=== PATIENT | female | born 1950 | race Caucasian/White ===

== ENCOUNTER 2023-11-30 08:00 | Inpatient (IN) | payer OTHER ==
[2023-11-30 08:31] LABS: Protime INR 1.72
[2023-11-30 08:35] LABS: Absolute Basophils 0.1 K/uL (0-0.5); Absolute Eosinophils 0.3 K/uL (0-0.5); Absolute Monocytes 0.4 K/uL (0.1-1.3); Absolute Neutrophil 4.8 K/uL (1.8-8.0); Basophils % 0.8 % (0-1.3); Eosinophils % 4.2 % (0-4.4); Hematocrit 16.5 % (36.0-45.0); Lymphocytes % 15.7 % (15.3-44.8); MCH 21.6 pg (27.0-35.0); MCHC 30.9 g/dL (32.0-36.0); Monocytes % 6.2 % (3.3-12.3); Neutrophils % 73.1 % (41.7-73.7); Nucleated Red Blood Cells % 0.1 % (0-0); Platelets 298 thou/uL (152-406); RBC Red Blood Cell Count 2.36 M/uL (3.86-4.86); Red Cell Distribution Width 15.9 % (12.1-15.2)
[2023-11-30 08:38] LABS: Hemoglobin 5.1 g/dL (12.0-15.0)
[2023-11-30 08:52] LABS: ALT/SGPT < 14 U/L (13-56); AST/SGOT < 10 U/L (15-37); Albumin 3.3 g/dL (3.4-5.0); Albumin/Globulin Ratio 0.9 (1.1-1.8); Alkaline Phosphatase 91 U/L (45-117); Anion Gap 10.4 mEq/L (5.0-15.0); BUN Blood Urea Nitrogen 27 mg/dL (7-18); Bicarbonate 24 mEq/L (21-32); Bilirubin Direct < 0.2 mg/dL (0-0.2); Bilirubin Indirect, Calculated 0.2 mg/dL (0.2-0.8); Bilirubin Total 0.4 mg/dL (0.2-1.0); Globulin 3.7 g/dL (2.3-3.5); Glomerular Filtration Rate 31 ml/min (=/>90); Glucose Level 143 mg/dL (74-106); Magnesium 1.6 mg/dL (1.6-2.4); NT PRO-BNP 2903 pg/mL (<125); Potassium 3.4 mEq/L (3.5-5.1); Sodium Level 138 mEq/L (136-145); Troponin High Sensitivity 5.2 pg/mL (<58.9)
[2023-11-30] MEDS ORDERED: PANTOPRAZOLE 40 MG INJ ONE (08:57)
--- NOTE | 2023-11-30 08:57 | RAD REPORT ---
EXAMINATION: ONE VIEW CHEST XR CLINICAL INDICATION: Female, 73 years old[address] [facility] MAIN SOB Bed Name: 4 TECHNIQUE: Frontal chest projection is submitted. Examination is limited by patient positioning and t echnique. COMPARISON: No prior exam. FINDINGS: The lungs are well inflated and clear. Superimposition of soft tissues somewhat limits evaluation. No pneumothorax or sizable effusion. The heart is normal in size. IMPRESSION: No acute intrathoracic abnormalities.
--- NOTE | 2023-11-30 08:58 | ER ---
Nurse's Notes [facility] Name: Michelle Pillai Age: 73 yrs Sex: Female : 1950 Arrival Date: 11/30/2023 Time: 07:27 Bed 4 Private MD: Diagnosis: GI Bleed/ Gastrointestinal hemorrhage, unspecified;Anemia, unspecified;Unspecified atrial fibrillation Presentation: 11/29 08:41 Chief complaint: Patient states: A fib with dyspnea worse than usual for 1 week. ll1 Coronavirus screen: Client denies travel out of the [place] in the last 14 days. At this time, the client does not indicate any symptoms associated with coronavirus-19. Ebola Screen: Patient denies travel to an Ebola-affected area in the 21 days before illness onset. Initial Sepsis Screen: Does the patient meet any 2 criteria? No. Patient's initial sepsis screen is negative. Does the patient have a suspected source of infection? No. Patient's initial sepsis screen is negative. Risk Assessment: Do you want to hurt yourself or someone else? Patient reports no desire to harm self or others. Onset of symptoms was November 23, 2023. 08:41 Method Of Arrival: Ambulatory ll1 08:41 Acuity: HIRO 3 ll1 Triage Assessment: 08:41 General: Appears in no apparent distress. Behavior is calm, cooperative, appropriate ll1 for age. General: Reports fatigue for. Pain: Denies pain. Neuro: Reports weakness. Cardiovascular: Reports fatigue, palpitations. Respiratory: Reports shortness of breath Onset: The symptoms/episode began/occurred 1 week, the patient has mild shortness of breath. Historical: - Allergies: 08:39 Benadryl; ll1 08:39 PENICILLINS; ll1 - PMHx: 08:39 Hypertensive disorder; Atrial fibrillation; ll1 - Immunization history:: Adult Immunizations up to date. - Infectious Disease History:: Denies. - Social history:: Smoking status: Patient denies any tobacco usage or history of. Screenin:45 [facility] ED Fall Risk Assessment (Adult) History of falling in the last 3 months, ll1 including since admission No falls in past 3 months (0 pts) Confusion or Disorientation No (0 pts) Intoxicated or Sedated No (0 pts) Impaired Gait No (0 pts) Mobility Assist Device Used No (0 pt) Altered Elimination No (0 pt) Score/Fall Risk Level 0 - 2 = Low Risk Maintained a safe environment, Hourly rounding (assess needs \\T\\ fall precautionary measures) done. Abuse screen: Denies threats or abuse. Nutritional screening: No deficits noted. Tuberculosis screening: No symptoms or risk factors identified. Assessment: 08:45 Cardiovascular: Rhythm is atrial fibrillation. Respiratory: Airway is patent ll1 Respiratory effort is even, unlabored, Breath sounds are clear bilaterally. 08:53 Reassessment: No changes from previously documented assessment. Patient and/or family ll1 updated on plan of care and expected duration. Pain level reassessed. Patient is alert, oriented x 3, equal unlabored respirations, skin warm/dry/pink. 09:10 Reassessment: No changes from previously documented assessment. Patient and/or family ll1 updated on plan of care and expected duration. Pain level reassessed. Patient is alert, oriented x 3, equal unlabored respirations, skin warm/dry/pink. 09:40 Reassessment: No changes from previously documented assessment. Patient and/or family ll1 updated on plan of care and expected duration. Pain level reassessed. Patient is alert, oriented x 3, equal unlabored respirations, skin warm/dry/pink. 10:40 Reassessment: No changes from previously documented assessment. Patient and/or family ll1 updated on plan of care and expected duration. Pain level reassessed. Patient is alert, oriented x 3, equal unlabored respirations, skin warm/dry/pink. 11:40 Reassessment: No changes from previously documented assessment. Patient and/or family ll1 updated on plan of care and expected duration. Pain level reassessed. Patient is alert, oriented x 3, equal unlabored respirations, skin warm/dry/pink. 12:25 Reassessment: No changes from previously documented assessment. Patient and/or family ll1 updated on plan of care and expected duration. Pain level reassessed. Patient is alert, oriented x 3, equal unlabored respirations, skin warm/dry/pink. 14:10 Reassessment: No changes from previously documented assessment. Patient and/or family ll1 updated on plan of care and expected duration. Pain level reassessed. Patient is alert, oriented x 3, equal unlabored respirations, skin warm/dry/pink. Vital Signs: 08:41 BP 103 / 55; Pulse 88; Resp 17; Pulse Ox 100% on R/A; Pain 0/10; ll1 08:53 Temp 97.3(TE); ll1 08:55 Weight 102.06 kg; Height 5 ft. 9 in. ; aa5 09:16 Pulse 89; Resp 17; Pulse Ox 100% on R/A; ll1 10:40 BP 103 / 55; Pulse 101; Resp 18; Temp 97; Pulse Ox 99% on R/A; ll1 11:40 BP 106 / 69; Pulse 106; Resp 17; Temp 97.2; Pulse Ox 99% on R/A; ll1 12:38 BP 92 / 77; Pulse 96; Resp 17; Pulse Ox 98% on R/A; ll1 14:10 BP 110 / 48; Pulse 100; Resp 17; Pulse Ox 100% on R/A; Pain 0/10; ll1 08:55 Body Mass Index 33.23 (102.06 kg, 175.26 cm) aa5 08:41 Pain Scale: Adult ll1 14:10 Pain Scale: Adult ll1 09:16 A fib on monitor ll1 ED Course: 07:59 Patient arrived in ED. ra3 08:01 Norma Hager PA-C is PHCP. sb4 08:01 Brayan Ryan MD is Attending Physician. sb4 08:14 Arm band placed on Patient placed in an exam room, on a stretcher. ll1 08:20 Inserted saline lock: 22 gauge in left antecubital area, using aseptic technique. Blood ll1 collected. Flushed with 10 mL NS. 08:20 Initial lab(s) drawn, by me, sent to lab. ll1 08:32 EKG done. ll1 08:36 XRAY Chest (1 view) In Process Unspecified. EDMS 08:43 Triage completed. ll1 08:46 Patient has correct armband on for positive identification. Provided Education on: ER ll1 procedures and process. Client placed on continuous cardiac and pulse oximetry monitoring. NIBP monitoring applied. library monitor on. 09:07 initiated transfer to [facility]. bd 09:08 Type And Screen Sent. aa5 09:08 Bb Add On Sent. aa5 10:20 Missed attempt(s): 22 gauge in right antecubital area. Bleeding controlled, band aid ll1 applied, catheter tip intact. 10:27 Inserted saline lock: 20 gauge in left wrist, using aseptic technique. Flushed with 10 bp mL NS. 10:47 spoke with Robina at [facility], no icu beds available at [facility], pt can go to a tele bed after she gets 2 units of blood. 12:06 Placido Bran is Hospitalizing Provider. sb4 12:25 1225 CM met with and her daughter Luisa at the bedside in the Ed exam ane room. Patient identified by name and . Demographic sheet confirmed. Patient states she lives with her daughter in a 2 story home, however reports she lives exclusively on the ground floor. She states that prior to admission, she performs ADLs independently and without physical limitation. Patient states she has an MPOA in place and does not have DME, HH, home oxygen or other medical services at this time. Luisa states " We did all this with my Dad, so we are familiar". states she prefers to return home upon discharge and Luisa states she will transport her home when she is discharged. CM team will continue to follow and coordinate care. 12:45 pt denied at [facility] by the GI transfer cancelled by provider. bd 14:18 No provider procedures requiring assistance completed. Patient admitted, IV remains in ll1 place. Administered Medications: 09:05 Drug: Pantoprazole IVP 80 mg IVP once Route: IVP; Site: left antecubital; aa5 10:28 Follow up: Response: No adverse reaction ll1 09:36 Drug: Pantoprazole IV 8 mg/hr IV at 25 ml/hr continuous; (Standard dilution is 80 mg in bp 250 mL NS) Route: IV; Rate: 25 ml/hr; Site: left antecubital; 14:19 Follow up: Response: No adverse reaction; IV Status: Infusion continued upon admission; ll1 IV Intake: 50ml Medication: 08:46 VIS not applicable for this client. ll1 Intake: 14:19 IV: 50ml; Total: 50ml. ll1 Outcome: 08:57 ER care complete, transfer ordered by . sb4 12:06 Decision to Hospitalize by Provider. sb4 14:15 Instructed on the need for admit, ll1 14:18 Admitted to Med/surg accompanied by tech, via stretcher, room 409, with chart, Report ll1 called to faxed to 06 20:18 Condition: stable 14:19 Patient left the ED. ll1 Signatures: Dispatcher [employer] EDMS Monica Mclean Audri, RN RN aa5 Michael Greer RN RN Dc Murillo RN RN ll1 Norma Hager, PAIsraelC PA-Kailyn [email or web address] Cori Goodman ra3 Julita Biswas RN RN ane Corrections: (The following items were deleted from the chart) 14: 08:35 Mary Shin, RN is Primary Nurse. aa5 [email or web address]
--- NOTE | 2023-11-30 08:58 | EDPHYS ---
Physician Documentation [facility] Name: Michelle Pillai Age: 73 yrs Sex: Female : 1950 Arrival Date: 11/30/2023 Time: 07:27 Bed 4 Private MD: ED Physician Brayan Ryan HPI: 11/29 08:13 This 73 yrs old Female presents to ER via Unassigned with complaints of Shortness Of sb4 Breath. 08:13 Patient with past medical history of hypertension and atrial fibrillation on metoprolol sb4 and Eliquis presents to the emergency department with complaints of shortness of breath. States that she has been in A-fib for the past couple of years but it has gotten worse over the past few weeks, making her short of breath on exertion. She saw cardiology 5 days ago who recommended her to go to the emergency department for admission and initiation of sotalol and GENNA conversion. She denies any current chest pain and is in no acute distress. Historical: - Allergies: 08:39 Benadryl; ll1 08:39 PENICILLINS; ll1 - PMHx: 08:39 Hypertensive disorder; Atrial fibrillation; ll1 - Immunization history:: Adult Immunizations up to date. - Infectious Disease History:: Denies. - Social history:: Smoking status: Patient denies any tobacco usage or history of. ROS: 08:13 Constitutional: Negative for fever, chills, and weight loss, sb4 08:13 Respiratory: Positive for dyspnea on exertion, shortness of breath, on exertion. 08:13 All other systems are negative, Exam: 08:13 Constitutional: This is a well developed, well nourished patient who is awake, alert, sb4 and in no acute distress. Head/Face: Normocephalic, atraumatic. Eyes: Extra-ocular motions intact. Periorbital areas with no swelling, redness, or edema. ENT: Mucous membranes moist. Respiratory: Lungs have equal breath sounds bilaterally, clear to auscultation and percussion. No rales, rhonchi or wheezes noted. No increased work of breathing, no retractions or nasal flaring. Abdomen/GI: Soft, non-tender, no distension. Skin: Warm, dry with normal turgor. Normal color with no rashes, no lesions, and no evidence of cellulitis. 08:13 Cardiovascular: Rate: tachycardic, Rhythm: irregularly irregular, Vital Signs: 08:41 BP 103 / 55; Pulse 88; Resp 17; Pulse Ox 100% on R/A; Pain 0/10; ll1 08:53 Temp 97.3(TE); ll1 08:55 Weight 102.06 kg; Height 5 ft. 9 in. ; aa5 09:16 Pulse 89; Resp 17; Pulse Ox 100% on R/A; ll1 10:40 BP 103 / 55; Pulse 101; Resp 18; Temp 97; Pulse Ox 99% on R/A; ll1 11:40 BP 106 / 69; Pulse 106; Resp 17; Temp 97.2; Pulse Ox 99% on R/A; ll1 12:38 BP 92 / 77; Pulse 96; Resp 17; Pulse Ox 98% on R/A; ll1 14:10 BP 110 / 48; Pulse 100; Resp 17; Pulse Ox 100% on R/A; Pain 0/10; ll1 08:55 Body Mass Index 33.23 (102.06 kg, 175.26 cm) aa5 08:41 Pain Scale: Adult ll1 14:10 Pain Scale: Adult ll1 09:16 A fib on monitor ll1 MDM: 08:01 Patient medically screened. sb4 08:51 ED course: Patient's hemoglobin came back low at 5.1. She denies any history of anemia sb4 but does report intermittent melanotic diarrhea for the past month. Denies any hematemesis. She is on Eliquis, did not take it this morning. We do not have GI on-call at this time, I will transfer her for GI services. 08:54 Differential diagnosis: Anemia asthma, CHF exacerbation, pneumonia, Unstable Angina. sb4 Data reviewed: vital signs, nurses notes, lab test result(s), EKG, radiologic studies, I have discussed the patient's presentation/case with the attending Emergency Department Physician;. Historians other than the Patient: Daughter/Son: daughter. Care significantly affected by the following chronic conditions: Hypertension. Counseling: I had a detailed discussion with the patient and/or guardian regarding the historical points, exam findings, and any diagnostic results supporting the discharge/admit diagnosis, lab results, radiology results, the need to transfer to another facility, [facility] does not immediately have the required specialist. 10:37 ED course: [facility] will take patient to the telemetry floor once her sb4 blood is finished transfusing. They do not have any ICU beds available at this time and will not take her on the floor with blood infusing. [facility] beds available. 12:25 ED course: Dr. Goodman () is supervisor dehydrogenation, will keep patient here. sb4 11/29 08:07 Order name: Basic Metabolic Panel; Complete Time: 08:53 sb4 11/29 08:07 Order name: CBC with Diff; Complete Time: 09:39 sb4 11/29 08:07 Order name: LFT's; Complete Time: 08:54 sb4 11/29 08:07 Order name: Magnesium; Complete Time: 08:54 sb4 11/29 08:07 Order name: NT PRO-BNP; Complete Time: 08:54 sb4 11/29 08:07 Order name: PT-INR; Complete Time: 08:32 sb4 11/29 08:07 Order name: Troponin HS; Complete Time: 08:54 sb4 11/29 08:45 Order name: Type And Screen sb4 11/29 08:50 Order name: Bb Add On bd 11/29 09:00 Order name: Packed RBC Leukored EDMS 11/29 09:39 Order name: CBC Smear Scan; Complete Time: 09:39 EDMS 11/29 09:46 Order name: ABO/RH no charge; Complete Time: 09:49 EDMS 11/29 13:12 Order name: T4 Free EDMS 11/29 13:12 Order name: Thyroid Stimulating Hormone EDMS 11/29 13:12 Order name: Urinalysis w/ reflexes EDMS 11/29 13:12 Order name: Basic Metabolic Panel EDMS 11/29 13:12 Order name: Basic Metabolic Panel EDMS 11/29 13:12 Order name: CBC with Automated Diff EDMS 11/29 13:12 Order name: CBC with Automated Diff EDMS 11/29 13:12 Order name: Lipid Profile EDMS 11/29 13:12 Order name: Lipid Profile EDMS 11/29 13:12 Order name: Magnesium EDMS 11/29 13:12 Order name: Magnesium EDMS 11/29 13:12 Order name: Phosphorus EDMS 11/29 13:12 Order name: Phosphorus EDMS 11/29 13:12 Order name: Troponin High Sensitivity EDMS 11/29 13:12 Order name: Troponin High Sensitivity EDMS 11/29 13:12 Order name: Troponin High Sensitivity EDMS 11/29 08:07 Order name: XRAY Chest (1 view); Complete Time: 08:57 sb4 11/29 12:50 Order name: CT Abd/Pelvis - Without Contrast sb4 11/29 14:04 Order name: CT; Complete Time: 14:04 EDMS 11/29 08:07 Order name: EKG; Complete Time: 08:07 sb4 11/29 13:12 Order name: CONS Physician Consult EDAZ 11/29 13:12 Order name: Physical Therapy Consult EDAZ 11/29 08:07 Order name: Cardiac monitoring; Complete Time: 08:35 sb4 11/29 08:07 Order name: EKG - Nurse/Tech; Complete Time: 08:35 sb4 11/29 08:07 Order name: IV Saline Lock; Complete Time: 08:35 sb4 11/29 08:07 Order name: Labs collected and sent; Complete Time: 08:35 sb4 11/29 08:07 Order name: O2 Per Protocol; Complete Time: 08:11 sb4 11/29 08:07 Order name: O2 Sat Monitoring; Complete Time: 08:11 sb4 EC:49 Rate is 94 beats/min. Rhythm is irregularly irregular, A fib. QRS interval is normal at sb4 80 msec. QT interval is normal at 362 msec. No Q waves. Clinical impression: Atrial Fibrillation. Interpreted by me. Reviewed by me. Administered Medications: 09:05 Drug: Pantoprazole IVP 80 mg IVP once Route: IVP; Site: left antecubital; aa5 10:28 Follow up: Response: No adverse reaction ll1 09:36 Drug: Pantoprazole IV 8 mg/hr IV at 25 ml/hr continuous; (Standard dilution is 80 mg in bp 250 mL NS) Route: IV; Rate: 25 ml/hr; Site: left antecubital; 14:19 Follow up: Response: No adverse reaction; IV Status: Infusion continued upon admission; ll1 IV Intake: 50ml Disposition: 08:54 Critical Care:. sb4 Disposition Summary: 11/30/23 12:06 Hospitalization Ordered Notes: Hospitalization Status: Inpatient Admission sb4 Provider: Placido Bran sbBrianna Location: Telemetry/MedSurg (Inpatient) sb4 Condition: Fair(11/30/23 12:06) sb4 Problem: new(11/30/23 12:06) sb4 Symptoms: are unchanged(11/30/23 12:06) sb4 Bed/Room Type: Standard sb4 Room Assignment: 407(11/30/23 13:31) bd Diagnosis - GI Bleed/ Gastrointestinal hemorrhage, unspecified(11/30/23 12:06) sb4 - Anemia, unspecified(11/30/23 12:06) sb4 - Unspecified atrial fibrillation(11/30/23 12:06) sb4 Forms: - Medication Reconciliation Form sb4 - SBAR form sb4 - Leadership Thank You Letter sb4 Critical care time excluding procedures: 08:54 Critical care time: Bedside Care: 10 minutes, Consultation: 20 minutes, Family sb4 Intervention: 5 minutes. Total time: 35 minutes Addendum: 12/01/2023 17:16 Co-signature as Attending Physician, Brayan Ryan MD I reviewed the patient's care r n provided by the Advanced Practice Provider and agree with the diagnosis and treatment plan. Signatures: Dispatcher [employer] EDMS Monica Mclean Roman, MD MD rn Calderon, Audri, RN RN aa5 Michael Greer RN RN bp Lewis, Lynsay, RN RN ll1 Norma Hager PA-C PAShan sb4 Corrections: (The following items were deleted from the chart) 11/29 08:17 08:13 Patient with past medical history of hypertension atrial fibrillation on sb4 metoprolol and Eliquis presents to the emergency department with complaints of shortness of breath. States that she has been in A-fib for the past couple of years but it has gotten worse over the past few weeks, making her short of breath on exertion. She saw cardiology 5 days ago who recommended her to go to the emergency department for admission and initiation of sotalol and GENNA conversion. She denies any current chest pain and is in no acute distress. sb4 08:52 08:51 ED course: Patient's hemoglobin came back low at 5.1. She denies any history of sb4 anemia but does report intermittent melanotic diarrhea for the past month. Denies any hematemesis. She is on Eliquis, did not take it this morning. sb4 12: 08:57 hospitalist sb4 sb4 12: 08:57 [facility] sb4 sb4 12: 08:57 Higher level of care sb4 sb4 12:06 08:57 Fair sb4 sb4 12: 08:57 new sb4 sb4 12: 08:57 are unchanged sb4 sb4 12: 08:57 GI Bleed/ Gastrointestinal hemorrhage, unspecified sb4 sb4 12: 08:57 Unspecified atrial fibrillation sb4 sb4 12:06 08:57 Anemia, unspecified sb4 sb4 13:31 12:06 sb4 bd
[2023-11-30] MEDS: PANTOPRAZOLE INJ 80 MG in NA CHLORIDE 0.9% 250 ML IV SCH (09:30)
[2023-11-30 09:38] LABS: Anisocytosis 1+; Blood Morphology Comment NOTED (NOT SEEN); Hypochromasia 2+; Microcytosis 1+; Platelet Estimate ADEQ; Platelets, Giant FEW PRESENT; White Blood Cell Scan OK (OK)
[2023-11-30] MEDS ORDERED: NA CHLORIDE 0.9% 500 ML ONE (10:26)
[2023-11-30] MEDS ORDERED: ACETAMINOPHEN 325 MG TABLET PO PRN (13:05)
--- NOTE | 2023-11-30 13:37 | P.HP ---
Certification for Inpatient Patient admitted to: Inpatient With expected LOS: >2 Midnights Patient will require the following post-hospital care: None Practitioner: I am a practitioner with admitting privileges, knowledge of patient current condition, hospital course, and medical plan of care. Services: Services provided to patient in accordance with Admission requirements found in Title 42 Section 412.3 of the Code of Federal Regulations Patient History Date of Service: 11/30/23 Reason for admission: A-fib with RVR, GI bleed History of Present Illness: Michelle Pillai is a 73 year old female with past medical history of hypertension and atrial fibrillation on Eliquis who presents to the ED from cardiology office recommending admission for initiation of sotalol and likely GENNA cardioversion. On presentation her labs revealed H&H 5.1/16.5 and platelets 298. She reports melanotic diarrhea for 1 month that occurs intermittent every three days with the last episode this morning. She has not had a GI bleed previously. On evaluation, she is hypotensive with mild tachyacardia, alert/oriented, tolerating PRBC transfusion. Chest xray negative Laboratory evaluation H&H 5.1/16.5, platelets 298, potassium 3.4, BUN/creatinine 27/1.73, GFR 31, serum iron glucose 143, BNP 2903 Michelle will be admitted to hospitalist service for further treatment of active blood loss anemia secondary to GI bleed and atrial fibrillation with RVR. Allergies diphenhydramine [From Benadryl] Allergy (Unknown, Verified 11/30/23 15:23) Rash Penicillins Allergy (Unknown, Verified 11/30/23 15:23) Itching/Hives/Rash Home Medications: Apixaban [Eliquis] 1 tab PO BID 11/30/23 Metoprolol Tartrate 1 tab PO BID 11/30/23 Olmesartan/Hydrochlorothiazide [Olmesartan-Hctz 20-12.5 mg Tab] 1 each PO DAILY 11/30/23 metroNIDAZOLE [Metronidazole] 1 appl TD DAILY PRN 11/30/23 - Past Medical/Surgical History -: Atrial fibrillation -: Hypertension Past Surgical History: Reviewed- Non-Contributory - Family History Father History Unknown: Yes -: Heart disease, Hypertension, Diabetes Notes: OK Brother History Unknown: Yes -: Cancer Notes: Brain CA, - Social History Smoking Status: Never smoker Alcohol use: No CD- Drugs: No Review of Systems General: Weakness Gastrointestinal: Diarrhea, Melena Physical Examination - Physical Exam General: Alert, In no apparent distress, Oriented x3 HEENT: Atraumatic, Normocephalic, PERRLA Neck: Supple, 2+ carotid pulse no bruit, JVD not distended Respiratory: Clear to auscultation bilaterally, Normal air movement Cardiovascular: Normal pulses, Normal S1 S2, Irregular heart rate/rhythm (afib) Capillary refill: <2 Seconds Gastrointestinal: Normal bowel sounds, Soft and benign Musculoskeletal: No clubbing Integumentary: No rashes Neurological: Normal speech, Normal tone - Studies Laboratory Data (last 24 hrs) 11/30/23 11/30/23 11/30/23 08:20 08:20 08:20 WBC 6.60 Hgb 5.1 L* Hct 16.5 L Plt Count 298 PT 19.0 H INR 1.72 Sodium 138 Potassium 3.4 L BUN 27 H Creatinine 1.73 H Glucose 143 H Magnesium 1.6 Total Bilirubin 0.4 AST < 10 L ALT < 14 Alkaline Phosphatase 91 Assessment and Plan - Plan Assessment and plan Atrial fibrillation with RVR -Consult cardiology, recommendations to initiate sotalol -Serial EKG -Troponin trending -Continuous telemetry -Hold Eliquis d/t GI bleed -TSH/ free T4 2.750/1.18 Blood loss anemia secondary to GI bleed Melanotic diarrhea -H&H 5.1/16.5, redraw status post transfusion -Consult Dr. Goodman -2 units PRBC given in the ED -Protonix gtt -Melanotic diarrhea this morning -hold Eliquis KEYANNA -BUN/creatinine 27/1.73, GFR 31 -IVF Hyperglycemia -Glucose 143 -monitor in AM labs Fluid volume overload -BMP 2930 History of HTN -continue home medications when appropriate DVT PPx SCD Full code LOS 2 to 3 days Discharge Plan: Home Plan to discharge in: 24 Hours - Advance Directives Does patient have a Living Will: No Does patient have a Durable POA for Healthcare: No
--- NOTE | 2023-11-30 14:04 | RAD REPORT ---
EXAMINATION: CT ABDOMEN AND PELVIS WITHOUT CONTRAST CLINICAL INDICATION: Female, 73 years old. [facility]LE[facility] NO CONTRAST Bed Name: 4 TECHNIQUE: CT abdomen and pelvis was performed, without IV contrast, as per department protocol. Axia l, sagittal and coronal reconstructions were obtained. One or more of the following dose reduction techniques were used: Automated exposure control, adjustment of the mA and kV according to the patien t size, and iterative reconstruction. Unless otherwise specified, incidental findings do not require dedicated imaging follow-up. COMPARISON: No prior exam. FINDINGS: The lack of intravenous contrast limits the sensitivity of this exam for evaluation of solid visceral organs, vascular structures, and retroperitoneum. LOWER CHEST: The visualized lung bases are clear. LIVER: Normal in size and contour. No focal lesion. Cholecystectomy clips. SPLEEN: Normal size. No focal lesion. PANCREAS: No mass, ductal dilation, or angelica-pancreatic fluid. ADRENALS: Normal; no mass. KIDNEYS AND URETERS: Normal size and contour. No hydronephrosis. Benign-appearing right renal cyst. URINARY BLADDER: Normal contour. GASTROINTESTINAL TRACT: No evidence of bowel obstruction, significant free fluid, free air or abscess . There is mild diverticulosis coli of the sigmoid colon without diverticulitis. APPENDIX: Normal appendix. LYMPH NODES: No lymphadenopathy. MUSCULOSKELETAL: Mild multilevel spinal degenerative changes. ADDITIONAL FINDINGS: None. IMPRESSION: No acute or concerning abnormalities in the abdomen or pelvis, with evaluation limited by lack of IV contrast.
[2023-11-30] MEDS: NA CHLORIDE 0.9% 1,000 ML IV SCH (15:25)
[2023-11-30] MEDS: SOTALOL HCL 80 MG TAB PO SCH (15:25)
[2023-11-30 17:02] LABS: Thyroid Stimulating Hormone 2.75 uIU/mL (0.358-3.740)
[2023-11-30] MEDS ORDERED: PANTOPRAZOLE INJ 80 MG in NA CHLORIDE 0.9% 250 ML IV SCH (18:00)
[2023-11-30] MEDS: NA CHLORIDE 0.9% 250 ML ONE ×2 (19:57→21:24)
[2023-11-30] MEDS: PANTOPRAZOLE 40 MG INJ ONE (21:23)
[2023-12-01 00:53] LABS: Hematocrit 17.5 % (36.0-45.0)
[2023-12-01 00:55] LABS: Hemoglobin 5.6 g/dL (12.0-15.0)
[2023-12-01] MEDS: SOTALOL HCL 80 MG TAB PO SCH (05:51)
[2023-12-01 06:18] LABS: Absolute Basophils 0.1 K/uL (0-0.5); Absolute Eosinophils 0.3 K/uL (0-0.5); Absolute Lymphocytes (CBC) 1.3 K/uL (0.7-4.9); Absolute Monocytes 0.5 K/uL (0.1-1.3); Absolute Neutrophil 4.6 K/uL (1.8-8.0); Basophils % 1.1 % (0-1.3); Eosinophils % 5.1 % (0-4.4); Hematocrit 19.2 % (36.0-45.0); Hemoglobin 6.2 g/dL (12.0-15.0); Lymphocytes % 18.9 % (15.3-44.8); MCH 23.9 pg (27.0-35.0); MCHC 32.3 g/dL (32.0-36.0); MPV 7.1 fL (7.6-11.3); Monocytes % 7.1 % (3.3-12.3); Neutrophils % 67.8 % (41.7-73.7); Nucleated Red Blood Cells % 0.1 % (0-0); Platelets 244 thou/uL (152-406); Red Cell Distribution Width 19.6 % (12.1-15.2)
[2023-12-01 06:37] LABS: Anion Gap 11.6 mEq/L (5.0-15.0); Magnesium 1.2 mg/dL (1.6-2.4); Phosphorus 3.2 mg/dL (2.5-4.9); Potassium 3.6 mEq/L (3.5-5.1)
--- NOTE | 2023-12-01 09:58 | P.CNS ---
Date of Consult: 12/01/23 Chief Complaint: A-fib with RVR, GI bleed History of Present Illness: Patient with PMH of atrial fibrillation, HTN, presented to clinic earlier for worsening palpitations and MORROW, plan was to admit to hospital for Sotalol load and possible DCCV, blood work sows significant anemia and patient reported melena, found to have Hgb of 5. Allergies diphenhydramine [From Benadryl] Allergy (Unknown, Verified 11/30/23 15:23) Rash Penicillins Allergy (Unknown, Verified 11/30/23 15:23) Itching/Hives/Rash Home medications list reviewed: Yes Home Medications: Apixaban [Eliquis] 1 tab PO BID 11/30/23 Metoprolol Tartrate 1 tab PO BID 11/30/23 Olmesartan/Hydrochlorothiazide [Olmesartan-Hctz 20-12.5 mg Tab] 1 each PO DAILY 11/30/23 metroNIDAZOLE [Metronidazole] 1 appl TD DAILY PRN 11/30/23 - Past Medical/Surgical History Diabetic: No -: Atrial fibrillation -: Hypertension -: -: cholecystectomy - Family History Father History Unknown: Yes Medical History: Heart disease, Hypertension, Diabetes Notes: NM Brother History Unknown: Yes Medical History: Cancer Notes: Brain CA, - Social History Alcohol use: No CD- Drugs: No Caffeine use: Yes Place of Residence: Home Review of Systems 10-point ROS is otherwise unremarkable Physical Examination Temp Pulse Resp BP Pulse Ox 97.0 F 104 H 16 114/56 L 95 12/01/23 04:00 12/01/23 04:00 12/01/23 04:00 12/01/23 04:00 12/01/23 04:00 General: Alert, In no apparent distress HEENT: Atraumatic, PERRLA, Mucous membr. moist/pink, EOMI, Sclerae nonicteric Neck: Supple, 2+ carotid pulse no bruit, No LAD, Without JVD or thyroid abnormality Respiratory: Clear to auscultation bilaterally, Normal air movement Cardiovascular: Irregular heart rate/rhythm Gastrointestinal: Normal bowel sounds, No tenderness Musculoskeletal: No tenderness Integumentary: No rashes Neurological: Normal gait, Normal speech, Normal tone, Normal affect Lymphatics: No axilla or inguinal lymphadenopathy - Problems (1) Atrial fibrillation Current Visit: Yes Status: Acute Plan: Patient was started on Sotalol 80 mg po BID (EKG after 3rd dose). Anticoagulation on hold due to GI bleed, no DCCV can be done unless patient is cleared for anticoagulation. (2) GI bleed Current Visit: Yes Status: Acute Plan: blood transfusion, GI consult. (3) HTN (hypertension) Current Visit: Yes Status: Acute Plan: continue Losartan/hctz
--- NOTE | 2023-12-01 10:29 | EKG ---
Test Date: 2023-11-30 Test Time: 08:31:04 Food Service Worker: MARTIN MEASUREMENT RESULTS: Intervals: Rate: 94 [place]: QRSD: 80 QT: 362 QTc: 452 [place]: P: [place]: QRS: -11 T: -39 INTERPRETIVE STATEMENTS: Atrial fibrillation Cannot rule out Anterior infarct, age undetermined ST & T wave abnormality, consider inferior ischemia Abnormal ECG No previous ECG available for comparison Electronically Signed On 12-01-23 10:26:16 CDT by Salvador Francis
[2023-12-01] MEDS: PANTOPRAZOLE INJ 80 MG in NA CHLORIDE 0.9% 250 ML IV SCH (11:19)
[2023-12-01 12:23] LABS: Hematocrit 23.5 % (36.0-45.0); Hemoglobin 7.6 g/dL (12.0-15.0)
--- NOTE | 2023-12-01 13:01 | P.PN ---
Date of Service: 12/01/23 Subjective: No further episodes of melena thus far Still mildly tachycardic Blood pressure stable S/P 3 unit PRBC ROS: 10 point ROS as noted above, otherwise negative Physical exam GEN: Alert, oriented, NAD HEENT: Normal conjunctiva, sclera anicteric CV: Tachycardic, irregular heart rhythm, no edema Pulm: Nonlabored respirations on room air ABD: Soft, nontender, nondistended MSK: No joint tenderness Integumentary: No rashes Neuro: Normal speech, normal affect Vitals reviewed Problem List Chronic atrial fibrillation with rapid ventricular response-on chronic anticoagulation Melena/upper GI bleed Acute blood loss anemia KEYANNA Plan Chronic atrial fibrillation with rapid ventricular response-on chronic anticoagulation Initial plan was for GENNA cardioversion, sotalol Would not be able to go forward with GENNA cardioversion given we cannot anticoagulate with active GI bleed Continue sotalol for rate/rhythm control May benefit with Watchman procedure outpatient Cardiology following, monitor on telemetry Melena/upper GI bleed Acute blood loss anemia S/P 2 unit PRBC Repeat hemoglobin 7.6 Discussed with GI, plan for EGD today Further discussion regarding Eliquis with GI after EGD Continue Protonix drip KEYANNA Improving with blood, IV fluids Monitor renal function daily VTE: SCD Code: Full Dispo: 48 to 72 hours Time Spent Managing Pts Care (In Minutes): 35
[2023-12-01] MEDS ORDERED: LIDOCAINE 1% MPF 30 ML VIAL ONE (13:25)
[2023-12-01] MEDS ORDERED: propofoL 200 MG/20 ML VIAL IV ONE (13:25)
[2023-12-01] MEDS: NA CHLORIDE 0.9% 500 ML ONE (13:30)
[2023-12-01] MEDS ORDERED: EPINEPHRINE 1 MG/ML VIAL ONE (13:51)
[2023-12-01] MEDS: MAGNESIUM CITRATE 300 ML BOT PO SCH (14:45)
[2023-12-01] MEDS: GOLYTELY 4000 ML PO SCH (15:11)
[2023-12-01] MEDS: BISACODYL E.C. 5 MG TAB PO ONE (15:11)
[2023-12-01] MEDS: METOCLOPRAMIDE 10 MG/2mL INJ IV SCH (15:12)
[2023-12-01 18:43] LABS: Hematocrit 25.1 % (36.0-45.0); Hemoglobin 8.1 g/dL (12.0-15.0)
[2023-12-02 06:23] LABS: Hematocrit 22.8 % (36.0-45.0); Hemoglobin 7.3 g/dL (12.0-15.0); MCH 24.6 pg (27.0-35.0); MCHC 32.1 g/dL (32.0-36.0); MCV 76.7 fL (80-100); MPV 7.1 fL (7.6-11.3); Platelets 240 thou/uL (152-406); RBC Red Blood Cell Count 2.97 M/uL (3.86-4.86)
[2023-12-02] MEDS ORDERED: LIDOCAINE 1% MPF 5 ML VIAL ONE (06:25)
[2023-12-02] MEDS ORDERED: propofoL 200 MG/20 ML VIAL IV ONE (06:26)
[2023-12-02 06:28] LABS: AST/SGOT 15 U/L (15-37); Albumin/Globulin Ratio 0.9 (1.1-1.8); Alkaline Phosphatase 76 U/L (45-117); Anion Gap 10.4 mEq/L (5.0-15.0); BUN Blood Urea Nitrogen 16 mg/dL (7-18); Bicarbonate 22 mEq/L (21-32); Globulin 3.2 g/dL (2.3-3.5); Glomerular Filtration Rate 43 ml/min (=/>90); Glucose Level 93 mg/dL (74-106); Potassium 3.4 mEq/L (3.5-5.1); Protein, Total 6.2 g/dL (6.4-8.2); Sodium Level 141 mEq/L (136-145)
[2023-12-02 06:40] LABS: ALT/SGPT < 14 U/L (13-56)
[2023-12-02] MEDS: EPINEPHRINE 1 MG/ML VIAL ONE (07:04)
[2023-12-02] MEDS: NA CHLORIDE 0.9% 500 ML ONE (07:15)
[2023-12-02] MEDS: POTASSIUM 25 MEQ EFFERV TAB PO SCH (09:20)
[2023-12-02] MEDS ORDERED: PANTOPRAZOLE INJ 80 MG in NA CHLORIDE 0.9% 250 ML IV SCH (11:30)
--- NOTE | 2023-12-02 12:39 | P.PN ---
Subjective Date of Service: 12/02/23 Chief Complaint: A-fib with RVR, GI bleed Subjective: No new changes, No C/O voiced, Tolerating diet, Ambulating, Improving Review of Systems 10-point ROS is otherwise unremarkable Physical Examination - Vital Signs Temperature: 97 F Blood Pressure: 110/67 Pulse: 99 Respirations: 20 Pulse Ox (%): 95 - Physical Exam General: Alert, In no apparent distress HEENT: Atraumatic, PERRLA, EOMI Neck: Supple, JVD not distended Respiratory: Clear to auscultation bilaterally, Normal air movement Cardiovascular: Irregular heart rate/rhythm Gastrointestinal: Normal bowel sounds, No tenderness Musculoskeletal: No tenderness Integumentary: No rashes Neurological: Normal speech, Normal tone, Normal affect Lymphatics: No axilla or inguinal lymphadenopathy - Studies Medications List Reviewed: Yes Assessment And Plan - Current Problems (Diagnosis) (1) Atrial fibrillation Current Visit: Yes Status: Acute Plan: Patient was started on Sotalol 80 mg po BID (EKG after 3rd dose). Anticoagulation on hold due to GI bleed, no DCCV can be done unless patient is cleared for anticoagulation. (2) GI bleed Current Visit: Yes Status: Acute Plan: blood transfusion, GI did endoscopy and colonoscopy that shows constriction with mass, s/p biopsy and surgical consult. (3) HTN (hypertension) Current Visit: Yes Status: Acute Plan: continue Losartan/hctz
[2023-12-02] MEDS ORDERED: NA CHLORIDE 0.9% 250 ML ONE (14:51)
--- NOTE | 2023-12-02 15:39 | CON ---
Date of Consultation: 12/01/2023 Reason For Consultation: GI bleed with melena and anemia. History Of Present Illness: The patient is a 73-year-old white female with history of hypertension, atrial fibrillation, cholecystectomy, , endometriosis. The patient presented to the [facility] with atrial fibrillation with rapid ventricular response and GI bleeding and melena. Hemoglobin in the emergency room was down to 5.1. She has received 3 units of packed RBCs and is up to 7.6. The patient also has coagulopathy with PT of 19.0, INR of 1.72. She denies any prior colonoscopy, EGD. She says that she is also having indigestion, reflux, heartburn and belching over the past 3 weeks wi th fatigue and dizziness, lightheadedness during that same time. She denies any abdominal pain, naus ea, vomiting, fevers, chills, night sweats, NSAID use, or aspirin and no blood thinners. Past Medical History: Significant for hypertension, atrial fibrillation, , left knee, catracho cystectomy, endometriosis, D and C's x2. Home Medications: Include Eliquis, metoprolol, olmesartan, hydrochlorothiazide, Flagyl. Allergies: PENICILLIN AND BENADRYL. Social History: She is a . One daughter. No tobacco, quit in the 1970s. No alcohol. Family History: Father with diabetes, hypertension, stroke, and myocardial infarction, as per lily hernandez. Mother at 102 years of age, appeared from cancer of unknown type. The patient was trey etienne on hospice therapy without final diagnosis of the etiology of the cancer. Review of Systems: The patient has melena, fatigue, dizziness, lightheadedness with indigestion, heartburn, reflux, belc hari for 3 weeks. No prior colonoscopy, EGD. The patient denies abdominal pain, nausea, vomiting, f oneyda, chills, night sweats, NSAID, aspirin use. No muscle aches, joint aches, backaches, depression , anxiety, seizure, syncope. No chest pain, shortness of breath. Physical Examination: Vital Signs: The patient is 5 foot 9, 225 pounds, BMI of 33.2 kg/m2. Temperature 97.7 degrees Fahre nheit, pulse 104-115, respiratory rate of 16, blood pressure 128/79, O2 saturation 95% to 100% on rhoda m air. General: She is a slightly obese white female, lying in bed, in no acute distress. HEENT: Normocephalic, atraumatic. Anicteric. Pupils equal, round, reactive to light. Extraocular movements intact. Oropharynx is clear. Neck: Supple. No masses. Respiratory: Clear to auscultation bilaterally. Cardiac: Regular rate and rhythm. Gastrointestinal: Positive bowel sounds. Soft, nontender, nondistended. No hepatosplenomegaly. Sl ightly obese. No rebound or peritoneal signs. Extremities: No clubbing, cyanosis, or edema. 2+ pulses. Neuro: Alert and oriented x3. Grossly nonfocal. 5/5 motor strength. Sensation intact to light tamar ch. Laboratory Data: The patient has a white count of 6.7, hemoglobin 5.1, up to 7.6 with transfusions, MCV of 74, platelet count of 244, polys of 68%, lymphocytes 19%, monocytes 7%, eosinophils 5%. PT of 19.0, INR of 1.72, elevated. The patient has a sodium 140, potassium 3.6, chloride 112, bicarb 20, BUN of 19, creatinine of 1.4, glucose 113. Calcium 7.3, phosphorus 3.2, magnesium 1.2. Triglyceride s 43, cholesterol 115, LDL 64, HDL 42. Albumin yesterday was 3.3, total protein 7.0. Troponin I's a re 5.2, 5.5, and 6.1 yesterday, normal. B-type natriuretic peptide elevated at 2903. Chest x-ray wa s negative. CT scan of abdomen and pelvis was unremarkable. No acute abnormalities noted except for some mild diverticulosis in the sigmoid colon, otherwise negative. Cholecystectomy clips were noted . No lymphadenopathy noted. There were mild multilevel spinal degenerative changes noted. Impression: 1.GI bleed with melena. No prior colonoscopy, EGD. The patient notes she has had fatigue, lighthea dedness, dizziness for 3 weeks along with indigestion, reflux, heartburn, belching for 3 weeks in add ition to the melena. 2.Anemia. Hemoglobin 5.1 on admission, now up to 7.6 with 3 units of packed RBCs. 3.Coagulopathy with PT of 19.0, INR of 1.72, needs to be corrected. 4.History of hypertension, atrial fibrillation, , cholecystectomy, and endometriosis and D and C's x2. Recommendation: 1.Agree with resuscitation IV fluids and packed RBCs. 2.Serial H and H and transfuse p.r.n. 3.PPI therapy. 4.EGD urgently. 5.Correct coagulopathy. INR . Consider colonoscopy as indicated. KAILEY/PATEL Voice ID: [id number] Report ID: [id number]
--- NOTE | 2023-12-02 16:01 | P.PN ---
Date of Service: 12/02/23 Subjective: Status post colonoscopy today Stricture versus mass found Receiving additional unit of PRBC ROS: 10 point ROS as noted above, otherwise negative Physical exam GEN: Alert, oriented, NAD HEENT: Normal conjunctiva, sclera anicteric CV: Tachycardic, irregular heart rhythm, no edema Pulm: Nonlabored respirations on room air ABD: Soft, nontender, nondistended MSK: No joint tenderness Integumentary: No rashes Neuro: Normal speech, normal affect Vitals reviewed Problem List Chronic atrial fibrillation with rapid ventricular response-on chronic anticoagulation Melena/upper GI bleed Acute blood loss anemia KEYANNA Plan Chronic atrial fibrillation with rapid ventricular response-on chronic anticoagulation Initial plan was for GENNA cardioversion, sotalol Would not be able to go forward with GENNA cardioversion given we cannot anticoagulate with active GI bleed Continue sotalol for rate/rhythm control May benefit with Watchman procedure outpatient Cardiology following, monitor on telemetry Melena/upper GI bleed Acute blood loss anemia S/P 4 unit PRBC Repeat hemoglobin 2 hours after transfusion EGD showed gastric ulcer with no active bleeding/ Switch to twice daily PPI Colonoscopy performed 12/01 shows stricture with possible mass Barium enema ordered, surgical consultation placedDr. Vidales is seen the patient and will be following KEYANNA Improving with blood, IV fluids Monitor renal function daily VTE: SCD Code: Full Dispo: 48 to 72 hours Time Spent Managing Pts Care (In Minutes): 35
[2023-12-02] MEDS: PANTOPRAZOLE 40 MG INJ IVP SCH (20:57)
[2023-12-02 21:43] LABS: Hematocrit 24.8 % (36.0-45.0)
[2023-12-03 05:35] LABS: Hematocrit 27.4 % (36.0-45.0); Hemoglobin 8.7 g/dL (12.0-15.0); MCH 25.1 pg (27.0-35.0); MCHC 31.7 g/dL (32.0-36.0); MCV 79.1 fL (80-100); Platelets 223 thou/uL (152-406); RBC Red Blood Cell Count 3.47 M/uL (3.86-4.86); Red Cell Distribution Width 21.1 % (12.1-15.2)
[2023-12-03 05:55] LABS: AST/SGOT 20 U/L (15-37); Albumin/Globulin Ratio 0.8 (1.1-1.8); Alkaline Phosphatase 77 U/L (45-117); Anion Gap 8.7 mEq/L (5.0-15.0); BUN Blood Urea Nitrogen 10 mg/dL (7-18); Bicarbonate 21 mEq/L (21-32); Globulin 3.6 g/dL (2.3-3.5); Glomerular Filtration Rate 44 ml/min (=/>90); Glucose Level 100 mg/dL (74-106); Potassium 3.7 mEq/L (3.5-5.1); Protein, Total 6.6 g/dL (6.4-8.2); Sodium Level 138 mEq/L (136-145)
[2023-12-03 05:57] LABS: ALT/SGPT < 14 U/L (13-56)
[2023-12-03] MEDS: POTASSIUM CL SA 10 MEQ TAB PO ONE (08:24)
--- NOTE | 2023-12-03 08:49 | RAD REPORT ---
EXAM: Single contrast barium enema INDICATION: Colon mass COMPARISON: CT abdomen January 30, 2024 Technique: Single contrast barium enema performed. Contrast reflux into small bowel. FINDINGS: An apple core 2 cm lesion involves the proximal transverse colon. Diverticula system from the colon without diverticulitis. No obstruction Fluoroscopy time: 1.3 minutes Number of images: 19 fluoroscopic spot images IMPRESSION: Apple core lesion proximal transverse colon likely neoplasm.
[2023-12-03] MEDS: NA CHLORIDE 0.9% 1,000 ML IV SCH (10:16)
--- NOTE | 2023-12-03 12:11 | EKG ---
Test Date: 2023-12-02 Test Time: 13:17:41 Business Department Chair: SHARON MEASUREMENT RESULTS: Intervals: Rate: 93 [place]: QRSD: 78 QT: 390 QTc: 484 [place]: P: [place]: QRS: 23 T: -31 INTERPRETIVE STATEMENTS: Atrial fibrillation Low voltage QRS Cannot rule out Anterior infarct, age undetermined Abnormal ECG Compared to ECG 11/30/2023 08:31:04 Low QRS voltage now present ST (T wave) deviation no longer present Possible ischemia no longer present Myocardial infarct finding still present Electronically Signed On 12-03-23 12:08:12 CDT by Salvador Francis
--- NOTE | 2023-12-03 12:23 | P.PN ---
Date of Service: 12/03/23 Subjective: No acute events overnight No new complaints today ROS: 10 point ROS as noted above, otherwise negative Physical exam GEN: Alert, oriented, NAD HEENT: Normal conjunctiva, sclera anicteric CV: Tachycardic, irregular heart rhythm, no edema Pulm: Nonlabored respirations on room air ABD: Soft, nontender, nondistended MSK: No joint tenderness Integumentary: No rashes Neuro: Normal speech, normal affect Vitals reviewed Problem List Chronic atrial fibrillation with rapid ventricular response-on chronic anticoagulation Melena/upper GI bleed Acute blood loss anemia KEYANNA Plan Chronic atrial fibrillation with rapid ventricular response-on chronic anticoagulation Initial plan was for GENNA cardioversion, sotalol Would not be able to go forward with GENNA cardioversion given we cannot anticoagulate with active GI bleed Continue sotalol for rate/rhythm control May benefit with Watchman procedure outpatient Cardiology following, monitor on telemetry Melena/upper GI bleed Acute blood loss anemia S/P 4 unit PRBC Stable since yesterday, will repeat this evening EGD showed gastric ulcer with no active bleeding/ Switch to twice daily PPI Colonoscopy performed 12/01 shows stricture with possible mass Barium enema performed on 12/01 shows apple core lesion proximal transverse colon likely neoplasm. 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 General surgery consulted and following, plan for possible resection KEYANNA Improving with blood, IV fluids Monitor renal function daily VTE: SCD-to anticoagulate given GI bleeding, mass Code: Full Dispo: 48 to 72 hours Time Spent Managing Pts Care (In Minutes): 35
--- NOTE | 2023-12-03 20:15 | RAD REPORT ---
EXAMINATION: ONE VIEW CHEST XR CLINICAL INDICATION: PICC placement TECHNIQUE: Frontal chest projection is submitted. Examination is limited by patient positioning and t echnique. COMPARISON: No prior exam. FINDINGS: The tip of the right-sided PICC line is in the SVC. The heart is upper limit of normal in size. No di splaced fractures identified. IMPRESSION: Right-sided PICC line has tip in the SVC. There is a left-sided catheter tubing also partially visual ized in the left axillary region.
[2023-12-03] MEDS: Mupirocin NASAL 2 APPL/1 GM TUBE NAS SCH (21:38)
[2023-12-04 05:45] LABS: Hematocrit 26.7 % (36.0-45.0); Hemoglobin 8.4 g/dL (12.0-15.0); MCH 25.1 pg (27.0-35.0); MCHC 31.6 g/dL (32.0-36.0); MCV 79.5 fL (80-100); MPV 7.3 fL (7.6-11.3); Platelets 199 thou/uL (152-406); RBC Red Blood Cell Count 3.36 M/uL (3.86-4.86); Red Cell Distribution Width 21.5 % (12.1-15.2)
[2023-12-04 05:56] LABS: AST/SGOT 20 U/L (15-37); Albumin 2.9 g/dL (3.4-5.0); Albumin/Globulin Ratio 0.8 (1.1-1.8); Alkaline Phosphatase 72 U/L (45-117); Anion Gap 8.8 mEq/L (5.0-15.0); BUN Blood Urea Nitrogen 9 mg/dL (7-18); Bicarbonate 20 mEq/L (21-32); Globulin 3.5 g/dL (2.3-3.5); Glomerular Filtration Rate 50 ml/min (=/>90); Glucose Level 93 mg/dL (74-106); Potassium 3.8 mEq/L (3.5-5.1); Protein, Total 6.4 g/dL (6.4-8.2); Sodium Level 138 mEq/L (136-145)
[2023-12-04 05:57] LABS: ALT/SGPT < 14 U/L (13-56)
[2023-12-04] MEDS: POTASSIUM CL SA 10 MEQ TAB PO ONE (06:17)
[2023-12-04 08:30] LABS: Anisocytosis 1+; Blood Morphology Comment NOT SEEN (NOT SEEN); Hypochromasia 1+; Platelet Estimate ADEQ; Polychromasia 1+; White Blood Cell Scan OK (OK)
[2023-12-04] MEDS ORDERED: POTASSIUM CL SA 10 MEQ TAB PO ONE (09:00)
--- NOTE | 2023-12-04 15:10 | P.PN ---
Date of Service: 12/04/23 Subjective: No acute events overnight No new complaints today Awaiting surgical procedure ROS: 10 point ROS as noted above, otherwise negative Physical exam GEN: Alert, oriented, NAD HEENT: Normal conjunctiva, sclera anicteric CV: Tachycardic, irregular heart rhythm, no edema Pulm: Nonlabored respirations on room air ABD: Soft, nontender, nondistended MSK: No joint tenderness Integumentary: No rashes Neuro: Normal speech, normal affect Vitals reviewed Problem List Chronic atrial fibrillation with rapid ventricular response-on chronic anticoagulation Melena/upper GI bleed Acute blood loss anemia KEYANNA Plan Chronic atrial fibrillation with rapid ventricular response-on chronic anticoagulation Initial plan was for GENNA cardioversion, sotalol Would not be able to go forward with GENNA cardioversion given we cannot anticoagulate with active GI bleed Continue sotalol for rate/rhythm control May benefit with Watchman procedure outpatient Cardiology following, monitor on telemetry Melena/upper GI bleed Acute blood loss anemia PICC placed 12/02 S/P 4 unit PRBC H/H stabilized but still at risk for bleeding with colonic mass and gastric ulcer EGD showed gastric ulcer with no active bleeding/ Switch to twice daily PPI Colonoscopy performed 12/01 shows stricture with possible mass Barium enema performed on 12/01 shows apple core lesion proximal transverse colon likely neoplasm. 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 General surgery consulted and following, plan for possible resection on 12/07 KEYANNA Improved, stable Monitor renal function daily VTE: SCD-to anticoagulate given GI bleeding, mass Code: Full Dispo: >3 days Time Spent Managing Pts Care (In Minutes): 35
--- NOTE | 2023-12-04 16:02 | P.PN ---
Subjective Date of Service: 12/04/23 Chief Complaint: A-fib with RVR, GI bleed Subjective: No new changes, No C/O voiced, Tolerating diet, Ambulating, Improving Review of Systems 10-point ROS is otherwise unremarkable Physical Examination - Vital Signs Temperature: 97.9 F Blood Pressure: 122/75 Pulse: 97 Respirations: 16 Pulse Ox (%): 96 - Physical Exam General: Alert, In no apparent distress HEENT: Atraumatic, PERRLA, EOMI Neck: Supple, JVD not distended Respiratory: Clear to auscultation bilaterally, Normal air movement Cardiovascular: Irregular heart rate/rhythm Gastrointestinal: Normal bowel sounds, No tenderness Musculoskeletal: No tenderness Integumentary: No rashes Neurological: Normal speech, Normal tone, Normal affect Lymphatics: No axilla or inguinal lymphadenopathy - Studies Medications List Reviewed: Yes Assessment And Plan - Current Problems (Diagnosis) (1) Atrial fibrillation Current Visit: Yes Status: Acute Plan: Patient was started on Sotalol 80 mg po BID (EKG after 3rd dose). Add Lopressor 25 mg po BID Anticoagulation on hold due to GI bleed, no DCCV can be done unless patient is cleared for anticoagulation. (2) GI bleed Current Visit: Yes Status: Acute Plan: blood transfusion, GI did endoscopy and colonoscopy that shows constriction with mass, s/p biopsy and surgical consult. (3) HTN (hypertension) Current Visit: Yes Status: Acute Plan: BP is soft, will add Lopressor for better rate control.
[2023-12-04] MEDS: METOPROLOL TAR 25 MG TAB PO SCH (17:08)
[2023-12-04] MEDS: ENSURE ENLIVE 237 ML CAN PO SCH (19:48)
[2023-12-05 06:24] LABS: Hematocrit 23.5 % (36.0-45.0); Hemoglobin 7.6 g/dL (12.0-15.0); MCH 25.4 pg (27.0-35.0); MCHC 32.4 g/dL (32.0-36.0); MCV 78.6 fL (80-100); MPV 7.1 fL (7.6-11.3); Platelets 186 thou/uL (152-406); RBC Red Blood Cell Count 2.99 M/uL (3.86-4.86); Red Cell Distribution Width 21.8 % (12.1-15.2)
[2023-12-05 06:46] LABS: Anion Gap 10.5 mEq/L (5.0-15.0); Magnesium 1.3 mg/dL (1.6-2.4); Phosphorus 3.2 mg/dL (2.5-4.9); Potassium 3.5 mEq/L (3.5-5.1); Prealbumin 9.9 mg/dL (20-40)
[2023-12-05] MEDS ORDERED: NA CHLORIDE 0.9% 250 ML IV SCH (10:00)
[2023-12-05] MEDS: NA CHLORIDE 0.9% 250 ML IV SCH (13:50)
--- NOTE | 2023-12-05 15:51 | P.PN ---
Date of Service: 12/05/23 Subjective: No acute events overnight No new complaints today Awaiting surgical procedure 12/07 ROS: 10 point ROS as noted above, otherwise negative Physical exam GEN: Alert, oriented, NAD HEENT: Normal conjunctiva, sclera anicteric CV: Tachycardic, irregular heart rhythm, no edema Pulm: Nonlabored respirations on room air ABD: Soft, nontender, nondistended MSK: No joint tenderness Integumentary: No rashes Neuro: Normal speech, normal affect Vitals reviewed Problem List Chronic atrial fibrillation with rapid ventricular response-on chronic anticoagulation Melena/upper GI bleed Acute blood loss anemia KEYANNA Plan Chronic atrial fibrillation with rapid ventricular response-on chronic anticoagulation Initial plan was for GENNA cardioversion, sotalol Would not be able to go forward with GENNA cardioversion given we cannot anticoagulate with active GI bleed Continue sotalol for rate/rhythm control May benefit with Watchman procedure outpatient Cardiology following, monitor on telemetry Melena/upper GI bleed Acute blood loss anemia PICC placed 12/02 S/P 5 unit PRBC H/H stabilized but still at risk for bleeding with colonic mass and gastric ulcer EGD showed gastric ulcer with no active bleeding Hemoglobin 7.6 this AM, will give one unit now Switch to twice daily PPI Colonoscopy performed 12/01 shows stricture with possible mass Barium enema performed on 12/01 shows apple core lesion proximal transverse colon likely neoplasm. 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 General surgery consulted and following, plan for possible resection on 12/07 KEYANNA Improved, stable Monitor renal function daily VTE: SCD-cannot anticoagulate given GI bleeding, mass Code: Full Dispo: >3 days Time Spent Managing Pts Care (In Minutes): 35
[2023-12-05 18:32] LABS: Hematocrit 28.4 % (36.0-45.0); Hemoglobin 9.2 g/dL (12.0-15.0)
[2023-12-06 04:56] LABS: Hematocrit 25.2 % (36.0-45.0); Hemoglobin 8.2 g/dL (12.0-15.0); MCH 25.5 pg (27.0-35.0); MCHC 32.7 g/dL (32.0-36.0); Platelets 178 thou/uL (152-406); RBC Red Blood Cell Count 3.23 M/uL (3.86-4.86); Red Cell Distribution Width 22.5 % (12.1-15.2)
[2023-12-06 05:35] LABS: Anion Gap 9.2 mEq/L (5.0-15.0); Magnesium 1.3 mg/dL (1.6-2.4); Potassium 3.2 mEq/L (3.5-5.1)
[2023-12-06] MEDS: Magnesium Sulfate 2gm IVPB 2 G/50 ML BAG IV ONE (07:41)
[2023-12-06] MEDS: KCL 20 MEQ/100 mL IVPB 20 MEQ/100 ML BAG IV SCH (07:41)
[2023-12-06] MEDS ORDERED: POTASSIUM 25 MEQ EFFERV TAB PO ONE (08:00)
--- NOTE | 2023-12-06 10:01 | P.PN ---
Date of Service: 12/06/23 Subjective: No acute events overnight No new complaints today Awaiting surgical procedure 12/07 ROS: 10 point ROS as noted above, otherwise negative Physical exam GEN: Alert, oriented, NAD HEENT: Normal conjunctiva, sclera anicteric CV: Tachycardic, irregular heart rhythm, no edema Pulm: Nonlabored respirations on room air ABD: Soft, nontender, nondistended MSK: No joint tenderness Integumentary: No rashes Neuro: Normal speech, normal affect Vitals reviewed Problem List Chronic atrial fibrillation with rapid ventricular response-on chronic anticoagulation Melena/upper GI bleed Acute blood loss anemia KEYANNA Plan Chronic atrial fibrillation with rapid ventricular response-on chronic anticoagulation Initial plan was for GENNA cardioversion, sotalol Would not be able to go forward with GENNA cardioversion given we cannot anticoagulate with active GI bleed Continue sotalol for rate/rhythm control May benefit with Watchman procedure outpatient Cardiology following, monitor on telemetry Melena/upper GI bleed Acute blood loss anemia PICC placed 12/02 S/P 5 unit PRBC H/H stabilized but still at risk for bleeding with colonic mass and gastric ulcer EGD showed gastric ulcer with no active bleeding Hemoglobin 8.2 this AM monitior H/H daily, may require additional transfusions Switch to twice daily PPI Colonoscopy performed 12/01 shows stricture with possible mass Barium enema performed on 12/01 shows apple core lesion proximal transverse colon likely neoplasm. 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 General surgery consulted and following, plan for possible resection on 12/07 KEYANNA Improved, stable Monitor renal function daily VTE: SCD-cannot anticoagulate given GI bleeding, mass Code: Full Dispo: >3 days Time Spent Managing Pts Care (In Minutes): 35
--- NOTE | 2023-12-06 13:28 | P.PN ---
Subjective Date of Service: 12/06/23 Chief Complaint: A-fib with RVR, GI bleed, apple core transverse colon cancer Subjective: No new changes (Feels good today. No blood seen by RNs. Hgb continues to drift down after blood transfusions, last yesterday 7.6 to 9.2 after 1 unit PRBCs to 8.2 this morning.), Other (Tolerating clear liquid diet well. Advanced to [place] diet. Barium enema -> apple core lesion in the proximal transverse colon and diverticulosis. 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.) Review of Systems Unremarkable Physical Examination - Vital Signs Temperature: 98.5 F Blood Pressure: 128/67 Pulse: 87 Respirations: 16 Pulse Ox (%): 91 - Physical Exam General: Alert, In no apparent distress, Oriented x3, Cooperative HEENT: Atraumatic, Normocephalic, PERRLA, EOMI Neck: Supple Respiratory: Normal air movement Cardiovascular: Normal pulses Gastrointestinal: Soft and benign, No tenderness, No rebound, No guarding Neurological: Normal speech, Normal strength at 5/5 x4 extr - Studies Medications List Reviewed: Yes Assessment And Plan - Current Problems (Diagnosis) (1) Melena Current Visit: Yes Status: Acute (2) Ulcer, gastric, acute Current Visit: Yes Status: Acute (3) Adenocarcinoma of transverse colon Current Visit: Yes Status: Acute Comment: Apple core lesion in proximal transverse colon on barium enema. + pathology (4) GI bleed Current Visit: Yes Status: Acute - Plan REC: 1) serial H&Hs and transfuse prn 2) colon resection scheduled for this Thursday 3) diet as per surgery
[2023-12-06 16:29] LABS: Magnesium 1.7 mg/dL (1.6-2.4); Potassium 3.8 mEq/L (3.5-5.1)
[2023-12-06] MEDS: POTASSIUM CL SA 10 MEQ TAB PO ONE (17:47)
[2023-12-06] MEDS: MAGNESIUM SULFATE 1 gm IVPB 1 GM/100 ML BAG IV ONE (17:47)
[2023-12-07 06:17] LABS: Hematocrit 25.6 % (36.0-45.0); Hemoglobin 8.4 g/dL (12.0-15.0); MCH 25.5 pg (27.0-35.0); MCHC 32.7 g/dL (32.0-36.0); MCV 77.9 fL (80-100); MPV 7.2 fL (7.6-11.3); Platelets 176 thou/uL (152-406); RBC Red Blood Cell Count 3.28 M/uL (3.86-4.86); Red Cell Distribution Width 23.1 % (12.1-15.2)
[2023-12-07 06:20] LABS: Anion Gap 6.9 mEq/L (5.0-15.0); Magnesium 1.8 mg/dL (1.6-2.4); Phosphorus 3.2 mg/dL (2.5-4.9); Potassium 3.9 mEq/L (3.5-5.1)
[2023-12-07] MEDS: MAGNESIUM SULFATE 1 gm IVPB 1 GM/100 ML BAG IV ONE (09:24)
[2023-12-07] MEDS: POTASSIUM CL SA 10 MEQ TAB PO ONE (09:24)
--- NOTE | 2023-12-07 14:22 | P.PN ---
Date of Service: 12/07/23 Subjective: No acute events overnight No new complaints today Awaiting surgical procedure 12/07 ROS: 10 point ROS as noted above, otherwise negative Physical exam GEN: Alert, oriented, NAD HEENT: Normal conjunctiva, sclera anicteric CV: Tachycardic, irregular heart rhythm, no edema Pulm: Nonlabored respirations on room air ABD: Soft, nontender, nondistended MSK: No joint tenderness Integumentary: No rashes Neuro: Normal speech, normal affect Vitals reviewed Problem List Chronic atrial fibrillation with rapid ventricular response-on chronic anticoagulation Melena/upper GI bleed Acute blood loss anemia KEYANNA Plan Chronic atrial fibrillation with rapid ventricular response-on chronic anticoagulation Initial plan was for GENNA cardioversion, sotalol Would not be able to go forward with GENNA cardioversion given we cannot anticoagulate with active GI bleed Continue sotalol for rate/rhythm control Cardiology added metoprolol tartrate 25mg bid 12/03 May benefit with Watchman procedure outpatient Cardiology following, monitor on telemetry Melena/upper GI bleed Acute blood loss anemia PICC placed 12/02 S/P 5 unit PRBC H/H stabilized but still at risk for bleeding with colonic mass and gastric ulcer EGD showed gastric ulcer with no active bleeding Hemoglobin 8.4 this AM monitior H/H daily, may require additional transfusions Switch to twice daily PPI Colonoscopy performed 12/01 shows stricture with possible mass Barium enema performed on 12/01 shows apple core lesion proximal transverse colon likely neoplasm. 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 General surgery consulted and following, plan for possible resection on 12/07 KEYANNA Improved, stable Monitor renal function daily VTE: SCD-cannot anticoagulate given GI bleeding, mass Code: Full Dispo: >3 days Time Spent Managing Pts Care (In Minutes): 35
[2023-12-07] MEDS: SODIUM CHLORIDE 0.9% 10ML INJ IV PRN (20:45)
[2023-12-08 06:19] LABS: Hematocrit 29.4 % (36.0-45.0); Hemoglobin 9.2 g/dL (12.0-15.0); MCH 24.9 pg (27.0-35.0); MCHC 31.3 g/dL (32.0-36.0); MCV 79.5 fL (80-100); MPV 7.7 fL (7.6-11.3); Platelets 187 thou/uL (152-406); RBC Red Blood Cell Count 3.69 M/uL (3.86-4.86); Red Cell Distribution Width 23.6 % (12.1-15.2)
[2023-12-08 06:35] LABS: Magnesium 1.7 mg/dL (1.6-2.4); Phosphorus 3.6 mg/dL (2.5-4.9)
[2023-12-08] MEDS: MAGNESIUM SULFATE 1 gm IVPB 1 GM/100 ML BAG IV ONE ×2 (08:03→10:15)
[2023-12-08 08:25] LABS: Anisocytosis 1+; Blood Morphology Comment NOTED (NOT SEEN); Platelet Estimate ADEQ; White Blood Cell Scan OK (OK)
[2023-12-08 08:26] LABS: Hypochromasia 1+
[2023-12-08 08:58] LABS: Protime INR 1.26
[2023-12-08] MEDS ORDERED: propofoL 200 MG/20 ML VIAL IV ONE (09:30)
[2023-12-08] MEDS ORDERED: LIDOCAINE 2% MPF 5 ML VIAL ONE ×2 (09:30→11:56)
[2023-12-08] MEDS ORDERED: ONDANSETRON 4 MG/2 ML VIAL ONE (09:30)
[2023-12-08] MEDS ORDERED: ROCURONIUM 50 MG/5 ML VIAL IV ONE ×2 (09:31→11:59)
[2023-12-08] MEDS ORDERED: MIDAZOLAM HCL 2 MG/2 ML INJ ONE (09:31)
[2023-12-08] MEDS ORDERED: FENTANYL CITR 100 MCG/2 ML ONE ×2 (09:31→11:39)
[2023-12-08] MEDS: DEXMEDETOMIDINE HCL 200 MCG/2 ML VIAL ONE (10:15)
[2023-12-08] MEDS: SUGAMMADEX SODIUM 200 MG/2 ML VIAL IV ONE (10:15)
[2023-12-08] MEDS: FAMOTIDINE 20 MG/2 ML VIAL IV ONE (10:16)
[2023-12-08] MEDS: SUCCINYLCHOLINE 20 MG/ML (10 ML) IV ONE (10:16)
[2023-12-08] MEDS: NA CHLORIDE 0.9% 1,000 ML ONE ×2 (10:18→15:21)
[2023-12-08] MEDS: HYDROMORPHONE HCL 1 MG/ML INJ ONE (10:18)
[2023-12-08] MEDS: ALBUMIN HUMAN 25% 100 ML IV ONE (10:21)
[2023-12-08] MEDS ORDERED: KETAMINE HCL IN 0.9 % NACL 50 MG/5 ML SYRINGE IV ONE (10:27)
[2023-12-08] MEDS: NA CHLORIDE 0.9% 0 ML ONE (10:31)
[2023-12-08] MEDS: Ringers Lactate 1,000 ML IV ONE ×2 (10:35→15:21)
[2023-12-08] MEDS: LIDOCAINE HCL/EPINEPHRINE 20 ML MDV ONE (10:37)
[2023-12-08] MEDS: PROMETHAZINE INJ 25 MG/ML AMP ONE (10:57)
[2023-12-08] MEDS: CEFAZOLIN SODIUM 2 GM/VIAL ONE (10:57)
--- NOTE | 2023-12-08 14:44 | P.OP ---
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
--- NOTE | 2023-12-08 17:25 | RAD REPORT ---
EXAM: Abdomen 1 View (KUB) HISTORY: [facility] MAIN Placement of NGT/OGT. Post Insertion. Pls call Floor to confirm if patient is ready. COMPARISON: 11/30/2023 CT abdomen and pelvis FINDINGS: Single view of the abdomen shows a nonspecific, nonobstructive bowel gas pattern. Enteric t ube tip terminates in the region of the stomach body. Right upper quadrant surgical clips suggesting prior. Midline laparotomy skin celia. No suspicious calcifications are seen. The bones are unremarkable. IMPRESSION: Satisfactory positioning of the enteric tube is above.
[2023-12-08] MEDS ORDERED: AMIODARONE HCL 450 MG in D5W 241 ML IV SCH (18:00)
--- NOTE | 2023-12-08 18:18 | P.PN ---
Date of Service: 12/08/23 Subjective: Surgery this morning Transfer to ICU postop, S/P extended right hemicolectomy Continue to monitor H&H through the evening ROS: 10 point ROS as noted above, otherwise negative Physical exam GEN: Alert and oriented x3, NAD HEENT: Normal conjunctiva, sclera anicteric CV: Afib, irregular heart rhythm, no edema Pulm: Nonlabored respirations, Clear BBS on room air ABD: Soft on palpation, nontender/nondistended MSK: No joint tenderness Integumentary: No rashes Neuro: Normal speech, normal affect Vitals reviewed Problem List Chronic atrial fibrillation with rapid ventricular response-on chronic anticoagulation Melena/upper GI bleed Acute blood loss anemia KEYANNA S/P/exploratory laparoscopy converted to exploratory laparotomy, extended right hemicolectomy, lysis of adhesions Plan Chronic atrial fibrillation with rapid ventricular response-on chronic anticoagu lation Initial plan was for GENNA cardioversion, sotalol Would not be able to go forward with GENNA cardioversion given we cannot anticoagulate with active GI bleed Continue sotalol for rate/rhythm control Cardiology added metoprolol tartrate 25mg bid 12/03 May benefit with Watchman procedure outpatient Cardiology following, monitor on telemetry Melena/upper GI bleed Acute blood loss anemia S/P/exploratory laparoscopy converted to exploratory laparotomy, extended right hemicolectomy, lysis of adhesions PICC placed 12/02 S/P 5 unit PRBC H/H stabilized but still at risk for bleeding with colonic mass and gastric ulcer EGD showed gastric ulcer with no active bleeding Hemoglobin 9.2/9.1 this AM monitior H/H daily, may require additional transfusions Switch to twice daily PPI Colonoscopy performed 12/01 shows stricture with possible mass Barium enema performed on 12/01 shows apple core lesion proximal transverse colon likely neoplasm. 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 General surgery consulted and following, plan for possible resection on 12/07 KEYANNA Improved, stable Monitor renal function daily VTE: SCD-cannot anticoagulate given GI bleeding, mass, will evaluate 12/08 Code: Full Dispo: >3 days
[2023-12-08] MEDS: AMIODARONE HCL 900 MG in Dextrose 5%-Water 482 ML IV SCH (18:29)
[2023-12-08] MEDS: HYDROMORPHONE HCL 1 MG/ML INJ IV PRN (18:29)
--- NOTE | 2023-12-09 01:24 | OP ---
Date of Procedure: 12/08/2023 Surgeon: Patrick Vidales MD, Brief History Of Present Illness: The patient is a 73-year-old woman who presented to the hospital w ith gastrointestinal bleeding, ultimately had a workup by Dr. Goodman including a colonoscopy, which f ound a mass of the proximal transverse colon near the hepatic flexure. Ultimately, a biopsy was perf ormed, which showed adenocarcinoma and there was an apple-core lesion confirmed on barium enema in th e preoperative period. As such, she received transfusions and medical management. Imaging was perfo rmed. Multiple labs were sent as a staging workup was completed. She was ultimately started on our enhanced recovery after surgery program and we will plan for surgery on today's date. The patient di d have a history of abdominal surgeries before with a Fanny type incision in the right upper quadran t and lower pelvic incisions as well. Procedure In Detail: After informed consent was obtained by patient and I discussed the risks, benef its, and alternatives of the procedures, which were including, but not limited to bleeding, infection , damage to surrounding tissues, internal bleeding, injury to the ureters, nerves, stomach, duodenum, pancreas, heart attacks, blood clots, strokes, intestinal leakage requiring multiple surgery, sepsis , shock, , other unforeseen complication of the perioperative period and postoperative complicat ions including, but not limited to, fistulas, hernias, infections, need for other further procedures. The patient displayed understanding and as such, we proceeded. The patient was brought to the oper ating room, prepped and draped in the usual sterile fashion. After adequate anesthesia was achieved, I initially placed a supraumbilical 5 mm 0-degree optical trocar in the abdomen without incident or complication. Insufflation was obtained to 15 mmHg at this time. There was no injury to vital struc tures upon entry in the abdomen. At this point, significant adhesions were appreciated throughout th e right upper quadrant including adhesions to the right colon with a somewhat decreased ability to in sufflate at this area. As such, I opted to abandon the laparoscopic portion and proceeded with an op en laparotomy incision at this point. I therefore left insufflation in place at this point and used a 10 blade to make a midline lower laparotomy incision initially and extended it up superiorly as the majority of the scar tissue was in the superior right upper quadrant and epigastric regions. The om ental attachments were taken down as we proceeded to open the abdomen, performing meticulous dissecti on and an extensive adhesiolysis from significant scar tissue in the right upper quadrant. After the se adhesions were taken down and the falciform ligament was taken down using the LigaSure device, I t ook the white line of Toldt down on the right colic gutter following the white line from the cecum to up around the hepatic flexure. As I dissected this direction, I continued up towards the area of co ncern. The dissection was initiated in the lateral to medial approach. I came around the base of th e cecum at this point, I grasped the appendix and used as a pedicle for traction-countertraction. Th e tissue plane remained avascular on the lateral aspect for the most part ultimately mobilizing the c olon at this point and bring it medially. At this point, I came around the base of the cecum, which there was scar tissue between the fallopian tube and fimbriae and the feeding blood vessel, which was in close apposition to the cecum right near the appendiceal base. I performed dissection in this ar ea, ultimately placed the LigaSure on a bleeding vessel adjacent to the fallopian tube. At this poin t, after it was mobilized off the cecum at this point, this appeared to be venous structure. At this point, I was able to come around to the ileocecal vascular pedicle. At this point, the colon was te nted up. I demarcated the area at the ileocecal vascular pedicle approximately 1 cm from the takeoff of the SMA. Ultimately, this was opened through the peritoneal lining and dissection continued down to mobilize this part of the blood supply to ensure an adequate amount of lymph nodes to be obtained . After this was identified, I used the LigaSure [place] to ligate the structure without incident or c omplication. No bleeding was appreciated from the vascular pedicle at this point after individually sealed with the LigaSure device. At this point, I divided the small bowel using a ALLI 80 stapler se veral centimeters from the ileocecal valve on a good portion of small bowel after making a mesenteric window. At this point, I continued the dissection up and ligated the mesenteric supply toward the m iddle colic artery. At this point, I dissected out the area of the middle colic artery by scoring th e peritoneum at this area tenting the transverse colon up in this area as the mass was palpable in th e right upper quadrant. There were significant adhesions and desmoplastic reaction appeared to be in the vicinity where the duodenal C-loop and head of pancreas were to the wall of the colon. I do not believe there was direct involvement of cancer through this area, but there was some foreshortening of the mesentery slightly in this region. In addition, the gastric wall was in close apposition to a portion of the transverse colon also near the pylorus. I continued to mobilize the structures off u sing a predominantly blunt dissection through the avascular plane, sparing all of the vascular struct ures including the duodenal C-loop and the vessels of the pancreaticoduodenal pedicle. At this point , the middle colic artery was noted to be branching with a right branch to the colic artery at this p oint, I proceeded to take the right branch of the middle colic artery at this area after using the Li gaSure device and scoring the peritoneum. I created a mesenteric window on a good portion of the col on at this point and transected it using the same ALLI 80 blue load. At this point, I continued to di ssect the colon off the right branch of middle colic by following the mesenteric plane after it was p rescored around the right colon and transverse colon planes as described. The LigaSure device was us ed to take this down in its entirety. I kept the Gerota fascia fashion in place and the fascia overl taryn the ureter and as such, they were not directly identified at this point as the planes were left intact. The colon was transected at this point, sent off for pathologic specimen examination on the back table. At this point, I irrigated the area with sterile water, suctioned it out. Minimal hemos tatic measures required with simple fulguration of some omental bleeding after the omentum was transe cted to allow for transection at this point using the LigaSure device. At this point, I placed the s mall bowel ileum and the transverse colon near 2/3 jessica in a [id number] fashion. I then placed sin gle interrupted silk sutures to align the bowel in a [id number] fashion with 3-0 silk sutures in th e proximal and distal aspect. At this point, a sterile field was created and I made enterotomies in along the tenia on the antimesenteric border as well as the antimesenteric border of the small bowel. I then fired the ALLI 80 stapler with a blue load across the common channel with no bleeding in the lumen. At this point, I then closed the common defect using a 3-0 PDS suture in a canal type running suture and placed a second layer of Lembert of 3-0 silk. At this point, I then proceeded to irrigat e the area once again. I palpated the common channel, it was found to be widely patent for enteric c ontents removed through. At this point, I attempted to close the common defect, however. There was some bleeding on attempts to close the mesenteric leaflet from the small bowel side and as such, this portion was abandoned as it appeared that the blood vessel ran close apposition to the peritoneal ed ge on this side. Therefore, precluding a closure of this area. Therefore, I closed the mesenteric d efect on the more proximal side near the base of vascular pedicle without issue. At this point, the area was irrigated once again. I wrapped the area in the omentum with good vascularized omentum. Pr ior to doing this, I inspected the bowel, was found to be quite pink and viable without evidence of i schemic changes. I then irrigated the abdomen copiously with several liters of warm saline and sucti oned out until completely dry. Hemostatic measures required at this point. I then reinspected the a nastomosis, which was found to be intact with good well vascularized bowel at the anastomosis. I the n proceeded to wrap it again in the omentum and placed the abdominal Fish in place. I closed the fas cial defect using a #1 looped PDS suture in a running fashion with good approximation of the tissues. I then irrigated the subcutaneous tissues until completely clean and closed with interrupted staple s at this point. The patient tolerated the procedure without incident or complication and transferre d to the ICU in good condition. All counts were correct at the end of the case. CELIA/PATEL Voice ID: [id number] Report ID: [id number]
[2023-12-09 06:41] LABS: Hematocrit 27.9 % (36.0-45.0); Hemoglobin 8.8 g/dL (12.0-15.0); MCHC 31.4 g/dL (32.0-36.0); MCV 79.7 fL (80-100); MPV 7.6 fL (7.6-11.3); Platelets 176 thou/uL (152-406); Red Cell Distribution Width 22.8 % (12.1-15.2)
[2023-12-09 06:53] LABS: Anion Gap 9.5 mEq/L (5.0-15.0); Magnesium 1.5 mg/dL (1.6-2.4); Phosphorus 4.5 mg/dL (2.5-4.9); Potassium 4.5 mEq/L (3.5-5.1)
--- NOTE | 2023-12-09 12:06 | P.PN ---
Subjective Date of Service: 12/09/23 Chief Complaint: A-fib with RVR, GI bleed, apple core transverse colon cancer Subjective: New changes (Patient is s/p abdominal surgery) Review of Systems 10-point ROS is otherwise unremarkable Physical Examination - Vital Signs Temperature: 98.8 F Blood Pressure: 104/57 Pulse: 115 Respirations: 12 Pulse Ox (%): 95 - Physical Exam General: Alert, In no apparent distress HEENT: Atraumatic, PERRLA, EOMI Neck: Supple, JVD not distended Respiratory: Clear to auscultation bilaterally, Normal air movement Cardiovascular: Regular rate/rhythm, Normal S1 S2 Gastrointestinal: Normal bowel sounds, No tenderness Musculoskeletal: No tenderness Integumentary: No rashes Neurological: Normal speech, Normal tone, Normal affect Lymphatics: No axilla or inguinal lymphadenopathy - Studies Medications List Reviewed: Yes Assessment And Plan - Current Problems (Diagnosis) (1) Atrial fibrillation Current Visit: Yes Status: Acute Plan: Patient is NPO so Sotalol and Lopressor are on hold now on amiodarone 0.5 mg drip, continue until tomorrow then might consider D/C Anticoagulation on hold due to GI bleed and recent surgery. (2) GI bleed Current Visit: Yes Status: Acute Plan: blood transfusion, GI did endoscopy and colonoscopy that shows constriction with mass, s/p surgery. (3) HTN (hypertension) Current Visit: Yes Status: Acute Plan: BP is soft, Patient is NPO, will continue to monitor
--- NOTE | 2023-12-09 17:50 | P.PN ---
Subjective Date of Service: 12/09/23 Chief Complaint: A-fib with RVR, GI bleed, apple core transverse colon cancer Status post bowel resection for colon mass yesterday. Patient states her pain is well-controlled. No reported fever. Physical Examination - Vital Signs Temperature: 98.8 F Blood Pressure: 117/80 Pulse: 102 Respirations: 12 Pulse Ox (%): 97 - Studies Medications List Reviewed: Yes Assessment And Plan - Plan Physical examination GEN: Alert and oriented x3, NAD HEENT: Normal conjunctiva, sclera anicteric, NG tube in place. CV: irregular heart rhythm, no edema Pulm: Nonlabored respirations, Clear to auscultation bilaterally ABD: Abdominal binder in place, not distended, no bowel sounds. MSK: No joint tenderness Integumentary: No rashes Neuro: Normal speech, normal affect, no focal motor deficit. Vitals reviewed Problem List Chronic atrial fibrillation with rapid ventricular response-on chronic anticoagulation Melena/upper GI bleed Acute blood loss anemia KEYANNA Colonic mass S/P/exploratory laparoscopy converted to exploratory laparotomy, extended right hemicolectomy, lysis of adhesions Plan Melena/upper GI bleed Acute blood loss anemia S/P/exploratory laparoscopy converted to exploratory laparotomy, extended right hemicolectomy, lysis of adhesions PICC placed 12/02 S/P 5 unit PRBC Hemoglobin stable between 8 and 9. EGD showed gastric ulcer with no active bleeding Continue Protonix. Colonoscopy performed 12/01 showed stricture with possible mass Barium enema performed on 12/01 shows apple core lesion proximal transverse colon likely neoplasm. 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 Status post hemicolectomy by Dr. Vidales (12/07) Chronic atrial fibrillation with rapid ventricular response-on chronic anticoagulation Initial plan was for GENNA cardioversion, sotalol but given patient's severe anemia secondary to GI bleed plan for GENNA cardioversion was aborted because patient cannot be anticoagulated due to high risk for life-threatening bleed. Patient initiated on sotalol for rate and rhythm control but now strictly n.p.o. She is on amiodarone drip. Metoprolol is on hold due to n.p.o. status. Cardiology is following Patient may benefit with Watchman procedure outpatient KEYANNA Resolved. Monitor renal function daily VTE: SCD-cannot anticoagulate given GI bleeding. Code: Full
[2023-12-10 04:54] LABS: Hematocrit 27.7 % (36.0-45.0); Hemoglobin 8.6 g/dL (12.0-15.0); MCH 25.2 pg (27.0-35.0); MCV 81.2 fL (80-100); MPV 7.7 fL (7.6-11.3); Platelets 164 thou/uL (152-406); RBC Red Blood Cell Count 3.41 M/uL (3.86-4.86); Red Cell Distribution Width 23.1 % (12.1-15.2)
[2023-12-10 05:07] LABS: Anion Gap 6.3 mEq/L (5.0-15.0); Magnesium 1.8 mg/dL (1.6-2.4); Phosphorus 3.1 mg/dL (2.5-4.9); Potassium 4.3 mEq/L (3.5-5.1)
[2023-12-10] MEDS: MAGNESIUM SULFATE 1 gm IVPB 1 GM/100 ML BAG IV ONE (07:35)
[2023-12-10] MEDS ORDERED: CIPROFLOXACIN 400mg IV 400 MG/200 ML BAG IV SCH (09:00)
[2023-12-10] MEDS: METRONIDAZOLE 500mg IVPB 500 MG/100 ML BAG IV SCH (09:06)
[2023-12-10] MEDS: CEFTRIAXONE 1,000 MG in NA CHLORIDE 0.9% 50 ML IVPB SCH (09:08)
[2023-12-10] MEDS: HYDROCODONE/APAP 5/325 MG TAB PO PRN (10:51)
--- NOTE | 2023-12-10 11:33 | P.CNS ---
Date of Consult: 12/10/23 Reason for Consult: KEYANNA Requesting Physician: arcelia dey Chief Complaint: A-fib with RVR, GI bleed, apple core transverse colon cancer History of Present Illness: Michelle Pillai is a 73 year old female with past medical history of hypertension and atrial fibrillation on Eliquis who presents to the ED from cardiology office recommending admission for initiation of sotalol and likely GENNA cardioversion. On presentation her labs revealed H&H 5.1/16.5 and platelets 298. She reports melanotic diarrhea for 1 month that occurs intermittent every three days with the last episode this morning. She has not had a GI bleed previously. On evaluation, she is hypotensive with mild tachyacardia, alert/oriented, tolerating PRBC transfusion. [id number] 08:13 This 73 yrs old Female presents to ER via Unassigned with complaints of Shortness Of sb4 Breath. 08:13 Patient with past medical history of hypertension and atrial fibrillation on metoprolol sb4 and Eliquis presents to the emergency department with complaints of shortness of breath. States that she has been in A-fib for the past couple of years but it has gotten worse over the past few weeks, making her short of breath on exertion. She saw cardiology 5 days ago who recommended her to go to the emergency department for admission and initiation of sotalol and GENNA conversion. She denies any current chest pain and is in no acute distress. Allergies diphenhydramine [From Benadryl] Allergy (Unknown, Verified 11/30/23 15:23) Rash Penicillins Allergy (Unknown, Verified 11/30/23 15:23) Itching/Hives/Rash Home medications list reviewed: Yes Home Medications: Apixaban [Eliquis] 1 tab PO BID 11/30/23 Metoprolol Tartrate 1 tab PO BID 11/30/23 Olmesartan/Hydrochlorothiazide [Olmesartan-Hctz 20-12.5 mg Tab] 1 each PO DAILY 11/30/23 metroNIDAZOLE [Metronidazole] 1 appl TD DAILY PRN 11/30/23 - Past Medical/Surgical History Diabetic: No -: Atrial fibrillation -: Hypertension -: Colon Cancer sp Resection -: -: cholecystectomy -: Extended Right Hemicolectomy 12-08-23 - Family History Father History Unknown: Yes Medical History: Heart disease, Hypertension, Diabetes Notes: MT Brother History Unknown: Yes Medical History: Cancer Notes: Brain CA, - Social History Alcohol use: No CD- Drugs: No Caffeine use: Yes Place of Residence: Home Review of Systems 10-point ROS is otherwise unremarkable General: Weakness, Malaise Cardiovascular: Edema Musculoskeletal: Leg Pain Neurological: Confusion (Poor memory) Physical Examination Temp Pulse Resp BP Pulse Ox 98.1 F 135 H 20 120/57 L 91 12/10/23 08:00 12/10/23 08:00 12/10/23 10:51 12/10/23 08:00 12/10/23 10:51 General: In no apparent distress, Cooperative HEENT: Atraumatic Neck: Supple Respiratory: Clear to auscultation bilaterally Cardiovascular: Edema, Irregular heart rate/rhythm Gastrointestinal: No guarding, Tenderness Musculoskeletal: No clubbing, No contractures Integumentary: No rashes, No cyanosis Neurological: Normal speech Blood work reviewed in the chart. Imagings Data: [id number] EXAM: Abdomen 1 View (KUB) HISTORY: [facility] MAIN Placement of NGT/OGT. Post Insertion. Pls call Floor to confirm if patient is ready. COMPARISON: 11/30/2023 CT abdomen and pelvis FINDINGS: Single view of the abdomen shows a nonspecific, nonobstructive bowel gas pattern. Enteric tube tip terminates in the region of the stomach body. Right upper quadrant surgical clips suggesting prior. Midline laparotomy skin celia. No suspicious calcifications are seen. The bones are unremarkable. IMPRESSION: Satisfactory positioning of the enteric tube is above. [id number] EXAMINATION: ONE VIEW CHEST XR CLINICAL INDICATION: PICC placement TECHNIQUE: Frontal chest projection is submitted. Examination is limited by patient positioning and technique. COMPARISON: No prior exam. FINDINGS: The tip of the right-sided PICC line is in the SVC. The heart is upper limit of normal in size. No displaced fractures identified. IMPRESSION: Right-sided PICC line has tip in the SVC. There is a left-sided catheter tubing also partially visualized in the left axillary region. [id number] EXAM: Single contrast barium enema INDICATION: Colon mass COMPARISON: CT abdomen January 30, 2024 Technique: Single contrast barium enema performed. Contrast reflux into small bowel. FINDINGS: An apple core 2 cm lesion involves the proximal transverse colon. Diverticula system from the colon without diverticulitis. No obstruction Fluoroscopy time: 1.3 minutes Number of images: 19 fluoroscopic spot images IMPRESSION: Apple core lesion proximal transverse colon likely neoplasm. [id number] EXAMINATION: CT ABDOMEN AND PELVIS WITHOUT CONTRAST CLINICAL INDICATION: Female, 73 years old. GI BLEED [facility] MAIN GI BLEED NO CONTRAST Bed Name: 4 TECHNIQUE: CT abdomen and pelvis was performed, without IV contrast, as per department protocol. Axial, sagittal and coronal reconstructions were obtained. One or more of the following dose reduction techniques were used: Automated exposure control, adjustment of the mA and kV according to the patient size, and iterative reconstruction. Unless otherwise specified, incidental findings do not require dedicated imaging follow-up. COMPARISON: No prior exam. FINDINGS: The lack of intravenous contrast limits the sensitivity of this exam for evaluation of solid visceral organs, vascular structures, and retroperitoneum. LOWER CHEST: The visualized lung bases are clear. LIVER: Normal in size and contour. No focal lesion. Cholecystectomy clips. SPLEEN: Normal size. No focal lesion. PANCREAS: No mass, ductal dilation, or angelica-pancreatic fluid. ADRENALS: Normal; no mass. KIDNEYS AND URETERS: Normal size and contour. No hydronephrosis. Benign- appearing right renal cyst. URINARY BLADDER: Normal contour. GASTROINTESTINAL TRACT: No evidence of bowel obstruction, significant free fluid, free air or abscess. There is mild diverticulosis coli of the sigmoid colon without diverticulitis. APPENDIX: Normal appendix. LYMPH NODES: No lymphadenopathy. MUSCULOSKELETAL: Mild multilevel spinal degenerative changes. ADDITIONAL FINDINGS: None. IMPRESSION: No acute or concerning abnormalities in the abdomen or pelvis, with evaluation limited by lack of IV contrast. Conclusions/Impression: Stage I KEYANNA may be due to hypovolemia CKD II -No NSAIDs -Continue IVF with NS Hypomagnesemia -Replete as ordered -Start MagOx qhs HTN with CKD -Hold antihypertensives at this time Hyperglycemia -Check A1C Hypoalbuminemia -Continue Ensure Anemia in chronic illness/ blood loss Microcytosis -Check iron status -Monitor H&H Colon Cancer sp Resection 12-08-23 Invasive moderately differentiated adenocarcinoma -Continue Abx -Follow up with surgery -Wound care as ordered Case reviewed with Dr. Dey Thank you kindly for the consultation
[2023-12-10] MEDS: NA CHLORIDE 0.9% 1,000 ML IV SCH (11:57)
--- NOTE | 2023-12-10 12:25 | P.PN ---
Subjective Date of Service: 12/10/23 Chief Complaint: A-fib with RVR, GI bleed, apple core transverse colon cancer Subjective: No new changes, No C/O voiced, Tolerating diet, Ambulating, Improving Review of Systems 10-point ROS is otherwise unremarkable Physical Examination - Vital Signs Temperature: 98.1 F Blood Pressure: 120/57 Pulse: 135 Respirations: 20 Pulse Ox (%): 91 - Physical Exam General: Alert, In no apparent distress HEENT: Atraumatic, PERRLA, EOMI Neck: Supple, JVD not distended Respiratory: Clear to auscultation bilaterally, Normal air movement Cardiovascular: Irregular heart rate/rhythm Gastrointestinal: Normal bowel sounds, No tenderness Musculoskeletal: No tenderness Integumentary: No rashes Neurological: Normal speech, Normal tone, Normal affect Lymphatics: No axilla or inguinal lymphadenopathy - Studies Medications List Reviewed: Yes Assessment And Plan - Current Problems (Diagnosis) (1) Atrial fibrillation Current Visit: Yes Status: Acute Plan: Patient is back on Sotalol and Lopressor, monitor tele overnight Anticoagulation on hold due to GI bleed and recent surgery. discussed with surgical team and possibly start anticoagulation Thursday if Hgb is stable. (2) GI bleed Current Visit: Yes Status: Acute Plan: blood transfusion, GI did endoscopy and colonoscopy that shows constriction with mass, s/p surgery. (3) HTN (hypertension) Current Visit: Yes Status: Acute Plan: BP is soft, will continue to monitor
--- NOTE | 2023-12-10 13:03 | P.PN ---
Subjective Date of Service: 12/10/23 Chief Complaint: A-fib with RVR, GI bleed, apple core transverse colon cancer Status post bowel resection for colon mass 12/07. No issues overnight. Patient reports she she has been belching but no flatus. NG tube is out, patient is currently on clear liquid diet. No reported fever. Serum creatinine trended up and patient has leukocytosis. Physical Examination - Vital Signs Temperature: 98.1 F Blood Pressure: 120/57 Pulse: 135 Respirations: 20 Pulse Ox (%): 91 - Studies Medications List Reviewed: Yes Assessment And Plan - Plan Physical examination GEN: Alert and oriented x3, NAD HEENT: Normal conjunctiva, sclera anicteric, NG tube in place. Pulm: Nonlabored respirations, Clear to auscultation bilaterally ABD: Abdominal binder in place, not distended, hypoactive bowel sounds. MSK: No joint tenderness Integumentary: No rashes Neuro: Normal speech, normal affect, no focal motor deficit. Vitals reviewed Problem List Chronic atrial fibrillation with rapid ventricular response-on chronic anticoagulation Melena/upper GI bleed Acute blood loss anemia KEYANNA Colonic mass S/P/exploratory laparoscopy converted to exploratory laparotomy, extended right hemicolectomy, lysis of adhesions Plan Melena/upper GI bleed Acute blood loss anemia S/P/exploratory laparoscopy converted to exploratory laparotomy, extended right hemicolectomy, lysis of adhesions PICC placed 12/02 S/P 5 unit PRBC Hemoglobin stable between 8 and 9. EGD showed gastric ulcer with no active bleeding Continue Protonix. Colonoscopy performed 12/01 showed stricture with possible mass Barium enema performed on 12/01 shows apple core lesion proximal transverse colon likely neoplasm. 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 Status post hemicolectomy by Dr. Vidales (12/07). Patient started on clear liquid diet. Empiric IV ciprofloxacin and Flagyl given leukocytosis. Monitor CBC. Chronic atrial fibrillation with rapid ventricular response-on chronic anticoagulation Initial plan was for GENNA cardioversion, sotalol but given patient's severe anemia secondary to GI bleed plan for GENNA cardioversion was aborted because patient cannot be anticoagulated due to high risk for life-threatening bleed. Patient initiated on sotalol for rate and rhythm control, then placed on amiodarone drip because of n.p.o. status for surgery. Patient started on clear liquid diet. Amiodarone drip replaced with oral sotalol. Resume metoprolol as her blood pressure will tolerate. Cardiology is following. May need to restart anticoagulation if okay by surgery and GI. Patient may benefit with Watchman procedure outpatient KEYANNA Renal function trended up from yesterday. Patient placed on IV fluid. Nephrology consulted. Monitor renal function daily VTE: SCD-cannot anticoagulate given GI bleeding. Code: Full
[2023-12-11 05:15] LABS: Absolute Lymphocytes (CBC) 0.5 K/uL (0.7-4.9); Absolute Monocytes 0.7 K/uL (0.1-1.3); Absolute Neutrophil 8.2 K/uL (1.8-8.0); Basophils % 0.3 % (0-1.3); Hematocrit 26.8 % (36.0-45.0); Hemoglobin 8.7 g/dL (12.0-15.0); Lymphocytes % 4.8 % (15.3-44.8); MCH 25.5 pg (27.0-35.0); MCHC 32.3 g/dL (32.0-36.0); MCV 78.9 fL (80-100); MPV 8.1 fL (7.6-11.3); Monocytes % 7.7 % (3.3-12.3); Neutrophils % 87.2 % (41.7-73.7); Platelets 139 thou/uL (152-406); Red Cell Distribution Width 23.1 % (12.1-15.2)
[2023-12-11 05:34] LABS: Anion Gap 7.1 mEq/L (5.0-15.0); BUN Blood Urea Nitrogen 27 mg/dL (7-18); Bicarbonate 27 mEq/L (21-32); Glomerular Filtration Rate 44 ml/min (=/>90); Glucose Level 162 mg/dL (74-106); Magnesium 1.7 mg/dL (1.6-2.4); Phosphorus 2.2 mg/dL (2.5-4.9); Potassium 4.1 mEq/L (3.5-5.1); Sodium Level 135 mEq/L (136-145); Transferrin 147 mg/dL (200-360); Uric Acid 6.1 mg/dL (2.6-6.0)
[2023-12-11 05:35] LABS: Iron < 10.0 ug/dL (50-170)
[2023-12-11] MEDS: MAGNESIUM SULFATE 1 gm IVPB 1 GM/100 ML BAG IV ONE ×2 (06:08→10:39)
[2023-12-11 06:21] LABS: Anisocytosis 2+; Band Neutrophils 20 % (0-1); Blood Morphology Comment NOTED (NOT SEEN); Differential Total Cells Count 100; Dohle Bodies PRESENT; Hypochromasia 1+; Lymphocytes 5 % (15-42); Monocytes 9 % (0-10); Platelet Estimate DECR; Polychromasia SLIGHT; Segmented Neutrophils 66 % (40-80); Smudge Cells PRESENT
[2023-12-11 06:22] LABS: Teardrop Cell FEW
[2023-12-11] MEDS: POTASS/SODIUM PHOSPHATE 1 PKT POWD.PACK PO SCH (09:14)
--- NOTE | 2023-12-11 12:07 | P.PN ---
(S) Pt has reportedly had some spells of confusion per family, O2 requirements increased, urine in espino darker, remains in Afib with RVR (O) vitals reviewed in the EMR General: In no apparent distress, HEENT: Atraumatic, sclera anicteric, LFNC Neck: Supple Respiratory: b/l air entry, reduced at bases Cardiovascular: Edema noted in the LE/dependent, tachy Irregular heart rate/rhythm Gastrointestinal: Abd binder, distention, espino present Musculoskeletal: compression socks Integumentary: No rashes noted Neurological: Normal speech, awake, conversive Blood work reviewed in the chart. Imagings Data: [id number] EXAMINATION: CT ABDOMEN AND PELVIS WITHOUT CONTRAST CLINICAL INDICATION: Female, 73 years old. GI BLEED [facility] MA[facility] GI BLEED NO CONTRAST Bed Name: 4 TECHNIQUE: CT abdomen and pelvis was performed, without IV contrast, as per department protocol. Axial, sagittal and coronal reconstructions were obtained. One or more of the following dose reduction techniques were used: Automated exposure control, adjustment of the mA and kV according to the patient size, and iterative reconstruction. Unless otherwise specified, incidental findings do not require dedicated imaging follow-up. COMPARISON: No prior exam. FINDINGS: The lack of intravenous contrast limits the sensitivity of this exam for evaluation of solid visceral organs, vascular structures, and retroperitoneum. LOWER CHEST: The visualized lung bases are clear. LIVER: Normal in size and contour. No focal lesion. Cholecystectomy clips. SPLEEN: Normal size. No focal lesion. PANCREAS: No mass, ductal dilation, or angelica-pancreatic fluid. ADRENALS: Normal; no mass. KIDNEYS AND URETERS: Normal size and contour. No hydronephrosis. Benign- appearing right renal cyst. URINARY BLADDER: Normal contour. GASTROINTESTINAL TRACT: No evidence of bowel obstruction, significant free fluid, free air or abscess. There is mild diverticulosis coli of the sigmoid colon without diverticulitis. APPENDIX: Normal appendix. LYMPH NODES: No lymphadenopathy. MUSCULOSKELETAL: Mild multilevel spinal degenerative changes. ADDITIONAL FINDINGS: None. IMPRESSION: No acute or concerning abnormalities in the abdomen or pelvis, with evaluation limited by lack of IV contrast. Conclusions/Impression: Stage I KEYANNA recurrent, POA and again in past days although Cr level marginally lower today -In the setting of hemodynamic factors with Afib with RVR, soft BP, anemia, other -Cont to monitor fluid status and UOP closely, will send off UA Afib unspecified -Management per cardiology, will target K > 4 and Mg > 2 -Rate controlling measures per them although lower BP may limit -Unclear if she has any diastolic CHF or other. BNP > 1000 on admission Dyspnea unspecified -Check CXR, d/c IVF, assess for lasix push Peripheral edema -3rd spacing, low albumin, stop saline fluids, will give albumin, cont compression socks, etc
[2023-12-11] MEDS: ALBUMIN HUMAN 25% 100 ML IV ONE (12:47)
--- NOTE | 2023-12-11 13:41 | RAD REPORT ---
EXAMINATION: ONE VIEW CHEST XR CLINICAL INDICATION: Dyspnea TECHNIQUE: Frontal chest projection is submitted. Examination is limited by patient positioning and t echnique. COMPARISON: 12/03/2023 FINDINGS: Moderate bibasilar lung opacities are present, greater on the right which may represent atelectasis o r infiltrate/pneumonia. Mild pulmonary edema likely present. The heart is upper limit of normal in size. No displaced fractures identified. Right-sided PICC line has tip in the SVC/right atrium ju nction. Catheter tubing is also present in the left upper arm medially. IMPRESSION: Significant bibasilar lung opacities are present, greater on the right, likely representing atelectas is or pneumonia.
[2023-12-11 14:50] LABS: Specific Gravity 1.024 (1.005-1.030); Sqamous Epithelial <5 /HPF (None Seen); Urine Bacteria None Seen /HPF (<20); Urine Bilirubin NEGATIVE (Negative); Urine Blood Negative (Negative); Urine Clarity Turbid (Clear); Urine Color Yellow (Yellow); Urine Crystals Unidentified Few /HPF (None Seen); Urine Culture Reflex Order NOT NEEDED; Urine Glucose NEGATIVE (Negative); Urine Ketones TRACE (Negative); Urine Micro Reflex YN NO BILL MICROSCOPIC; Urine Nitrite NEGATIVE (Negative); Urine Protein 1+ (Negative); Urine RBC <5 /HPF (None Seen); Urine Urobilinogen 2+ (Normal); Urine WBC <5 /HPF (<5); Urine Yeast (Budding) Trace /HPF (None Seen); Urine pH 5.5 (5.0-7.0)
--- NOTE | 2023-12-11 14:58 | P.PN ---
Subjective Date of Service: 12/11/23 Chief Complaint: A-fib with RVR, GI bleed, apple core transverse colon cancer Status post bowel resection for colon mass 12/07. Patient reports she is having flatus. No BM yet. Daughter reports patient gets intermittently confused since last night Patient is tolerating clear liquid diet No reported fever. Serum creatinine is trending down. Physical Examination - Vital Signs Temperature: 97.6 F Blood Pressure: 113/54 Pulse: 127 Respirations: 18 Pulse Ox (%): 92 - Studies Medications List Reviewed: Yes Assessment And Plan - Plan Physical examination GEN: Alert and oriented x3, NAD. HEENT: Normal conjunctiva, sclera anicteric. Pulm: Nonlabored respirations, Clear to auscultation bilaterally ABD: Abdominal binder in place, sutured surgical wound looks clean, abdomen not distended, normal bowel sounds. MSK: No joint tenderness Integumentary: No rashes Neuro: Normal speech, normal affect, no focal motor deficit. Vitals reviewed Problem List Chronic atrial fibrillation with rapid ventricular response-on chronic anticoagulation Melena/upper GI bleed Acute blood loss anemia KEYANNA Colonic mass S/P/exploratory laparoscopy converted to exploratory laparotomy, extended right hemicolectomy, lysis of adhesions Plan Melena/upper GI bleed Acute blood loss anemia S/P/exploratory laparoscopy converted to exploratory laparotomy, extended right hemicolectomy, lysis of adhesions PICC placed 12/02 S/P 5 unit PRBC Hemoglobin stable between 8 and 9. EGD showed gastric ulcer with no active bleeding Continue Protonix. Colonoscopy performed 12/01 showed stricture with possible mass Barium enema performed on 12/01 shows apple core lesion proximal transverse colon likely neoplasm. 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 Status post hemicolectomy by Dr. Vidales (12/07). Clear liquid diet per Dr. Vidaels. Diet advancement per surgery. Leukocytosis resolved Continue IV ciprofloxacin and Flagyl given leukocytosis. Monitor CBC. Chronic atrial fibrillation with rapid ventricular response-on chronic anticoagulation Initial plan was for GENNA cardioversion, sotalol but given patient's severe anemia secondary to GI bleed plan for GENNA cardioversion was aborted because patient cannot be anticoagulated due to high risk for life-threatening bleed. Patient initiated on sotalol for rate and rhythm control, then placed on amiodarone drip because of n.p.o. status for surgery. Status post amiodarone drip Continue amiodarone and metoprolol Cardiology is following. May need to restart anticoagulation if okay by surgery and GI. Patient may benefit with Watchman procedure outpatient. Leukocytosis Likely reactive to stress No recorded fever Leukocytosis resolved Check UA and chest x-ray. IV Cipro and Flagyl Continue to monitor CBC. Acute Metabolic encephalopathy Likely drug-induced secondary to opioids. Scale down opioid, discontinue IV hydromorphone Pain management with oral [place] KEYANNA Renal function is improving, creatinine trended down. Patient evaluated by nephrology. Continue IV fluid. IV albumin infusion per nephrology Monitor renal function daily VTE: SCD-cannot anticoagulate given GI bleeding. Code: Full
[2023-12-11] MEDS: FUROSEMIDE 20 MG/ 2ML VIAL IV ONE (17:22)
[2023-12-11] MEDS: MAGNESIUM OXIDE 400 MG TAB PO SCH (20:05)
[2023-12-11] MEDS ORDERED: Ciprofloxacin 200mg IV 400 MG/200 ML IV.SOLN. IV SCH (21:00)
[2023-12-12] MEDS: METOPROLOL TARTRATE 5 MG/5 ML INJ IV PRN (00:10)
[2023-12-12 06:37] LABS: Absolute Basophils 0.1 K/uL (0-0.5); Absolute Eosinophils 0.1 K/uL (0-0.5); Absolute Lymphocytes (CBC) 0.5 K/uL (0.7-4.9); Absolute Monocytes 0.8 K/uL (0.1-1.3); Absolute Neutrophil 10.6 K/uL (1.8-8.0); Basophils % 0.6 % (0-1.3); Eosinophils % 0.5 % (0-4.4); Hematocrit 25.5 % (36.0-45.0); Hemoglobin 8.3 g/dL (12.0-15.0); Lymphocytes % 4.4 % (15.3-44.8); MCH 25.5 pg (27.0-35.0); MCHC 32.5 g/dL (32.0-36.0); MCV 78.4 fL (80-100); MPV 7.9 fL (7.6-11.3); Monocytes % 6.8 % (3.3-12.3); Neutrophils % 87.7 % (41.7-73.7); Platelets 229 thou/uL (152-406); RBC Red Blood Cell Count 3.25 M/uL (3.86-4.86); Red Cell Distribution Width 23.7 % (12.1-15.2)
[2023-12-12 06:53] LABS: Albumin 2.3 g/dL (3.4-5.0); Albumin/Globulin Ratio 0.7 (1.1-1.8); Alkaline Phosphatase 66 U/L (45-117); Anion Gap 9.9 mEq/L (5.0-15.0); BUN Blood Urea Nitrogen 36 mg/dL (7-18); Bicarbonate 26 mEq/L (21-32); Bilirubin Total 0.9 mg/dL (0.2-1.0); Globulin 3.3 g/dL (2.3-3.5); Glomerular Filtration Rate 39 ml/min (=/>90); Glucose Level 145 mg/dL (74-106); Magnesium 2.1 mg/dL (1.6-2.4); NT PRO-BNP 2448 pg/mL (<125); Potassium 3.9 mEq/L (3.5-5.1); Protein, Total 5.6 g/dL (6.4-8.2); Sodium Level 135 mEq/L (136-145)
[2023-12-12 06:57] LABS: ALT/SGPT < 14 U/L (13-56); AST/SGOT < 10 U/L (15-37)
[2023-12-12 07:03] LABS: Phosphorus 1.2 mg/dL (2.5-4.9)
[2023-12-12] MEDS: CEFTRIAXONE 1,000 MG in NA CHLORIDE 0.9% 50 ML IVPB SCH (08:20)
[2023-12-12] MEDS: POTASS/SODIUM PHOSPHATE 1 PKT POWD.PACK PO SCH (08:20)
--- NOTE | 2023-12-12 11:52 | P.PN ---
Subjective Date of Service: 12/12/23 Chief Complaint: A-fib with RVR, GI bleed, apple core transverse colon cancer Status post bowel resection for colon mass 12/07. No BM yet but passing flatus. She is tolerating liquid diet Patient appears alert and oriented. No reported fever. She is requiring about 4 L of oxygen by nasal cannula. Physical Examination - Vital Signs Temperature: 98.9 F Blood Pressure: 105/63 Pulse: 120 Respirations: 22 Pulse Ox (%): 93 - Studies Medications List Reviewed: Yes Assessment And Plan - Plan Physical examination GEN: Alert and oriented x3, NAD. HEENT: Normal conjunctiva, sclera anicteric. Pulm: Nonlabored respirations, Clear to auscultation bilaterally ABD: Abdominal binder in place, sutured surgical wound looks clean, abdomen not distended, normal bowel sounds. MSK: No joint tenderness Integumentary: No rashes Neuro: Normal speech, normal affect, no focal motor deficit. Vitals reviewed Problem List Chronic atrial fibrillation with rapid ventricular response-on chronic antico agulation Melena/upper GI bleed Acute blood loss anemia KEYANNA Colonic mass S/P/exploratory laparoscopy converted to exploratory laparotomy, extended right hemicolectomy, lysis of adhesions Plan Melena/upper GI bleed Acute blood loss anemia S/P/exploratory laparoscopy converted to exploratory laparotomy, extended right hemicolectomy, lysis of adhesions PICC placed 12/02 S/P 5 unit PRBC Hemoglobin is dropping slowly. 1 more unit PRBC transfusion as recommended by Dr. Vidales EGD showed gastric ulcer with no active bleeding Continue Protonix. Colonoscopy performed 12/01 showed stricture with possible mass Barium enema performed on 12/01 shows apple core lesion proximal transverse colon likely neoplasm. 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 Status post hemicolectomy by Dr. Vidales (12/07). Clear liquid diet per Dr. Vidales. Diet advancement per surgery. Empiric IV Rocephin and Flagyl. Monitor CBC. Chronic atrial fibrillation with rapid ventricular response-on chronic anticoagulation Initial plan was for GENNA cardioversion, sotalol but given patient's severe anemia secondary to GI bleed plan for GENNA cardioversion was aborted because patient cannot be anticoagulated due to high risk for life-threatening bleed. Patient initiated on sotalol for rate and rhythm control, then placed on amiodarone drip because of n.p.o. status for surgery. Status post amiodarone drip Continue amiodarone and metoprolol Cardiology is following. May need to restart anticoagulation if okay by surgery and GI. Patient may benefit with Watchman procedure outpatient. Sepsis Pneumonia Pulmonary atelectasis No recorded fever UA shows no significant evidence of sepsis. Chest x-ray shows significant bibasilar lung opacities, greater on the right, likely representing atelectasis or pneumonia. IV Rocephin and Flagyl Continue to monitor CBC. Acute Metabolic encephalopathy Likely drug-induced secondary to opioids. IV hydromorphone discontinued. Pain management with oral [place] KEYANNA Patient evaluated by nephrology. Continue IV fluid. IV albumin infusion per nephrology Lasix per nephrology Monitor renal function daily. Critical illness myopathy Continue PT Patient should benefit from acute rehab. Social service consulted to assist with arrangement for acute rehab. VTE: SCD-cannot anticoagulate given GI bleeding. Code: Full
[2023-12-12] MEDS ORDERED: NA CHLORIDE 0.9% 250 ML IV SCH (12:00)
[2023-12-12] MEDS: POTASSIUM PHOS IN 0.9 % NACL 15 MMOL/250 ML BAG IV SCH (15:01)
[2023-12-12] MEDS: FUROSEMIDE 20 MG/ 2ML VIAL IV ONE (17:08)
[2023-12-12 18:31] LABS: Hematocrit 29.8 % (36.0-45.0); Hemoglobin 9.6 g/dL (12.0-15.0)
[2023-12-13 05:56] LABS: Absolute Eosinophils 0.1 K/uL (0-0.5); Absolute Lymphocytes (CBC) 0.8 K/uL (0.7-4.9); Absolute Monocytes 1.1 K/uL (0.1-1.3); Absolute Neutrophil 13.5 K/uL (1.8-8.0); Basophils % 0.3 % (0-1.3); Eosinophils % 0.6 % (0-4.4); Hematocrit 29.9 % (36.0-45.0); Hemoglobin 9.6 g/dL (12.0-15.0); Lymphocytes % 5.2 % (15.3-44.8); MCH 25.4 pg (27.0-35.0); MCHC 32.1 g/dL (32.0-36.0); MCV 78.9 fL (80-100); MPV 7.6 fL (7.6-11.3); Monocytes % 7.1 % (3.3-12.3); Neutrophils % 86.8 % (41.7-73.7); Platelets 229 thou/uL (152-406); RBC Red Blood Cell Count 3.79 M/uL (3.86-4.86); Red Cell Distribution Width 22.6 % (12.1-15.2)
[2023-12-13 06:19] LABS: Anion Gap 9.6 mEq/L (5.0-15.0); Magnesium 1.8 mg/dL (1.6-2.4); Phosphorus 2.5 mg/dL (2.5-4.9); Potassium 3.6 mEq/L (3.5-5.1)
[2023-12-13 06:24] LABS: Anisocytosis 2+; Blood Morphology Comment NOTED (NOT SEEN); Platelet Estimate ADEQ; White Blood Cell Scan OK (OK)
[2023-12-13] MEDS: MAGNESIUM SULFATE 1 gm IVPB 1 GM/100 ML BAG IV ONE (06:42)
[2023-12-13] MEDS: POTASSIUM PHOS IN 0.9 % NACL 15 MMOL/250 ML BAG IV ONE (09:10)
[2023-12-13 11:28] LABS: Specific Gravity 1.028 (1.005-1.030); Sqamous Epithelial <5 /HPF (None Seen); Urine Bacteria None Seen /HPF (<20); Urine Bilirubin NEGATIVE (Negative); Urine Blood Trace (Negative); Urine Clarity Clear (Clear); Urine Color Yellow (Yellow); Urine Culture Reflex Order NOT NEEDED; Urine Glucose NEGATIVE (Negative); Urine Ketones TRACE (Negative); Urine Microscopic Reflex YN ORDER UMIC; Urine Mucus Slight /HPF (None Seen); Urine Nitrite NEGATIVE (Negative); Urine Protein 1+ (Negative); Urine Urobilinogen 1+ (Normal); Urine WBC <5 /HPF (<5); Urine pH 5.5 (5.0-7.0)
--- NOTE | 2023-12-13 13:34 | P.PN ---
Subjective Date of Service: 12/13/23 Chief Complaint: A-fib with RVR, GI bleed, apple core transverse colon cancer Patient endorses passing gas. No BM yet. Patient is on 4 L oxygen by nasal cannula No recorded fever. Status post blood transfusion yesterday Patient appears alert and oriented. Daughter feels patient only complaining of pain when she is moved around. She is tolerating liquid diet. No coughing. Physical Examination - Vital Signs Temperature: 97.8 F Blood Pressure: 108/66 Pulse: 111 Respirations: 18 Pulse Ox (%): 94 - Studies Medications List Reviewed: Yes Assessment And Plan - Plan Physical examination GEN: Alert and oriented x3, NAD. HEENT: Normal conjunctiva, sclera anicteric. Pulm: Nonlabored respirations, Clear to auscultation bilaterally ABD: sutured surgical wound looks clean and dry, abdomen not distended, normal b owel sounds, mild tenderness right lower abdomen. MSK: No joint tenderness Integumentary: No rashes Neuro: Normal speech, normal affect, no focal motor deficit. Genitourinary: Payton catheter in place. Vitals reviewed Problem List Chronic atrial fibrillation with rapid ventricular response-on chronic anticoagulation Melena/upper GI bleed Acute blood loss anemia KEYANNA Colonic mass S/P/exploratory laparoscopy converted to exploratory laparotomy, extended right hemicolectomy, lysis of adhesions Plan Melena/upper GI bleed Acute blood loss anemia S/P/exploratory laparoscopy converted to exploratory laparotomy, extended right hemicolectomy, lysis of adhesions PICC placed 12/02 S/P a total of 6 unit PRBC EGD showed gastric ulcer with no active bleeding Continue Protonix. Colonoscopy performed 12/01 showed stricture with possible mass Barium enema performed on 12/01 shows apple core lesion proximal transverse colon likely neoplasm. 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 Status post hemicolectomy by Dr. Vidales (12/07). Continue clear liquid diet per Dr. Vidales. Diet advancement per surgery. Fluctuating leukocytosis. IV antibiotics changed to IV meropenem. Incentive spirometry encouraged Monitor CBC. Chronic atrial fibrillation with rapid ventricular response-on chronic anticoagulation Initial plan was for GENNA cardioversion, sotalol but given patient's severe anemia secondary to GI bleed plan for GENNA cardioversion was aborted because patient cannot be anticoagulated due to high risk for life-threatening bleed. Patient initiated on sotalol for rate and rhythm control, then placed on amiodarone drip because of n.p.o. status for surgery. Status post amiodarone drip Continue amiodarone and metoprolol Cardiology is following. May need to restart anticoagulation if okay by surgery and GI and hemoglobin becomes stable. Cardiology is looking forward to start anticoagulation by tomorrow. Patient may benefit with Watchman procedure outpatient. Sepsis Pneumonia Pulmonary atelectasis Acute respiratory failure with hypoxia Acute diastolic heart failure No recorded fever UA shows no significant evidence of sepsis. Chest x-ray shows significant bibasilar lung opacities, greater on the right, likely representing atelectasis or pneumonia. Interstitial edema also possible. IV meropenem IV Lasix. Incentive spirometry Continue to monitor CBC. Will remove Payton catheter, replaced with purewick. Repeat UA not showing significant evidence of UTI. Acute Metabolic encephalopathy Improved Likely drug-induced secondary to opioids. IV hydromorphone discontinued. Pain management with oral [place]. KEYANNA Patient evaluated by nephrology. Continue IV fluid. IV albumin infusion per nephrology Status post PRBC transfusion 12/11. Lasix per nephrology Monitor renal function daily. Critical illness myopathy Continue PT Patient should benefit from acute rehab. Social service consulted to assist with arrangement for acute rehab. VTE: SCD-cannot anticoagulate given GI bleeding. Code: Full
[2023-12-13] MEDS: Meropenem 1,000 MG in NA CHLORIDE 0.9% 100 ML IV SCH (14:32)
[2023-12-13] MEDS: FUROSEMIDE 20 MG/ 2ML VIAL IV ONE (14:33)
[2023-12-14 05:51] LABS: Absolute Basophils 0.1 K/uL (0-0.5); Absolute Eosinophils 0.1 K/uL (0-0.5); Absolute Lymphocytes (CBC) 1.1 K/uL (0.7-4.9); Absolute Monocytes 1.5 K/uL (0.1-1.3); Absolute Neutrophil 13.3 K/uL (1.8-8.0); Basophils % 0.4 % (0-1.3); Eosinophils % 0.6 % (0-4.4); Hematocrit 29.2 % (36.0-45.0); Hemoglobin 9.5 g/dL (12.0-15.0); Lymphocytes % 6.9 % (15.3-44.8); MCH 25.5 pg (27.0-35.0); MCHC 32.4 g/dL (32.0-36.0); MCV 78.8 fL (80-100); MPV 7.5 fL (7.6-11.3); Monocytes % 9.5 % (3.3-12.3); Neutrophils % 82.6 % (41.7-73.7); Platelets 255 thou/uL (152-406); RBC Red Blood Cell Count 3.71 M/uL (3.86-4.86); Red Cell Distribution Width 23.6 % (12.1-15.2)
[2023-12-14 06:06] LABS: Anion Gap 9.6 mEq/L (5.0-15.0); Magnesium 1.8 mg/dL (1.6-2.4); Phosphorus 2.8 mg/dL (2.5-4.9); Potassium 3.6 mEq/L (3.5-5.1)
[2023-12-14] MEDS: POTASSIUM CL SA 10 MEQ TAB PO ONE (10:12)
--- NOTE | 2023-12-14 11:09 | RAD REPORT ---
EXAMINATION: ONE VIEW CHEST XR CLINICAL INDICATION: Female, 73 years old.repeat CXR TECHNIQUE: 1 View, AP supine, X-ray of the chest was performed. [id number]. COMPARISON: 12/11/2023 FINDINGS: Lungs and pleura: Diffuse prominence of the pulmonary interstitium. Likely atelectasis as a result of the pleural fluid. Bilateral pleural effusions. Heart and mediastinum: Cardiomegaly. Unremarkable mediastinal contours. Osseous structures: No acute abnormality. Tubes/lines: Right subclavian approach PICC with tip overlying the distal SVC. Other: None. IMPRESSION: Pulmonary edema with bilateral pleural effusions. Superimposed basilar pneumonia/pneumonitis difficul t to exclude radiographically.
--- NOTE | 2023-12-14 11:11 | RAD REPORT ---
EXAM: 2 views of the abdomen HISTORY: Abdominal pain COMPARISON: 12/08/2023 FINDINGS: 2 views of the abdomen shows a nonspecific, nonobstructive bowel gas pattern. No free air o r air-fluid levels are seen on upright examination. Some residual contrast is present within the colon. Surgical clips are present in the right upper quadrant. Approximately celia.. The bones are unremarkable. IMPRESSION: No evidence of bowel obstruction. Paucity of small bowel gas.
--- NOTE | 2023-12-14 11:23 | P.PN ---
Subjective Date of Service: 12/14/23 Chief Complaint: A-fib with RVR, GI bleed, apple core transverse colon cancer Subjective: No new changes, No C/O voiced, Tolerating diet, Ambulating, Improving Review of Systems 10-point ROS is otherwise unremarkable Physical Examination - Vital Signs Temperature: 98.4 F Blood Pressure: 106/61 Pulse: 131 Respirations: 20 Pulse Ox (%): 93 - Physical Exam General: Alert, In no apparent distress HEENT: Atraumatic, PERRLA, EOMI Neck: Supple, JVD not distended Respiratory: Diminished Cardiovascular: Irregular heart rate/rhythm Gastrointestinal: Normal bowel sounds, No tenderness Musculoskeletal: No tenderness Integumentary: No rashes Neurological: Normal speech, Normal tone, Normal affect Lymphatics: No axilla or inguinal lymphadenopathy - Studies Medications List Reviewed: Yes Assessment And Plan - Current Problems (Diagnosis) (1) Atrial fibrillation Current Visit: Yes Status: Acute Plan: Patient is on Sotalol and Lopressor, Tele overnight shows RVR Anticoagulation on hold due to GI bleed and recent surgery. patient required 1 unit of PRBCs overnight. will defer to surgical team on timing to re start anticoagulation. patient might have PNA and is having leukocytosis, BP is soft, so RVR is more likely secondary to that, will monitor but if needed then will give amidoarone bolus and start drip (2) GI bleed Current Visit: Yes Status: Acute Plan: blood transfusion, GI did endoscopy and colonoscopy that shows constriction with mass, s/p surgery. (3) HTN (hypertension) Current Visit: Yes Status: Acute Plan: BP is soft, will continue to monitor
--- NOTE | 2023-12-14 11:29 | P.PN ---
Date of Service: 12/14/23 Vital Signs Temp Pulse Resp BP Pulse Ox 98.4 F 131 H 20 106/61 93 12/14/23 08:00 12/14/23 08:00 12/14/23 10:11 12/14/23 08:00 12/14/23 10:11 Medications Acetaminophen (Acetaminophen 325 Mg Tablet) 650 mg PO Q4HP PRN PRN Reason: Pain scale 2-4 (Mild)orT>100.1 Hydrocodone Bitart/Acetaminophen (Hydrocodone/Apap 5/325 Mg Tab) 1 tab PO Q6H PRN PRN Reason: Pain scale 5-7 (Moderate) Last Admin: 12/14/23 10:11 Dose: 1 tab Sodium Chloride (Sodium Chloride) 250 mls @ 0 mls/hr IV .Q0M RONI Sodium Chloride (Sodium Chloride) 250 mls @ 0 mls/hr IV .Q0M RONI Meropenem 1,000 mg/ Sodium (Chloride) 100 mls @ 200 mls/hr IV Q8H [facility] Last Admin: 12/14/23 05:30 Dose: 100 mls Magnesium Oxide (Magnesium Oxide 400 Mg Tab) 400 mg PO BEDTIME [facility] Last Admin: 12/13/23 20:44 Dose: 400 mg Metoprolol Tartrate (Metoprolol Tar 25 Mg Tab) 25 mg PO BID 6AM 6PM [facility] Last Admin: 12/14/23 06:00 Dose: Not Given Metoprolol Tartrate (Metoprolol Tartrate 5 Mg/5 Ml Inj) 2.5 mg IV Q6H PRN PRN Reason: HR >120 Last Admin: 12/13/23 12:47 Dose: 2.5 mg Nutritional Formula (Ensure Enlive 237 Ml Can) 237 ml PO BID [facility] Last Admin: 12/14/23 10:13 Dose: 237 ml Pantoprazole Sodium (Pantoprazole 40 Mg Inj) 40 mg IVP Q12HR [facility]; Protocol Last Admin: 12/14/23 10:14 Dose: 40 mg Sodium Chloride (Sodium Chloride 0.9% 10ml Inj) 10 ml IV UD PRN PRN Reason: Diluant Last Admin: 12/12/23 19:57 Dose: 10 ml Sotalol HCl (Sotalol Hcl 80 Mg Tab) 80 mg PO BID 6AM 6PM [facility] Last Admin: 12/14/23 05:47 Dose: 80 mg Assessment/ Plan: Nephrology Progress Note No Dyspnea No Chest Pain +oral intake No Acute Events Overnight Vital Signs, Medications, Blood Work, and Imaging reviewed in the chart General: In no apparent distress, Cooperative HEENT: Atraumatic Neck: Supple Respiratory: Clear to auscultation bilaterally Cardiovascular: Edema, Irregular heart rate/rhythm Gastrointestinal: No guarding, Tenderness Musculoskeletal: No clubbing, No contractures Integumentary: No rashes, No cyanosis Neurological: Normal speech Blood work reviewed in the chart. Imagings Data: [id number] EXAM: Abdomen 1 View (KUB) HISTORY: [facility] Placement of NGT/OGT. Post Insertion. Pls call Floor to confirm if patient is ready. COMPARISON: 11/30/2023 CT abdomen and pelvis FINDINGS: Single view of the abdomen shows a nonspecific, nonobstructive bowel gas pattern. Enteric tube tip terminates in the region of the stomach body. Right upper quadrant surgical clips suggesting prior. Midline laparotomy skin celia. No suspicious calcifications are seen. The bones are unremarkable. IMPRESSION: Satisfactory positioning of the enteric tube is above. [id number] EXAMINATION: ONE VIEW CHEST XR CLINICAL INDICATION: PICC placement TECHNIQUE: Frontal chest projection is submitted. Examination is limited by patient positioning and technique. COMPARISON: No prior exam. FINDINGS: The tip of the right-sided PICC line is in the SVC. The heart is upper limit of normal in size. No displaced fractures identified. IMPRESSION: Right-sided PICC line has tip in the SVC. There is a left-sided catheter tubing also partially visualized in the left axillary region. [id number] EXAM: Single contrast barium enema INDICATION: Colon mass COMPARISON: CT abdomen January 30, 2024 Technique: Single contrast barium enema performed. Contrast reflux into small bowel. FINDINGS: An apple core 2 cm lesion involves the proximal transverse colon. Diverticula system from the colon without diverticulitis. No obstruction Fluoroscopy time: 1.3 minutes Number of images: 19 fluoroscopic spot images IMPRESSION: Apple core lesion proximal transverse colon likely neoplasm. [id number] EXAMINATION: CT ABDOMEN AND PELVIS WITHOUT CONTRAST CLINICAL INDICATION: Female, 73 years old. GI BLEED [facility] GI BLEED NO CONTRAST Bed Name: 4 TECHNIQUE: CT abdomen and pelvis was performed, without IV contrast, as per department protocol. Axial, sagittal and coronal reconstructions were obtained. One or more of the following dose reduction techniques were used: Automated exposure control, adjustment of the mA and kV according to the patient size, and iterative reconstruction. Unless otherwise specified, incidental findings do not require dedicated imaging follow-up. COMPARISON: No prior exam. FINDINGS: The lack of intravenous contrast limits the sensitivity of this exam for evaluation of solid visceral organs, vascular structures, and retroperitoneum. LOWER CHEST: The visualized lung bases are clear. LIVER: Normal in size and contour. No focal lesion. Cholecystectomy clips. SPLEEN: Normal size. No focal lesion. PANCREAS: No mass, ductal dilation, or angelica-pancreatic fluid. ADRENALS: Normal; no mass. KIDNEYS AND URETERS: Normal size and contour. No hydronephrosis. Benign- appearing right renal cyst. URINARY BLADDER: Normal contour. GASTROINTESTINAL TRACT: No evidence of bowel obstruction, significant free fluid, free air or abscess. There is mild diverticulosis coli of the sigmoid colon without diverticulitis. APPENDIX: Normal appendix. LYMPH NODES: No lymphadenopathy. MUSCULOSKELETAL: Mild multilevel spinal degenerative changes. ADDITIONAL FINDINGS: None. IMPRESSION: No acute or concerning abnormalities in the abdomen or pelvis, with evaluation limited by lack of IV contrast. Conclusions/Impression: Stage I KEYANNA may be due to hypovolemia, resolved CKD II with Proteinuria -No NSAIDs Hypokalemia -Replete as ordered Hypomagnesemia -Continue MagOx qhs HTN with CKD -Hold antihypertensives at this time Hypervolemia with Pulmonary Edema and Pleural Effusions Periperhal Edema -Metolazone X1 Hyperglycemia -RISS prn Hypoalbuminemia -Continue Ensure Anemia in chronic illness/ blood loss Iron Deficiency 4.9% -Monitor H&H -Consider IV iron Colon Cancer sp Resection 12-08-23 Invasive moderately differentiated adenocarcinoma -Continue Abx -Follow up with surgery -Wound care as ordered
[2023-12-14] MEDS: METOLAZONE 5 MG TABLET PO ONE (12:20)
--- NOTE | 2023-12-14 12:46 | P.PN ---
Subjective Date of Service: 12/14/23 Chief Complaint: A-fib with RVR, GI bleed, apple core transverse colon cancer Patient still requiring 4 L of oxygen by nasal cannula. Daughter reports patient had a small bowel movement. No recorded fever. Status post blood transfusion 12/12. Patient was up in a wheelchair with physical therapy during my examination Patient appears alert and oriented. Daughter reports patient oral intake has been poor. Physical Examination - Vital Signs Temperature: 97.8 F Blood Pressure: 117/61 Pulse: 117 Respirations: 18 Pulse Ox (%): 94 - Studies Medications List Reviewed: Yes Assessment And Plan - Plan Physical examination GEN: Alert and oriented x3, NAD. HEENT: Normal conjunctiva, sclera anicteric. Pulm: Nonlabored respirations, Clear to auscultation bilaterally ABD: sutured surgical wound looks clean and dry, abdomen not distended, normal bowel sounds, mild tenderness right lower abdomen. MSK: No joint tenderness Integumentary: No rashes Neuro: Normal speech, normal affect, no focal motor deficit. Genitourinary: Payton catheter in place. Vitals reviewed Problem List Chronic atrial fibrillation with rapid ventricular response-on chronic anticoagulation Melena/upper GI bleed Acute blood loss anemia KEYANNA Colonic mass S/P/exploratory laparoscopy converted to exploratory laparotomy, extended right hemicolectomy, lysis of adhesions Plan Melena/upper GI bleed Acute blood loss anemia S/P/exploratory laparoscopy converted to exploratory laparotomy, extended right hemicolectomy, lysis of adhesions PICC placed 12/02 S/P a total of 6 unit PRBC EGD showed gastric ulcer with no active bleeding Continue Protonix. Colonoscopy performed 12/01 showed stricture with possible mass Barium enema performed on 12/01 shows apple core lesion proximal transverse colon likely neoplasm. 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 Status post hemicolectomy by Dr. Vidales (12/07). KUB 12/13 shows no evidence of ileus or bowel obstruction. Patient is on clear liquid diet per Dr. Vidales. Diet advancement per surgery. Fluctuating leukocytosis. IV antibiotics changed to IV meropenem. Continue IV meropenem. Incentive spirometry encouraged Monitor CBC. Chronic atrial fibrillation with rapid ventricular response-on chronic anticoagulation Initial plan was for GENNA cardioversion, sotalol but given patient's severe anemia secondary to GI bleed plan for GENNA cardioversion was aborted because patient cannot be anticoagulated due to high risk for life-threatening bleed. Patient initiated on sotalol for rate and rhythm control, then placed on amiodarone drip because of n.p.o. status for surgery. Status post amiodarone drip Continue amiodarone and metoprolol. Titrate metoprolol for rate control as patient's BP will tolerate. Cardiology is following. May need to restart anticoagulation if okay by surgery and GI and hemoglobin becomes stable. Patient may benefit with Watchman procedure outpatient. Sepsis Pneumonia Pulmonary atelectasis Acute respiratory failure with hypoxia Acute diastolic heart failure No recorded fever UA shows no significant evidence of UTI Chest x-ray shows significant bibasilar lung opacities, greater on the right, likely representing atelectasis or pneumonia. Pulmonary edema also present. Continue IV meropenem Intermittent IV Lasix. Nephrology also started patient on metolazone. Incentive spirometry Continue to monitor CBC. Repeat UA not showing significant evidence of UTI. Payton catheter discontinued. Surgery Dr. Vidales to follow. Acute Metabolic encephalopathy Improved Likely drug-induced secondary to opioids. IV hydromorphone discontinued. Pain management with oral [place]. KEYANNA Patient evaluated by nephrology. KEYANNA resolved. IV fluids per nephrology. IV albumin infusion per nephrology Status post PRBC transfusion 12/11. Lasix per nephrology Monitor renal function daily. Critical illness myopathy Continue PT Patient should benefit from acute rehab. Social service consulted to assist with arrangement for acute rehab. VTE: SCD-cannot anticoagulate given GI bleeding. Code: Full
--- NOTE | 2023-12-14 14:39 | RAD REPORT ---
EXAM: CT CHEST, ABDOMEN AND PELVIS WITHOUT CONTRAST CLINICAL INDICATION: Female, 73 years [facility] post op colon surgery TECHNIQUE: CT chest, abdomen and pelvis was performed, with IV contrast, as per department protocol. Axial, sagittal and coronal reconstructions were obtained. One or more of the following dose reduction techniques were used: Automated exposure control, adjustment of the mA and/or kV according to the patient size, and/or iterative reconstruction. Unless otherwise specified, incidental findings do not require dedicated imaging follow-up. [id number]. COMPARISON: CT 11/30/2023 FINDINGS: Chest: LOWER NECK/CHEST WALL: Visualized thyroid gland and soft tissues are normal. Right subclavian approac h PICC. LUNGS AND AIRWAYS: Atelectasis as a result of the pleural fluid. Peripheral nodular opacities are pre sent. PLEURA: Moderate right and small left pleural effusion. MEDIASTINUM AND LYMPH NODES: No mediastinal mass or fluid collection. Normal size mediastinal, hilar, and axillary lymph nodes. THORACIC AORTA: Normal caliber and configuration. PULMONARY ARTERIES: Normal caliber. HEART: Mild cardiomegaly. Abdomen/Pelvis LIVER: Nodular liver contour. No focal mass. GALLBLADDER/BILE DUCTS: Cholecystectomy. PANCREAS: No mass, ductal dilation, or angelica-pancreatic fluid. SPLEEN: Normal size. No focal lesion. ADRENALS: Normal; no mass. KIDNEYS AND URETERS: Bilateral renal lesions which are either benign in appearance or too small to ac curately characterize but statistically benign. GASTROINTESTINAL TRACT: Right hemicolectomy. Multiple fluid collections and pockets of air present wi thin the anterior abdomen in the region of the omentum and near the anastomosis. There is likely some extra luminal contrast present which is suspicious for a leak. Moderate rectal stool. PERITONEUM: Free fluid is present around the liver and in the pelvis. LYMPH NODES: No lymphadenopathy. ABDOMINAL AORTA AND OTHER VESSELS: Normal caliber aorta and IVC. URINARY BLADDER: Normal contour. REPRODUCTIVE ORGANS: No pathologic process. MUSCULOSKELETAL: No acute or suspicious osseous abnormality. ADDITIONAL FINDINGS: None IMPRESSION: 1. Multiple fluid collections and pockets of air in the region of the transverse colon anastomosis th at is concerning for leak. Discussed with Dr. Vidales by Dr. Garcia at 1430 on 12/14/23 2. Moderate right and small left pleural effusion and likely underlying atelectasis. There are some p eripheral groundglass opacities bilaterally that could reflect early pneumonia or pneumonitis as well. 2.
[2023-12-14] MEDS ORDERED: NEOSTIGMINE 1 MG/ML -10 ML VIAL ONE ×2 (15:06→17:08)
[2023-12-14] MEDS ORDERED: ROCURONIUM 50 MG/5 ML VIAL IV ONE (15:06)
[2023-12-14] MEDS ORDERED: FENTANYL CITR 100 MCG/2 ML ONE (15:06)
[2023-12-14] MEDS ORDERED: propofoL 200 MG/20 ML VIAL IV ONE (15:06)
[2023-12-14] MEDS ORDERED: ONDANSETRON 4 MG/2 ML VIAL ONE (15:06)
[2023-12-14] MEDS ORDERED: GLYCOPYRROLATE 0.2 MG/ML SYR ONE ×4 (15:06→17:09)
[2023-12-14] MEDS ORDERED: LIDOCAINE 2% MPF 5 ML VIAL ONE (15:06)
[2023-12-14] MEDS ORDERED: MIDAZOLAM HCL 2 MG/2 ML INJ ONE (15:07)
[2023-12-14] MEDS: LIDOCAINE HCL/EPINEPHRINE 20 ML MDV ONE (15:07)
[2023-12-14] MEDS: SUCCINYLCHOLINE 20 MG/ML (10 ML) IV ONE (15:15)
[2023-12-14] MEDS: Ringers Lactate 1,000 ML IV ONE (15:20)
[2023-12-14] MEDS: dilTIAZem HCL 25 MG/5 ML VIAL IV ONE ×2 (16:00→17:47)
[2023-12-14] MEDS ORDERED: dexAMETHasone 4 MG/ML VIAL ONE (17:09)
[2023-12-14] MEDS ORDERED: Mastisol Adhesive Liq ONE (17:22)
--- NOTE | 2023-12-14 17:38 | P.OP ---
Preoperative diagnosis: Intestinal leak Postoperative diagnosis: Intestinal leak Primary procedure: Exploratory Laparotomy, repair of perforation Secondary procedure: Creation of Loop Ileostomy Other procedure(s): Negative pressure wound therapy Anesthesia: GETA Estimated blood loss: <50cc Specimen: Necrotic Tissue Findings: Barium in abdomen, small punctate hole @ anastamosis, no ischemia Complications: None Drain(s): Wound drain (WVAC), MAGDALENA drain (10mm Flat) Transferred to: ICU Condition: Serious
--- NOTE | 2023-12-14 18:32 | RAD REPORT ---
EXAM: AP view(s) of the abdomen Abdomen 1 View (KUB) HISTORY: Placement of NGT/OGT. Post Insertion. COMPARISON: None FINDINGS: NG tube tip overlies the lower stomach in satisfactory position. Surgical drain overlies th e abdomen. Nonobstructive bowel gas pattern. IMPRESSION: NG tube tip overlies lower stomach in satisfactory position.
[2023-12-14] MEDS ORDERED: GLUCAGON 1 MG/VIAL IM PRN (19:05)
[2023-12-14] MEDS ORDERED: D10W 125 ML IV PRN (19:05)
[2023-12-14] MEDS: MORPHINE 2 MG/ML SYR IV PRN (19:08)
[2023-12-14] MEDS: D5.45NS W/KCL 20MEQ 20 MEQ/1,000 ML BAG IV SCH (19:17)
[2023-12-14] MEDS: AMIODARONE HCL 900 MG in Dextrose 5%-Water 482 ML IV SCH (19:21)
[2023-12-14] MEDS: HYDROMORPHONE HCL 1 MG/ML INJ IV PRN (20:17)
[2023-12-14] MEDS: INSULIN REGULAR (HUMAN) 100 UNIT/ML SQ SCH (23:38)
--- NOTE | 2023-12-15 04:08 | OP ---
Date of Procedure: 12/14/2023 Surgeon: Patirck Vidales MD, Preoperative Diagnosis: Intestinal leak. Postoperative Diagnosis: Intestinal leak. Procedures Performed: 1.Exploratory laparotomy. 2.Repair of anastomotic intestinal perforation. 3.Creation of loop ileostomy. 4.Negative pressure wound therapy applied. Anesthesia: General endotracheal. Estimated Blood Loss: 50 cc. Specimens: Necrotic omental tissue. Findings: Barium was present in the abdomen and a small punctate hole was appreciated at the anastom osis. However, there were no ischemic changes to the anastomosis. There appeared to be breakdown at the staple line. Complications: None. Drains: A wound VAC in the midline over the closed abdomen and a 10 mm flat MAGDALENA drain from the left u pper abdomen wrapping around the anastomosis. Disposition: The patient was transferred to ICU in serious condition. Brief History Of Present Illness: The patient is a 73-year-old woman, known to me, who was recently admitted to the hospital with gastrointestinal bleeding, had a colonoscopy with judy Pritchard finding an apple-core lesion, which was biopsied and confirmed to be adenocarcinoma; however, the s tricture/apple-core lesion could not be traversed with the scope. As such, she had a barium enema. The patient ultimately was optimized for surgical intervention. ERAS program was ordered. However, the patient did not receive bowel prep, which was not conveyed to me preoperatively. The patient was taken to the operating room for an exploratory laparoscopy converted to open laparotomy, where she h ad an extended right hemicolectomy with an ileotransverse colic anastomosis and a primary abdominal c losure at that time. The patient did well initially after surgery and had normalization of her white blood cell count. However, over the course of several days, she developed worsening tachycardia and an elevation of her white blood cell count. Given those 2 concerning findings, a KUB was ordered, w hich in my opinion showed abnormalities not officially noted on the physical exam. As such, I ordere d a CT scan with IV contrast, which showed what appeared to be an anastomotic leak with significant b arium present in the rectum with dilation of the rectum. The anastomosis appeared to be patent and f unctional at that time. The patient did have several large bowel movements after surgery in the last 2 days, which had some barium to them. However, the CT scan still shows a significant barium burden in this portion of the colon. As such, given the intestinal leak, I opted to take the patient to e operating room for exploratory laparotomy and planned diversion of the intestinal tract. I spoke t o the patient and the patient's daughter and explained that the patient will be taken for re-explorat ory laparotomy, possible bowel resection, ileostomy creation, repair of anastomosis, and indicated pr ocedures. I explained that the risks included bleeding, infection, damage to internal organs, cardia c arrhythmias, heart attacks, blood clots, strokes, sepsis, infection, fistulas, ureteral injury, inj ury to any internal organs including pancreas, liver, spleen, bleeding was a significant concern give n her medical history and cardiovascular issues in addition to pulmonary embolism and other unforesee n complications in the perioperative period related to anesthesia in the perioperative period and rec overy. They displayed understanding of the above-stated plan and agreed to proceed as indicated. In addition, I explained that the patient may require multiple surgeries going forward should this requ irement be necessary. They once again agreed to the above-stated plan. Procedure In Detail: The patient was brought to the operating room in the supine position, prepped a nd draped in usual sterile fashion. After adequate anesthesia was achieved, midline celia were rem [place]. I then dissected down to the previous suture which was grasped, elevated, and opened after cut ting the suture. The #1 looped PDS was opened in its entirety. The abdomen was immediately opened a nd I encountered the omentum which appeared to be clean at this time. However, dissection continued down to the previous anastomosis where a collection of feculent material was suctioned out and found this area was fairly well contained at this site and as such, the feculent material was removed as I wrapped the omentum around the anastomosis on the previous and therefore contained this significantly . However, there did appear to be inflammatory fluid around the liver and spleen. Therefore, I irri gated the abdomen copiously and suctioned out all material including completely around the hepatic sp vianey as well as the perisplenic space in all 4 quadrants of the abdomen. The central portions of the abdomen were cleaned as well. There was some necrotic omentum which was ligated using the electrocau justo and sent off to the back table. No pathologic specimen was necessary. After the irrigation was complete, no additional hemostatic measures required. I then found the anastomosis and found it to be pink, viable, and without evidence of ischemic changes. However, there was a small hole at the st aple line and as such, this was approximately 1 to 2 mm in size, very small, but had a leak when sque ezed and as such, I chose to close this using a 3-0 silk suture using several interrupted silk suture s. I then tested the area and there was no leakage at this point. I then rewrapped the area with om entum and brought in a 10 mm flat MAGDALENA drain to the left upper quadrant separate stab incision and plac ed it around the anastomosis at this point under the omentum and then placed the omentum over once ag ain to wrap the area. At this point, the abdomen appeared to be clean and dry without any significan t bleeding. There was some minor oozing from all cut surfaces, but no significant source of obvious bleeding at this point was appreciated. I therefore opted to make an ileostomy in the right upper qu adrant. I found a loop of bowel which was nice and without tension in this area which was proximal f rom the anastomosis obviously. I then made an incision in the skin using a Fanny clamp and appropri ately dissected down removing all adipose tissue down to the anterior rectus sheath. I opened this c ruciate type incision and the muscular fibers down to the peritoneum and opened this also w ith a cruciate type incision. I digitized the area to allow for proper passage of the bowel. I pass ed a Astrid clamp down and pulled the ileum for a loop ileostomy formation. I then brought the loop of ileum up to the skin surface and placed a bridge after placing a small mesenteric window. A plas tic bridge was secured underneath this to help secure the loop ileostomy in place at this point. I t hen placed a single interrupted 3-0 Vicryl suture on both the proximal and distal intraperitoneal asp ect as the bowel passed through the abdominal wall. At this point, I then closed the abdomen after i rrigating it using the abdominal FISH to protect with a #1 looped PDS in a running fashion. I then i rrigated the skin at this point and placed an abdominal wound VAC in place and protected the ileostom y at this point. The wound VAC was applied and had good suction at this point. The MAGDALENA drain bulb wa s also secured with a drain stitch at this point, which was a 3-0 nylon suture and a bulb attached. At this point, I matured the ileostomy by using electrocautery to open the common channel leaving the back wall intact. I then placed a Melissa type puckering of the proximal and distal limbs with inter rupted 3-0 silk sutures in an interrupted fashion followed by 3-0 interrupted Vicryl sutures in a Bro abdelrahman type orientation around. I then digitized both the proximal and distal limbs and found it to be patent with passage of material coming through this minimally when digitized. At this point, it was felt to be adequate to allow for passage of material. At this point, I then cleansed the area and th e skin around and an ostomy appliance was applied. The patient tolerated the procedure well without incident or complication and transferred to ICU in serious condition. All counts were correct at the end of the case. CELIA/PATEL Voice ID: [id number] Report ID: [id number]
[2023-12-15 05:27] LABS: Absolute Lymphocytes (CBC) 0.8 K/uL (0.7-4.9); Basophils % 0.1 % (0-1.3); Hematocrit 30.1 % (36.0-45.0); Hemoglobin 9.4 g/dL (12.0-15.0); Lymphocytes % 4.9 % (15.3-44.8); MCH 25.1 pg (27.0-35.0); MCHC 31.2 g/dL (32.0-36.0); MCV 80.3 fL (80-100); MPV 7.7 fL (7.6-11.3); Monocytes % 5.9 % (3.3-12.3); Platelets 272 thou/uL (152-406); RBC Red Blood Cell Count 3.75 M/uL (3.86-4.86); Red Cell Distribution Width 22.8 % (12.1-15.2)
[2023-12-15 05:34] LABS: Neutrophils % 89.1 % (41.7-73.7)
[2023-12-15 06:05] LABS: AST/SGOT 11 U/L (15-37); Albumin 1.7 g/dL (3.4-5.0); Albumin/Globulin Ratio 0.5 (1.1-1.8); Alkaline Phosphatase 131 U/L (45-117); Anion Gap 7.1 mEq/L (5.0-15.0); BUN Blood Urea Nitrogen 27 mg/dL (7-18); Bicarbonate 30 mEq/L (21-32); Bilirubin Total 0.6 mg/dL (0.2-1.0); Globulin 3.3 g/dL (2.3-3.5); Glomerular Filtration Rate 69 ml/min (=/>90); Glucose Level 228 mg/dL (74-106); Magnesium 1.8 mg/dL (1.6-2.4); Phosphorus 2.3 mg/dL (2.5-4.9); Potassium 4.1 mEq/L (3.5-5.1); Sodium Level 139 mEq/L (136-145)
[2023-12-15 06:15] LABS: ALT/SGPT < 14 U/L (13-56)
[2023-12-15] MEDS: POTASSIUM PHOS IN 0.9 % NACL 15 MMOL/250 ML BAG IV ONE (06:19)
[2023-12-15] MEDS: MAGNESIUM SULFATE 1 gm IVPB 1 GM/100 ML BAG IV ONE ×2 (06:32→08:48)
--- NOTE | 2023-12-15 07:03 | P.PN ---
Date of Service: 12/15/23 Subjective: no acute events overnight, s/p ex-lap / hemicolectomy/ loop ileostomy yesterday sleeping comfortably this morning after receiving pain medication ROS: 10 point ROS as noted above, otherwise negative Physical Exam: GEN: NAD, NGT in place CV: Irregularly Irregular rate and rhythm, HR: 110s Pulm: Nonlabored respirations on 4L NC, diminished at bases b/l ABD: soft, nontender, nondistended Integumentary: Post-op site with dressing in place. Wound vac in place. LUQ MAGDALENA drain in place Espino reinserted 12/13 for surgery Problem List: Acute blood loss anemia Melena/upper GI bleed Colon cancer s/p right hemicolectomy, lysis of adhesions (12/07) 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 (12/13) Chronic atrial fibrillation with RVR-on chronic anticoagulation Sepsis secondary to Pneumonia Acute diastolic heart failure Acute respiratory failure with hypoxia secondary to above Acute Metabolic encephalopathy, improved KEYANNA, resolved Critical illness myopathy Acute blood loss anemia Melena/upper GI bleed Colon cancer s/p right hemicolectomy, lysis of adhesions (12/07) 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 (12/13) EGD (11/30): gastric ulcer with no active bleeding Colonoscopy (12/01): stricture with possible mass Barium enema (12/01) apple core lesion proximal transverse colon likely neoplasm. Transverse colon biopsy path: invasive moderately differentiated adenocarcinoma. s/p ex lap with hemicolectomy and lysis of adhesion by Dr. Vidales (12/07). CT abdomen (12/13): multiple fluid collections and pockets of air in region of transverse colon anastomosis concerning for leak. KUB (12/13) no evidence of ileus or bowel obstruction. (12/13) s/p ex lap, repair of perforation/intestinal leak with creation of loop ileostomy found small punctate hole at anastomosis site without evidence of ischemia. MAGDALENA drain, wound vac in place S/P a total of 6 unit PRBC. (last transfusion 12/11) Diet per surgery. NPO for now. Continue Protonix. Dr. Vidales, general surgeon is following Fluctuating leukocytosis. rocephin/flagyl (12/09-12/12) changed to IV meropenem (12/12-). Continue IV meropenem. Incentive spirometry encouraged PICC placed 12/02 start TPN/PPN Chronic atrial fibrillation with RVR-on chronic anticoagulation Initial plan was for GENNA cardioversion, sotalol but given patient's severe anemia secondary to GI bleed plan for GENNA cardioversion was aborted because patient cannot be anticoagulated due to high risk for life-threatening bleed. Initially on Sotalol for rate and rhythm control; switched to amiodarone drip 12/13 amio drip restarted 12/13 Continue amiodarone and metoprolol. sotalol dc'd 12/13 Cardiology is following May need to restart anticoagulation if okay by surgery and GI and hemoglobin becomes stable. Patient may benefit with Watchman procedure outpatient. Sepsis secondary to Pneumonia Acute diastolic heart failure Acute respiratory failure with hypoxia secondary to above Chest x-ray shows significant bibasilar lung opacities, greater on the right, likely representing atelectasis or pneumonia. Pulmonary edema also present. CT abdomen (12/13): Bilateral peripheral groundglass opacities could reflect pneumonia/pneumonitis. +bilateral pleural effusions with underlying atelectasis. Continue IV meropenem (12/12-). s/p IV lasix encourage Incentive spirometry Continue to monitor CBC. espino placed 12/[address] Vidales to follow. Acute Metabolic encephalopathy, improved Improved Likely drug-induced secondary to opioids. IV hydromorphone discontinued. Pain management with oral [place]. KEYANNA, resolved Nephrology consulted KEYANNA resolved. Lasix per nephrology continue to monitor renal function Critical illness myopathy Continue PT Social service consulted to assist with arrangement for acute rehab. VTE: SCD for now Code: Full Dispo: rehab, pending stability/improvement, possible LTAC Time Spent Managing Pts Care (In Minutes): 41
[2023-12-15] MEDS: SODIUM PHOSPHATE 15 MM in NA CHLORIDE 0.9% 250 ML IV ONE (08:01)
--- NOTE | 2023-12-15 11:21 | P.PN ---
Subjective Date of Service: 12/15/23 Chief Complaint: A-fib with RVR, GI bleed, apple core transverse colon cancer Subjective: New changes (patient went another lapratomy yesterday) Review of Systems 10-point ROS is otherwise unremarkable Physical Examination - Vital Signs Temperature: 97.3 F Blood Pressure: 150/73 Pulse: 107 Respirations: 14 Pulse Ox (%): 95 - Physical Exam General: Alert, In no apparent distress HEENT: Atraumatic, PERRLA, EOMI Neck: Supple, JVD not distended Respiratory: Clear to auscultation bilaterally, Normal air movement Cardiovascular: Irregular heart rate/rhythm Gastrointestinal: Normal bowel sounds, No tenderness Musculoskeletal: No tenderness Integumentary: No rashes Neurological: Normal speech, Normal tone, Normal affect Lymphatics: No axilla or inguinal lymphadenopathy - Studies Medications List Reviewed: Yes Assessment And Plan - Current Problems (Diagnosis) (1) Atrial fibrillation Current Visit: Yes Status: Acute Plan: Patient was on Sotalol and Lopressor, Tele overnight shows RVR Anticoagulation on hold due to GI bleed and recent surgery. patient required 1 unit of PRBCs overnight. Patient is NPO so she is on Amiodarone drip at 0.5 now will defer to surgical team on timing to re start anticoagulation. (2) GI bleed Current Visit: Yes Status: Acute Plan: blood transfusion, GI did endoscopy and colonoscopy that shows constriction with mass, s/p surgery. (3) HTN (hypertension) Current Visit: Yes Status: Acute Plan: BP is soft, will continue to monitor
[2023-12-15] MEDS: Mastisol Adhesive Liq TOP SCH (13:06)
[2023-12-15] MEDS: AMINO ACIDS 5 %/DEXTROSE 20 % 2,000 ML, Lipids 20% 250 ML with MULTIVITAMINS INJ 10 ML IV SCH (16:34)
--- NOTE | 2023-12-15 20:55 | P.PN ---
Date of Service: 12/15/23 Vital Signs Temp Pulse Resp BP Pulse Ox 97.2 F 109 H 14 137/81 97 12/15/23 20:00 12/15/23 20:00 12/15/23 20:00 12/15/23 20:00 12/15/23 20:00 Medications Acetaminophen (Acetaminophen 325 Mg Tablet) 650 mg PO Q4HP PRN PRN Reason: Pain scale 2-4 (Mild)orT>100.1 Enoxaparin Sodium (Enoxaparin 40 Mg/0.4 Ml) 40 mg SQ DAILY [facility] Glucagon (Glucagon 1 Mg/Vial) 1 mg IM UD PRN PRN Reason: HYPOGLYCEMIA Hydromorphone HCl (Hydromorphone Hcl 1 Mg/Ml Inj) 1 mg IV Q2H PRN PRN Reason: Breakthrough pain Last Admin: 12/15/23 15:06 Dose: 1 mg Sodium Chloride (Sodium Chloride) 250 mls @ 0 mls/hr IV .Q0M RONI Sodium Chloride (Sodium Chloride) 250 mls @ 0 mls/hr IV .Q0M RONI Meropenem 1,000 mg/ Sodium (Chloride) 100 mls @ 200 mls/hr IV Q8H [facility] Last Admin: 12/15/23 13:06 Dose: 100 mls Amiodarone HCl 900 mg/ (Dextrose) 500 mls @ 16.667 mls/hr IV Q24H [facility]; Protocol Last Admin: 12/15/23 16:34 Dose: 500 mls Potassium Chloride/Dextrose/Sod Cl (D5.45 Ns With Kcl 20meq/Liter) 20 meq in 1,000 mls @ 100 mls/hr IV .Q10H [facility] Last Admin: 12/15/23 16:34 Dose: 1,000 mls Dextrose (Dextrose 10% Water Iv Soln.) 125 mls @ 0 mls/hr IV PRN PRN; Protocol PRN Reason: HYPOGLYCEMIA Multivitamins 10 ml/ AMINO ACIDS 5 %/DEXTROSE 20 %/ Fat Emulsion Intravenous 2,260 mls @ 50 mls/hr IV [id number] [facility] Last Admin: 12/15/23 16:34 Dose: 2,260 mls AMINO ACIDS 5 %/DEXTROSE 20 % (Clinimix 5%-20% Solution) 2,000 mls @ 50 mls/hr IV [id number] [facility] Insulin Human Regular (Insulin Regular (Human) 100 Unit/Ml) 0 unit SQ Q6HR [facility]; Protocol Last Admin: 12/15/23 16:34 Dose: Not Given Metoprolol Tartrate (Metoprolol Tartrate 5 Mg/5 Ml Inj) 2.5 mg IV Q6H PRN PRN Reason: HR >120 Last Admin: 12/13/23 12:47 Dose: 2.5 mg Morphine Sulfate (Morphine 2 Mg/Ml Syr) 2 mg IV Q4H PRN PRN Reason: Pain scale 8-10 (Severe) Last Admin: 12/14/23 19:08 Dose: 2 mg Sodium Chloride (Sodium Chloride 0.9% 10ml Inj) 10 ml IV UD PRN PRN Reason: Diluant Last Admin: 12/12/23 19:57 Dose: 10 ml Assessment/ Plan: Nephrology Progress Note No Dyspnea No Chest Pain No Acute Events Overnight Surgery yesterday for an anastomosis leak Vital Signs, Medications, Blood Work, and Imaging reviewed in the chart General: In no apparent distress, Cooperative HEENT: Atraumatic Neck: Supple Respiratory: Clear to auscultation bilaterally Cardiovascular: Edema, Irregular heart rate/rhythm Gastrointestinal: No guarding, Tenderness Musculoskeletal: No clubbing, No contractures Integumentary: No rashes, No cyanosis Neurological: Normal speech Blood work reviewed in the chart. Imagings Data: EXAM: Abdomen 1 View (KUB) HISTORY: [facility] MAIN Placement of NGT/OGT. Post Insertion. Pls call Floor to confirm if patient is ready. COMPARISON: 11/30/2023 CT abdomen and pelvis FINDINGS: Single view of the abdomen shows a nonspecific, nonobstructive bowel gas pattern. Enteric tube tip terminates in the region of the stomach body. Right upper quadrant surgical clips suggesting prior. Midline laparotomy skin celia. No suspicious calcifications are seen. The bones are unremarkable. IMPRESSION: Satisfactory positioning of the enteric tube is above. EXAMINATION: ONE VIEW CHEST XR CLINICAL INDICATION: PICC placement TECHNIQUE: Frontal chest projection is submitted. Examination is limited by patient positioning and technique. COMPARISON: No prior exam. FINDINGS: The tip of the right-sided PICC line is in the SVC. The heart is upper limit of normal in size. No displaced fractures identified. IMPRESSION: Right-sided PICC line has tip in the SVC. There is a left-sided catheter tubing also partially visualized in the left axillary region. EXAM: Single contrast barium enema INDICATION: Colon mass COMPARISON: CT abdomen January 30, 2024 Technique: Single contrast barium enema performed. Contrast reflux into small bowel. FINDINGS: An apple core 2 cm lesion involves the proximal transverse colon. Diverticula system from the colon without diverticulitis. No obstruction Fluoroscopy time: 1.3 minutes Number of images: 19 fluoroscopic spot images IMPRESSION: Apple core lesion proximal transverse colon likely neoplasm. EXAMINATION: CT ABDOMEN AND PELVIS WITHOUT CONTRAST CLINICAL INDICATION: Female, 73 years old. GI BLEED [facility] MAIN GI BLEED NO CONTRAST Bed Name: 4 TECHNIQUE: CT abdomen and pelvis was performed, without IV contrast, as per department protocol. Axial, sagittal and coronal reconstructions were obtained. One or more of the following dose reduction techniques were used: Automated exposure control, adjustment of the mA and kV according to the patient size, and iterative reconstruction. Unless otherwise specified, incidental findings do not require dedicated imaging follow-up. COMPARISON: No prior exam. FINDINGS: The lack of intravenous contrast limits the sensitivity of this exam for evaluation of solid visceral organs, vascular structures, and retroperitoneum. LOWER CHEST: The visualized lung bases are clear. LIVER: Normal in size and contour. No focal lesion. Cholecystectomy clips. SPLEEN: Normal size. No focal lesion. PANCREAS: No mass, ductal dilation, or angelica-pancreatic fluid. ADRENALS: Normal; no mass. KIDNEYS AND URETERS: Normal size and contour. No hydronephrosis. Benign-ap pearing right renal cyst. URINARY BLADDER: Normal contour. GASTROINTESTINAL TRACT: No evidence of bowel obstruction, significant free fluid, free air or abscess. There is mild diverticulosis coli of the sigmoid colon without diverticulitis. APPENDIX: Normal appendix. LYMPH NODES: No lymphadenopathy. MUSCULOSKELETAL: Mild multilevel spinal degenerative changes. ADDITIONAL FINDINGS: None. IMPRESSION: No acute or concerning abnormalities in the abdomen or pelvis, with evaluation limited by lack of IV contrast. Conclusions/Impression: Stage I KEYANNA may be due to hypovolemia, resolved CKD II with Proteinuria -No NSAIDs Hypokalemia -Replete prn Hypomagnesemia -Continue MagOx qhs Hypophosphatemia -Replete as ordered HTN with CKD -Hold antihypertensives at this time Hypervolemia with Pulmonary Edema and Pleural Effusions Periperhal Edema Hyperglycemia -RISS prn Hypoalbuminemia -Continue Ensure Anemia in chronic illness/ blood loss Iron Deficiency 4.9% -Monitor H&H -Consider IV iron Colon Cancer sp Resection 12-08-23 Invasive moderately differentiated adenocarcinoma -Continue Abx -Follow up with surgery -Wound care as ordered
[2023-12-15] MEDS: ENOXAPARIN 40 MG/0.4 ML SQ SCH (21:08)
[2023-12-16 05:57] LABS: Absolute Lymphocytes (CBC) 1.4 K/uL (0.7-4.9); Absolute Monocytes 1.9 K/uL (0.1-1.3); Absolute Neutrophil 16.6 K/uL (1.8-8.0); Basophils % 0.1 % (0-1.3); Eosinophils % 0.2 % (0-4.4); Hematocrit 28.2 % (36.0-45.0); Hemoglobin 9.2 g/dL (12.0-15.0); Lymphocytes % 7.2 % (15.3-44.8); MCH 25.9 pg (27.0-35.0); MCHC 32.7 g/dL (32.0-36.0); MCV 79.2 fL (80-100); MPV 7.6 fL (7.6-11.3); Monocytes % 9.6 % (3.3-12.3); Neutrophils % 82.9 % (41.7-73.7); Nucleated Red Blood Cells % 0.1 % (0-0); Platelets 378 thou/uL (152-406); RBC Red Blood Cell Count 3.56 M/uL (3.86-4.86); Red Cell Distribution Width 23.1 % (12.1-15.2)
[2023-12-16 06:14] LABS: AST/SGOT 12 U/L (15-37); Albumin 1.7 g/dL (3.4-5.0); Albumin/Globulin Ratio 0.5 (1.1-1.8); Alkaline Phosphatase 119 U/L (45-117); Anion Gap 9.6 mEq/L (5.0-15.0); BUN Blood Urea Nitrogen 23 mg/dL (7-18); Bicarbonate 27 mEq/L (21-32); Bilirubin Total 0.5 mg/dL (0.2-1.0); Globulin 3.7 g/dL (2.3-3.5); Glomerular Filtration Rate 81 ml/min (=/>90); Glucose Level 269 mg/dL (74-106); Magnesium 1.9 mg/dL (1.6-2.4); Phosphorus 1.6 mg/dL (2.5-4.9); Potassium 3.6 mEq/L (3.5-5.1); Protein, Total 5.4 g/dL (6.4-8.2); Sodium Level 135 mEq/L (136-145)
[2023-12-16 06:15] LABS: ALT/SGPT < 14 U/L (13-56)
[2023-12-16] MEDS ORDERED: POTASSIUM PHOS IN 0.9 % NACL 15 MMOL/250 ML BAG IV ONE (07:00)
--- NOTE | 2023-12-16 07:43 | RAD REPORT ---
EXAMINATION: ONE VIEW CHEST XR CLINICAL INDICATION: f/u effusions TECHNIQUE: Frontal chest projection is submitted. Examination is limited by patient positioning and t echnique. COMPARISON: 12/14/2023 FINDINGS: [id number] right pleural effusion. Trace left pleural effusion noted. Right-sided PICC line ti p in SVC. Enteric tube descends into the stomach. The heart is upper limit of normal in size. No displaced fractures identified. Catheter tubing is seen in the left axillary region. IMPRESSION: [id number] right pleural effusion. This appears similar to comparative study.
--- NOTE | 2023-12-16 08:13 | P.PN ---
Date of Service: 12/16/23 Subjective: denies any worsening pain or discomfort slightly more tachypneic, tachycardic minimal output from ostomy afebrile ROS: 10 point ROS as noted above, otherwise negative Physical Exam: GEN: NAD, NGT in place CV: Irregularly Irregular rate and rhythm, HR: 120s Pulm: Nonlabored respirations on 4L NC, diminished at bases b/l ABD: soft, nontender, nondistended Integumentary: Post-op site with dressing in place. Wound vac in place. LUQ MAGDALENA drain in place Espino reinserted 12/13 for surgery Problem List: Acute blood loss anemia Melena/upper GI bleed Colon cancer s/p right hemicolectomy, lysis of adhesions (12/07) 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 (12/13) Sepsis secondary to Pneumonia Acute diastolic congestive heart failure Acute respiratory failure with hypoxia secondary to above Chronic atrial fibrillation with RVR-on chronic anticoagulation Acute Metabolic encephalopathy, improved KEYANNA, resolved Critical illness myopathy Acute blood loss anemia Melena/upper GI bleed Colon cancer s/p right hemicolectomy, lysis of adhesions (12/07) 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 (12/13) EGD (11/30): gastric ulcer with no active bleeding Colonoscopy (12/01): stricture with possible mass Barium enema (12/01) apple core lesion proximal transverse colon likely neoplasm. Transverse colon biopsy path: invasive moderately differentiated adenocarcinoma. s/p ex lap with hemicolectomy and lysis of adhesion by Dr. Vidales (12/07). CT abdomen (12/13): multiple fluid collections and pockets of air in region of transverse colon anastomosis concerning for leak. KUB (12/13) no evidence of ileus or bowel obstruction. (12/13) s/p ex lap, repair of perforation/intestinal leak with creation of loop ileostomy found small punctate hole at anastomosis site without evidence of ischemia. MAGDALENA drain, wound vac in place S/P a total of 6 unit PRBC. (last transfusion 12/11) Diet per surgery. NPO for now. NGT in place Continue Protonix. Dr. Vidales, general surgeon is following Incentive spirometry encouraged continue TPN/PPN via PICC; started 10/8 Sepsis secondary to Pneumonia Acute diastolic heart failure Acute respiratory failure with hypoxia secondary to above Chest x-ray shows significant bibasilar lung opacities, greater on the right, likely representing atelectasis or pneumonia. Pulmonary edema also present. CT abdomen (12/13): Bilateral peripheral groundglass opacities could reflect pneumonia/pneumonitis. +bilateral pleural effusions with underlying atelectasis. CXR (12/15): Small-mod right pleural effusion. Trace left pleural effusion. encourage Incentive Spirometry espino placed 12/13 s/p IV lasix rocephin/flagyl (12/09-12/12) changed to IV meropenem Continue IV meropenem (12/12-) afebrile, +leukocytosis 16.8 -> 20 (12/15) Chronic atrial fibrillation with RVR-on chronic anticoagulation Initial plan was for GENNA cardioversion, sotalol but given patient's severe anemia secondary to GI bleed plan for GENNA cardioversion was aborted because patient cannot be anticoagulated due to high risk for life-threatening bleed. Initially on Sotalol for rate and rhythm control; switched to amiodarone drip 12/13 due to RVR post-op Continue amiodarone and metoprolol. Cardiology is following Lovenox started 12/14 per surgery Patient may benefit with Watchman procedure outpatient. Acute Metabolic encephalopathy, improved Improved Likely drug-induced secondary to opioids. pain control KEYANNA, resolved Nephrology consulted KEYANNA resolved. Lasix per nephrology continue to monitor renal function Critical illness myopathy Continue PT Social service consulted to assist with arrangement for acute rehab. VTE: lovenox - DVT prophylaxis Code: Full Dispo: rehab, pending stability/improvement, possible LTAC Time Spent Managing Pts Care (In Minutes): 51
[2023-12-16 08:56] LABS: Blood Morphology Comment NOTED (NOT SEEN); Differential Total Cells Count 100; Lymphocytes 3 % (15-42); Metamyelocytes 1 % (0-0); Monocytes 9 % (0-10); Platelet Estimate ADEQ; Segmented Neutrophils 87 % (40-80); Toxic Granulation NOTED
[2023-12-16 08:57] LABS: Anisocytosis 1+; Microcytosis 1+; Ovalocytes 1+
[2023-12-16] MEDS: POTASSIUM PHOS 30 MM in NA CHLORIDE 0.9% 500 ML IV SCH (09:05)
--- NOTE | 2023-12-16 12:57 | P.PN ---
Subjective Date of Service: 12/16/23 Chief Complaint: A-fib with RVR, GI bleed, apple core transverse colon cancer Subjective: No new changes, No C/O voiced, Tolerating diet, Ambulating, Improving Review of Systems 10-point ROS is otherwise unremarkable Physical Examination - Vital Signs Temperature: 97.6 F Blood Pressure: 141/90 Pulse: 124 Respirations: 22 Pulse Ox (%): 94 - Physical Exam General: Alert, In no apparent distress HEENT: Atraumatic, PERRLA, EOMI Neck: Supple, JVD not distended Respiratory: Normal air movement, Dull Cardiovascular: Irregular heart rate/rhythm Gastrointestinal: Normal bowel sounds, No tenderness Musculoskeletal: No tenderness Integumentary: No rashes Neurological: Normal speech, Normal tone, Normal affect Lymphatics: No axilla or inguinal lymphadenopathy - Studies Medications List Reviewed: Yes Assessment And Plan - Current Problems (Diagnosis) (1) Atrial fibrillation Current Visit: Yes Status: Acute Plan: Patient was on Sotalol and Lopressor, Tele overnight shows RVR Anticoagulation on hold due to GI bleed and recent surgery. monitor Hgb Patient is NPO so she is on Amiodarone drip at 0.5 now will defer to surgical team on timing to re start anticoagulation. (2) GI bleed Current Visit: Yes Status: Acute Plan: blood transfusion, GI did endoscopy and colonoscopy that shows constriction with mass, s/p surgery. (3) HTN (hypertension) Current Visit: Yes Status: Acute Plan: BP is soft, will continue to monitor
[2023-12-16] MEDS: AMIODARONE HCL 900 MG in Dextrose 5%-Water 482 ML IV SCH (16:31)
[2023-12-16] MEDS: METOPROLOL TARTRATE 5 MG/5 ML INJ IV STA (16:32)
--- NOTE | 2023-12-16 18:25 | P.PN ---
Subjective Date of Service: 12/15/23 Chief Complaint: A-fib with RVR, GI bleed, apple core transverse colon cancer Patient feels generally well but remains low-grade confused at times. She has no complaints of pain currently. Physical Examination - Vital Signs Temperature: 98.9 F Blood Pressure: 145/93 Pulse: 107 Respirations: 24 Pulse Ox (%): 98 - Physical Exam General: Alert, In no apparent distress, Confused Neck: Supple Respiratory: Diminished Cardiovascular: Other (Irregular) Gastrointestinal: Other (Soft, mild appropriate tenderness to palpation, ileostomy in right side of abdomen is pink and viable minimal serous fluid, MAGDALENA drain is serosanguineous, midline wound is clean with celia in place.) Integumentary: No rashes, No breakdown Neurological: Normal speech - Studies Medications List Reviewed: Yes Assessment And Plan - Current Problems (Diagnosis) (1) Adenocarcinoma of transverse colon Current Visit: Yes Status: Acute Plan: Patient is a 73 year old woman who is s/p Extended Right hemicolectomy and 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 She ultimately required return to OR on 12-14-2023 for exploatory laparotomy with loop ileostomy creation for anastamotic leak. Patient had barium concretion in rectum and did not get bowel prep requested. - Gen/ Neuro: Continue IV pain medication with dilaudid PRN - CVS: A-Fib, improving rate, amiodarone IV, no HD instability, good BP - Pulm: diminished but improved - GI : Ostomy is pink and viable, continue ostomy management, celia and incision remain clean, continue dressing changes daily, MAGDALENA output appears ser osanguineous, continue MAGDALENA drain care, await bowel function ileostomy bag. After patient has function will recommend enemas to remove barium concretion. continue WVAC to midline wound - FEN: Continue IV supplementation total IV fluids at 100 currently, electrolyte replacement protocol, currently getting TPN - ID: Continue meropenem, leukocytosis continues to increase. Will continue to monitor, likely SIRS from recent surgery. - Endo: Continue insulin sliding scale and Accu-Cheks - Prophylaxis: Start Lovenox soon, SCDs - Heme: Continue serial hemoglobin checks transfuse PRBCs if needed. Discharge Plan: LTAC
--- NOTE | 2023-12-16 20:47 | P.PN ---
Date of Service: 12/16/23 Vital Signs Temp Pulse Resp BP Pulse Ox 97.2 F 109 H 14 131/75 96 12/16/23 19:00 12/16/23 20:00 12/16/23 20:00 12/16/23 20:00 12/16/23 20:00 Medications Acetaminophen (Acetaminophen 325 Mg Tablet) 650 mg PO Q4HP PRN PRN Reason: Pain scale 2-4 (Mild)orT>100.1 Enoxaparin Sodium (Enoxaparin 40 Mg/0.4 Ml) 40 mg SQ DAILY [facility] Last Admin: 12/16/23 09:05 Dose: 40 mg Glucagon (Glucagon 1 Mg/Vial) 1 mg IM UD PRN PRN Reason: HYPOGLYCEMIA Hydromorphone HCl (Hydromorphone Hcl 1 Mg/Ml Inj) 1 mg IV Q2H PRN PRN Reason: Breakthrough pain Last Admin: 12/16/23 19:11 Dose: 1 mg Sodium Chloride (Sodium Chloride) 250 mls @ 0 mls/hr IV .Q0M RONI Sodium Chloride (Sodium Chloride) 250 mls @ 0 mls/hr IV .Q0M RONI Meropenem 1,000 mg/ Sodium (Chloride) 100 mls @ 200 mls/hr IV Q8H [facility] Last Admin: 12/16/23 14:32 Dose: 100 mls Potassium Chloride/Dextrose/Sod Cl (D5.45 Ns With Kcl 20meq/Liter) 20 meq in 1,000 mls @ 100 mls/hr IV .Q10H [facility] Last Admin: 12/16/23 19:16 Dose: Not Given Dextrose (Dextrose 10% Water Iv Soln.) 125 mls @ 0 mls/hr IV PRN PRN; Protocol PRN Reason: HYPOGLYCEMIA Multivitamins 10 ml/ AMINO ACIDS 5 %/DEXTROSE 20 %/ Fat Emulsion Intravenous 2,260 mls @ 50 mls/hr IV [id number] [facility] Last Admin: 12/16/23 16:31 Dose: 2,260 mls AMINO ACIDS 5 %/DEXTROSE 20 % (Clinimix 5%-20% Solution) 2,000 mls @ 50 mls/hr IV [id number] RONI Amiodarone HCl 900 mg/ (Dextrose) 500 mls @ 16.667 mls/hr IV Q24H RONI; Protocol Last Admin: 12/16/23 16:31 Dose: 500 mls Insulin Human Regular (Insulin Regular (Human) 100 Unit/Ml) 0 unit SQ Q6HR [facility]; Protocol Last Admin: 12/16/23 16:32 Dose: 2 unit Metoprolol Tartrate (Metoprolol Tartrate 5 Mg/5 Ml Inj) 2.5 mg IV Q6H PRN PRN Reason: HR >120 Last Admin: 12/13/23 12:47 Dose: 2.5 mg Morphine Sulfate (Morphine 2 Mg/Ml Syr) 2 mg IV Q4H PRN PRN Reason: Pain scale 8-10 (Severe) Last Admin: 12/14/23 19:08 Dose: 2 mg Sodium Chloride (Sodium Chloride 0.9% 10ml Inj) 10 ml IV UD PRN PRN Reason: Diluant Last Admin: 12/12/23 19:57 Dose: 10 ml Assessment/ Plan: Nephrology Progress Note No Dyspnea No Chest Pain No Acute Events Overnight Surgery yesterday for an anastomosis leak Vital Signs, Medications, Blood Work, and Imaging reviewed in the chart General: In no apparent distress, Cooperative HEENT: Atraumatic Neck: Supple Respiratory: Clear to auscultation bilaterally Cardiovascular: Edema, Irregular heart rate/rhythm Gastrointestinal: No guarding, Tenderness Musculoskeletal: No clubbing, No contractures Integumentary: No rashes, No cyanosis Neurological: Normal speech Blood work reviewed in the chart. Imagings Data: EXAM: Abdomen 1 View (KUB) HISTORY: [facility] MAIN Placement of NGT/OGT. Post Insertion. [facility] call Floor to confirm if patient is ready. COMPARISON: 11/30/2023 CT abdomen and pelvis FINDINGS: Single view of the abdomen shows a nonspecific, nonobstructive bowel gas pattern. Enteric tube tip terminates in the region of the stomach body. Right upper quadrant surgical clips suggesting prior. Midline laparotomy skin celia. No suspicious calcifications are seen. The bones are unremarkable. IMPRESSION: Satisfactory positioning of the enteric tube is above. EXAMINATION: ONE VIEW CHEST XR CLINICAL INDICATION: PICC placement TECHNIQUE: Frontal chest projection is submitted. Examination is limited by patient positioning and technique. COMPARISON: No prior exam. FINDINGS: The tip of the right-sided PICC line is in the SVC. The heart is upper limit of normal in size. No displaced fractures identified. IMPRESSION: Right-sided PICC line has tip in the SVC. There is a left-sided catheter tubing also partially visualized in the left axillary region. EXAM: Single contrast barium enema INDICATION: Colon mass COMPARISON: CT abdomen January 30, 2024 Technique: Single contrast barium enema performed. Contrast reflux into small bowel. FINDINGS: An apple core 2 cm lesion involves the proximal transverse colon. Diverticula system from the colon without diverticulitis. No obstruction Fluoroscopy time: 1.3 minutes Number of images: 19 fluoroscopic spot images IMPRESSION: Apple core lesion proximal transverse colon likely neoplasm. EXAMINATION: CT ABDOMEN AND PELVIS WITHOUT CONTRAST CLINICAL INDICATION: Female, 73 years old. GI BLEED [facility] MAIN GI BLEED NO CONTRAST Bed Name: 4 TECHNIQUE: CT abdomen and pelvis was performed, without IV contrast, as per department protocol. Axial, sagittal and coronal reconstructions were obtained. One or more of the following dose reduction techniques were used: Automated exposure control, adjustment of the mA and kV according to the patient size, and iterative reconstruction. Unless otherwise specified, incidental findings do not require dedicated imaging follow-up. COMPARISON: No prior exam. FINDINGS: The lack of intravenous contrast limits the sensitivity of this exam for evaluation of solid visceral organs, vascular structures, and retroperitoneum. LOWER CHEST: The visualized lung bases are clear. LIVER: Normal in size and contour. No focal lesion. Cholecystectomy clips. SPLEEN: Normal size. No focal lesion. PANCREAS: No mass, ductal dilation, or angelica-pancreatic fluid. ADRENALS: Normal; no mass. KIDNEYS AND URETERS: Normal size and contour. No hydronephrosis. Benign- appearing right renal cyst. URINARY BLADDER: Normal contour. GASTROINTESTINAL TRACT: No evidence of bowel obstruction, significant free fluid, free air or abscess. There is mild diverticulosis coli of the sigmoid colon without diverticulitis. APPENDIX: Normal appendix. LYMPH NODES: No lymphadenopathy. MUSCULOSKELETAL: Mild multilevel spinal degenerative changes. ADDITIONAL FINDINGS: None. IMPRESSION: No acute or concerning abnormalities in the abdomen or pelvis, with evaluation limited by lack of IV contrast. Conclusions/Impression: Stage I KEYANNA may be due to hypovolemia, resolved CKD II with Proteinuria -No NSAIDs Hypokalemia -Replete prn Hypomagnesemia -Continue MagOx qhs Hypophosphatemia -Replete as ordered HTN with CKD -Hold antihypertensives at this time Hypervolemia with Pulmonary Edema and Pleural Effusions Periperhal Edema -Lasix prn Hyperglycemia -RISS prn Hypoalbuminemia -Continue Ensure Anemia in chronic illness/ blood loss Iron Deficiency 4.9% -Monitor H&H -Consider IV iron Colon Cancer sp Resection 12-08-23 Invasive moderately differentiated adenocarcinoma -Continue Abx -Follow up with surgery -Wound care as ordered
[2023-12-17 05:05] LABS: Absolute Basophils 0.1 K/uL (0-0.5); Absolute Eosinophils 0.3 K/uL (0-0.5); Absolute Lymphocytes (CBC) 1.6 K/uL (0.7-4.9); Absolute Monocytes 1.9 K/uL (0.1-1.3); Absolute Neutrophil 15.9 K/uL (1.8-8.0); Basophils % 0.5 % (0-1.3); Eosinophils % 1.5 % (0-4.4); Hematocrit 27.7 % (36.0-45.0); Hemoglobin 8.7 g/dL (12.0-15.0); MCH 25.2 pg (27.0-35.0); MCHC 31.5 g/dL (32.0-36.0); MCV 79.9 fL (80-100); MPV 7.7 fL (7.6-11.3); Monocytes % 9.8 % (3.3-12.3); Platelets 333 thou/uL (152-406); RBC Red Blood Cell Count 3.46 M/uL (3.86-4.86); Red Cell Distribution Width 23.1 % (12.1-15.2)
[2023-12-17 05:06] LABS: Neutrophils % 80.2 % (41.7-73.7)
[2023-12-17 05:26] LABS: ALT/SGPT < 14 U/L (13-56); AST/SGOT 12 U/L (15-37); Albumin 1.6 g/dL (3.4-5.0); Albumin/Globulin Ratio 0.5 (1.1-1.8); Alkaline Phosphatase 114 U/L (45-117); Anion Gap 7.6 mEq/L (5.0-15.0); BUN Blood Urea Nitrogen 19 mg/dL (7-18); Bicarbonate 28 mEq/L (21-32); Bilirubin Total 0.5 mg/dL (0.2-1.0); Globulin 3.5 g/dL (2.3-3.5); Glomerular Filtration Rate 95 ml/min (=/>90); Glucose Level 213 mg/dL (74-106); Magnesium 1.5 mg/dL (1.6-2.4); Phosphorus 2.1 mg/dL (2.5-4.9); Potassium 3.6 mEq/L (3.5-5.1); Protein, Total 5.1 g/dL (6.4-8.2); Sodium Level 133 mEq/L (136-145)
[2023-12-17] MEDS: POTASSIUM PHOS IN 0.9 % NACL 15 MMOL/250 ML BAG IV ONE (06:00)
[2023-12-17] MEDS: Magnesium Sulfate 2gm IVPB 2 G/50 ML BAG IV ONE (06:00)
--- NOTE | 2023-12-17 07:43 | P.PN ---
Date of Service: 12/17/23 Subjective: less confused. More awake/alert Breathing feels slightly easier today. Weaning oxygen, down to 2L Heart rate remains ~110-120s with some intermittent bouts of HR in 130s ostomy with some small amount liquid output MAGDALENA drain with ~100ml serosanguineous output afebrile ROS: 10 point ROS as noted above, otherwise negative Physical Exam: GEN: NAD, NGT in place, AOx3 CV: Irregularly Irregular rate and rhythm, HR: 110-120s Pulm: Nonlabored respirations on 2L NC, diminished at bases b/l ABD: soft, mild tenderness throughout abdomen, nondistended Integumentary: Post-op site with dressing in place. Wound vac in place. LUQ MAGDALENA drain in place Espino reinserted 12/13 for surgery Problem List: Acute blood loss anemia Melena/upper GI bleed Colon cancer s/p right hemicolectomy, lysis of adhesions (12/07) 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 (12/13) Sepsis secondary to Pneumonia Acute diastolic congestive heart failure Acute respiratory failure with hypoxia secondary to above Chronic atrial fibrillation with RVR-on chronic anticoagulation Acute Metabolic encephalopathy, improved KEYANNA, resolved Critical illness myopathy Acute blood loss anemia Melena/upper GI bleed Colon cancer s/p right hemicolectomy, lysis of adhesions (12/07) 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 (12/13) EGD (11/30): gastric ulcer with no active bleeding Colonoscopy (12/01): stricture with possible mass s/p ex lap with hemicolectomy and lysis of adhesion by Dr. Vidales (12/07). Transverse colon biopsy path: invasive moderately differentiated adenocarcinoma. CT abdomen (12/13): multiple fluid collections and pockets of air in region of transverse colon anastomosis concerning for leak. (12/13) s/p ex lap, repair of perforation/intestinal leak with creation of loop ileostomy found small punctate hole at anastomosis site without evidence of ischemia. MAGDALENA drain, wound vac in place S/P a total of 6 unit PRBC. (last transfusion 12/11) Diet per surgery. NPO for now. NGT in place Continue Protonix. Incentive spirometry encouraged PICC placed 12/02 continue TPN/PPN via PICC; started 12/14 Sepsis secondary to Pneumonia Acute diastolic heart failure Acute respiratory failure with hypoxia secondary to above Chest x-ray shows significant bibasilar lung opacities, greater on the right, likely representing atelectasis or pneumonia. Pulmonary edema also present. CT abdomen (12/13): Bilateral peripheral groundglass opacities could reflect pneumonia/pneumonitis. +bilateral pleural effusions with underlying atelectasis. CXR (12/15): Small-mod right pleural effusion. Trace left pleural effusion. encourage Incentive Spirometry espino placed 12/13 s/p IV lasix rocephin/flagyl (12/09-12/12) changed to IV meropenem Continue IV meropenem (12/12-) afebrile, +leukocytosis 20 -> 19.8 (12/16) Suspect leukocytosis is secondary to surgery, however given her risk/length of stay/surgery we will discuss expanding antibiotics with Dr. Vidales Chronic atrial fibrillation with RVR-on chronic anticoagulation Initial plan was for GENNA cardioversion, sotalol but given patient's severe anemia secondary to GI bleed plan for GENNA cardioversion was aborted because patient cannot be anticoagulated due to high risk for life-threatening bleed. Initially on Sotalol for rate and rhythm control; switched to amiodarone drip 12/13 due to RVR post-op / NPO Continue amiodarone drip and IV metoprolol 2mg PRN q6h Cardiology is following Lovenox prophylaxis dose started 12/14 per surgery; will discuss full anticoagulation Patient may benefit with Watchman procedure outpatient. Acute Metabolic encephalopathy, improved Improved Likely drug-induced secondary to opioids. pain control KEYANNA, resolved Nephrology consulted KEYANNA resolved. Lasix per nephrology continue to monitor renal function Critical illness myopathy Continue PT Social service consulted to assist with arrangement for acute rehab. VTE: lovenox - DVT prophylaxis Code: Full Dispo: rehab, pending stability/improvement, possible LTAC Time Spent Managing Pts Care (In Minutes): 51
--- NOTE | 2023-12-17 12:34 | P.PN ---
Subjective Date of Service: 12/17/23 Chief Complaint: A-fib with RVR, GI bleed, apple core transverse colon cancer Subjective: No new changes, No C/O voiced, Tolerating diet, Ambulating, Improving Review of Systems 10-point ROS is otherwise unremarkable Physical Examination - Vital Signs Temperature: 97.6 F Blood Pressure: 117/85 Pulse: 116 Respirations: 20 Pulse Ox (%): 98 - Physical Exam General: Alert, In no apparent distress HEENT: Atraumatic, PERRLA, EOMI Neck: Supple, JVD not distended Respiratory: Clear to auscultation bilaterally, Normal air movement Cardiovascular: Irregular heart rate/rhythm Gastrointestinal: Normal bowel sounds, No tenderness Musculoskeletal: No tenderness Integumentary: No rashes Neurological: Normal speech, Normal tone, Normal affect Lymphatics: No axilla or inguinal lymphadenopathy - Studies Medications List Reviewed: Yes Assessment And Plan - Current Problems (Diagnosis) (1) Atrial fibrillation Current Visit: Yes Status: Acute Plan: Patient was on Sotalol and Lopressor, Tele overnight shows RVR Anticoagulation on hold due to GI bleed and recent surgery. monitor Hgb Patient is NPO so she is on Amiodarone drip at 0.5 now continue metoprolol 2.5 mg IV q 6 hours PRN for HR>120 bpm. will defer to surgical team on timing to re start anticoagulation. (2) GI bleed Current Visit: Yes Status: Acute Plan: blood transfusion, GI did endoscopy and colonoscopy that shows constriction with mass, s/p surgery. (3) HTN (hypertension) Current Visit: Yes Status: Acute Plan: BP is soft, will continue to monitor
[2023-12-17] MEDS: METRONIDAZOLE 500mg IVPB 500 MG/100 ML BAG IV SCH (16:19)
[2023-12-17] MEDS: AZTREONAM 2 GM in NA CHLORIDE 0.9% 100 ML IV SCH (17:18)
[2023-12-17] MEDS: AMINO ACIDS 5 %/DEXTROSE 20 % 2,000 ML IV SCH (17:18)
[2023-12-17] MEDS: VANCOMYCIN 2 GM in NA CHLORIDE 0.9% 500 ML IVPB SCH (17:18)
--- NOTE | 2023-12-17 20:29 | P.PN ---
Date of Service: 12/17/23 Vital Signs Temp Pulse Resp BP Pulse Ox 97.6 F 117 H 14 112/68 98 12/17/23 16:00 12/17/23 18:00 12/17/23 18:16 12/17/23 18:00 12/17/23 18:16 Medications Acetaminophen (Acetaminophen 325 Mg Tablet) 650 mg PO Q4HP PRN PRN Reason: Pain scale 2-4 (Mild)orT>100.1 Enoxaparin Sodium (Enoxaparin 120 Mg/0.8 Ml Syr) 110 mg SQ DAILY [facility] Glucagon (Glucagon 1 Mg/Vial) 1 mg IM UD PRN PRN Reason: HYPOGLYCEMIA Hydromorphone HCl (Hydromorphone Hcl 1 Mg/Ml Inj) 1 mg IV Q2H PRN PRN Reason: Breakthrough pain Last Admin: 12/17/23 20:16 Dose: 1 mg Sodium Chloride (Sodium Chloride) 250 mls @ 0 mls/hr IV .Q0M RONI Sodium Chloride (Sodium Chloride) 250 mls @ 0 mls/hr IV .Q0M RONI Potassium Chloride/Dextrose/Sod Cl (D5.45 Ns With Kcl 20meq/Liter) 20 meq in 1,000 mls @ 100 mls/hr IV .Q10H [facility] Last Admin: 12/17/23 08:17 Dose: 1,000 mls Dextrose (Dextrose 10% Water Iv Soln.) 125 mls @ 0 mls/hr IV PRN PRN; Protocol PRN Reason: HYPOGLYCEMIA Multivitamins 10 ml/ AMINO ACIDS 5 %/DEXTROSE 20 %/ Fat Emulsion Intravenous 2,260 mls @ 50 mls/hr IV [id number] [facility] Last Admin: 12/16/23 16:31 Dose: 2,260 mls AMINO ACIDS 5 %/DEXTROSE 20 % (Clinimix 5%-20% Solution) 2,000 mls @ 50 mls/hr IV [id number] [facility] Last Admin: 12/17/23 17:18 Dose: 2,000 mls Amiodarone HCl 900 mg/ (Dextrose) 500 mls @ 16.667 mls/hr IV Q24H [facility]; Protocol Last Admin: 12/17/23 16:20 Dose: 500 mls Aztreonam 2 gm/ Sodium (Chloride) 100 mls @ 100 mls/hr IV Q8HR [facility] Last Admin: 12/17/23 17:18 Dose: 100 mls Metronidazole/Sodium Chloride (Flagyl 500mg/100 Ml Iv Premix) 500 mg in 100 mls @ 100 mls/hr IV Q8HR RONI Last Admin: 12/17/23 16:19 Dose: 100 mls Vancomycin HCl 2 gm/ Sodium (Chloride) 500 mls @ 250 mls/hr IVPB Q12H [facility] Last Admin: 12/17/23 17:18 Dose: 500 mls Insulin Human Regular (Insulin Regular (Human) 100 Unit/Ml) 0 unit SQ Q6HR [facility]; Protocol Last Admin: 12/17/23 16:19 Dose: 2 unit Metoprolol Tartrate (Metoprolol Tartrate 5 Mg/5 Ml Inj) 2.5 mg IV Q6H PRN PRN Reason: HR >120 Last Admin: 12/17/23 16:20 Dose: 2.5 mg Morphine Sulfate (Morphine 2 Mg/Ml Syr) 2 mg IV Q4H PRN PRN Reason: Pain scale 8-10 (Severe) Last Admin: 12/17/23 17:46 Dose: 2 mg Sodium Chloride (Sodium Chloride 0.9% 10ml Inj) 10 ml IV UD PRN PRN Reason: Diluant Last Admin: 12/12/23 19:57 Dose: 10 ml Assessment/ Plan: Nephrology Progress Note No Dyspnea No Chest Pain No Acute Events Overnight Surgery yesterday for an anastomosis leak Vital Signs, Medications, Blood Work, and Imaging reviewed in the chart General: In no apparent distress, Cooperative HEENT: Atraumatic Neck: Supple Respiratory: Clear to auscultation bilaterally Cardiovascular: Edema, Irregular heart rate/rhythm Gastrointestinal: No guarding, Tenderness Musculoskeletal: No clubbing, No contractures Integumentary: No rashes, No cyanosis Neurological: Normal speech Blood work reviewed in the chart. Imagings Data: EXAM: Abdomen 1 View (KUB) HISTORY: [facility] MAIN Placement of NGT/OGT. Post Insertion. Pls call Floor to confirm if patient is ready. COMPARISON: 11/30/2023 CT abdomen and pelvis FINDINGS: Single view of the abdomen shows a nonspecific, nonobstructive bowel gas pattern. Enteric tube tip terminates in the region of the stomach body. Right upper quadrant surgical clips suggesting prior. Midline laparotomy skin celia. No suspicious calcifications are seen. The bones are unremarkable. IMPRESSION: Satisfactory positioning of the enteric tube is above. EXAMINATION: ONE VIEW CHEST XR CLINICAL INDICATION: PICC placement TECHNIQUE: Frontal chest projection is submitted. Examination is limited by patient positioning and technique. COMPARISON: No prior exam. FINDINGS: The tip of the right-sided PICC line is in the SVC. The heart is upper limit of normal in size. No displaced fractures identified. IMPRESSION: Right-sided PICC line has tip in the SVC. There is a left-sided catheter tubing also partially visualized in the left axillary region. EXAM: Single contrast barium enema INDICATION: Colon mass COMPARISON: CT abdomen January 30, 2024 Technique: Single contrast barium enema performed. Contrast reflux into small bowel. FINDINGS: An apple core 2 cm lesion involves the proximal transverse colon. Diverticula system from the colon without diverticulitis. No obstruction Fluoroscopy time: 1.3 minutes Number of images: 19 fluoroscopic spot images IMPRESSION: Apple core lesion proximal transverse colon likely neoplasm. EXAMINATION: CT ABDOMEN AND PELVIS WITHOUT CONTRAST CLINICAL INDICATION: Female, 73 years old. GI BLEED [facility] MAIN GI BLEED NO CONTRAST Bed Name: 4 TECHNIQUE: CT abdomen and pelvis was performed, without IV contrast, as per department protocol. Axial, sagittal and coronal reconstructions were obtained. One or more of the following dose reduction techniques were used: Automated exposure control, adjustment of the mA and kV according to the patient size, and iterative reconstruction. Unless otherwise specified, incidental findings do not require dedicated imaging follow-up. COMPARISON: No prior exam. FINDINGS: The lack of intravenous contrast limits the sensitivity of this exam for evaluation of solid visceral organs, vascular structures, and retroperitoneum. LOWER CHEST: The visualized lung bases are clear. LIVER: Normal in size and contour. No focal lesion. Cholecystectomy clips. SPLEEN: Normal size. No focal lesion. PANCREAS: No mass, ductal dilation, or angelica-pancreatic fluid. ADRENALS: Normal; no mass. KIDNEYS AND URETERS: Normal size and contour. No hydronephrosis. Benign- appearing right renal cyst. URINARY BLADDER: Normal contour. GASTROINTESTINAL TRACT: No evidence of bowel obstruction, significant free fluid, free air or abscess. There is mild diverticulosis coli of the sigmoid colon without diverticulitis. APPENDIX: Normal appendix. LYMPH NODES: No lymphadenopathy. MUSCULOSKELETAL: Mild multilevel spinal degenerative changes. ADDITIONAL FINDINGS: None. IMPRESSION: No acute or concerning abnormalities in the abdomen or pelvis, with evaluation limited by lack of IV contrast. Conclusions/Impression: Stage I KEYANNA may be due to hypovolemia, resolved CKD II with Proteinuria -No NSAIDs Hyponatremia -Continue TPN Hypokalemia -Replete as ordered Hypomagnesemia -Replete as ordered Hypophosphatemia -Replete as ordered HTN with CKD -Hold antihypertensives at this time Hypervolemia with Pulmonary Edema and Pleural Effusions Periperhal Edema -Lasix prn Hyperglycemia -RISS prn Hypoalbuminemia -Continue TPN Anemia in chronic illness/ blood loss Iron Deficiency 4.9% -Monitor H&H -Consider IV iron Colon Cancer sp Resection 12-08-23 Invasive moderately differentiated adenocarcinoma -Continue Abx -Follow up with surgery -Wound care as ordered Case reviewed with Dr. Ryan
[2023-12-18 06:01] LABS: Hematocrit 25.7 % (36.0-45.0); Hemoglobin 8.4 g/dL (12.0-15.0); MCH 25.9 pg (27.0-35.0); MCHC 32.7 g/dL (32.0-36.0); MCV 79.2 fL (80-100); MPV 7.5 fL (7.6-11.3); Platelets 288 thou/uL (152-406); RBC Red Blood Cell Count 3.25 M/uL (3.86-4.86); Red Cell Distribution Width 22.9 % (12.1-15.2)
[2023-12-18 06:19] LABS: Albumin 1.4 g/dL (3.4-5.0); Albumin/Globulin Ratio 0.4 (1.1-1.8); Alkaline Phosphatase 107 U/L (45-117); Anion Gap 9.6 mEq/L (5.0-15.0); BUN Blood Urea Nitrogen 19 mg/dL (7-18); Bicarbonate 27 mEq/L (21-32); Bilirubin Total 0.7 mg/dL (0.2-1.0); Globulin 3.3 g/dL (2.3-3.5); Glomerular Filtration Rate 95 ml/min (=/>90); Glucose Level 240 mg/dL (74-106); Magnesium 1.5 mg/dL (1.6-2.4); Phosphorus 1.8 mg/dL (2.5-4.9); Potassium 3.6 mEq/L (3.5-5.1); Protein, Total 4.7 g/dL (6.4-8.2); Sodium Level 136 mEq/L (136-145)
[2023-12-18 06:33] LABS: ALT/SGPT < 14 U/L (13-56); AST/SGOT < 10 U/L (15-37)
--- NOTE | 2023-12-18 08:44 | P.PN ---
Date of Service: 12/18/23 Subjective: doing okay, feels some slight improvement overall denies any new / worsening problems NGT removed yesterday afebrile worsening leukocytosis afib 110-130s ROS: 10 point ROS as noted above, otherwise negative Physical Exam: GEN: NAD, AOx3 CV: Irregularly Irregular rate and rhythm, HR: 110-130s Pulm: Nonlabored respirations on 2L NC, diminished at bases b/l, R>L ABD: soft, mild tenderness throughout abdomen, nondistended, ileostomy with minimal output Integumentary: Wound vac in place MAGDALENA drain in place Problem List: Acute blood loss anemia Melena/upper GI bleed Colon cancer s/p right hemicolectomy, lysis of adhesions (12/07) 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 (12/13) Sepsis secondary to Pneumonia Acute diastolic congestive heart failure moderate right pleural effusion Acute respiratory failure with hypoxia secondary to above Chronic atrial fibrillation with RVR-on chronic anticoagulation Acute Metabolic encephalopathy, improved KEYANNA, resolved Critical illness myopathy Acute blood loss anemia, resolved Melena/upper GI bleed secondary to colonic mass/cancer, resolved Colon cancer s/p right hemicolectomy, lysis of adhesions (12/07) 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 (last transfusion 12/11) hgb slowly downtrending - nutrition, frequent blood draws, IV fluids MAGDALENA drain, wound vac in place NGT removed yesterday, diet advancing per general surgery Continue Protonix. Incentive spirometry PICC placed 12/02 continue TPN ; started 12/14 Sepsis secondary to Pneumonia Acute diastolic congestive heart failure moderate right pleural effusion Acute respiratory failure with hypoxia secondary to above Chest x-ray shows significant bibasilar lung opacities, greater on the right, likely representing atelectasis or pneumonia. Pulmonary edema also present. CT abdomen (12/13): Bilateral peripheral groundglass opacities could reflect pneumonia/pneumonitis. +bilateral pleural effusions with underlying atelectasis. CXR (12/15): Small-mod right pleural effusion. Trace left pleural effusion. Echo ordered to eval EF / stenosis rocephin/flagyl (12/09-12/12) changed to IV meropenem (12/12) IV meropenem (12/12-12/16) switched to vanc / flagyl / Aztreonam (12/16) given worsening leukocytosis Continue IV vanc / flagyl / Aztreonam (12/16-) afebrile, +leukocytosis 19.8 -> 21.3 (12/17) Possibly secondary to surgery vs infectious; Antibiotics switched yesterday per surgery CT abdomen/pelvis (12/17): official report pending but prelim noted moderate right pleural effusion -as has been seen on cxr Dr. Vidales ordered thoracentesis patient with peripheral edema, pleural effusions, low albumin state, NPO / IVF and TPN for several days all leading to third-spacing albumin ordered, and would benefit from some diuresis / avoiding IVF, unfortunately has needed to be NPO? low suspicion for infection involving effusion Chronic atrial fibrillation with RVR-on chronic anticoagulation Initial plan was for GENNA cardioversion, sotalol but given patient's severe anemia secondary to GI bleed plan for GENNA cardioversion was aborted because patient cannot be anticoagulated due to high risk for life-threatening bleed. Initially on Sotalol and metoprolol for rate and rhythm control; switched to amiodarone drip 12/13 due to RVR post-op / NPO now that able to take PO, will switch back to sotalol/metoprolol Cardiology is following Patient may benefit with Watchman procedure outpatient. Acute Metabolic encephalopathy, improved Improved Likely drug-induced secondary to opioids. pain control KEYANNA, resolved Nephrology consulted KEYANNA resolved. Lasix per nephrology continue to monitor renal function Critical illness myopathy Continue PT Social service consulted to assist with arrangement for acute rehab. VTE: hold lovenox for thoracentesis Code: Full Dispo: rehab, pending stability/improvement, possible LTAC Time Spent Managing Pts Care (In Minutes): 51
[2023-12-18] MEDS: POTASSIUM PHOS IN 0.9 % NACL 15 MMOL/250 ML BAG IV ONE (08:57)
[2023-12-18] MEDS: ALBUMIN HUMAN 25% 50 ML IV SCH (08:58)
[2023-12-18] MEDS: Enoxaparin 120 MG/0.8 ML SYR SQ SCH ×2 (09:00→22:38)
--- NOTE | 2023-12-18 09:03 | RAD REPORT ---
EXAMINATION: CT ABDOMEN AND PELVIS WITH CONTRAST CLINICAL INDICATION: decreased hgb, incresed WBC TECHNIQUE: CT abdomen and pelvis was performed, after the administration of IV contrast, as per [facility] protocol. Axial, sagittal and coronal reconstructions were obtained. One or more of the following dose reduction techniques were used: Automated exposure control, adjustment of the mA and k V according to patient size, and iterative reconstruction. Unless otherwise specified, incidental findings do not require dedicated imaging follow-up. COMPARISON: 12/14/2023 FINDINGS: LOWER CHEST: Moderate right pleural effusion with atelectasis the right lung base. Trace left pleural fluid. LIVER: Normal in size and contour. No focal lesion. Cholecystectomy clips. SPLEEN: Normal size. No focal lesion. PANCREAS: No mass, ductal dilation, or angelica-pancreatic fluid. ADRENALS: Normal; no mass. KIDNEYS: Normal size and contour. No hydronephrosis. Benign bilateral renal cysts noted. GASTROINTESTINAL TRACT: Right lower quadrant ostomy is present. Surgical drain is in place entering t he left lower abdomen extending along the midline superiorly. No fluid is seen in the region of the drain. Small volume of right paracolic gutter and posterior cul-de-sac fluid is seen. Sigmoid diverti culosis coli without diverticulitis. APPENDIX: Absent LYMPH NODES: No lymphadenopathy. MUSCULOSKELETAL: Mild lower lumbar degenerative changes. ADDITIONAL FINDINGS: Payton catheter is present in the urinary bladder. A small amount of air is also present in the urinary bladder. IMPRESSION: Moderate right pleural effusion with atelectasis in the right lung base. Small volumes of loculated fluid are present in the right paracolic gutter and the pelvis as detailed . Sterility of these collections is indeterminate. Diverticulosis coli of the sigmoid colon. Moderate fecal retention in the rectum.
[2023-12-18] MEDS: Magnesium Sulfate 2gm IVPB 2 G/50 ML BAG IV SCH (10:45)
--- NOTE | 2023-12-18 10:54 | RAD REPORT ---
PROCEDURE: ULTRASOUND GUIDED THORACENTESIS CLINICAL INDICATION: [facility] MAIN R thoracentesis for R pleural effusion. PROCEDURE DETAILS: Consent: Informed consent for the procedure including risks, benefits and alternatives was obtained a nd time-out was performed prior to the procedure. Preparation: The site was prepared and draped using maximal sterile barrier technique including cutan eous antisepsis. Procedure: Initial limited thoracic ultrasound was performed and a moderate pleural effusion was seen . A safe window for thoracentesis was identified with ultrasound to jessica a suitable access site. Local anesthesia was administered. The pleural cavity was accessed, and fluid return confirmed positi on. A 8F [id number] catheter was placed and fluid was drained. The catheter was removed, and a sterile bandage was applied. . Estimated blood loss: Less than 10 mL. IMPRESSION: RIGHT-SIDED ultrasound guided thoracentesis, yielding 800 mL of clear fluid. Additional procedure(s): Limited thoracic ultrasound. PLAN: Aspirated fluid was sent for analysis.
[2023-12-18] MEDS: Magnesium Sulfate 2gm IVPB 2 G/50 ML BAG IV ONE (12:13)
[2023-12-18] MEDS: Mastisol Adhesive Liq TOP SCH (13:00)
[2023-12-18] MEDS: SOTALOL HCL 80 MG TAB PO SCH (13:30)
--- NOTE | 2023-12-18 13:51 | P.PN ---
Subjective Date of Service: 12/18/23 Chief Complaint: A-fib with RVR, GI bleed, apple core transverse colon cancer Subjective: No new changes, No C/O voiced, Tolerating diet, Ambulating, Improving Review of Systems 10-point ROS is otherwise unremarkable Physical Examination - Vital Signs Temperature: 98.5 F Blood Pressure: 137/78 Pulse: 115 Respirations: 26 Pulse Ox (%): 100 - Physical Exam General: Alert, In no apparent distress HEENT: Atraumatic, PERRLA, EOMI Neck: Supple, JVD not distended Respiratory: Clear to auscultation bilaterally, Normal air movement Cardiovascular: Irregular heart rate/rhythm Gastrointestinal: Normal bowel sounds, No tenderness Musculoskeletal: No tenderness Integumentary: No rashes Neurological: Normal speech, Normal tone, Normal affect Lymphatics: No axilla or inguinal lymphadenopathy - Studies Medications List Reviewed: Yes Assessment And Plan - Current Problems (Diagnosis) (1) Atrial fibrillation Current Visit: Yes Status: Acute Plan: Patient to resume Sotalol and Lopressor, will defer to surgical team on timing to re start anticoagulation. (2) GI bleed Current Visit: Yes Status: Acute Plan: blood transfusion, GI did endoscopy and colonoscopy that shows constriction with mass, s/p surgery. (3) HTN (hypertension) Current Visit: Yes Status: Acute Plan: BP is soft, will continue to monitor
[2023-12-18] MEDS: VANCOMYCIN 1.5 GM in NA CHLORIDE 0.9% 500 ML IVPB SCH (16:48)
[2023-12-18] MEDS: METOPROLOL TAR 25 MG TAB PO SCH (17:09)
--- NOTE | 2023-12-18 17:38 | P.PN ---
(S) Delayed entry note, pt seen this AM in the ICU post thoracentesis, remains on TPN, Amio, getting lyte replacement. No acute complaints when seen (O) vitals reviewed in the EMR General: In no apparent distress, HEENT: Atraumatic, sclera anicteric, LFNC Neck: Supple Respiratory: b/l air entry, reduced at bases Cardiovascular: Edema noted in the LE/dependent areas but impoved from prev, tachy Irregular heart rate/rhythm Gastrointestinal: Soft, obese, mild distention, ostomy, drain, espino present Musculoskeletal: compression socks Integumentary: No rashes noted Neurological: Normal speech, awake, conversive Blood work reviewed in the chart. Imagings Data: [id number] EXAMINATION: CT ABDOMEN AND PELVIS WITHOUT CONTRAST CLINICAL INDICATION: Female, 73 years old. GI BLEED [facility] MAIN GI BLEED NO CONTRAST Bed Name: 4 TECHNIQUE: CT abdomen and pelvis was performed, without IV contrast, as per department protocol. Axial, sagittal and coronal reconstructions were obtained. One or more of the following dose reduction techniques were used: Automated exposure control, adjustment of the mA and kV according to the patient size, and iterative reconstruction. Unless otherwise specified, incidental findings do not require dedicated imaging follow-up. COMPARISON: No prior exam. FINDINGS: The lack of intravenous contrast limits the sensitivity of this exam for evaluation of solid visceral organs, vascular structures, and retroperitoneum. LOWER CHEST: The visualized lung bases are clear. LIVER: Normal in size and contour. No focal lesion. Cholecystectomy clips. SPLEEN: Normal size. No focal lesion. PANCREAS: No mass, ductal dilation, or angelica-pancreatic fluid. ADRENALS: Normal; no mass. KIDNEYS AND URETERS: Normal size and contour. No hydronephrosis. Benign- appearing right renal cyst. URINARY BLADDER: Normal contour. GASTROINTESTINAL TRACT: No evidence of bowel obstruction, significant free fluid, free air or abscess. There is mild diverticulosis coli of the sigmoid colon without diverticulitis. APPENDIX: Normal appendix. LYMPH NODES: No lymphadenopathy. MUSCULOSKELETAL: Mild multilevel spinal degenerative changes. ADDITIONAL FINDINGS: None. IMPRESSION: No acute or concerning abnormalities in the abdomen or pelvis, with evaluation limited by lack of IV contrast. Conclusions/Impression: Stage I KEYANNA recurrent, POA and during admission but since resolved -In the setting of hemodynamic factors with Afib with RVR, soft BP, anemia, other -Cont to monitor fluid status and I/O closely, d/c any maintenance IVF running other than TPN Afib unspecified -Management per cardiology, will target K > 4 and Mg > 2 -Rate controlling measures per them although lower BP may limit -Unclear if she has any diastolic CHF or other. BNP > 1000 on admission, will recheck Dyspnea unspecified, pleural effusion NOS -s/p Rt sided thoracentesis, assess for PRN lasix Peripheral edema -3rd spacing, low albumin state, fluids/other, monitor closely
[2023-12-18] MEDS: KCL 20 MEQ/100 mL IVPB 20 MEQ/100 ML BAG IV SCH (18:35)
[2023-12-19 05:59] LABS: Absolute Basophils 0.1 K/uL (0-0.5); Absolute Eosinophils 0.4 K/uL (0-0.5); Absolute Lymphocytes (CBC) 1.7 K/uL (0.7-4.9); Absolute Monocytes 1.5 K/uL (0.1-1.3); Absolute Neutrophil 17.1 K/uL (1.8-8.0); Basophils % 0.4 % (0-1.3); Eosinophils % 1.8 % (0-4.4); Hematocrit 25.1 % (36.0-45.0); MCH 25.5 pg (27.0-35.0); MCHC 31.8 g/dL (32.0-36.0); MCV 80.1 fL (80-100); MPV 7.8 fL (7.6-11.3); Monocytes % 7.3 % (3.3-12.3); Neutrophils % 82.5 % (41.7-73.7); Platelets 341 thou/uL (152-406); RBC Red Blood Cell Count 3.13 M/uL (3.86-4.86); Red Cell Distribution Width 23.5 % (12.1-15.2)
[2023-12-19 06:22] LABS: AST/SGOT 12 U/L (15-37); Albumin 1.7 g/dL (3.4-5.0); Albumin/Globulin Ratio 0.5 (1.1-1.8); Alkaline Phosphatase 119 U/L (45-117); Anion Gap 6.7 mEq/L (5.0-15.0); BUN Blood Urea Nitrogen 19 mg/dL (7-18); Bicarbonate 28 mEq/L (21-32); Bilirubin Total 0.6 mg/dL (0.2-1.0); Globulin 3.2 g/dL (2.3-3.5); Glomerular Filtration Rate 98 ml/min (=/>90); Glucose Level 211 mg/dL (74-106); Magnesium 1.9 mg/dL (1.6-2.4); NT PRO-BNP 1214 pg/mL (<125); Phosphorus 1.7 mg/dL (2.5-4.9); Potassium 3.7 mEq/L (3.5-5.1); Protein, Total 4.9 g/dL (6.4-8.2); Sodium Level 136 mEq/L (136-145)
[2023-12-19 06:23] LABS: ALT/SGPT < 14 U/L (13-56)
--- NOTE | 2023-12-19 07:33 | P.PN ---
Date of Service: 12/19/23 Subjective: Breathing improving, easier to take deep breath no issues overnight HR slightly improved; more in 100-110s afebrile ROS: 10 point ROS as noted above, otherwise negative Physical Exam: GEN: NAD, AOx3 CV: Irregularly Irregular rate and rhythm, HR: 80-110s Pulm: Nonlabored respirations on 2L NC, diminished at bases b/l ABD: soft, mild tenderness throughout abdomen, nondistended, ileostomy with slight output Integumentary: Wound vac in place, MAGDALENA drain in place Payton in place Problem List: Acute blood loss anemia, resolved GI bleed secondary to Colon cancer s/p right hemicolectomy, lysis of adhesions (12/07) 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 (last transfusion 12/11) hgb slowly downtrending - nutrition, frequent blood draws, IV fluids Anticoagulation restarted 12/17, repeat hemoglobin later today and reassess MAGDALENA drain, wound vac in place Continue Protonix. Incentive spirometry PICC placed 12/02 continue TPN; started 12/14 plan to wean as diet is advanced Acute diastolic congestive heart failure moderate right pleural effusion s/p thoracentesis (12/17) Acute respiratory failure with hypoxia secondary to above Throughout her hospitalization course, secondary to low nutrition, anemia, blood transfusions, n.p.o./IV fluids patient has been having third spacing Which led to accumulation of pleural effusions CT abdomen/pelvis (12/17): Moderate right pleural effusion, trace left pleural effusion - as has been seen on prior CXR s/p thoracentesis 12/17; 800 ml clear fluid drained IV fluids discontinued 12/17, as diet is slowly being advanced low suspicion for infection involving effusion repeat CXR (12/18): to re-eval effusion / edema rocephin/flagyl (12/09-12/12) changed to IV meropenem (12/12) IV meropenem (12/12-12/16) switched to vanc / flagyl / Aztreonam (12/16) given worsening leukocytosis Although throughout this duration patient has had continued clinical improvement, and has remained afebrile Suspect inflammatory spots from surgery, possibly a small component from effusion, possibly from barium concretion Echo done 12/17; pending official report Chronic atrial fibrillation with RVR-on chronic anticoagulation Initial plan was for GENNA cardioversion, sotalol but given patient's severe anemia secondary to GI bleed plan for GENNA Cardioversion was aborted because patient cannot be anticoagulated due to high risk for life-threatening bleed. Initially on Sotalol and metoprolol for rate and rhythm control; switched to amiodarone drip 12/13 due to RVR post-op / NPO Rhythm was difficult to control on IV amiodarone, and have had improvement since switching back to sotalol and metoprolol when she was tolerating p.o. (12/17) Cardiology is following Patient may benefit with Watchman procedure outpatient. Acute Metabolic encephalopathy, resolved Improved Likely drug-induced secondary to opioids /stress /possibly component of ICU delirium pain control KEYANNA, resolved Nephrology consulted KEYANNA resolved. Lasix per nephrology continue to monitor renal function Critical illness myopathy Continue PT Social service consulted to assist with arrangement for LTAC VTE: Lovenox resumed 12/17 pm Code: Full Dispo: anticipate LTAC, pending stability/improvement Anticipated downgrade from ICU in the next 24 hours Time Spent Managing Pts Care (In Minutes): 53
--- NOTE | 2023-12-19 08:18 | RAD REPORT ---
EXAMINATION: ONE VIEW CHEST XR CLINICAL INDICATION: s/p thoracentesis; f/u effusion/opacities TECHNIQUE: Frontal chest projection is submitted. Examination is limited by patient positioning and t echnique. COMPARISON: 12/16/2023 FINDINGS: Right-sided pleural effusion has decreased in size. No pneumothorax is seen. Mild bilateral pulmonary opacities with small pleural effusions is present. The heart is mildly prominent in size right-sided PICC line has tip in SVC. IMPRESSION: Interval decrease in size of right pleural effusion without visible pneumothorax.
[2023-12-19 08:55] LABS: Anisocytosis 2+; Blood Morphology Comment NOTED (NOT SEEN); Microcytosis 1+; Ovalocytes 1+; Platelet Estimate ADEQ; White Blood Cell Scan OK (OK)
--- NOTE | 2023-12-19 10:01 | P.PN ---
Subjective Date of Service: 12/18/23 Chief Complaint: A-fib with RVR, GI bleed, apple core transverse colon cancer Patient feels generally well confusion has resolved, She has no complaints of pain currently. Stool in ostomy bag Physical Examination - Vital Signs Temperature: 98.5 F Blood Pressure: 120/58 Pulse: 103 Respirations: 20 Pulse Ox (%): 95 - Physical Exam General: Alert, In no apparent distress, Cooperative HEENT: PERRLA Respiratory: Diminished Cardiovascular: Other Gastrointestinal: Other (Soft, mild appropriate tenderness to palpation, ileostomy appears pink and viable with stool in bag, MAGDALENA drain is serous, wound VAC has been scant output which is serous, no other acute findings.) Musculoskeletal: No contractures Integumentary: No rashes, No breakdown, No significant lesion, No tenderness/swelling Neurological: Normal speech - Studies Medications List Reviewed: Yes Assessment And Plan - Current Problems (Diagnosis) (1) Adenocarcinoma of transverse colon Current Visit: Yes Status: Acute Plan: Patient is a 73 year old woman who is s/p Extended Right hemicolectomy and 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 She ultimately required return to OR on 12-14-2023 for exploatory laparotomy with loop ileostomy creation for anastamotic leak. Patient had barium concretion in rectum and did not get bowel prep requested. - Gen/ Neuro: Continue IV pain medication with dilaudid PRN - CVS: A-Fib, improving rate, amiodarone IV, no HD instability, good BP - Pulm: diminished but improved, CT scan of abdomen and pelvis for continued leukocytosis showed a significant right pleural effusion, recommended thoracentesis per radiologist, will be performed today - GI : Ostomy is pink and viable, continue ostomy management, celia and incision remain clean, continue dressing changes daily, MAGDALENA output appears serosanguineous, continue MAGDALENA drain care, await bowel function ileostomy bag. After patient has function will recommend enemas to remove barium concretion. continue WVAC to midline wound. CT scan showed no significant intra-abdominal pathology, there are some fluid collections of indeterminate sterility not obvious abscesses or leaks at this time. However patient continues to have significant amount of barium and retention in her rectum which is consistent with a barium concretion. This will need to be lavaged at some point in the future. - FEN: Continue IV supplementation total IV fluids at 100 currently, electrolyte replacement protocol, currently getting TPN - ID: Will change antibiotic to vancomycin aztreonam Ramirez have discussed with pharmacist to ensure no QT prolongation with these medications and they are not in her spectrum of possible allergies., leukocytosis continues to increase. Will continue to monitor, - Endo: Continue insulin sliding scale and Accu-Cheks - Prophylaxis: Start Lovenox soon, SCDs - Heme: Continue serial hemoglobin checks transfuse PRBCs if needed.
--- NOTE | 2023-12-19 10:05 | P.PN ---
Subjective Date of Service: 12/19/23 Chief Complaint: A-fib with RVR, GI bleed, apple core transverse colon cancer Patient feels generally well confusion has resolved, She has no complaints of pain currently. Stool in ostomy bag, patient had thoracentesis yesterday with 800 cc of fluid removed. Physical Examination - Vital Signs Temperature: 98.5 F Blood Pressure: 120/58 Pulse: 103 Respirations: 20 Pulse Ox (%): 95 - Physical Exam General: Alert, In no apparent distress, Cooperative Neck: Supple Respiratory: Diminished (But improved from prior) Cardiovascular: Other (Atrial fibrillation continues however with p.o. beta- johnna her rate control has been improved) Gastrointestinal: Other (Soft mild appropriate tenderness to palpation, loop ileostomy continues to be pink viable and stool continues to increase in bag MAGDALENA drain remains serous midline wound VAC in place without any significant output only scant amounts of clear fluid no other acute findings) Integumentary: No rashes, No breakdown Neurological: Normal speech - Studies Medications List Reviewed: Yes Assessment And Plan - Current Problems (Diagnosis) (1) Adenocarcinoma of transverse colon Current Visit: Yes Status: Acute Plan: Patient is a 73 year old woman who is s/p Extended Right hemicolectomy and 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 She ultimately required return to OR on 12-14-2023 for exploatory laparotomy with loop ileostomy creation for anastamotic leak. Patient had barium concretion in rectum and did not get bowel prep requested. - Gen/ Neuro: Continue IV pain medication with dilaudid PRN, transition to p.o. pain medication with [place] attempt to wean off IV pain medication - CVS: A-Fib, improving rate, amiodarone IV, no HD instability, good BP - Pulm: diminished but improved, CT scan of abdomen and pelvis for continued leukocytosis showed a significant right pleural effusion,thoracentesis per radiologist, has been performed, cultures pending - GI : Ostomy is pink and viable, continue ostomy management, celia and incision remain clean, continue dressing changes daily, MAGDALENA output appears serosanguineous, continue MAGDALENA drain care, await bowel function ileostomy bag. After patient has function will recommend enemas to remove barium concretion. continue WVAC to midline wound. CT scan showed no significant intra-abdominal pathology, there are some fluid collections of indeterminate sterility not obvious abscesses or leaks at this time. However patient continues to have significant amount of barium and retention in her rectum which is consistent with a barium concretion. This will need to be lavaged at some point in the future. - FEN: DC supplementary IV fluids, electrolyte replacement protocol, currently getting TPN, as patient is increasing her p.o. intake will half rate on TPN and DC after this bag - ID: Will continue antibiotic to vancomycin aztreonam yl have discussed with pharmacist to ensure no QT prolongation with these medications and they are not in her spectrum of possible allergies., leukocytosis stabilizing. Will continue to monitor, - Endo: Continue insulin sliding scale and Accu-Cheks - Prophylaxis: Lovenox, SCDs - Heme: Continue serial hemoglobin checks transfuse PRBCs if needed. Hemoglobin dropped to 8 today however anticoagulation was started yesterday we will recheck hemoglobin later today if significant drop is noted we will transfuse and consider DC of anticoagulation. -Patient has not gotten out of bed, have encouraged patient to ambulate with assist and work with physical therapy. -LTAC evaluation currently pending
[2023-12-19] MEDS: VANCOMYCIN 1.5 GM in NA CHLORIDE 0.9% 500 ML IVPB SCH (10:11)
--- NOTE | 2023-12-19 15:56 | P.PN ---
(S) Pt seen resting comfortably, remains on TPN, denies acute dyspnea or abd pain, HR remains tachy but was under 120 (O) vitals reviewed in the EMR General: In no apparent distress, HEENT: Atraumatic, sclera anicteric, LFNC Neck: Supple Respiratory: b/l air entry, reduced at bases Cardiovascular: Edema noted in the LE/dependent areas but impoved from prev, tachy Irregular heart rate/rhythm Gastrointestinal: Soft, obese, mild distention, ostomy, drain, espino present Musculoskeletal: compression socks Integumentary: No rashes noted Neurological: Normal speech, awake, conversive Blood work reviewed in the chart. Imagings Data: [id number] EXAMINATION: CT ABDOMEN AND PELVIS WITHOUT CONTRAST CLINICAL INDICATION: Female, 73 years old. GI BLEED [facility] MAIN GI BLEED NO CONTRAST Bed Name: 4 TECHNIQUE: CT abdomen and pelvis was performed, without IV contrast, as per department protocol. Axial, sagittal and coronal reconstructions were obtained. One or more of the following dose reduction techniques were used: Automated exposure control, adjustment of the mA and kV according to the patient size, and iterative reconstruction. Unless otherwise specified, incidental findings do not require dedicated imaging follow-up. COMPARISON: No prior exam. FINDINGS: The lack of intravenous contrast limits the sensitivity of this exam for evaluation of solid visceral organs, vascular structures, and retroperitoneum. LOWER CHEST: The visualized lung bases are clear. LIVER: Normal in size and contour. No focal lesion. Cholecystectomy clips. SPLEEN: Normal size. No focal lesion. PANCREAS: No mass, ductal dilation, or angelica-pancreatic fluid. ADRENALS: Normal; no mass. KIDNEYS AND URETERS: Normal size and contour. No hydronephrosis. Benign- appearing right renal cyst. URINARY BLADDER: Normal contour. GASTROINTESTINAL TRACT: No evidence of bowel obstruction, significant free flui d, free air or abscess. There is mild diverticulosis coli of the sigmoid colon without diverticulitis. APPENDIX: Normal appendix. LYMPH NODES: No lymphadenopathy. MUSCULOSKELETAL: Mild multilevel spinal degenerative changes. ADDITIONAL FINDINGS: None. IMPRESSION: No acute or concerning abnormalities in the abdomen or pelvis, with evaluation limited by lack of IV contrast. Conclusions/Impression: Stage I KEYANNA recurrent, POA and during admission but since resolved -In the setting of hemodynamic factors with Afib with RVR, soft BP, anemia, other -Cont to monitor fluid status and I/O closely, d/c'ed any maintenance IVF running other than TPN Hypomagnesemia, hypophosphatemia, hypomagnesemia -lytes are not being added to the TPN so will need to cont to monitor and replete individually Afib unspecified. -Management per cardiology, will target K > 4 and Mg > 2 -Rate controlling measures per them although lower BP may limit -Unclear if she has any diastolic CHF or other. BNP > 1000 on admission, recheck lower but will use PRN Lasix Dyspnea unspecified, pleural effusion NOS -s/p Rt sided thoracentesis, monitor closely Peripheral edema -3rd spacing, low albumin state, fluids/other, monitor
[2023-12-19] MEDS: POTASSIUM PHOS IN 0.9 % NACL 15 MMOL/250 ML BAG IV ONE (16:06)
[2023-12-19] MEDS: HYDROCODONE/APAP 5/325 MG TAB PO PRN (16:06)
[2023-12-19] MEDS: MAGNESIUM SULFATE 1 gm IVPB 1 GM/100 ML BAG IV ONE (16:07)
[2023-12-19 16:29] LABS: Hematocrit 25.1 % (36.0-45.0)
[2023-12-20 05:13] LABS: Absolute Basophils 0.1 K/uL (0-0.5); Absolute Eosinophils 0.2 K/uL (0-0.5); Absolute Lymphocytes (CBC) 1.7 K/uL (0.7-4.9); Absolute Monocytes 1.7 K/uL (0.1-1.3); Absolute Neutrophil 14.5 K/uL (1.8-8.0); Basophils % 0.4 % (0-1.3); Eosinophils % 1.1 % (0-4.4); Hematocrit 25.8 % (36.0-45.0); Hemoglobin 8.4 g/dL (12.0-15.0); Lymphocytes % 9.3 % (15.3-44.8); MCH 25.8 pg (27.0-35.0); MCHC 32.4 g/dL (32.0-36.0); MCV 79.6 fL (80-100); MPV 7.4 fL (7.6-11.3); Monocytes % 9.1 % (3.3-12.3); Neutrophils % 80.1 % (41.7-73.7); Nucleated Red Blood Cells % 0.1 % (0-0); Platelets 410 thou/uL (152-406); RBC Red Blood Cell Count 3.25 M/uL (3.86-4.86); Red Cell Distribution Width 23.3 % (12.1-15.2)
[2023-12-20 05:34] LABS: Albumin 1.6 g/dL (3.4-5.0); Anion Gap 9.2 mEq/L (5.0-15.0); Magnesium 1.9 mg/dL (1.6-2.4); Phosphorus 2.8 mg/dL (2.5-4.9); Potassium 4.2 mEq/L (3.5-5.1)
--- NOTE | 2023-12-20 07:54 | P.PN ---
Date of Service: 12/20/23 Subjective: feeling some improvement each day Denies any new / worsening problems breathing okay on room air HR 110-120s overnight ROS: 10 point ROS as noted above, otherwise negative Physical Exam: GEN: NAD, AOx3 CV: Irregularly Irregular rate and rhythm, HR: 100-120s Pulm: Nonlabored respirations on RA, diminished at bases b/l ABD: soft, mild tenderness throughout abdomen, nondistended, ileostomy with slight output Integumentary: Wound vac in place, MAGDALENA drain in place Payton in place Problem List: Acute blood loss anemia, resolved GI bleed secondary to Colon cancer s/p right hemicolectomy, lysis of adhesions (12/07) 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 (last transfusion 12/11) Anticoagulation restarted 12/17 hgb stable last 24-48 hours. Suspect drop secondary to nutrition, frequent blood draws, IV fluids MAGDALENA drain, wound vac in place Continue Protonix. Incentive spirometry PICC placed 12/02 s/p TPN (12/14-12/18) appetite improving; tolerating soft diet Acute diastolic congestive heart failure moderate right pleural effusion s/p thoracentesis (12/17) Acute respiratory failure with hypoxia secondary to above Throughout her hospitalization course, secondary to low nutrition, anemia, blood transfusions, n.p.o./IV fluids patient has been having third spacing Which led to accumulation of pleural effusions CT abdomen/pelvis (12/17): Moderate right pleural effusion, trace left pleural effusion - as has been seen on prior CXR s/p thoracentesis 12/17; 800 ml clear fluid drained IV fluids dc'd 12/17, as diet is slowly being advanced low suspicion for infection involving effusion repeat CXR (12/18): interval decrease in size of right pleural effusion without pneumothorax rocephin/flagyl (12/09-12/12) changed to IV meropenem (12/12) IV meropenem (12/12-12/16) switched to vanc / flagyl / Aztreonam (12/16) given worsening leukocytosis Although throughout this duration patient has had continued clinical improvement, and has remained afebrile Suspect inflammation from surgery / wound, possibly from barium concretion Discussed with surgery, dulcolax [place] x1, Mineral oil enema x1 ordered for today given presumed barium concretion Echo done 12/17; pending official report Chronic atrial fibrillation with RVR-on chronic anticoagulation Initial plan was for GENNA cardioversion, sotalol but given patient's severe anemia secondary to GI bleed plan for GENNA Cardioversion was aborted because patient cannot be anticoagulated due to high risk for life-threatening bleed. Initially on Sotalol and metoprolol for rate and rhythm control; switched to amiodarone drip 12/13 due to RVR post-op / NPO Rhythm was difficult to control on IV amiodarone, and have had improvement since switching back to sotalol and metoprolol when she was tolerating p.o. (12/17) continue sotalol and metoprolol Cardiology is following Patient may benefit with Watchman procedure outpatient. Acute Metabolic encephalopathy, resolved Improved/resolved Likely drug-induced secondary to opioids / stress / component of ICU delirium pain control KEYANNA, resolved Nephrology consulted KEYANNA resolved. continue to monitor renal function Critical illness myopathy Continue PT Social service consulted to assist with arrangement for LTAC VTE: Lovenox Code: Full Dispo: anticipate LTAC vs rehab, pending stability/improvement /physical therapy eval Possible downgrade from ICU later today Time Spent Managing Pts Care (In Minutes): 53
[2023-12-20] MEDS: BISACODYL 10 MG RECTAL SUPP PR ONE (11:43)
[2023-12-20] MEDS: MINERAL OIL ENEMA 135 ML BTL PR SCH (11:44)
[2023-12-21 05:09] LABS: Absolute Basophils 0.1 K/uL (0-0.5); Absolute Eosinophils 0.2 K/uL (0-0.5); Absolute Lymphocytes (CBC) 1.5 K/uL (0.7-4.9); Absolute Monocytes 1.5 K/uL (0.1-1.3); Basophils % 0.7 % (0-1.3); Eosinophils % 1.4 % (0-4.4); Hematocrit 24.5 % (36.0-45.0); Hemoglobin 7.9 g/dL (12.0-15.0); Lymphocytes % 10.8 % (15.3-44.8); MCH 25.8 pg (27.0-35.0); MCHC 32.3 g/dL (32.0-36.0); MCV 79.9 fL (80-100); MPV 7.2 fL (7.6-11.3); Monocytes % 10.3 % (3.3-12.3); Neutrophils % 76.8 % (41.7-73.7); Nucleated Red Blood Cells % 0.1 % (0-0); Platelets 410 thou/uL (152-406); RBC Red Blood Cell Count 3.07 M/uL (3.86-4.86)
[2023-12-21 05:15] LABS: Red Cell Distribution Width 23.6 % (12.1-15.2)
[2023-12-21 05:26] LABS: Albumin 1.6 g/dL (3.4-5.0); Anion Gap 7.8 mEq/L (5.0-15.0); Magnesium 1.8 mg/dL (1.6-2.4); Phosphorus 3.1 mg/dL (2.5-4.9); Potassium 3.8 mEq/L (3.5-5.1)
--- NOTE | 2023-12-21 06:53 | ECHO ---
HEIGHT: 5 ft 9 in WEIGHT: 238 lb 0 oz DATE OF STUDY: 12/18/[address]: Tavo Ryan MD 2-DIMENSIONAL: YES M.MODE: YES DOPPLER: YES COLOR FLOW: YES TDS: PORTABLE: DEFINITY: BUBBLE STUDY: DIAGNOSIS: EVALUATE FUNCTION, ATRIAL FIBRILLATION, CONGESTIVE HEART FAILURE CARDIAC HISTORY: CATHERIZATION: SURGERY: PROSTHETIC VALVE: PACEMAKER: MEASUREMENTS (cm) DIASTOLIC (NORMALS) SYSTOLIC (NORMALS) IVSd 1.0 (0.6-1.2) LA Diam 3.7 (1.9-4.0) LVEF 60-65% LVIDd 4.1 (3.5-5.7) LVIDs 2.2 (2.0-3.5) %FS 45% LVPWd 0.9 (0.6-1.2) Ao Diam 3.1 (2.0-3.7) 2 DIMENSIONAL ASSESSMENT: RIGHT ATRIUM: NORMAL LEFT ATRIUM: MODERATE DILATED RIGHT VENTRICLE: NORMAL LEFT VENTRICLE: NORMAL TRICUSPID VALVE: MILD TRICUSPID REGURGITATION MITRAL VALVE: MILD MITRAL REGURGITATION PULMONIC VALVE: NORMAL AORTIC VALVE: NORMAL PERICARDIAL EFFUSION: NONE AORTIC ROOT: NORMAL LEFT VENTRICULAR WALL MOTION: NORMAL DOPPLER/COLOR FLOW: NORMAL COMMENTS: 1. NORMAL LEFT VENTRICULAR SYSTOLIC FUNCTION, EJECTION FRACTION 60-65%, NORMAL WALL MOTION 2. NORMAL DIASTOLIC FUNCTION 3. MODERATE DILATED LEFT ATRIUM TECHNOLOGIST: TASIA ROGERS
--- NOTE | 2023-12-21 07:22 | P.PN ---
Date of Service: 12/21/23 Subjective: Doing okay. Denies any worsening problems nursing staff reports 1 small stool smear after dulcolax/enema wound care done yesterday afebrile feels she is improving each day, still hasn't gotten out of bed yet ROS: 10 point ROS as noted above, otherwise negative Physical Exam: GEN: NAD, AOx3 CV: Irregularly Irregular rate and rhythm, HR: 100s; trace-1+ lower extremity edema Pulm: Nonlabored respirations on RA, diminished at bases b/l ABD: soft, mild tenderness throughout abdomen, nondistended, ileostomy with slight output Integumentary: Wound vac in place, MAGDALENA drain in place Payton in place; placed 12/16 Problem List: Acute blood loss anemia, resolved GI bleed secondary to Colon cancer s/p right hemicolectomy, lysis of adhesions (12/07) 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 (last transfusion 12/11) Anticoagulation restarted 12/17 slight drop in hgb 8.4 -> 7.9. Suspect drop secondary to nutrition, frequent blood draws, IV fluids continue to monitor MAGDALENA drain, wound vac in place Continue Protonix. Incentive spirometry PICC placed 12/02 s/p TPN (12/14-12/18) appetite improving; tolerating soft diet; ostom y output increasing Acute diastolic congestive heart failure moderate right pleural effusion s/p thoracentesis (12/17) Acute respiratory failure with hypoxia secondary to above Throughout her hospitalization course, secondary to low nutrition, anemia, blood transfusions, n.p.o./IV fluids patient has been having third spacing Which led to accumulation of pleural effusions Echo (12/17): 60-65% EF, normal diastolic function. Moderate dilated left atrium. mild TR/MR CT abdomen/pelvis (12/17): Moderate right pleural effusion, trace left pleural effusion - as has been seen on prior CXR s/p thoracentesis 12/17; 800 ml clear fluid drained low suspicion for infection involving effusion Thoracentesis cx (12/17): no growth. Previously on rocephin/flagyl (12/09-12/12) and meropenem (12/12-12/16) Merrem switched to vanc / flagyl / Aztreonam (12/16) given worsening leukocytosis ID consulted 12/20 Suspect worsening leukocytosis secondary to barium concretion vs inflammation from surgery s/p dulcolax [place] x1, Mineral oil enema x1 (12/19) given presumed barium concretion mineral oil enema x1 ordered for today nursing staff reports 1 large BM overnight Leukocytosis improving 18.1 -> 14.3, No reported fevers throughout hospitalization Chronic atrial fibrillation with RVR-on chronic anticoagulation Initial plan was for GENNA cardioversion, sotalol but given patient's severe anem ia secondary to GI bleed plan for GENNA Cardioversion was aborted because patient cannot be anticoagulated due to high risk for life-threatening bleed. Initially on Sotalol and metoprolol for rate and rhythm control; switched to amiodarone drip 12/13 due to RVR post-op / NPO Rhythm was difficult to control on IV amiodarone, and have had improvement since switching back to sotalol and metoprolol when she was tolerating p.o. (12/17) continue sotalol and metoprolol Cardiology is following, no plans for cardioversion at this time, possibly outpatient / down the line. to avoid requirement of definite anticoagultion after cardioversion Patient may benefit with Watchman procedure outpatient. Acute Metabolic encephalopathy, resolved Improved/resolved Likely drug-induced secondary to opioids / stress / component of ICU delirium pain control KEYANNA, resolved Nephrology consulted KEYANNA resolved. continue to monitor renal function Critical illness myopathy Continue PT Social service consulted to assist with arrangement for LTAC VTE: Lovenox Code: Full Dispo: likely SNF, ~3-4 days Possible downgrade from ICU later today Time Spent Managing Pts Care (In Minutes): 53
[2023-12-21] MEDS: MINERAL OIL ENEMA 135 ML BTL PR SCH (11:35)
[2023-12-21] MEDS: VANCOMYCIN 1.5 GM in NA CHLORIDE 0.9% 500 ML IVPB SCH (16:00)
--- NOTE | 2023-12-21 20:58 | P.PN ---
Date of Service: 12/21/23 Vital Signs Temp Pulse Resp BP Pulse Ox 99.0 F 114 H 20 119/73 96 12/21/23 16:00 12/21/23 18:25 12/21/23 18:00 12/21/23 18:25 12/21/23 18:00 Medications Acetaminophen (Acetaminophen 325 Mg Tablet) 650 mg PO Q4HP PRN PRN Reason: Pain scale 2-4 (Mild)orT>100.1 Hydrocodone Bitart/Acetaminophen (Hydrocodone/Apap 5/325 Mg Tab) 1 tab PO Q6H PRN PRN Reason: Pain scale 5-7 (Moderate) Last Admin: 12/21/23 12:04 Dose: 1 tab Enoxaparin Sodium (Enoxaparin 120 Mg/0.8 Ml Syr) 110 mg SQ BEDTIME [facility] Last Admin: 12/20/23 20:56 Dose: 110 mg Glucagon (Glucagon 1 Mg/Vial) 1 mg IM UD PRN PRN Reason: HYPOGLYCEMIA Sodium Chloride (Sodium Chloride) 250 mls @ 0 mls/hr IV .Q0M RONI Sodium Chloride (Sodium Chloride) 250 mls @ 0 mls/hr IV .Q0M RONI Dextrose (Dextrose 10% Water Iv Soln.) 125 mls @ 0 mls/hr IV PRN PRN; Protocol PRN Reason: HYPOGLYCEMIA Aztreonam 2 gm/ Sodium (Chloride) 100 mls @ 100 mls/hr IV Q8HR [facility] Last Admin: 12/21/23 18:20 Dose: 100 mls Metronidazole/Sodium Chloride (Flagyl 500mg/100 Ml Iv Premix) 500 mg in 100 mls @ 100 mls/hr IV Q8HR [facility] Last Admin: 12/21/23 18:21 Dose: 100 mls Vancomycin HCl 1.5 gm/ Sodium (Chloride) 500 mls @ 250 mls/hr IVPB Q24H [facility] Last Admin: 12/21/23 16:00 Dose: Not Given Metoprolol Tartrate (Metoprolol Tartrate 5 Mg/5 Ml Inj) 2.5 mg IV Q6H PRN PRN Reason: HR >120 Last Admin: 12/18/23 08:58 Dose: 2.5 mg Metoprolol Tartrate (Metoprolol Tar 25 Mg Tab) 25 mg PO BID 6AM 6PM [facility] Last Admin: 12/21/23 18:25 Dose: 25 mg Morphine Sulfate (Morphine 2 Mg/Ml Syr) 2 mg IV Q4H PRN PRN Reason: Pain scale 8-10 (Severe) Last Admin: 12/21/23 16:08 Dose: 2 mg Sodium Chloride (Sodium Chloride 0.9% 10ml Inj) 10 ml IV UD PRN PRN Reason: Diluant Last Admin: 12/12/23 19:57 Dose: 10 ml Sotalol HCl (Sotalol Hcl 80 Mg Tab) 80 mg PO BID 6AM 6PM RONI Last Admin: 12/21/23 18:25 Dose: 80 mg Assessment/ Plan: Nephrology Progress Note No Dyspnea No Chest Pain Feeling better No Acute Events Overnight Vital Signs, Medications, Blood Work, and Imaging reviewed in the chart General: In no apparent distress, Cooperative HEENT: Atraumatic Neck: Supple Respiratory: Clear to auscultation bilaterally Cardiovascular: Edema, Irregular heart rate/rhythm Gastrointestinal: No guarding, Tenderness Musculoskeletal: No clubbing, No contractures Integumentary: No rashes, No cyanosis Neurological: Normal speech Blood work reviewed in the chart. Imagings Data: EXAM: Abdomen 1 View (KUB) HISTORY: [facility] [place] [facility] Placement of NGT/OGT. Post Insertion. Pls call Floor to confirm if patient is ready. COMPARISON: 11/30/2023 CT abdomen and pelvis FINDINGS: Single view of the abdomen shows a nonspecific, nonobstructive bowel gas pattern. Enteric tube tip terminates in the region of the stomach body. Right upper quadrant surgical clips suggesting prior. Midline laparotomy skin celia. No suspicious calcifications are seen. The bones are unremarkable. IMPRESSION: Satisfactory positioning of the enteric tube is above. EXAMINATION: ONE VIEW CHEST XR CLINICAL INDICATION: PICC placement TECHNIQUE: Frontal chest projection is submitted. Examination is limited by patient positioning and technique. COMPARISON: No prior exam. FINDINGS: The tip of the right-sided PICC line is in the SVC. The heart is upper limit of normal in size. No displaced fractures identified. IMPRESSION: Right-sided PICC line has tip in the SVC. There is a left-sided catheter tubing also partially visualized in the left axillary region. EXAM: Single contrast barium enema INDICATION: Colon mass COMPARISON: CT abdomen January 30, 2024 Technique: Single contrast barium enema performed. Contrast reflux into small bowel. FINDINGS: An apple core 2 cm lesion involves the proximal transverse colon. Diverticula system from the colon without diverticulitis. No obstruction Fluoroscopy time: 1.3 minutes Number of images: 19 fluoroscopic spot images IMPRESSION: Apple core lesion proximal transverse colon likely neoplasm. EXAMINATION: CT ABDOMEN AND PELVIS WITHOUT CONTRAST CLINICAL INDICATION: Female, 73 years old. GI BLEED [facility] [place] [facility] GI BLEED NO CONTRAST Bed Name: 4 TECHNIQUE: CT abdomen and pelvis was performed, without IV contrast, as per department protocol. Axial, sagittal and coronal reconstructions were obtained. One or more of the following dose reduction techniques were used: Automated exposure control, adjustment of the mA and kV according to the patient size, and iterative reconstruction. Unless otherwise specified, incidental findings do not require dedicated imaging follow-up. COMPARISON: No prior exam. FINDINGS: The lack of intravenous contrast limits the sensitivity of this exam for evaluation of solid visceral organs, vascular structures, and retroperitoneum. LOWER CHEST: The visualized lung bases are clear. LIVER: Normal in size and contour. No focal lesion. Cholecystectomy clips. SPLEEN: Normal size. No focal lesion. PANCREAS: No mass, ductal dilation, or angelica-pancreatic fluid. ADRENALS: Normal; no mass. KIDNEYS AND URETERS: Normal size and contour. No hydronephrosis. Benign- appearing right renal cyst. URINARY BLADDER: Normal contour. GASTROINTESTINAL TRACT: No evidence of bowel obstruction, significant free fluid, free air or abscess. There is mild diverticulosis coli of the sigmoid colon without diverticulitis. APPENDIX: Normal appendix. LYMPH NODES: No lymphadenopathy. MUSCULOSKELETAL: Mild multilevel spinal degenerative changes. ADDITIONAL FINDINGS: None. IMPRESSION: No acute or concerning abnormalities in the abdomen or pelvis, with evaluation limited by lack of IV contrast. Conclusions/Impression: Stage I KEYANNA may be due to hypovolemia, resolved CKD II with Proteinuria -No NSAIDs Hyponatremia -Maintain nutrition Hypokalemia -Replete prn Hypomagnesemia -Replete prn Hypophosphatemia -Replete prn HTN with CKD -Hold antihypertensives at this time Hypervolemia with Pulmonary Edema and Pleural Effusions Periperhal Edema -Lasix prn Hyperglycemia -RISS prn Hypoalbuminemia -Advance diet as tolerated Anemia in chronic illness/ blood loss Iron Deficiency 4.9% -Monitor H&H -Consider IV iron Colon Cancer sp Resection 12-08-23 Invasive moderately differentiated adenocarcinoma -Continue Abx -Follow up with surgery -Wound care as ordered Hospitalist note reviewed
[2023-12-22 05:29] LABS: Absolute Basophils 0.1 K/uL (0-0.5); Absolute Eosinophils 0.2 K/uL (0-0.5); Absolute Lymphocytes (CBC) 1.7 K/uL (0.7-4.9); Absolute Monocytes 1.3 K/uL (0.1-1.3); Absolute Neutrophil 9.6 K/uL (1.8-8.0); Basophils % 0.8 % (0-1.3); Eosinophils % 1.7 % (0-4.4); Hematocrit 22.6 % (36.0-45.0); Hemoglobin 7.4 g/dL (12.0-15.0); Lymphocytes % 12.9 % (15.3-44.8); MCH 26.5 pg (27.0-35.0); MCHC 32.9 g/dL (32.0-36.0); MCV 80.6 fL (80-100); MPV 7.3 fL (7.6-11.3); Monocytes % 10.4 % (3.3-12.3); Neutrophils % 74.2 % (41.7-73.7); Nucleated Red Blood Cells % 0.1 % (0-0); Platelets 412 thou/uL (152-406); RBC Red Blood Cell Count 2.81 M/uL (3.86-4.86); Red Cell Distribution Width 24.4 % (12.1-15.2)
[2023-12-22 06:31] LABS: AST/SGOT 18 U/L (15-37); Albumin 1.4 g/dL (3.4-5.0); Albumin/Globulin Ratio 0.4 (1.1-1.8); Alkaline Phosphatase 221 U/L (45-117); Anion Gap 8.8 mEq/L (5.0-15.0); BUN Blood Urea Nitrogen 21 mg/dL (7-18); Bicarbonate 24 mEq/L (21-32); Bilirubin Total 0.5 mg/dL (0.2-1.0); Globulin 3.5 g/dL (2.3-3.5); Glomerular Filtration Rate 92 ml/min (=/>90); Glucose Level 117 mg/dL (74-106); Magnesium 1.7 mg/dL (1.6-2.4); Potassium 3.8 mEq/L (3.5-5.1); Protein, Total 4.9 g/dL (6.4-8.2); Sodium Level 137 mEq/L (136-145)
[2023-12-22 06:33] LABS: ALT/SGPT < 14 U/L (13-56)
[2023-12-22] MEDS: MAGNESIUM SULFATE 1 gm IVPB 1 GM/100 ML BAG IV ONE (08:19)
[2023-12-22] MEDS: KCL 20 MEQ/100 mL IVPB 20 MEQ/100 ML BAG IV SCH (08:19)
--- NOTE | 2023-12-22 11:17 | P.PN ---
Subjective Date of Service: 12/22/23 Chief Complaint: A-fib with RVR, GI bleed, apple core transverse colon cancer Subjective: No new changes, No C/O voiced, Tolerating diet, Ambulating, Improving Review of Systems 10-point ROS is otherwise unremarkable Physical Examination - Vital Signs Temperature: 98.5 F Blood Pressure: 97/80 Pulse: 125 Respirations: 21 Pulse Ox (%): 95 - Physical Exam General: Alert, In no apparent distress HEENT: Atraumatic, PERRLA, EOMI Neck: Supple, JVD not distended Respiratory: Clear to auscultation bilaterally, Normal air movement Cardiovascular: Irregular heart rate/rhythm Gastrointestinal: Normal bowel sounds, No tenderness Musculoskeletal: No tenderness Integumentary: No rashes Neurological: Normal speech, Normal tone, Normal affect Lymphatics: No axilla or inguinal lymphadenopathy - Studies Medications List Reviewed: Yes Assessment And Plan - Current Problems (Diagnosis) (1) Atrial fibrillation Current Visit: Yes Status: Acute Plan: Continue Sotalol and Lopressor Patient was started on lovenox therapeutic dose, Hgb slowly dropping, continue to monitor before starting Eliquis again. (2) GI bleed Current Visit: Yes Status: Acute Plan: blood transfusion, GI did endoscopy and colonoscopy that shows constriction with mass, s/p surgery. (3) HTN (hypertension) Current Visit: Yes Status: Acute Plan: BP is soft, will continue to monitor
--- NOTE | 2023-12-22 13:23 | CON ---
History Of Present Illness: This is a 73-year-old female, I was consulted for antibiotic recommendat ion. The patient was recently diagnosed with colon cancer and acute blood loss anemia after she came to the hospital for atrial fibrillation and rapid ventricular rate. The patient went through right hemicolectomy and lysis of adhesions. Denies any headache, nausea, vomiting, chest pain, back pain. Has a colostomy done. Patient also has anastomotic intestinal perforation, status post repair of pe rforation, and creation of loop ileostomy. She was also diagnosed with sepsis secondary to pneumonia and acute kidney injury, which has improved. Past Medical History: As per HPI. Social History: Nonsmoker. Nondrinker. Family History: Noncontributory. Medications: Patient currently on aztreonam and Flagyl and vancomycin. See MARs for other medicatio ns. Allergies: DIPHENHYDRAMINE AND PENICILLIN CAUSES HIVES. Review of Systems: A 10-point review was performed. Physical Examination: General: This is a 73-year-old female, lying in bed, not in any acute cardiopulmonary distress. Vital Signs: Temperature 98, pulse 125, respirations 21, blood pressure 97/80. HEENT: Unremarkable. Neck: Supple. Lungs: Basal crackles. Heart: S1, S2. Irregularly irregular with the rapid ventricular heart rate. Abdomen: Soft. Bowel sounds sluggish. Ileostomy bag in place. Wound VAC in place. Laboratory Data: Shows WBC 12.9, down from 20,000, hemoglobin 7.4, platelets are 412. Chemistry wil ws BUN of 21, creatinine 0.7. Micro data shows no growth. Patient with right-sided pleural effusion on chest x-ray. Abdominal CT done on 12/17 shows moderate right pleural effusion. Small volumes of loculated fluids are present in the right paracolic gutter and pelvis as detailed in the report. Di verticulosis coli of the sigmoid colon. Moderate fecal retention in the rectum. Assessment And Plan: 1.73-year-old female with recent diagnosis of colon cancer, status post right hemicolectomy, lysis o f adhesion on 12/07, anastomotic intestinal perforation, status post repair of perforation and creati on of loop ileostomy on December 13. 2.Congestive heart failure. 3.Right pleural effusion, status post thoracentesis. 4.Respiratory failure with hypoxia secondary to congestive heart failure. Patient currently on empiric antibiotics with vancomycin, Flagyl, and aztreonam. As patient has aftab rgies to penicillin causing hives, we will recommend to continue current treatment. Consider Cipro, Flagyl, and vancomycin empirically for [address] abdomen and pelvis to rule out any abscess formation. Monitor QT interval. We will follow the patient as needed. Monitor signs of infection with WBC and fever trends. No other recommendation, at this time. NF/MODL Voice ID: [id number] Report ID: [id number]
--- NOTE | 2023-12-22 14:01 | P.PN ---
Subjective Date of Service: 12/22/23 Chief Complaint: A-fib with RVR, GI bleed, apple core transverse colon cancer Patient feels generally well confusion has resolved, She has no complaints of pain currently. Stool in ostomy bag, patient had several BMs Physical Examination - Vital Signs Temperature: 98.5 F Blood Pressure: 105/72 Pulse: 121 Respirations: 21 Pulse Ox (%): 95 - Physical Exam General: Alert, In no apparent distress, Cooperative Respiratory: Clear to auscultation bilaterally, Normal air movement Cardiovascular: Other (irregular rate, rhythm) Gastrointestinal: Other (Soft, mild appropriate tenderness to palpation, wound VAC in place without evidence of significant drainage only scant clear drainage, ileostomy functional with significant stool volume in bag, MAGDALENA drain removed at bedside today with only serous fluid. No other acute findings.) Musculoskeletal: No clubbing, No swelling, No contractures Integumentary: No rashes, No breakdown, No significant lesion Neurological: Normal speech - Studies Medications List Reviewed: Yes Assessment And Plan - Current Problems (Diagnosis) (1) Adenocarcinoma of transverse colon Current Visit: Yes Status: Acute Plan: Patient is a 73 year old woman who is s/p Extended Right hemicolectomy and 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 She ultimately required return to OR on 12-14-2023 for exploatory laparotomy with loop ileostomy creation for anastamotic leak. Patient had barium concretion in rectum and did not get bowel prep requested. - Gen/ Neuro: Continue IV pain medication with dilaudid PRN, transition to p.o. pain medication with [place] attempt to wean off IV pain medication - CVS: A-Fib, improving rate, amiodarone IV, no HD instability, good BP - Pulm: improved, - GI : Ostomy is pink and viable, continue ostomy management, celia and incision remain clean, continue dressing changes daily, MAGDALENA removed@ bedside 12-22-2023, continue , good bowel function ileostomy bag. recommend enemas to remove barium concretion. continue WVAC to midline wound. CT scan showed no significant intra-abdominal pathology, there are some fluid collections of indeterminate sterility not obvious abscesses or leaks at this time. However patient continues to have significant amount of barium and retention in her rectum which is consistent with a barium concretion. - FEN: DC supplementary IV fluids, electrolyte replacement protocol, currently getting PO diet well without issues - ID: Will continue antibiotic to vancomycin aztreonam Ramirez have discussed with pharmacist to ensure no QT prolongation with these medications and they are not in her spectrum of possible allergies., leukocytosis stabilizing. Will continue to monitor, - Endo: no need for coverage - Prophylaxis: Lovenox, SCDs - Heme: Continue serial hemoglobin checks transfuse PRBCs if needed. Hemoglobin dropped to 8 today however anticoagulation was started, continue william recheck hemoglobin , if significant drop is noted we will transfuse and consider DC of anticoagulation. -Patient has not gotten out of bed, have encouraged patient to ambulate with assist and work with physical therapy. -LTAC evaluation currently pending
--- NOTE | 2023-12-22 14:37 | P.PN ---
Subjective Date of Service: 12/22/23 Chief Complaint: A-fib with RVR, GI bleed, apple core transverse colon cancer Patient denies any pain. She has been afebrile. Nursing staff report patient had small BM with enemas. Patient denies any new complaint. She is tolerating oral intake. Ileostomy is watery output. Physical Examination - Vital Signs Temperature: 98.5 F Blood Pressure: 105/72 Pulse: 121 Respirations: 21 Pulse Ox (%): 95 - Studies Medications List Reviewed: Yes Assessment And Plan - Plan Physical examination GEN: Alert and oriented x3, NAD. HEENT: Normal conjunctiva, sclera anicteric. Pulm: Nonlabored respirations, Clear to auscultation bilaterally ABD: Midline surgical wound with wound VAC applied. looks clean and dry, abdomen not distended, normal bowel sounds, right-sided ileostomy. MSK: No joint tenderness Integumentary: No rashes Neuro: Normal speech, normal affect, no focal motor deficit. Genitourinary: Payton catheter in place. Vitals reviewed Diagnosis Acute blood loss anemia, resolved. 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 Acute blood loss anemia, resolved GI bleed secondary to Colon cancer s/p right hemicolectomy, lysis of adhesions (12/07) 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 (last transfusion 12/11). slight drop in hgb likely secondary to decreased nutrition. Transfuse 1 more unit of PRBC given hemoglobin less than 8 postsurgery. Anticoagulation restarted 12/17 continue to monitor MAGDALENA drain removed by Dr. Vidales today, wound vac in place Continue Protonix. Incentive spirometry PICC placed 12/02 s/p TPN (12/14-12/18) appetite improving; patient oral intake is improving, good ileostomy output. Acute diastolic congestive heart failure moderate right pleural effusion s/p thoracentesis (12/17) Acute respiratory failure with hypoxia secondary to above Throughout her hospitalization course, secondary to third spacing from low nutrition, blood transfusions, and IV fluids patient has been having third spacing Echo (12/17): 60-65% EF, normal diastolic function. Moderate dilated left atrium. mild TR/MR CT abdomen/pelvis (12/17): Moderate right pleural effusion, trace left pleural effusion - as has been seen on prior CXR s/p thoracentesis 12/17; 800 ml clear fluid drained low suspicion for infection involving effusion Pleural fluid cx (12/17): no growth. Previously on rocephin/flagyl (12/09-12/12) and meropenem (12/12-12/16) Merrem switched to vanc / flagyl / Aztreonam (12/16) given worsening leukocytosis ID consulted 12/20 and following. Leukocytosis is trending down. Clinically improved. Rectal fecal retention with barium contrast s/p dulcolax RI x1, Mineral oil enema x1 (12/19) given presumed barium concretion Surgery Dr. Vidales have recommend soapsuds enema daily Chronic atrial fibrillation with RVR-on chronic anticoagulation Initial plan was for GENNA cardioversion, sotalol but given patient's severe anemia secondary to GI bleed plan for GENNA Cardioversion was aborted because patient cannot be anticoagulated due to high risk for life-threatening bleed. Initially on Sotalol and metoprolol for rate and rhythm control; switched to amiodarone drip 12/13 due to RVR post-op / NPO Rhythm was difficult to control on IV amiodarone, and have had improvement since switching amiodarone back to sotalol and metoprolol continue sotalol and metoprolol Cardiology is following, no plans for cardioversion at this time, possibly outpatient / down the line. to avoid requirement of definite anticoagultion after cardioversion Patient may benefit from Watchman procedure outpatient. Acute Metabolic encephalopathy, resolved Improved/resolved Likely drug-induced secondary to opioids / stress / component of ICU delirium KEYANNA, resolved Nephrology consulted KEYANNA resolved. continue to monitor renal function Critical illness myopathy Continue PT Social service consulted to assist with arrangement for SNF. VTE: Lovenox Code: Full Dispo: SNF
[2023-12-22 16:05] LABS: Hematocrit 24.7 % (36.0-45.0)
[2023-12-22] MEDS: Mastisol Adhesive Liq TOP ONE (16:12)
[2023-12-23 06:35] LABS: Absolute Basophils 0.1 K/uL (0-0.5); Absolute Eosinophils 0.3 K/uL (0-0.5); Absolute Lymphocytes (CBC) 1.7 K/uL (0.7-4.9); Absolute Monocytes 1.4 K/uL (0.1-1.3); Absolute Neutrophil 10.6 K/uL (1.8-8.0); Basophils % 0.9 % (0-1.3); Hematocrit 22.2 % (36.0-45.0); Hemoglobin 7.2 g/dL (12.0-15.0); Lymphocytes % 12.3 % (15.3-44.8); MCH 26.6 pg (27.0-35.0); MCHC 32.4 g/dL (32.0-36.0); MPV 7.4 fL (7.6-11.3); Monocytes % 9.9 % (3.3-12.3); Neutrophils % 74.9 % (41.7-73.7); Platelets 411 thou/uL (152-406); RBC Red Blood Cell Count 2.71 M/uL (3.86-4.86); Red Cell Distribution Width 23.1 % (12.1-15.2)
[2023-12-23 06:47] LABS: Albumin 1.5 g/dL (3.4-5.0); Albumin/Globulin Ratio 0.5 (1.1-1.8); Anion Gap 8.8 mEq/L (5.0-15.0); Bilirubin Total 0.6 mg/dL (0.2-1.0); Globulin 3.3 g/dL (2.3-3.5); Magnesium 1.7 mg/dL (1.6-2.4); Phosphorus 2.5 mg/dL (2.5-4.9); Potassium 3.8 mEq/L (3.5-5.1); Protein, Total 4.8 g/dL (6.4-8.2)
[2023-12-23] MEDS ORDERED: SODIUM CHLORIDE 0.9% 10ML INJ IV PRN (07:45)
[2023-12-23] MEDS: POTASSIUM 25 MEQ EFFERV TAB PO ONE (08:03)
[2023-12-23] MEDS: MAGNESIUM SULFATE 1 gm IVPB 1 GM/100 ML BAG IV ONE (08:03)
[2023-12-23] MEDS: PANTOPRAZOLE 40 MG INJ IVP SCH (08:04)
[2023-12-23 14:21] LABS: Hematocrit 22.7 % (36.0-45.0); Hemoglobin 7.5 g/dL (12.0-15.0)
--- NOTE | 2023-12-23 14:23 | P.PN ---
Subjective Date of Service: 12/23/23 Chief Complaint: A-fib with RVR, GI bleed, apple core transverse colon cancer Patient denies any pain. She has been afebrile. Nursing staff reports no BM with enema this morning. She is tolerating oral intake. Ileostomy with dark watery output. Physical Examination - Vital Signs Temperature: 97.8 F Blood Pressure: 114/78 Pulse: 113 Respirations: 24 Pulse Ox (%): 96 - Studies Medications List Reviewed: Yes Assessment And Plan - Plan Physical examination GEN: Alert and oriented x3, NAD. HEENT: Normal conjunctiva, sclera anicteric. Pulm: Nonlabored respirations, Clear to auscultation bilaterally ABD: Midline surgical wound with wound VAC applied. looks clean and dry, abdomen not distended, normal bowel sounds, right-sided ileostomy. MSK: No joint tenderness Integumentary: No rashes Neuro: Normal speech, normal affect, no focal motor deficit. Genitourinary: Payton catheter in place. Vitals reviewed Diagnosis Acute blood loss anemia, resolved. 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 Acute blood loss anemia, resolved GI bleed secondary to Colon cancer s/p right hemicolectomy, lysis of adhesions (12/07) 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 (12/13) Gastric ulcer S/P a total of 6 unit PRBC. (last transfusion 12/11). Hemoglobin dropped after blood transfusion given yesterday. Possible GI bleed given with oncology ileostomy Eliquis. IV protonix. Hold anticoagulation. continue to monitor MAGDALENA drain removed by Dr. Vidales 12/21, wound vac in place Incentive spirometry PICC placed 12/02 s/p TPN (12/14-12/18) appetite improving; patient oral intake is improving, good ileostomy output. Acute diastolic congestive heart failure moderate right pleural effusion s/p thoracentesis (12/17) Acute respiratory failure with hypoxia secondary to above Throughout her hospitalization course, secondary to third spacing from low nutrition, blood transfusions, and IV fluids patient has been having third spacing Echo (12/17): 60-65% EF, normal diastolic function. Moderate dilated left atrium. mild TR/MR CT abdomen/pelvis (12/17): Moderate right pleural effusion, trace left pleural effusion - as has been seen on prior CXR s/p thoracentesis 12/17; 800 ml clear fluid drained low suspicion for infection involving effusion Pleural fluid cx (12/17): no growth. Volume status improved, patient appears euvolemic Previously on rocephin/flagyl (12/09-12/12) and meropenem (12/12-12/16) Merrem switched to vanc / flagyl / Aztreonam (12/16) given worsening leukocytosis ID consulted 12/20 and following. Rectal fecal retention with barium contrast s/p dulcolax [place] x1, Mineral oil enema x1 (12/19) given presumed barium concretion Surgery Dr. Vidales has recommended soapsuds enema twice daily. Chronic atrial fibrillation with RVR-on chronic anticoagulation Initial plan was for GENNA cardioversion, sotalol but given patient's severe anemia secondary to GI bleed plan for GENNA Cardioversion was aborted because patient cannot be anticoagulated due to high risk for life-threatening bleed. Initially on Sotalol and metoprolol for rate and rhythm control; switched to amiodarone drip 12/13 due to RVR post-op / NPO Rhythm was difficult to control on IV amiodarone, and have had improvement since switching amiodarone back to sotalol and metoprolol continue sotalol and metoprolol Cardiology is following, no plans for cardioversion at this time. Anticoagulation is on hold due to drop in hemoglobin most likely secondary to GI bleed. Patient may benefit from Watchman procedure outpatient. Acute Metabolic encephalopathy, resolved Improved/resolved Likely drug-induced secondary to opioids / stress / component of ICU delirium KEYANNA, resolved Nephrology consulted KEYANNA resolved. continue to monitor renal function Critical illness myopathy Continue PT Disposition pending response to treatment. VTE: Lovenox Code: Full Dispo: SNF
[2023-12-23] MEDS: NS KCL 20MEQ 20 MEQ/1,000 ML BAG IV SCH (15:00)
[2023-12-23] MEDS: PANTOPRAZOLE INJ 80 MG in NA CHLORIDE 0.9% 250 ML IV SCH (15:24)
[2023-12-23] MEDS: OCTREOTIDE 500 MCG in NA CHLORIDE 0.9% 500 ML IV SCH (15:24)
[2023-12-23] MEDS: NA CHLORIDE 0.9% 1,000 ML IV ONE (16:25)
[2023-12-23] MEDS: HYDROCORTISONE SUC 100 MG INJ IV ONE (16:25)
[2023-12-23 17:18] LABS: PT Prothrombin Time 17.8 SECONDS (9.4-12.5); Protime INR 1.61
[2023-12-23] MEDS ORDERED: NOREPINEPHRINE 4 MG in D5W 250 ML IV SCH (18:00)
[2023-12-23] MEDS: JUVEN PACKET PO SCH (19:03)
[2023-12-23] MEDS: ENSURE MAX PROTEIN 330 ML LIQUID PO SCH (19:03)
[2023-12-23] MEDS: Mupirocin NASAL 2 APPL/1 GM TUBE NAS SCH (20:52)
[2023-12-24 00:32] LABS: Hematocrit 24.4 % (36.0-45.0); Hemoglobin 8.2 g/dL (12.0-15.0)
[2023-12-24 06:26] LABS: Absolute Basophils 0.1 K/uL (0-0.5); Absolute Lymphocytes (CBC) 1.8 K/uL (0.7-4.9); Absolute Monocytes 1.2 K/uL (0.1-1.3); Absolute Neutrophil 13.5 K/uL (1.8-8.0); Basophils % 0.5 % (0-1.3); Hematocrit 22.2 % (36.0-45.0); Hemoglobin 7.4 g/dL (12.0-15.0); MCH 28.9 pg (27.0-35.0); MCHC 33.3 g/dL (32.0-36.0); MCV 86.8 fL (80-100); MPV 7.3 fL (7.6-11.3); Monocytes % 7.3 % (3.3-12.3); Neutrophils % 81.2 % (41.7-73.7); Nucleated Red Blood Cells % 0.1 % (0-0); Platelets 348 thou/uL (152-406); RBC Red Blood Cell Count 2.56 M/uL (3.86-4.86); Red Cell Distribution Width 20.6 % (12.1-15.2)
[2023-12-24 06:40] LABS: PT Prothrombin Time 16.9 SECONDS (9.4-12.5); PTT, Activated Partial Thromb 26.9 SECONDS (24.3-36.9); Protime INR 1.53
[2023-12-24 06:49] LABS: Anion Gap 9.9 mEq/L (5.0-15.0); Potassium 4.9 mEq/L (3.5-5.1)
[2023-12-24 07:50] LABS: Magnesium 1.7 mg/dL (1.6-2.4)
[2023-12-24 08:40] LABS: Atypical Lymphocytes 6 %; Band Neutrophils 2 % (0-1); Blood Morphology Comment NOTED (NOT SEEN); Differential Total Cells Count 100; Lymphocytes 8 % (15-42); Monocytes 6 % (0-10); Platelet Estimate ADEQ; Segmented Neutrophils 82 % (40-80)
[2023-12-24 08:41] LABS: Anisocytosis 1+; Hypochromasia 1+; Polychromasia 2+
[2023-12-24] MEDS: NA CHLORIDE 0.9% 500 ML IV ONE (08:54)
[2023-12-24] MEDS: ALBUMIN HUM 5% 500 ML IV SCH (08:54)
--- NOTE | 2023-12-24 14:55 | P.PN ---
Subjective Date of Service: 12/24/23 Chief Complaint: A-fib with RVR, GI bleed, apple core transverse colon cancer Patient denies any pain. She was kept n.p.o. last night. Ileostomy output- dark burgundy color since yesterday. Patient denies any abdominal pain or nausea. No reported vomiting. No recorded fever. Physical Examination - Vital Signs Temperature: 97.5 F Blood Pressure: 106/67 Pulse: 93 Respirations: 20 Pulse Ox (%): 94 - Studies Medications List Reviewed: Yes Assessment And Plan - Plan Physical examination GEN: Alert and oriented x3, NAD. HEENT: Normal conjunctiva, sclera anicteric. Pulm: Nonlabored respirations, Clear to auscultation bilaterally ABD: Midline surgical wound with wound VAC applied. looks clean and dry, abdomen not distended, normal bowel sounds, right-sided ileostomy. MSK: No joint tenderness Integumentary: No rashes Neuro: Normal speech, normal affect, no focal motor deficit. Genitourinary: Payton catheter in place. Vitals reviewed Diagnosis Acute blood loss anemia, resolved. 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 Acute blood loss anemia. 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 (last transfusion 12/11). Patient with ongoing GI bleed Eliquis on hold. Patient given multiple transfusions over the last couple of days. Noted elevated INR Patient given FFP. Monitor PT and INR Continue IV protonix drip. GI Dr. Goodman is planning repeat EGD tomorrow. Clear liquid diet. MAGDALENA drain removed by Dr. Vidales 12/21, wound vac in place Incentive spirometry PICC placed 9/26, new midline placed 12/22 s/p TPN (12/14-12/18) Acute diastolic congestive heart failure moderate right pleural effusion s/p thoracentesis (12/17) Acute respiratory failure with hypoxia secondary to above Throughout her hospitalization course, secondary to third spacing from low nutrition, blood transfusions, and IV fluids patient has been having third spacing Echo (12/17): 60-65% EF, normal diastolic function. Moderate dilated left atrium. mild TR/MR CT abdomen/pelvis (12/17): Moderate right pleural effusion, trace left pleural effusion - as has been seen on prior CXR s/p thoracentesis 12/17; 800 ml clear fluid drained low suspicion for infection involving effusion Pleural fluid cx (12/17): no growth. Volume status improved, patient appears euvolemic Previously on rocephin/flagyl (12/09-12/12) and meropenem (12/12-12/16) Merrem switched to vanc / flagyl / Aztreonam (12/16) given worsening leukocytosis ID consulted 12/20 and following. Rectal fecal retention with barium contrast s/p dulcolax [place] x1, Mineral oil enema x1 (12/19) given presumed barium concretion Surgery Dr. Vidales has recommended soapsuds enema twice daily. Chronic atrial fibrillation with RVR-on chronic anticoagulation Initial plan was for GENNA cardioversion, sotalol but given patient's severe a nemia secondary to GI bleed plan for GENNA Cardioversion was aborted because patient cannot be anticoagulated due to high risk for life-threatening bleed. Initially on Sotalol and metoprolol for rate and rhythm control; switched to amiodarone drip 12/13 due to RVR post-op / NPO Rhythm was difficult to control on IV amiodarone, and have had improvement since switching amiodarone back to sotalol and metoprolol continue sotalol and metoprolol Cardiology is following, no plans for cardioversion at this time. Anticoagulation is on hold due to drop in hemoglobin ongoing GI bleeding. Patient may benefit from Watchman procedure outpatient. Dehydration Hypotension I suspect patient has fluid deficit from inadequate oral intake compared to ileostomy output. Repeat UA, check uric acid level. Clear liquid diet. Patient given albumin infusion, 1 PRBC transfusion today. Status post 500 mL normal saline bolus yesterday. Intermittent IV fluid as needed. Acute Metabolic encephalopathy, resolved Improved/resolved Likely drug-induced secondary to opioids / stress / component of ICU delirium KEYANNA, resolved Nephrology consulted KEYANNA resolved. continue to monitor renal function Critical illness myopathy Continue PT Disposition pending response to treatment. VTE: Lovenox Code: Full Dispo: SNF
[2023-12-24 15:36] LABS: Hematocrit 22.1 % (36.0-45.0); Hemoglobin 7.6 g/dL (12.0-15.0)
[2023-12-24 16:14] LABS: Specific Gravity 1.014 (1.005-1.030); Urine Bilirubin NEGATIVE (Negative); Urine Blood Negative (Negative); Urine Clarity Clear (Clear); Urine Color Light-Yellow (Yellow); Urine Glucose NEGATIVE (Negative); Urine Ketones NEGATIVE (Negative); Urine Microscopic Reflex YN NO UMIC; Urine Nitrite NEGATIVE (Negative); Urine Protein NEGATIVE (Negative); Urine Urobilinogen Normal (Normal)
--- NOTE | 2023-12-24 16:44 | PN ---
Date of Progress Note: 12/24/2023 Subjective: Patient lying in bed. Daughter by the bedside. Patient denies any problems at this aidan e. Objective: Vital Signs: Reviewed. Lungs: Basal crackles. Heart: S1, S2. Regular. Abdomen: Soft. Bowel sounds present. Extremities: Trace edema. Laboratory Data: Shows WBC 16,000, hemoglobin 7.4, platelets are 348. Chemistry shows BUN of 36, cr eatinine 0.8. Assessment And Plan: Leukocytosis, most likely secondary to blood loss and inflammatory process. If it continues to worsen, we will recommend to discontinue Azactam and start patient on meropenem for more empiric coverage and repeat blood cultures. History of colon cancer, status post right hemicole ctomy, lysis of adhesions, status post repair of perforation. We will follow the patient as needed. NF/MODL Voice ID: [id number] Report ID: [id number]
--- NOTE | 2023-12-24 17:06 | PN ---
Date of Progress Note: 12/23/2023 Subjective: The patient is lying in bed. Daughter is by the bedside. No new acute event. Surgeon is in the room. The patient denies any problems with antibiotics. No fevers. No nausea, vomiting. Has a colostomy in place. Objective: Vital Signs: Temperature 97, pulse 118, blood pressure 110/80. Lungs: Basal crackles. Heart: S1, S2. Regular. Abdomen: Soft. Bowel sounds present. Colostomy bag in place. Dark liquid noted in the colostomy b ag. Extremities: Trace edema. Laboratory Data: Shows WBC 14.2, hemoglobin 7.2, platelets are 411. Chemistry shows BUN of 30, crea tinine 0.7. No cultures are available. Assessment And Plan: Gastrointestinal bleed secondary to colon cancer, status post right hemicolecto my, lysis of adhesion, acute diastolic congestive heart failure, moderate right pleural effusion, hyp oxemia. Continue current treatment. Colostomy bag in place. Leukocytosis. Anemia secondary to blo od loss. We will follow the patient closely. No other recommendation. Continue current antibiotic including Azactam, Flagyl, and vancomycin. See MARs for other medication. NF/MODL Voice ID: [id number] Report ID: [id number]
[2023-12-24 17:30] LABS: Hematocrit 23.2 % (36.0-45.0); Hemoglobin 7.9 g/dL (12.0-15.0)
--- NOTE | 2023-12-24 18:56 | P.PN ---
Subjective Date of Service: 12/24/23 Chief Complaint: A-fib with RVR, GI bleed, apple core transverse colon cancer Subjective: New changes (Called to see patient s/p colon resection for transverse colon cancer due to red blood per ileostomy. This has been slowing down as per RNs and surgery off anti-coagulation. EGD on this admission has already shown gastritis.) Review of Systems 10-point ROS is otherwise unremarkable Gastrointestinal: Hematochezia (per ileostomy slowing ) Physical Examination - Vital Signs Temperature: 97.2 F Blood Pressure: 102/64 Pulse: 97 Respirations: 17 Pulse Ox (%): 97 - Physical Exam General: Alert, In no apparent distress, Oriented x3, Cooperative HEENT: Atraumatic, Normocephalic, PERRLA, EOMI Neck: Supple Respiratory: Normal air movement Cardiovascular: Normal pulses Gastrointestinal: Guarding (mild post-op ) Neurological: Normal speech, Normal strength at 5/5 x4 extr - Studies Medications List Reviewed: Yes Assessment And Plan - Current Problems (Diagnosis) (1) Melena Current Visit: Yes Status: Acute (2) Ulcer, gastric, acute Current Visit: Yes Status: Acute (3) Adenocarcinoma of transverse colon Current Visit: Yes Status: Acute Comment: Apple core lesion in proximal transverse colon on barium enema. + pathology (4) GI bleed Current Visit: Yes Status: Acute (5) Hematochezia Current Visit: Yes Status: Acute (6) Anemia Current Visit: Yes Status: Acute - Plan REC: 1) serial H&Hs and transfuse prn 2) EGD tomorrow 3) PPI therapy
--- NOTE | 2023-12-24 21:02 | P.PN ---
Date of Service: 12/24/23 Vital Signs Temp Pulse Resp BP Pulse Ox 97.2 F 97 H 17 102/64 97 12/24/23 18:56 12/24/23 18:56 12/24/23 18:56 12/24/23 18:56 12/24/23 18:56 Medications Acetaminophen (Acetaminophen 325 Mg Tablet) 650 mg PO Q4HP PRN PRN Reason: Pain scale 2-4 (Mild)orT>100.1 Hydrocodone Bitart/Acetaminophen (Hydrocodone/Apap 5/325 Mg Tab) 1 tab PO Q6H PRN PRN Reason: Pain scale 5-7 (Moderate) Last Admin: 12/22/23 16:12 Dose: 1 tab Glucagon (Glucagon 1 Mg/Vial) 1 mg IM UD PRN PRN Reason: HYPOGLYCEMIA Sodium Chloride (Sodium Chloride) 250 mls @ 0 mls/hr IV .Q0M RONI Sodium Chloride (Sodium Chloride) 250 mls @ 0 mls/hr IV .Q0M RONI Dextrose (Dextrose 10% Water Iv Soln.) 125 mls @ 0 mls/hr IV PRN PRN; Protocol PRN Reason: HYPOGLYCEMIA Aztreonam 2 gm/ Sodium (Chloride) 100 mls @ 100 mls/hr IV Q8HR [facility] Last Admin: 12/24/23 20:04 Dose: 100 mls Metronidazole/Sodium Chloride (Flagyl 500mg/100 Ml Iv Premix) 500 mg in 100 mls @ 100 mls/hr IV Q8HR [facility] Last Admin: 12/24/23 18:06 Dose: 100 mls Vancomycin HCl 1.5 gm/ Sodium (Chloride) 500 mls @ 250 mls/hr IVPB Q24H [facility] Last Admin: 12/24/23 16:54 Dose: 500 mls Pantoprazole Sodium 80 mg/ (Sodium Chloride) 250 mls @ 25 mls/hr IV Q10H [facility]; Protocol Last Admin: 12/24/23 20:44 Dose: 250 mls Octreotide Acetate 500 mcg/ (Sodium Chloride) 500 mls @ 50 mls/hr IV Q10H [facility] Last Admin: 12/24/23 20:44 Dose: 500 mls Norepinephrine Bitartrate 4 mg (/ Dextrose) 254 mls @ 40.56 mls/hr IV TITR [facility]; Protocol L-Arginine/L-Glutamine/HMB (Delio Packet) 1 pkt PO BID RONI Last Admin: 12/24/23 20:40 Dose: Not Given Metoprolol Tartrate (Metoprolol Tartrate 5 Mg/5 Ml Inj) 2.5 mg IV Q6H PRN PRN Reason: HR >120 Last Admin: 12/22/23 12:17 Dose: 2.5 mg Metoprolol Tartrate (Metoprolol Tar 25 Mg Tab) 25 mg PO BID 6AM 6PM [facility] Last Admin: 12/24/23 18:06 Dose: 25 mg Morphine Sulfate (Morphine 2 Mg/Ml Syr) 2 mg IV Q4H PRN PRN Reason: Pain scale 8-10 (Severe) Last Admin: 12/23/23 12:27 Dose: 2 mg Mupirocin (Mupirocin Nasal 2 Appl/1 Gm Tube) 1 appl KARIN BID [facility] Stop: 12/28/23 09:01 Last Admin: 12/24/23 20:34 Dose: 1 appl Protein (Ensure Max Protein 330 Ml Liquid) 330 ml PO BID [facility] Last Admin: 12/24/23 20:35 Dose: Not Given Sodium Chloride (Sodium Chloride 0.9% 10ml Inj) 10 ml IV UD PRN PRN Reason: Diluant Last Admin: 12/12/23 19:57 Dose: 10 ml Sodium Chloride (Sodium Chloride 0.9% 10ml Inj) 10 ml IV UD PRN PRN Reason: Diluant Sotalol HCl (Sotalol Hcl 80 Mg Tab) 80 mg PO BID 6AM 6PM [facility] Last Admin: 12/24/23 18:07 Dose: 80 mg Assessment/ Plan: Nephrology Progress Note No Dyspnea No Chest Pain Fatigue Melena No Acute Events Overnight Vital Signs, Medications, Blood Work, and Imaging reviewed in the chart General: In no apparent distress, Cooperative HEENT: Atraumatic Neck: Supple Respiratory: Clear to auscultation bilaterally Cardiovascular: Edema, Irregular heart rate/rhythm Gastrointestinal: No guarding, Tenderness Musculoskeletal: No clubbing, No contractures Integumentary: No rashes, No cyanosis Neurological: Normal speech Blood work reviewed in the chart. Imagings Data: EXAM: Abdomen 1 View (KUB) HISTORY: [facility] Placement of NGT/OGT. Post Insertion. Pls call Floor to confirm if patient is ready. COMPARISON: 11/30/2023 CT abdomen and pelvis FINDINGS: Single view of the abdomen shows a nonspecific, nonobstructive bowel gas pattern. Enteric tube tip terminates in the region of the stomach body. Right upper quadrant surgical clips suggesting prior. Midline laparotomy skin celia. No suspicious calcifications are seen. The bones are unremarkable. IMPRESSION: Satisfactory positioning of the enteric tube is above. EXAMINATION: ONE VIEW CHEST XR CLINICAL INDICATION: PICC placement TECHNIQUE: Frontal chest projection is submitted. Examination is limited by patient positioning and technique. COMPARISON: No prior exam. FINDINGS: The tip of the right-sided PICC line is in the SVC. The heart is upper limit of normal in size. No displaced fractures identified. IMPRESSION: Right-sided PICC line has tip in the SVC. There is a left-sided catheter tubing also partially visualized in the left axillary region. EXAM: Single contrast barium enema INDICATION: Colon mass COMPARISON: CT abdomen January 30, 2024 Technique: Single contrast barium enema performed. Contrast reflux into small bowel. FINDINGS: An apple core 2 cm lesion involves the proximal transverse colon. Diverticula system from the colon without diverticulitis. No obstruction Fluoroscopy time: 1.3 minutes Number of images: 19 fluoroscopic spot images IMPRESSION: Apple core lesion proximal transverse colon likely neoplasm. EXAMINATION: CT ABDOMEN AND PELVIS WITHOUT CONTRAST CLINICAL INDICATION: Female, 73 years old. GI BLEED [facility] GI BLEED NO CONTRAST Bed Name: 4 TECHNIQUE: CT abdomen and pelvis was performed, without IV contrast, as per department protocol. Axial, sagittal and coronal reconstructions were obtained. One or more of the following dose reduction techniques were used: Automated exposure control, adjustment of the mA and kV according to the patient size, and iterative reconstruction. Unless otherwise specified, incidental findings do not require dedicated imaging follow-up. COMPARISON: No prior exam. FINDINGS: The lack of intravenous contrast limits the sensitivity of this exam for evaluation of solid visceral organs, vascular structures, and retroperitoneum. LOWER CHEST: The visualized lung bases are clear. LIVER: Normal in size and contour. No focal lesion. Cholecystectomy clips. SPLEEN: Normal size. No focal lesion. PANCREAS: No mass, ductal dilation, or angelica-pancreatic fluid. ADRENALS: Normal; no mass. KIDNEYS AND URETERS: Normal size and contour. No hydronephrosis. Benign- appearing right renal cyst. URINARY BLADDER: Normal contour. GASTROINTESTINAL TRACT: No evidence of bowel obstruction, significant free fluid, free air or abscess. There is mild diverticulosis coli of the sigmoid colon without diverticulitis. APPENDIX: Normal appendix. LYMPH NODES: No lymphadenopathy. MUSCULOSKELETAL: Mild multilevel spinal degenerative changes. ADDITIONAL FINDINGS: None. IMPRESSION: No acute or concerning abnormalities in the abdomen or pelvis, with evaluation limited by lack of IV contrast. 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
[2023-12-25 01:03] LABS: Hematocrit 24.3 % (36.0-45.0)
[2023-12-25 05:58] LABS: PT Prothrombin Time 15.8 SECONDS (9.4-12.5); Protime INR 1.43
[2023-12-25 06:00] LABS: Absolute Basophils 0.1 K/uL (0-0.5); Absolute Eosinophils 0.1 K/uL (0-0.5); Absolute Lymphocytes (CBC) 1.6 K/uL (0.7-4.9); Absolute Monocytes 1.5 K/uL (0.1-1.3); Absolute Neutrophil 10.7 K/uL (1.8-8.0); Basophils % 0.9 % (0-1.3); Hematocrit 24.5 % (36.0-45.0); Hemoglobin 8.2 g/dL (12.0-15.0); Lymphocytes % 11.4 % (15.3-44.8); MCH 29.2 pg (27.0-35.0); MCHC 33.2 g/dL (32.0-36.0); MCV 87.9 fL (80-100); MPV 7.6 fL (7.6-11.3); Monocytes % 10.4 % (3.3-12.3); Neutrophils % 76.3 % (41.7-73.7); Platelets 341 thou/uL (152-406); RBC Red Blood Cell Count 2.79 M/uL (3.86-4.86); Red Cell Distribution Width 18.8 % (12.1-15.2)
[2023-12-25 06:23] LABS: ALT/SGPT < 14 U/L (13-56); AST/SGOT 15 U/L (15-37); Albumin 1.9 g/dL (3.4-5.0); Albumin/Globulin Ratio 0.6 (1.1-1.8); Alkaline Phosphatase 358 U/L (45-117); Anion Gap 7.8 mEq/L (5.0-15.0); BUN Blood Urea Nitrogen 25 mg/dL (7-18); Bicarbonate 22 mEq/L (21-32); Bilirubin Total 0.8 mg/dL (0.2-1.0); Glomerular Filtration Rate 89 ml/min (=/>90); Glucose Level 136 mg/dL (74-106); Magnesium 1.6 mg/dL (1.6-2.4); Phosphorus 2.3 mg/dL (2.5-4.9); Potassium 3.8 mEq/L (3.5-5.1); Protein, Total 4.9 g/dL (6.4-8.2); Sodium Level 140 mEq/L (136-145)
[2023-12-25] MEDS: POTASSIUM PHOS IN 0.9 % NACL 15 MMOL/250 ML BAG IV ONE (06:42)
[2023-12-25] MEDS: MAGNESIUM SULFATE 1 gm IVPB 1 GM/100 ML BAG IV ONE (06:42)
[2023-12-25] MEDS: ALBUMIN HUMAN 25% 200 ML IV SCH (08:42)
--- NOTE | 2023-12-25 12:39 | P.PN ---
Subjective Date of Service: 12/25/23 Chief Complaint: A-fib with RVR, GI bleed, apple core transverse colon cancer No issues overnight, nursing staff report patient had bowel movement with enema yesterday. Ileostomy output- dark, no fresh blood. Blood pressure has improved and stable. Patient denies any abdominal pain or nausea. No reported vomiting. She is tolerating clear liquid diet. No recorded fever. Bilateral legs are more swollen today. Physical Examination - Vital Signs Temperature: 98 F Blood Pressure: 108/78 Pulse: 102 Respirations: 20 Pulse Ox (%): 96 - Studies Medications List Reviewed: Yes Assessment And Plan - Plan Physical examination GEN: Alert and oriented x3, NAD. HEENT: Normal conjunctiva, sclera anicteric. Pulm: Nonlabored respirations, Clear to auscultation bilaterally CVS: Heart sounds 1 and 2 heard, irregular, rapid, 2+ bilateral lower extremity edema. ABD: Midline surgical wound with wound VAC applied. looks clean and dry, abdomen not distended, normal bowel sounds, right-sided ileostomy. MSK: No joint tenderness Integumentary: No rashes Neuro: Normal speech, normal affect, no focal motor deficit. Genitourinary: Payton catheter in place. Vitals reviewed Diagnosis Acute blood loss anemia, resolved. 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 Acute blood loss anemia. 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 (last transfusion 12/23). Patient with ongoing GI bleed Eliquis on hold. Patient given multiple transfusions over the last couple of days. Noted elevated INR Patient given FFP. Monitor PT and INR Continue IV protonix drip and octreotide drip. GI Dr. Goodman is planning repeat EGD today. Clear liquid diet. MAGDALENA drain removed by Dr. Vidales 12/21, wound vac in place Incentive spirometry PICC placed 12/02, new midline placed 12/22 s/p TPN (12/14-12/18) Acute diastolic congestive heart failure moderate right pleural effusion s/p thoracentesis (12/17) Acute respiratory failure with hypoxia secondary to above Throughout her hospitalization course, secondary to third spacing from low nutrition, blood transfusions, and IV fluids patient has been having third spacing Echo (12/17): 60-65% EF, normal diastolic function. Moderate dilated left atrium. mild TR/MR CT abdomen/pelvis (12/17): Moderate right pleural effusion, trace left pleural effusion - as has been seen on prior CXR s/p thoracentesis 12/17; 800 ml clear fluid drained low suspicion for infection involving effusion Pleural fluid cx (12/17): no growth. Patient is more edematous today after receiving IV fluid. Previously on rocephin/flagyl (12/09-12/12) and meropenem (12/12-12/16) Merrem switched to vanc / flagyl / Aztreonam (12/16) given worsening leukocytosis Continue current antibiotics ID is following. Rectal fecal retention with barium contrast s/p dulcolax [place] x1, Mineral oil enema x1 (12/19) given presumed barium concretion Surgery Dr. Vidales has recommended soapsuds enema twice daily. Patient had a bowel movement yesterday. Chronic atrial fibrillation with RVR-on chronic anticoagulation Initial plan was for GENNA cardioversion, sotalol but given patient's severe anemia secondary to GI bleed plan for GENNA Cardioversion was aborted because patient cannot be anticoagulated due to high risk for life-threatening bleed. Initially on Sotalol and metoprolol for rate and rhythm control; switched to amiodarone drip 12/13 due to RVR post-op / NPO Rhythm was difficult to control on IV amiodarone, and have had improvement since switching amiodarone back to sotalol and metoprolol continue sotalol and metoprolol Cardiology is following, no plans for cardioversion at this time. Anticoagulation is on hold due to drop in hemoglobin ongoing GI bleeding. Patient may benefit from Watchman procedure outpatient. Dehydration Hypotension I suspect patient has fluid deficit from inadequate oral intake compared to ileostomy output. Uric acid level checked after multiple blood transfusion and FFP. Uric acid level is normal, UA does not show concentrated urine to suggest dehydration. Blood pressure has stabilized. Clear liquid diet. Patient given albumin infusion, 1 PRBC transfusion today. Second albumin infusion ongoing today per nephrology Status post 500 mL normal saline bolus yesterday. Intermittent IV fluid as needed. Acute Metabolic encephalopathy, resolved Improved/resolved Likely drug-induced secondary to opioids / stress / component of ICU delirium KEYANNA, resolved Nephrology consulted KEYANNA resolved. continue to monitor renal function Critical illness myopathy Continue PT Disposition pending response to treatment. Patient is being evaluated for LTAC placement. VTE: Lovenox Code: Full Dispo: SNF
--- NOTE | 2023-12-25 13:10 | P.PN ---
Subjective Date of Service: 12/25/23 Chief Complaint: A-fib with RVR, GI bleed, apple core transverse colon cancer Patient feels generally well confusion has resolved, She has no complaints of pain currently. Stool in ostomy bag minimal redish hue, less blood appearance , no acute event Physical Examination - Vital Signs Temperature: 98 F Blood Pressure: 108/78 Pulse: 102 Respirations: 20 Pulse Ox (%): 96 - Physical Exam General: Alert, In no apparent distress, Oriented x3, Cooperative Respiratory: Clear to auscultation bilaterally, Normal air movement Cardiovascular: Other (tachycaria, but improved) Gastrointestinal: Other (soft, NT, ND, wound VAC in place, no infection or drainage, loop ileostomy is pink, functional, less blood in bag) - Studies Medications List Reviewed: Yes Assessment And Plan - Current Problems (Diagnosis) (1) Adenocarcinoma of transverse colon Current Visit: Yes Status: Acute Plan: Patient is a 73 year old woman who is s/p Extended Right hemicolectomy and 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 She ultimately required return to OR on 12-14-2023 for exploatory laparotomy with loop ileostomy creation for anastamotic leak. Patient had barium concretion in rectum and did not get bowel prep requested. - Gen/ Neuro: Continue IV pain medication with dilaudid PRN, transition to p.o. pain medication with [place] attempt to wean off IV pain medication - CVS: A-Fib, improving rate, amiodarone IV, no HD instability, good BP - Pulm: improved, - GI : Ostomy is pink and viable, continue ostomy management, celia and incision remain clean, continue dressing changes daily, MAGDALENA removed@ bedside 12-22-2023, continue , good bowel function ileostomy bag. recommend enemas to remove barium concretion. continue WVAC to midline wound. CT scan showed no significant intra-abdominal pathology, there are some fluid collections of indeterminate sterility not obvious abscesses or leaks at this time. However patient continues to have significant amount of barium and retention in her rectum which is consistent with a barium concretion. - FEN: DC supplementary IV fluids, electrolyte replacement protocol, currently getting PO diet well without issues - ID: Will continue antibiotic to vancomycin aztreonam yl have discussed with pharmacist to ensure no QT prolongation with these medications and they are not in her spectrum of possible allergies., leukocytosis stabilizing. Will continue to monitor, - Endo: no need for coverage - Prophylaxis: Lovenox, SCDs - Heme: Continue serial hemoglobin checks transfuse PRBCs if needed. Dr. Post to perform EGD for possible source of UGIB -Patient has not gotten out of bed, have encouraged patient to ambulate with assist and work with physical therapy. -LTAC evaluation currently pending
[2023-12-25] MEDS: EPINEPHRINE 1 MG/ML VIAL ONE (14:31)
[2023-12-25] MEDS: Ringers Lactate 1,000 ML IV ONE (14:31)
[2023-12-25] MEDS ORDERED: LIDOCAINE 1% MPF 5 ML VIAL ONE (14:37)
[2023-12-25] MEDS ORDERED: propofoL 200 MG/20 ML VIAL IV ONE (14:37)
--- NOTE | 2023-12-25 16:36 | RAD REPORT ---
Procedure: Chest Single View HISTORY: Pleural effusion COMPARISON: December 19, 2023 FINDINGS: Right hemithorax is hazy probably representing a combination ofPleural effusion and atelectasis. Left lung appears clear of acute infiltrate. Heart is mildly enlarged. PICC line in place
--- NOTE | 2023-12-25 22:03 | P.PN ---
Date of Service: 12/25/23 Vital Signs Temp Pulse Resp BP Pulse Ox 98.2 F 98 H 26 H 126/86 98 12/25/23 16:00 12/25/23 21:00 12/25/23 21:00 12/25/23 21:00 12/25/23 21:00 Medications Acetaminophen (Acetaminophen 325 Mg Tablet) 650 mg PO Q4HP PRN PRN Reason: Pain scale 2-4 (Mild)orT>100.1 Hydrocodone Bitart/Acetaminophen (Hydrocodone/Apap 5/325 Mg Tab) 1 tab PO Q6H PRN PRN Reason: Pain scale 5-7 (Moderate) Last Admin: 12/22/23 16:12 Dose: 1 tab Glucagon (Glucagon 1 Mg/Vial) 1 mg IM UD PRN PRN Reason: HYPOGLYCEMIA Sodium Chloride (Sodium Chloride) 250 mls @ 0 mls/hr IV .Q0M RONI Sodium Chloride (Sodium Chloride) 250 mls @ 0 mls/hr IV .Q0M RONI Dextrose (Dextrose 10% Water Iv Soln.) 125 mls @ 0 mls/hr IV PRN PRN; Protocol PRN Reason: HYPOGLYCEMIA Aztreonam 2 gm/ Sodium (Chloride) 100 mls @ 100 mls/hr IV Q8HR [facility] Last Admin: 12/25/23 16:18 Dose: 100 mls Metronidazole/Sodium Chloride (Flagyl 500mg/100 Ml Iv Premix) 500 mg in 100 mls @ 100 mls/hr IV Q8HR RONI Last Admin: 12/25/23 16:19 Dose: 100 mls Vancomycin HCl 1.5 gm/ Sodium (Chloride) 500 mls @ 250 mls/hr IVPB Q24H RONI Last Admin: 12/25/23 17:53 Dose: 500 mls Pantoprazole Sodium 80 mg/ (Sodium Chloride) 250 mls @ 25 mls/hr IV Q10H [facility]; Protocol Last Admin: 12/25/23 18:44 Dose: 250 mls Octreotide Acetate 500 mcg/ (Sodium Chloride) 500 mls @ 50 mls/hr IV Q10H RONI Last Admin: 12/25/23 19:46 Dose: 500 mls Norepinephrine Bitartrate 4 mg (/ Dextrose) 254 mls @ 40.56 mls/hr IV TITR RONI; Protocol L-Arginine/L-Glutamine/HMB (Delio Packet) 1 pkt PO BID [facility] Last Admin: 12/25/23 20:14 Dose: Not Given Metoprolol Tartrate (Metoprolol Tartrate 5 Mg/5 Ml Inj) 2.5 mg IV Q6H PRN PRN Reason: HR >120 Last Admin: 12/22/23 12:17 Dose: 2.5 mg Metoprolol Tartrate (Metoprolol Tar 25 Mg Tab) 25 mg PO BID 6AM 6PM [facility] Last Admin: 12/25/23 17:53 Dose: 25 mg Morphine Sulfate (Morphine 2 Mg/Ml Syr) 2 mg IV Q4H PRN PRN Reason: Pain scale 8-10 (Severe) Last Admin: 12/23/23 12:27 Dose: 2 mg Protein (Ensure Max Protein 330 Ml Liquid) 330 ml PO BID [facility] Last Admin: 12/25/23 20:14 Dose: Not Given Sodium Chloride (Sodium Chloride 0.9% 10ml Inj) 10 ml IV UD PRN PRN Reason: Diluant Last Admin: 12/12/23 19:57 Dose: 10 ml Sodium Chloride (Sodium Chloride 0.9% 10ml Inj) 10 ml IV UD PRN PRN Reason: Diluant Sotalol HCl (Sotalol Hcl 80 Mg Tab) 80 mg PO BID 6AM 6PM [facility] Last Admin: 12/25/23 17:54 Dose: 80 mg Assessment/ Plan: Nephrology Progress Note No Dyspnea No Chest Pain Fatigue Melena No Acute Events Overnight Vital Signs, Medications, Blood Work, and Imaging reviewed in the chart General: In no apparent distress, Cooperative HEENT: Atraumatic Neck: Supple Respiratory: Clear to auscultation bilaterally Cardiovascular: Edema, Irregular heart rate/rhythm Gastrointestinal: No guarding, Tenderness Musculoskeletal: No clubbing, No contractures Integumentary: No rashes, No cyanosis Neurological: Normal speech Blood work reviewed in the chart. Imagings Data: EXAM: Abdomen 1 View (KUB) HISTORY: [facility] MAIN Placement of NGT/OGT. Post Insertion. Pls call Floor to confirm if patient is ready. COMPARISON: 11/30/2023 CT abdomen and pelvis FINDINGS: Single view of the abdomen shows a nonspecific, nonobstructive bowel gas pattern. Enteric tube tip terminates in the region of the stomach body. Right upper quadrant surgical clips suggesting prior. Midline laparotomy skin celia. No suspicious calcifications are seen. The bones are unremarkable. IMPRESSION: Satisfactory positioning of the enteric tube is above. EXAMINATION: ONE VIEW CHEST XR CLINICAL INDICATION: PICC placement TECHNIQUE: Frontal chest projection is submitted. Examination is limited by patient positioning and technique. COMPARISON: No prior exam. FINDINGS: The tip of the right-sided PICC line is in the SVC. The heart is upper limit of normal in size. No displaced fractures identified. IMPRESSION: Right-sided PICC line has tip in the SVC. There is a left-sided catheter tubing also partially visualized in the left axillary region. EXAM: Single contrast barium enema INDICATION: Colon mass COMPARISON: CT abdomen January 30, 2024 Technique: Single contrast barium enema performed. Contrast reflux into small bowel. FINDINGS: An apple core 2 cm lesion involves the proximal transverse colon. Diverticula system from the colon without diverticulitis. No obstruction Fluoroscopy time: 1.3 minutes Number of images: 19 fluoroscopic spot images IMPRESSION: Apple core lesion proximal transverse colon likely neoplasm. EXAMINATION: CT ABDOMEN AND PELVIS WITHOUT CONTRAST CLINICAL INDICATION: Female, 73 years old. GI BLEED [facility] MAIN GI BLEED NO CONTRAST Bed Name: 4 TECHNIQUE: CT abdomen and pelvis was performed, without IV contrast, as per department protocol. Axial, sagittal and coronal reconstructions were obtained. One or more of the following dose reduction techniques were used: Automated exposure control, adjustment of the mA and kV according to the patient size, and iterative reconstruction. Unless otherwise specified, incidental findings do not require dedicated imaging follow-up. COMPARISON: No prior exam. FINDINGS: The lack of intravenous contrast limits the sensitivity of this exam for evaluation of solid visceral organs, vascular structures, and retroperitoneum. LOWER CHEST: The visualized lung bases are clear. LIVER: Normal in size and contour. No focal lesion. Cholecystectomy clips. SPLEEN: Normal size. No focal lesion. PANCREAS: No mass, ductal dilation, or angelica-pancreatic fluid. ADRENALS: Normal; no mass. KIDNEYS AND URETERS: Normal size and contour. No hydronephrosis. Benign- appearing right renal cyst. URINARY BLADDER: Normal contour. GASTROINTESTINAL TRACT: No evidence of bowel obstruction, significant free fluid, free air or abscess. There is mild diverticulosis coli of the sigmoid colon without diverticulitis. APPENDIX: Normal appendix. LYMPH NODES: No lymphadenopathy. MUSCULOSKELETAL: Mild multilevel spinal degenerative changes. ADDITIONAL FINDINGS: None. IMPRESSION: No acute or concerning abnormalities in the abdomen or pelvis, with evaluation limited by lack of IV contrast. 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
[2023-12-26 05:55] LABS: Absolute Basophils 0.1 K/uL (0-0.5); Absolute Eosinophils 0.1 K/uL (0-0.5); Absolute Lymphocytes (CBC) 1.5 K/uL (0.7-4.9); Absolute Monocytes 1.4 K/uL (0.1-1.3); Absolute Neutrophil 8.6 K/uL (1.8-8.0); Basophils % 1.1 % (0-1.3); Eosinophils % 1.2 % (0-4.4); Hematocrit 24.1 % (36.0-45.0); Lymphocytes % 12.9 % (15.3-44.8); MCH 29.3 pg (27.0-35.0); MCHC 33.1 g/dL (32.0-36.0); MCV 88.6 fL (80-100); MPV 7.4 fL (7.6-11.3); Monocytes % 11.8 % (3.3-12.3); Nucleated Red Blood Cells % 0.1 % (0-0); Platelets 310 thou/uL (152-406); RBC Red Blood Cell Count 2.72 M/uL (3.86-4.86); Red Cell Distribution Width 19.7 % (12.1-15.2)
[2023-12-26 06:10] LABS: Albumin 2.3 g/dL (3.4-5.0); Anion Gap 8.7 mEq/L (5.0-15.0); Magnesium 1.7 mg/dL (1.6-2.4); Phosphorus 2.4 mg/dL (2.5-4.9); Potassium 3.7 mEq/L (3.5-5.1)
[2023-12-26] MEDS: POTASSIUM PHOS IN 0.9 % NACL 15 MMOL/250 ML BAG IV SCH (09:41)
[2023-12-26] MEDS: MAGNESIUM SULFATE 1 gm IVPB 1 GM/100 ML BAG IV SCH (09:41)
--- NOTE | 2023-12-26 10:58 | RAD REPORT ---
Exam:Abdomen 1 View (KUB) Clinical history: Abdominal pain FINDINGS: Postsurgical changes are present. Air is present within nondilated small bowel in a nonspecific fashion. No bowel obstruction seen. There does not appear to be a large amount stool within the colon.
--- NOTE | 2023-12-26 11:18 | PN ---
I am covering for Dr. Vidales. Subjective: The patient is awake, alert, tolerating liquids, is hungry. The patient had an EGD, which showed multiple erosions and ulcers as the cause of her recent GI bleed. Please note, that I reviewed the entire chart and had a detailed discussion with Dr. Vidales regarding the patient's history and condition. The patient's pain is controlled. Her ostomy is working well. She denies any nausea or vomiting. Objective: Vital Signs: Stable. She is afebrile. Abdomen: Soft, nondistended. Minimal tenderness. No peritonitis. Ostomy is pink and functioning well. Laboratory Data: White count is 11.8, H and H is stable at 8 and 24.1, platelets are 310. Chemistry reviewed. Assessment: Status post loop ileostomy after extended right hemicolectomy, primary ileocolic anastomosis and loop ileostomy was created for anastomotic leak. The patient did have barium concretion in the rectum and she is getting enemas for that at this time. Recommendations: Continue IV antibiotics, advance diet. We will check an x-ray to see if she is still have barium in her rectum. Continue wound VAC, however it can be done Thursday, Thursday, and Thursday instead of every other day. Continue PPIs. Continue antibiotics and discharge planning, hopefully LTAC. ANNA/CARROLL Voice ID: [id number] Report ID: [id number] MTDD
[2023-12-26] MEDS: SUCRALFATE 1GM/10ML UCUP PO SCH (12:07)
[2023-12-26] MEDS: METOLAZONE 5 MG TABLET PO SCH (12:08)
[2023-12-26] MEDS: AMILORIDE HCL 5 MG TABLET PO SCH (12:36)
[2023-12-26] MEDS: POTASSIUM 25 MEQ EFFERV TAB FT SCH (12:37)
--- NOTE | 2023-12-26 13:30 | P.PN ---
Subjective Date of Service: 12/26/23 Chief Complaint: A-fib with RVR, GI bleed, apple core transverse colon cancer Patient states she is feeling better. She denies any pain Ileostomy output-brown watery stool, no bleeding. Blood pressure has improved and stable. Heart rate has improved. No reported vomiting. She is tolerating clear liquid diet. No recorded fever. Physical Examination - Vital Signs Temperature: 97.3 F Blood Pressure: 138/93 Pulse: 108 Respirations: 20 Pulse Ox (%): 92 - Studies Medications List Reviewed: Yes Assessment And Plan - Plan Physical examination GEN: Alert and oriented x3, NAD. HEENT: Normal conjunctiva, sclera anicteric. Pulm: Nonlabored respirations, Clear to auscultation bilaterally CVS: Heart sounds 1 and 2 heard, irregular, rapid, 2+ bilateral lower extremity edema. ABD: Midline surgical wound with wound VAC applied. looks clean and dry, abdomen not distended, normal bowel sounds, right-sided ileostomy. MSK: No joint tenderness Integumentary: No rashes Neuro: Normal speech, normal affect, no focal motor deficit. Genitourinary: Payton catheter in place. Vitals reviewed Diagnosis Acute blood loss anemia. 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 Acute blood loss anemia. 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 (last transfusion 12/23). GI bleeding appeared to have stopped. Eliquis on hold. Noted elevated INR Status FFP. Monitor PT and INR Continue IV protonix drip and octreotide drip. GI Dr. Goodman performed a repeat EGD 12/24 and patient noted to have esophagitis, esophageal ulcer gastric ulcer and duodenal erosions. Advance diet to soft diet as tolerated MAGDALENA drain removed by Dr. Vidales 12/21, wound vac in place Incentive spirometry PICC placed 12/02, new midline placed 12/22 s/p TPN (12/14-12/18) Acute diastolic congestive heart failure moderate right pleural effusion s/p thoracentesis (12/17) Acute respiratory failure with hypoxia secondary to above Throughout her hospitalization course, secondary to third spacing from low nutrition, blood transfusions, and IV fluids patient has been having third spacing Echo (12/17): 60-65% EF, normal diastolic function. Moderate dilated left atrium. mild TR/MR CT abdomen/pelvis (12/17): Moderate right pleural effusion, trace left pleural effusion - as has been seen on prior CXR s/p thoracentesis 12/17; 800 ml clear fluid drained low suspicion for infection involving effusion Pleural fluid cx (12/17): no growth. Patient is more edematous today after receiving IV fluid. Intermittent IV Lasix if possible Previously on rocephin/flagyl (12/09-12/12) and meropenem (12/12-12/16) Merrem switched to vanc / flagyl / Aztreonam (12/16) given worsening leukocytosis Leukocytosis is not improving. Continue current antibiotics ID is following. Rectal fecal retention with barium contrast s/p dulcolax TN x1, Mineral oil enema x1 (12/19) given presumed barium concretion Surgery Dr. Vidales has recommended soapsuds enema twice daily. Patient had a good bowel movement 12/23. Chronic atrial fibrillation with RVR-on chronic anticoagulation Initial plan was for GENNA cardioversion, sotalol but given patient's severe anemia secondary to GI bleed plan for GENNA Cardioversion was aborted because pat ient cannot be anticoagulated due to high risk for life-threatening bleed. Initially on Sotalol and metoprolol for rate and rhythm control; switched to amiodarone drip 12/13 due to RVR post-op / NPO Rhythm was difficult to control on IV amiodarone, and have had improvement since switching amiodarone back to sotalol and metoprolol continue sotalol and metoprolol Cardiology is following, no plans for cardioversion at this time. Anticoagulation is on hold due to drop in hemoglobin ongoing GI bleeding. Patient may benefit from Watchman procedure outpatient. Dehydration Hypotension I suspect patient has fluid deficit from inadequate oral intake compared to ileostomy output. Uric acid level checked after multiple blood transfusion and FFP. Uric acid level is normal, UA does not show concentrated urine to suggest dehydration. Blood pressure has stabilized. Clear liquid diet. Patient given albumin infusion, 1 PRBC transfusion today. Second albumin infusion ongoing today per nephrology Status post 500 mL normal saline bolus 12/23. Acute Metabolic encephalopathy, resolved Improved/resolved Likely drug-induced secondary to opioids / stress / component of ICU delirium KEYANNA, resolved Nephrology consulted KEYANNA resolved. continue to monitor renal function Critical illness myopathy Continue PT Disposition pending response to treatment. Patient is being evaluated for LTAC placement. VTE: Lovenox Code: Full Dispo: SNF
--- NOTE | 2023-12-26 20:24 | PN ---
Date of Progress Note: 12/25/2023 Subjective: The patient continues to be in atrial fibrillation. Heart rate is running fast, but her blood pressure has improved. Review of Systems: No chest pain, shortness of breath, orthopnea, cough. No nausea, vomiting, diarrhea. All other syst ems reviewed are negative. Physical Examination: Vital Signs: Reviewed. Head and Neck: Pupils are equal, reactive to light. Intact eye movements. No JVD, no cervical lymp hadenopathy. Neck is supple. Thyroid is not enlarged. Lungs: Clear to auscultation bilaterally. No rhonchi, wheezing, or crackles. No accessory muscle u se. Heart: Irregularly irregular. No extra sounds. Abdomen: Soft, nontender. Bowel sounds positive. No organomegaly. No masses or hernia. No rigidi ty or rebound. Extremities: No clubbing, cyanosis. Intact pulses. Skin: No rash. Neuro: Alert, awake, oriented x3. No focal deficits appreciated. Investigations: Labs were reviewed. Assessment/recommendations: 1.Atrial fibrillation with rapid ventricular response. Increase metoprolol to 50 mg twice a day. C ontinue sotalol. If heart rate does not get controlled on that, then I will increase the sotalol to 120 mg twice a day and this patient might benefit from transesophageal echocardiography-guided cardio version. Recommend a stroke prevention. However, there is history of gastrointestinal bleed, so thi s patient would benefit from left atrial appendage closure, which can be planned as an outpatient. 2.Gastrointestinal bleed, being monitored closely. Hemoglobin is stable today. 3.Hypotension and dehydration. This has resolved now. Beta-johnna can be adjusted. 4.Anemia due to gastrointestinal blood loss. This patient is not a candidate for anticoagulation fo r stroke prevention. I would definitely recommend appendage closure, which can be arranged for as an outpatient. SR/MODL Voice ID: [id number] Report ID: [id number]
--- NOTE | 2023-12-26 22:02 | P.PN ---
Date of Service: 12/26/23 Vital Signs Temp Pulse Resp BP Pulse Ox 97.8 F 110 H 22 H 141/89 H 92 12/26/23 20:00 12/26/23 20:00 12/26/23 20:00 12/26/23 20:00 12/26/23 20:00 Medications Acetaminophen (Acetaminophen 325 Mg Tablet) 650 mg PO Q4HP PRN PRN Reason: Pain scale 2-4 (Mild)orT>100.1 Hydrocodone Bitart/Acetaminophen (Hydrocodone/Apap 5/325 Mg Tab) 1 tab PO Q6H PRN PRN Reason: Pain scale 5-7 (Moderate) Last Admin: 12/26/23 00:07 Dose: 1 tab Glucagon (Glucagon 1 Mg/Vial) 1 mg IM UD PRN PRN Reason: HYPOGLYCEMIA Sodium Chloride (Sodium Chloride) 250 mls @ 0 mls/hr IV .Q0M RONI Sodium Chloride (Sodium Chloride) 250 mls @ 0 mls/hr IV .Q0M RONI Dextrose (Dextrose 10% Water Iv Soln.) 125 mls @ 0 mls/hr IV PRN PRN; Protocol PRN Reason: HYPOGLYCEMIA Aztreonam 2 gm/ Sodium (Chloride) 100 mls @ 100 mls/hr IV Q8HR RONI Last Admin: 12/26/23 16:15 Dose: 100 mls Metronidazole/Sodium Chloride (Flagyl 500mg/100 Ml Iv Premix) 500 mg in 100 mls @ 100 mls/hr IV Q8HR [facility]ONI Last Admin: 12/26/23 16:14 Dose: 100 mls Vancomycin HCl 1.5 gm/ Sodium (Chloride) 500 mls @ 250 mls/hr IVPB Q24H [facility]ONI Last Admin: 12/26/23 16:14 Dose: 500 mls Pantoprazole Sodium 80 mg/ (Sodium Chloride) 250 mls @ 25 mls/hr IV Q10H [facility]; Protocol Last Admin: 12/26/23 14:10 Dose: 250 mls Octreotide Acetate 500 mcg/ (Sodium Chloride) 500 mls @ 50 mls/hr IV Q10H [facility] Last Admin: 12/26/23 14:10 Dose: 500 mls L-Arginine/L-Glutamine/HMB (Delio Packet) 1 pkt PO BID [facility]ONI Last Admin: 12/26/23 20:46 Dose: 1 pkt Metoprolol Tartrate (Metoprolol Tartrate 5 Mg/5 Ml Inj) 2.5 mg IV Q6H PRN PRN Reason: HR >120 Last Admin: 12/22/23 12:17 Dose: 2.5 mg Metoprolol Tartrate (Metoprolol Tar 25 Mg Tab) 25 mg PO BID 6AM 6PM [facility] Last Admin: 12/26/23 17:46 Dose: 25 mg Morphine Sulfate (Morphine 2 Mg/Ml Syr) 2 mg IV Q4H PRN PRN Reason: Pain scale 8-10 (Severe) Last Admin: 12/23/23 12:27 Dose: 2 mg Protein (Ensure Max Protein 330 Ml Liquid) 330 ml PO BID [facility] Last Admin: 12/26/23 20:47 Dose: 330 ml Sodium Chloride (Sodium Chloride 0.9% 10ml Inj) 10 ml IV UD PRN PRN Reason: Diluant Last Admin: 12/12/23 19:57 Dose: 10 ml Sodium Chloride (Sodium Chloride 0.9% 10ml Inj) 10 ml IV UD PRN PRN Reason: Diluant Sotalol HCl (Sotalol Hcl 80 Mg Tab) 80 mg PO BID 6AM 6PM [facility] Last Admin: 12/26/23 17:47 Dose: 80 mg Sucralfate (Sucralfate 1gm/10ml Ucup) 1 gm PO ACHS [facility] Last Admin: 12/26/23 20:46 Dose: 1 gm Assessment/ Plan: Nephrology Progress Note No Dyspnea No Chest Pain Worsening edema No Acute Events Overnight Vital Signs, Medications, Blood Work, and Imaging reviewed in the chart General: In no apparent distress, Cooperative HEENT: Atraumatic Neck: Supple Respiratory: Clear to auscultation bilaterally Cardiovascular: Edema, Irregular heart rate/rhythm Gastrointestinal: No guarding, Tenderness Musculoskeletal: No clubbing, No contractures Integumentary: No rashes, No cyanosis Neurological: Normal speech Blood work reviewed in the chart. Imagings Data: EXAM: Abdomen 1 View (KUB) HISTORY: [facility] MAIN Placement of NGT/OGT. Post Insertion. Pls call Floor to confirm if patient is ready. COMPARISON: 11/30/2023 CT abdomen and pelvis FINDINGS: Single view of the abdomen shows a nonspecific, nonobstructive bowel gas pattern. Enteric tube tip terminates in the region of the stomach body. Right upper quadrant surgical clips suggesting prior. Midline laparotomy skin celia. No suspicious calcifications are seen. The bones are unremarkable. IMPRESSION: Satisfactory positioning of the enteric tube is above. EXAMINATION: ONE VIEW CHEST XR CLINICAL INDICATION: PICC placement TECHNIQUE: Frontal chest projection is submitted. Examination is limited by patient positioning and technique. COMPARISON: No prior exam. FINDINGS: The tip of the right-sided PICC line is in the SVC. The heart is upper limit of normal in size. No displaced fractures identified. IMPRESSION: Right-sided PICC line has tip in the SVC. There is a left-sided catheter tubing also partially visualized in the left axillary region. EXAM: Single contrast barium enema INDICATION: Colon mass COMPARISON: CT abdomen January 30, 2024 Technique: Single contrast barium enema performed. Contrast reflux into small bowel. FINDINGS: An apple core 2 cm lesion involves the proximal transverse colon. Diverticula system from the colon without diverticulitis. No obstruction Fluoroscopy time: 1.3 minutes Number of images: 19 fluoroscopic spot images IMPRESSION: Apple core lesion proximal transverse colon likely neoplasm. EXAMINATION: CT ABDOMEN AND PELVIS WITHOUT CONTRAST CLINICAL INDICATION: Female, 73 years old. GI BLEED [facility] MAIN GI BLEED NO CONTRAST Bed Name: 4 TECHNIQUE: CT abdomen and pelvis was performed, without IV contrast, as per department protocol. Axial, sagittal and coronal reconstructions were obtained. One or more of the following dose reduction techniques were used: Automated exposure control, adjustment of the mA and kV according to the patient size, and iterative reconstruction. Unless otherwise specified, incidental findings do not require dedicated imaging follow-up. COMPARISON: No prior exam. FINDINGS: The lack of intravenous contrast limits the sensitivity of this exam for evaluation of solid visceral organs, vascular structures, and retroperitoneum. LOWER CHEST: The visualized lung bases are clear. LIVER: Normal in size and contour. No focal lesion. Cholecystectomy clips. SPLEEN: Normal size. No focal lesion. PANCREAS: No mass, ductal dilation, or angelica-pancreatic fluid. ADRENALS: Normal; no mass. KIDNEYS AND URETERS: Normal size and contour. No hydronephrosis. Benign- appearing right renal cyst. URINARY BLADDER: Normal contour. GASTROINTESTINAL TRACT: No evidence of bowel obstruction, significant free fluid, free air or abscess. There is mild diverticulosis coli of the sigmoid colon without diverticulitis. APPENDIX: Normal appendix. LYMPH NODES: No lymphadenopathy. MUSCULOSKELETAL: Mild multilevel spinal degenerative changes. ADDITIONAL FINDINGS: None. IMPRESSION: No acute or concerning abnormalities in the abdomen or pelvis, with evaluation limited by lack of IV contrast. Conclusions/Impression: Stage I KEYANNA may be due to hypovolemia, resolved CKD II with Proteinuria -No NSAIDs Hypokalemia -Replete as ordered Hypomagnesemia -Replete prn Hypophosphatemia -Replete as ordered HTN with CKD -Hold antihypertensives at this time Hypervolemia with Pulmonary Edema and Pleural Effusions Periperhal Edema -Lasix prn -Metolazone and Amiloride today Hypoalbuminemia -Advance diet as tolerated -Albumin IV prn Anemia in chronic illness/ blood loss Iron Deficiency 4.9% -PRBC prn -GI following -Consider IV iron Colon Cancer sp Resection 12-08-23 Invasive moderately differentiated adenocarcinoma -Continue Abx -Follow up with surgery -Wound care as ordered Hospitalist note reviewed 35min patient care
[2023-12-26] MEDS: FUROSEMIDE 20 MG/ 2ML VIAL IV ONE (22:37)
[2023-12-27 05:37] LABS: Absolute Basophils 0.1 K/uL (0-0.5); Absolute Eosinophils 0.1 K/uL (0-0.5); Absolute Lymphocytes (CBC) 1.3 K/uL (0.7-4.9); Absolute Monocytes 0.8 K/uL (0.1-1.3); Absolute Neutrophil 8.7 K/uL (1.8-8.0); Basophils % 1.2 % (0-1.3); Eosinophils % 1.2 % (0-4.4); Hematocrit 27.4 % (36.0-45.0); Lymphocytes % 11.8 % (15.3-44.8); MCH 29.2 pg (27.0-35.0); MCHC 32.9 g/dL (32.0-36.0); MCV 88.9 fL (80-100); MPV 7.2 fL (7.6-11.3); Monocytes % 7.6 % (3.3-12.3); Neutrophils % 78.2 % (41.7-73.7); Nucleated Red Blood Cells % 0.1 % (0-0); Platelets 317 thou/uL (152-406); RBC Red Blood Cell Count 3.08 M/uL (3.86-4.86)
[2023-12-27 05:43] LABS: Anion Gap 8.4 mEq/L (5.0-15.0); Magnesium 1.5 mg/dL (1.6-2.4); Phosphorus 2.4 mg/dL (2.5-4.9); Potassium 4.4 mEq/L (3.5-5.1)
[2023-12-27] MEDS: Magnesium Sulfate 2gm IVPB 2 G/50 ML BAG IV ONE (06:18)
[2023-12-27] MEDS: SODIUM PHOSPHATE 15 MM in NA CHLORIDE 0.9% 250 ML IV ONE (08:14)
[2023-12-27] MEDS: MAGNESIUM CHLORIDE 64 MG TAB PO SCH (08:15)
[2023-12-27] MEDS: AMILORIDE HCL 5 MG TABLET PO SCH (08:16)
[2023-12-27] MEDS: FUROSEMIDE 20 MG/ 2ML VIAL IV SCH (08:17)
--- NOTE | 2023-12-27 09:06 | PN ---
Date of Progress Note: 12/27/2023 Subjective: The patient is awake and alert. She is tolerating some of her regular diet. There is no nausea or vomiting. Diagnostic Data: On abdominal x-ray, she did not have any remaining barium that is visible. Her H and H are 9 and 27.4, and white count is 11.1. Objective: Vital Signs: Stable. She is afebrile. Abdomen: Her ostomy is working well. Abdomen is benign. Assessment: Status post loop ileostomy after extended right hemicolectomy. Recommendations: Continue antibiotics. Encourage physical therapy. Continue wound VAC. Continue PPIs. Discharge planning with hopefully LTAC. /MODL Voice ID: [id number] Report ID: [id number] MTDD
[2023-12-27] MEDS ORDERED: AMILORIDE HCL 5 MG TABLET PO SCH (11:30)
--- NOTE | 2023-12-27 12:20 | P.PN ---
Subjective Date of Service: 12/27/23 Chief Complaint: A-fib with RVR, GI bleed, apple core transverse colon cancer No new complaint She denies any pain Ileostomy output-brown watery stool, no bleeding. Blood pressure has improved and stable. Heart rate has improved. She is tolerating soft diet. Patient had good diuresis with IV Lasix over the past 24 hours. Physical Examination - Vital Signs Temperature: 97.4 F Blood Pressure: 126/75 Pulse: 68 Respirations: 20 Pulse Ox (%): 95 - Studies Medications List Reviewed: Yes Assessment And Plan - Plan Physical examination GEN: Alert and oriented x3, NAD. HEENT: Normal conjunctiva, sclera anicteric. Pulm: Nonlabored respirations, Clear to auscultation bilaterally CVS: Heart sounds 1 and 2 heard, irregular, rapid, 2+ bilateral lower extremity edema. ABD: Midline surgical wound with wound VAC. Wound looks clean and dry, abdomen not distended, normal bowel sounds, right-sided ileostomy. MSK: No joint tenderness Integumentary: No rashes Neuro: Normal speech, normal affect, no focal motor deficit. Genitourinary: Payton catheter in place. Vitals reviewed Diagnosis Acute blood loss anemia. 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 Acute blood loss anemia. 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 (last transfusion 12/23). GI bleeding appeared to have stopped. Eliquis on hold. Noted elevated INR Status post FFP. Monitor PT and INR Continue IV protonix drip. Discontinue octreotide drip. GI Dr. Goodman performed a repeat EGD 12/24 and patient noted to have esophagitis, esophageal ulcer gastric ulcer and duodenal erosions. Soft diet as tolerated. MAGDALENA drain removed by Dr. Vidales 12/21, wound vac in place Incentive spirometry PICC placed 12/02, new midline placed 12/22 s/p TPN (12/14-12/18) Acute diastolic congestive heart failure moderate right pleural effusion s/p thoracentesis (12/17) Acute respiratory failure with hypoxia secondary to above Throughout her hospitalization course, secondary to third spacing from low nutrition, blood transfusions, and IV fluids patient has been having third spacing Echo (12/17): 60-65% EF, normal diastolic function. Moderate dilated left atrium. mild TR/MR CT abdomen/pelvis (12/17): Moderate right pleural effusion, trace left pleural effusion - as has been seen on prior CXR s/p thoracentesis 12/17; 800 ml clear fluid drained low suspicion for infection involving effusion Pleural fluid cx (12/17): no growth. Patient is more edematous. Intermittent IV Lasix if possible Previously on rocephin/flagyl (12/09-12/12) and meropenem (12/12-12/16) Merrem switched to vanc / flagyl / Aztreonam (12/16) given worsening leukocytosis Leukocytosis significantly improved. Continue current antibiotics ID is following. Rectal fecal retention with barium contrast s/p dulcolax VT x1, Mineral oil enema x1 (12/19) given presumed barium concretion Surgery Dr. Vidales has recommended soapsuds enema twice daily. Patient had a good bowel movement 12/23. Chronic atrial fibrillation with RVR-on chronic anticoagulation Initial plan was for GENNA cardioversion, sotalol but given patient's severe anemia secondary to GI bleed plan for GENNA Cardioversion was aborted because patient cannot be anticoagulated due to high risk for life-threatening bleed. Initially on Sotalol and metoprolol for rate and rhythm control; switched to amiodarone drip 12/13 due to RVR post-op / NPO Rhythm was difficult to control on IV amiodarone, and have had improvement since switching amiodarone back to sotalol and metoprolol continue sotalol and metoprolol Cardiology is following, no plans for cardioversion at this time. Anticoagulation is on hold due to drop in hemoglobin ongoing GI bleeding. Patient will benefit from Watchman procedure outpatient. Dehydration Hypotension I suspect patient has fluid deficit from inadequate oral intake compared to ileostomy output. Uric acid level checked after multiple blood transfusion. Uric acid level is normal, UA does not show concentrated urine to suggest dehydration. Blood pressure has stabilized. Hypotension resolved. Diet as tolerated. Patient given albumin infusions Status post 500 mL normal saline bolus 12/23. Acute Metabolic encephalopathy, resolved Resolved Likely drug-induced secondary to opioids / stress / component of ICU delirium KEYANNA, resolved Nephrology consulted KEYANNA resolved. continue to monitor renal function Critical illness myopathy Continue PT Disposition pending response to treatment. Patient is being evaluated for LTAC placement. VTE: Lovenox Code: Full Dispo: SNF
[2023-12-27] MEDS: ENSURE MAX PROTEIN 330 ML LIQUID PO SCH (14:00)
--- NOTE | 2023-12-27 20:33 | P.PN ---
Date of Service: 12/27/23 Vital Signs Temp Pulse Resp BP Pulse Ox 97.9 F 103 H 24 H 125/70 94 12/27/23 16:00 12/27/23 19:00 12/27/23 19:00 12/27/23 19:00 12/27/23 19:00 Medications Acetaminophen (Acetaminophen 325 Mg Tablet) 650 mg PO Q4HP PRN PRN Reason: Pain scale 2-4 (Mild)orT>100.1 Hydrocodone Bitart/Acetaminophen (Hydrocodone/Apap 5/325 Mg Tab) 1 tab PO Q6H PRN PRN Reason: Pain scale 5-7 (Moderate) Last Admin: 12/26/23 00:07 Dose: 1 tab Amiloride HCl (Amiloride Hcl 5 Mg Tablet) 10 mg PO BIDPC [facility] Last Admin: 12/27/23 16:44 Dose: 10 mg Furosemide (Furosemide 20 Mg/ 2ml Vial) 20 mg IV BIDPC [facility] Last Admin: 12/27/23 16:44 Dose: 20 mg Glucagon (Glucagon 1 Mg/Vial) 1 mg IM UD PRN PRN Reason: HYPOGLYCEMIA Sodium Chloride (Sodium Chloride) 250 mls @ 0 mls/hr IV .Q0M RONI Sodium Chloride (Sodium Chloride) 250 mls @ 0 mls/hr IV .Q0M RONI Dextrose (Dextrose 10% Water Iv Soln.) 125 mls @ 0 mls/hr IV PRN PRN; Protocol PRN Reason: HYPOGLYCEMIA Aztreonam 2 gm/ Sodium (Chloride) 100 mls @ 100 mls/hr IV Q8HR [facility] Last Admin: 12/27/23 16:08 Dose: 100 mls Metronidazole/Sodium Chloride (Flagyl 500mg/100 Ml Iv Premix) 500 mg in 100 mls @ 100 mls/hr IV Q8HR [facility] Last Admin: 12/27/23 16:08 Dose: 100 mls Vancomycin HCl 1.5 gm/ Sodium (Chloride) 500 mls @ 250 mls/hr IVPB Q24H [facility] Last Admin: 12/27/23 16:07 Dose: 500 mls Pantoprazole Sodium 80 mg/ (Sodium Chloride) 250 mls @ 25 mls/hr IV Q10H [facility]; Protocol Last Admin: 12/27/23 20:15 Dose: 250 mls L-Arginine/L-Glutamine/HMB (Delio Packet) 1 pkt PO BID [facility] Last Admin: 12/27/23 09:00 Dose: Not Given Magnesium Chloride (Magnesium Chloride 64 Mg Tab) 128 mg PO BID [facility] Last Admin: 12/27/23 08:15 Dose: 128 mg Metoprolol Tartrate (Metoprolol Tartrate 5 Mg/5 Ml Inj) 2.5 mg IV Q6H PRN PRN Reason: HR >120 Last Admin: 12/22/23 12:17 Dose: 2.5 mg Metoprolol Tartrate (Metoprolol Tar 25 Mg Tab) 25 mg PO BID 6AM 6PM [facility] Last Admin: 12/27/23 16:53 Dose: 25 mg Morphine Sulfate (Morphine 2 Mg/Ml Syr) 2 mg IV Q4H PRN PRN Reason: Pain scale 8-10 (Severe) Last Admin: 12/23/23 12:27 Dose: 2 mg Protein (Ensure Max Protein 330 Ml Liquid) 330 ml PO TID [facility] Last Admin: 12/27/23 14:00 Dose: Not Given Sodium Chloride (Sodium Chloride 0.9% 10ml Inj) 10 ml IV UD PRN PRN Reason: Diluant Last Admin: 12/12/23 19:57 Dose: 10 ml Sodium Chloride (Sodium Chloride 0.9% 10ml Inj) 10 ml IV UD PRN PRN Reason: Diluant Sotalol HCl (Sotalol Hcl 80 Mg Tab) 80 mg PO BID 6AM 6PM [facility] Last Admin: 12/27/23 16:53 Dose: 80 mg Sucralfate (Sucralfate 1gm/10ml Ucup) 1 gm PO ACHS [facility] Last Admin: 12/27/23 16:09 Dose: 1 gm Assessment/ Plan: Nephrology Progress Note No Dyspnea No Chest Pain Improving edema No Acute Events Overnight Vital Signs, Medications, Blood Work, and Imaging reviewed in the chart General: In no apparent distress, Cooperative HEENT: Atraumatic Neck: Supple Respiratory: Clear to auscultation bilaterally Cardiovascular: Edema, Irregular heart rate/rhythm Gastrointestinal: No guarding, Tenderness Musculoskeletal: No clubbing, No contractures Integumentary: No rashes, No cyanosis Neurological: Normal speech Blood work reviewed in the chart. Imagings Data: EXAM: Abdomen 1 View (KUB) HISTORY: [facility] MAIN Placement of NGT/OGT. Post Insertion. Pls call Floor to confirm if patient is ready. COMPARISON: 11/30/2023 CT abdomen and pelvis FINDINGS: Single view of the abdomen shows a nonspecific, nonobstructive bowel gas pattern. Enteric tube tip terminates in the region of the stomach body. Right upper quadrant surgical clips suggesting prior. Midline laparotomy skin celia. No suspicious calcifications are seen. The bones are unremarkable. IMPRESSION: Satisfactory positioning of the enteric tube is above. EXAMINATION: ONE VIEW CHEST XR CLINICAL INDICATION: PICC placement TECHNIQUE: Frontal chest projection is submitted. Examination is limited by patient positioning and technique. COMPARISON: No prior exam. FINDINGS: The tip of the right-sided PICC line is in the SVC. The heart is upper limit of normal in size. No displaced fractures identified. IMPRESSION: Right-sided PICC line has tip in the SVC. There is a left-sided catheter tubing also partially visualized in the left axillary region. EXAM: Single contrast barium enema INDICATION: Colon mass COMPARISON: CT abdomen January 30, 2024 Technique: Single contrast barium enema performed. Contrast reflux into small bowel. FINDINGS: An apple core 2 cm lesion involves the proximal transverse colon. Diverticula system from the colon without diverticulitis. No obstruction Fluoroscopy time: 1.3 minutes Number of images: 19 fluoroscopic spot images IMPRESSION: Apple core lesion proximal transverse colon likely neoplasm. EXAMINATION: CT ABDOMEN AND PELVIS WITHOUT CONTRAST CLINICAL INDICATION: Female, 73 years old. GI BLEED [facility] MAIN GI BLEED NO CONTRAST Bed Name: 4 TECHNIQUE: CT abdomen and pelvis was performed, without IV contrast, as per department protocol. Axial, sagittal and coronal reconstructions were obtained. One or more of the following dose reduction techniques were used: Automated exposure control, adjustment of the mA and kV according to the patient size, and iterative reconstruction. Unless otherwise specified, incidental findings do not require dedicated imaging follow-up. COMPARISON: No prior exam. FINDINGS: The lack of intravenous contrast limits the sensitivity of this exam for evaluation of solid visceral organs, vascular structures, and retroperitoneum. LOWER CHEST: The visualized lung bases are clear. LIVER: Normal in size and contour. No focal lesion. Cholecystectomy clips. SPLEEN: Normal size. No focal lesion. PANCREAS: No mass, ductal dilation, or angelica-pancreatic fluid. ADRENALS: Normal; no mass. KIDNEYS AND URETERS: Normal size and contour. No hydronephrosis. Benign- appearing right renal cyst. URINARY BLADDER: Normal contour. GASTROINTESTINAL TRACT: No evidence of bowel obstruction, significant free fluid, free air or abscess. There is mild diverticulosis coli of the sigmoid colon without diverticulitis. APPENDIX: Normal appendix. LYMPH NODES: No lymphadenopathy. MUSCULOSKELETAL: Mild multilevel spinal degenerative changes. ADDITIONAL FINDINGS: None. IMPRESSION: No acute or concerning abnormalities in the abdomen or pelvis, with evaluation limited by lack of IV contrast. Conclusions/Impression: Stage I KEYANNA may be due to hypovolemia, resolved CKD II with Proteinuria -No NSAIDs Hypokalemia -Replete prn Hypomagnesemia -Replete prn Hypophosphatemia -Replete prn HTN with CKD -Hold antihypertensives at this time Hypervolemia with Pulmonary Edema and Pleural Effusions Periperhal Edema -Start Lasix and Amiloride BID Hypoalbuminemia -Advance diet as tolerated -Albumin IV prn Anemia in chronic illness/ blood loss Iron Deficiency 4.9% -PRBC prn -GI following -Consider IV iron Colon Cancer sp Resection 12-08-23 Invasive moderately differentiated adenocarcinoma -Continue Abx -Follow up with surgery -Wound care as ordered Hospitalist note reviewed 35min patient care
[2023-12-28 05:33] LABS: Absolute Basophils 0.1 K/uL (0-0.5); Absolute Eosinophils 0.2 K/uL (0-0.5); Absolute Lymphocytes (CBC) 1.6 K/uL (0.7-4.9); Absolute Monocytes 1.1 K/uL (0.1-1.3); Absolute Neutrophil 7.8 K/uL (1.8-8.0); Basophils % 1.3 % (0-1.3); Eosinophils % 2.1 % (0-4.4); Hematocrit 26.6 % (36.0-45.0); Hemoglobin 8.9 g/dL (12.0-15.0); Lymphocytes % 14.5 % (15.3-44.8); MCH 29.6 pg (27.0-35.0); MCHC 33.4 g/dL (32.0-36.0); MCV 88.6 fL (80-100); MPV 7.1 fL (7.6-11.3); Monocytes % 9.8 % (3.3-12.3); Neutrophils % 72.3 % (41.7-73.7); Nucleated Red Blood Cells % 0.1 % (0-0); Platelets 299 thou/uL (152-406)
[2023-12-28 05:46] LABS: Albumin 2.1 g/dL (3.4-5.0); Anion Gap 9.9 mEq/L (5.0-15.0); Magnesium 1.4 mg/dL (1.6-2.4); Phosphorus 2.5 mg/dL (2.5-4.9); Potassium 3.9 mEq/L (3.5-5.1); Uric Acid 3.7 mg/dL (2.6-6.0)
[2023-12-28] MEDS: Magnesium Sulfate 2gm IVPB 2 G/50 ML BAG IV ONE (06:26)
[2023-12-28] MEDS: POTASSIUM PHOS IN 0.9 % NACL 15 MMOL/250 ML BAG IV ONE (06:27)
[2023-12-28 08:00] LABS: Platelet Estimate ADEQ; White Blood Cell Scan OK (OK)
[2023-12-28 08:01] LABS: Anisocytosis 1+; Blood Morphology Comment NOTED (NOT SEEN); Hypochromasia 1+; Polychromasia SLIGHT
--- NOTE | 2023-12-28 10:08 | P.PN ---
Date of Service: 12/28/23 Vital Signs Temp Pulse Resp BP Pulse Ox 97.8 F 96 H 17 97/72 93 12/28/23 04:00 12/28/23 09:09 12/28/23 06:00 12/28/23 09:09 12/28/23 06:00 Medications Acetaminophen (Acetaminophen 325 Mg Tablet) 650 mg PO Q4HP PRN PRN Reason: Pain scale 2-4 (Mild)orT>100.1 Hydrocodone Bitart/Acetaminophen (Hydrocodone/Apap 5/325 Mg Tab) 1 tab PO Q6H PRN PRN Reason: Pain scale 5-7 (Moderate) Last Admin: 12/26/23 00:07 Dose: 1 tab Amiloride HCl (Amiloride Hcl 5 Mg Tablet) 10 mg PO BIDPC RONI Furosemide (Furosemide 20 Mg/ 2ml Vial) 20 mg IV BIDPC RONI Glucagon (Glucagon 1 Mg/Vial) 1 mg IM UD PRN PRN Reason: HYPOGLYCEMIA Sodium Chloride (Sodium Chloride) 250 mls @ 0 mls/hr IV .Q0M RONI Sodium Chloride (Sodium Chloride) 250 mls @ 0 mls/hr IV .Q0M RONI Dextrose (Dextrose 10% Water Iv Soln.) 125 mls @ 0 mls/hr IV PRN PRN; Protocol PRN Reason: HYPOGLYCEMIA Aztreonam 2 gm/ Sodium (Chloride) 100 mls @ 100 mls/hr IV Q8HR [facility] Last Admin: 12/28/23 09:09 Dose: 100 mls Metronidazole/Sodium Chloride (Flagyl 500mg/100 Ml Iv Premix) 500 mg in 100 mls @ 100 mls/hr IV Q8HR [facility] Last Admin: 12/28/23 09:10 Dose: 100 mls Vancomycin HCl 1.5 gm/ Sodium (Chloride) 500 mls @ 250 mls/hr IVPB Q24H [facility] Last Admin: 12/27/23 16:07 Dose: 500 mls Pantoprazole Sodium 80 mg/ (Sodium Chloride) 250 mls @ 25 mls/hr IV Q10H [facility]; Protocol Last Admin: 12/28/23 06:30 Dose: 250 mls Potassium Phosphate (Potassium Phos 15 Mmol/250 Ml Ns) 15 mmol in 250 mls @ 62.5 mls/hr IV 1X ONE Stop: 12/28/23 10:29 Last Admin: 12/28/23 06:27 Dose: 250 mls Albumin Human (Albumin 25%) 100 mls @ 100 mls/hr IV 1X ONE Stop: 12/28/23 11:03 L-Arginine/L-Glutamine/HMB (Delio Packet) 1 pkt PO BID [facility] Last Admin: 12/28/23 09:00 Dose: Not Given Magnesium Chloride (Magnesium Chloride 64 Mg Tab) 128 mg PO BID [facility] Last Admin: 12/28/23 09:09 Dose: 128 mg Metoprolol Tartrate (Metoprolol Tartrate 5 Mg/5 Ml Inj) 2.5 mg IV Q6H PRN PRN Reason: HR >120 Last Admin: 12/22/23 12:17 Dose: 2.5 mg Metoprolol Tartrate (Metoprolol Tar 25 Mg Tab) 25 mg PO BID 6AM 6PM [facility] Last Admin: 12/28/23 06:27 Dose: 25 mg Morphine Sulfate (Morphine 2 Mg/Ml Syr) 2 mg IV Q4H PRN PRN Reason: Pain scale 8-10 (Severe) Last Admin: 12/23/23 12:27 Dose: 2 mg Protein (Ensure Max Protein 330 Ml Liquid) 330 ml PO TID [facility] Last Admin: 12/28/23 09:00 Dose: 330 ml Sodium Chloride (Sodium Chloride 0.9% 10ml Inj) 10 ml IV UD PRN PRN Reason: Diluant Sotalol HCl (Sotalol Hcl 80 Mg Tab) 80 mg PO BID 6AM 6PM [facility] Last Admin: 12/28/23 06:27 Dose: 80 mg Sucralfate (Sucralfate 1gm/10ml Ucup) 1 gm PO ACHS [facility] Last Admin: 12/28/23 08:24 Dose: 1 gm Assessment/ Plan: Nephrology Progress Note No Dyspnea No Chest Pain Improving edema Diffuse weakness No Acute Events Overnight Vital Signs, Medications, Blood Work, and Imaging reviewed in the chart General: In no apparent distress, Cooperative HEENT: Atraumatic Neck: Supple Respiratory: Clear to auscultation bilaterally Cardiovascular: Edema, Irregular heart rate/rhythm Gastrointestinal: No guarding, Tenderness Musculoskeletal: No clubbing, No contractures Integumentary: No rashes, No cyanosis Neurological: Normal speech Blood work reviewed in the chart. Imagings Data: EXAM: Abdomen 1 View (KUB) HISTORY: [facility] MAIN Placement of NGT/OGT. Post Insertion. Pls call Floor to confirm if patient is ready. COMPARISON: 11/30/2023 CT abdomen and pelvis FINDINGS: Single view of the abdomen shows a nonspecific, nonobstructive bowel gas pattern. Enteric tube tip terminates in the region of the stomach body. Right upper quadrant surgical clips suggesting prior. Midline laparotomy skin celia. No suspicious calcifications are seen. The bones are unremarkable. IMPRESSION: Satisfactory positioning of the enteric tube is above. EXAMINATION: ONE VIEW CHEST XR CLINICAL INDICATION: PICC placement TECHNIQUE: Frontal chest projection is submitted. Examination is limited by patient positioning and technique. COMPARISON: No prior exam. FINDINGS: The tip of the right-sided PICC line is in the SVC. The heart is upper limit of normal in size. No displaced fractures identified. IMPRESSION: Right-sided PICC line has tip in the SVC. There is a left-sided catheter tubing also partially visualized in the left axillary region. EXAM: Single contrast barium enema INDICATION: Colon mass COMPARISON: CT abdomen January 30, 2024 Technique: Single contrast barium enema performed. Contrast reflux into small bowel. FINDINGS: An apple core 2 cm lesion involves the proximal transverse colon. Diverticula system from the colon without diverticulitis. No obstruction Fluoroscopy time: 1.3 minutes Number of images: 19 fluoroscopic spot images IMPRESSION: Apple core lesion proximal transverse colon likely neoplasm. EXAMINATION: CT ABDOMEN AND PELVIS WITHOUT CONTRAST CLINICAL INDICATION: Female, 73 years old. GI BLEED [facility] MAIN GI BLEED NO CONTRAST Bed Name: 4 TECHNIQUE: CT abdomen and pelvis was performed, without IV contrast, as per department protocol. Axial, sagittal and coronal reconstructions were obtained. One or more of the following dose reduction techniques were used: Automated exposure control, adjustment of the mA and kV according to the patient size, and iterative reconstruction. Unless otherwise specified, incidental findings do not require dedicated imaging follow-up. COMPARISON: No prior exam. FINDINGS: The lack of intravenous contrast limits the sensitivity of this exam for evaluation of solid visceral organs, vascular structures, and retroperitoneum. LOWER CHEST: The visualized lung bases are clear. LIVER: Normal in size and contour. No focal lesion. Cholecystectomy clips. SPLEEN: Normal size. No focal lesion. PANCREAS: No mass, ductal dilation, or angelica-pancreatic fluid. ADRENALS: Normal; no mass. KIDNEYS AND URETERS: Normal size and contour. No hydronephrosis. Benign- appearing right renal cyst. URINARY BLADDER: Normal contour. GASTROINTESTINAL TRACT: No evidence of bowel obstruction, significant free fluid, free air or abscess. There is mild diverticulosis coli of the sigmoid colon without diverticulitis. APPENDIX: Normal appendix. LYMPH NODES: No lymphadenopathy. MUSCULOSKELETAL: Mild multilevel spinal degenerative changes. ADDITIONAL FINDINGS: None. IMPRESSION: No acute or concerning abnormalities in the abdomen or pelvis, with evaluation limited by lack of IV contrast. Conclusions/Impression: Stage I KEYANNA may be due to hypovolemia, resolved CKD II with Proteinuria -No NSAIDs Hypokalemia -Replete prn Hypomagnesemia -Replete as ordered -Continue Slo-Mag Hypophosphatemia -Replete prn HTN with CKD -Hold antihypertensives at this time Hypervolemia with Pulmonary Edema and Pleural Effusions Periperhal Edema -Continue Lasix and Amiloride BID; add holding parameters due to hypotension Hypoalbuminemia -Advance diet as tolerated -Albumin IV prn Anemia in chronic illness/ blood loss Iron Deficiency 4.9% -PRBC prn -GI following -Consider IV iron Colon Cancer sp Resection 12-08-23 Invasive moderately differentiated adenocarcinoma -Continue Abx -Follow up with surgery -Wound care as ordered Hospitalist note reviewed
[2023-12-28] MEDS: ALBUMIN HUMAN 25% 100 ML IV ONE (10:41)
--- NOTE | 2023-12-28 13:09 | P.PN ---
Subjective Date of Service: 12/28/23 Chief Complaint: A-fib with RVR, GI bleed, apple core transverse colon cancer Patient denies any new complaint. She denies any pain. Ileostomy output-brown watery stool, no bleeding. Blood pressure has improved. She is tolerating soft diet. Patient had good good urine output. Lower extremity swelling is improving. Physical Examination - Vital Signs Temperature: 98.2 F Blood Pressure: 128/86 Pulse: 108 Respirations: 20 Pulse Ox (%): 96 - Studies Medications List Reviewed: Yes Assessment And Plan - Plan Physical examination GEN: Alert and oriented x3, NAD. HEENT: Normal conjunctiva, sclera anicteric. Pulm: Clear to auscultation bilaterally, no rhonchi or wheezes or crackles. CVS: Heart sounds 1 and 2 heard, irregular, rapid, 2+ bilateral lower extremity edema. ABD: Midline surgical wound with wound VAC. Wound looks clean and dry, abdomen not distended, normal bowel sounds, right-sided ileostomy. MSK: No joint tenderness Integumentary: No rashes Neuro: Normal speech, normal affect, no focal motor deficit. Genitourinary: Payton catheter in place. Vitals reviewed Diagnosis Acute blood loss anemia. 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 Acute blood loss anemia. 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 (last transfusion 12/23). GI bleeding appeared to have stopped. Eliquis on hold. Noted elevated INR Status post FFP. Monitor PT and INR GI Dr. Goodman performed a repeat EGD 12/24 and patient noted to have esophagitis, esophageal ulcer gastric ulcer and duodenal erosions. Continue IV protonix drip for 1 more day and transition to IV Protonix twice daily. Discontinue octreotide drip. Patient is tolerating soft diet. MAGDALENA drain removed by Dr. Vidales 12/21, wound vac in place Incentive spirometry PICC placed 12/02, new midline placed 12/22 s/p TPN (12/14-12/18) Acute diastolic congestive heart failure moderate right pleural effusion s/p thoracentesis (12/17) Acute respiratory failure with hypoxia secondary to above Pleural effusion, anasarca secondary to third spacing from low nutrition, blood transfusions, and IV fluids patient has been having third spacing Echo (12/17): 60-65% EF, normal diastolic function. Moderate dilated left atrium. mild TR/MR CT abdomen/pelvis (12/17): Moderate right pleural effusion, trace left pleural effusion - as has been seen on prior CXR s/p thoracentesis 12/17; 800 ml clear fluid drained low suspicion for infection involving effusion Pleural fluid cx (12/17): no growth. Peripheral edema is improving with Lasix diuresis. Intermittent IV Lasix as possible Previously on rocephin/flagyl (12/09-12/12) and meropenem (12/12-12/16) Merrem switched to vanc / flagyl / Aztreonam (12/16) given worsening leukocytosis Leukocytosis significantly improved. Continue current antibiotics ID is following. Rectal fecal retention with barium contrast s/p dulcolax [place] x1, Mineral oil enema x1 (12/19) given presumed barium concretion Surgery Dr. Vidales has recommended soapsuds enema twice daily. Patient had a good bowel movement 12/23. Chronic atrial fibrillation with RVR-on chronic anticoagulation Initial plan was for GENNA cardioversion, sotalol but given patient's severe anemia secondary to GI bleed plan for GENNA Cardioversion was aborted because patient cannot be anticoagulated due to high risk for life-threatening bleed. Initially on Sotalol and metoprolol for rate and rhythm control; switched to amiodarone drip 12/13 due to RVR post-op / NPO Rhythm was difficult to control on IV amiodarone, and have had improvement since switching amiodarone back to sotalol and metoprolol continue sotalol and metoprolol Cardiology is following, no plans for cardioversion at this time. Anticoagulation is on hold due to drop in hemoglobin and GI bleeding. Patient will benefit from Watchman procedure outpatient. Dehydration Hypotension I suspect patient has fluid deficit from inadequate oral intake compared to ileostomy output. Uric acid level checked after multiple blood transfusion. Uric acid level is normal, UA does not show concentrated urine to suggest dehydration. Blood pressure has stabilized. Hypotension resolved. Diet as tolerated. Patient given albumin infusions Status post 500 mL normal saline bolus on 12/23. Blood pressure seems to be more stable. Acute Metabolic encephalopathy, resolved Resolved Likely drug-induced secondary to opioids / stress / component of ICU delirium KEYANNA, resolved Nephrology consulted KEYANNA resolved. continue to monitor renal function Critical illness myopathy Continue PT Disposition pending response to treatment. Patient is being evaluated for LTAC placement. VTE: Lovenox Code: Full Dispo: SNF
[2023-12-28] MEDS: AMILORIDE HCL 5 MG TABLET PO SCH (17:06)
[2023-12-28] MEDS: FUROSEMIDE 20 MG/ 2ML VIAL IV SCH (17:06)
[2023-12-29 05:50] LABS: Albumin 2.2 g/dL (3.4-5.0); Anion Gap 9.8 mEq/L (5.0-15.0); Potassium 3.8 mEq/L (3.5-5.1)
[2023-12-29 06:17] VITALS: BMI 34.7
--- NOTE | 2023-12-29 06:55 | P.PN ---
Date of Service: 12/29/23 Subjective: stood up yesterday with PT for first time since admission remains in a-fib; HR more controlled in 90s at rest. Up to 120s with activity tolerating diet without issues doesn't feel anything is getting worse afebrile abx dc'd yesterday ROS: 10 point ROS as noted above, otherwise negative Physical Exam: GEN: NAD, AOx3 CV: Irregularly Irregular rate and rhythm, HR: 90s; 1+ lower extremity edema Pulm: Nonlabored respirations on RA, clear bilaterally ABD: Midline surgical wound with wound VAC, nondistended, ileostomy with slight output Integumentary: Wound vac in place espino dc'd 12/27 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) Acute diastolic congestive heart failure moderate right pleural effusion s/p thoracentesis (12/17) Acute respiratory failure with hypoxia secondary to above Rectal fecal retention with barium contrast, resolved Chronic atrial fibrillation with RVR-on chronic anticoagulation Acute Metabolic encephalopathy, resolved KEYANNA, resolved Critical illness myopathy Acute blood loss anemia GI bleed secondary to Colon cancer s/p right hemicolectomy, lysis of adhesions (12/07) 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 (last transfusion 12/23). s/p FFP (12/23) Eliquis dc'd Monitor PT and INR Dr. Goodman, GI is following s/p repeat EGD (12/24): noted esophagitis, esophageal ulcer gastric ulcer and duodenal erosions. continue protonix drip for now (12/22-). plan to transition to IV protonix BID next 24-48 hours. pending stability MAGDALENA drain removed 12/21; wound vac in place PICC placed 12/02, new midline placed 12/22 s/p TPN (12/14-12/18) tolerating soft diet Acute diastolic congestive heart failure moderate right pleural effusion s/p thoracentesis (12/17) Acute respiratory failure with hypoxia secondary to above Throughout her hospitalization course, secondary to low nutrition, anemia, blood transfusions, n.p.o./IV fluids patient has been having third spacing Which led to accumulation of pleural effusions Echo (12/17): 60-65% EF, normal diastolic function. Moderate dilated left atrium. mild TR/MR CT abdomen/pelvis (12/17): Moderate right pleural effusion, trace left pleural effusion - as has been seen on prior CXR repeat CXR (12/28): small right pleural effusion with hazy right mid and lower opacities. Trace left pleural effusion s/p thoracentesis 12/17; 800 ml clear fluid drained low suspicion for infection involving effusion Thoracentesis cx (12/17): no growth. Responding well to lasix continue IV lasix as tolerable Previously on rocephin/flagyl (12/09-12/12) and meropenem (12/12-12/16) s/p vanc / flagyl / Aztreonam (12/16-12/26); antibiotics dc'd 12/27 per surgery ID is following Rectal fecal retention with barium contrast, resolved s/p dulcolax [place] x1, Mineral oil enema x1 (12/19) given presumed barium concretion Surgery Dr. Vidales has recommended soapsuds enema twice daily. Patient had a good bowel movement 12/23. Chronic atrial fibrillation with RVR-on chronic anticoagulation Initial plan was for GENNA cardioversion, sotalol but given patient's severe anemia secondary to GI bleed plan for GENNA Cardioversion was aborted because patient cannot be anticoagulated due to high risk for life-threatening bleed. Initially on Sotalol and metoprolol for rate and rhythm control; switched to amiodarone drip 12/13 due to RVR post-op / NPO Rhythm was difficult to control on IV amiodarone, had improvement since switching amiodarone back to sotalol and metoprolol continue sotalol and metoprolol Cardiology is following, no plans for cardioversion at this time. Patient will benefit from Watchman procedure outpatient. Eliquis on hold due to bleed Dehydration, improved Hypotension, resolved suspect patient had fluid deficit from inadequate oral intake compared to ileostomy output. Uric acid level checked after multiple blood transfusion. Uric acid level is normal, UA does not show concentrated urine to suggest dehydration. Blood pressure has stabilized. Hypotension resolved. Blood pressure seems to be more stable. Acute Metabolic encephalopathy, resolved Improved/resolved Likely drug-induced secondary to opioids / stress / component of ICU delirium pain control KEYANNA, resolved Nephrology consulted KEYANNA resolved. continue to monitor renal function Critical illness myopathy Continue PT Social service consulted to assist with arrangement for SNF Code: Full Dispo: LTAC vs SNF - pending approval likely SNF - if stable off abx Time Spent Managing Pts Care (In Minutes): 53
[2023-12-29 07:40] LABS: Absolute Basophils 0.1 K/uL (0-0.5); Absolute Eosinophils 0.2 K/uL (0-0.5); Absolute Lymphocytes (CBC) 1.5 K/uL (0.7-4.9); Absolute Monocytes 1.2 K/uL (0.1-1.3); Absolute Neutrophil 8.1 K/uL (1.8-8.0); Basophils % 0.8 % (0-1.3); Eosinophils % 1.9 % (0-4.4); Hematocrit 25.7 % (36.0-45.0); Hemoglobin 8.4 g/dL (12.0-15.0); Lymphocytes % 13.4 % (15.3-44.8); MCH 29.1 pg (27.0-35.0); MCHC 32.9 g/dL (32.0-36.0); MCV 88.7 fL (80-100); Monocytes % 10.8 % (3.3-12.3); Neutrophils % 73.1 % (41.7-73.7); Nucleated Red Blood Cells % 0.1 % (0-0); Platelets 290 thou/uL (152-406); RBC Red Blood Cell Count 2.89 M/uL (3.86-4.86); Red Cell Distribution Width 21.2 % (12.1-15.2)
[2023-12-29] MEDS: POTASSIUM CL SA 10 MEQ TAB PO ONE (08:20)
--- NOTE | 2023-12-29 10:40 | RAD REPORT ---
EXAMINATION: ONE VIEW CHEST XR CLINICAL INDICATION: f/u effusion TECHNIQUE: Frontal chest projection is submitted. Examination is limited by patient positioning and t echnique. COMPARISON: 12/25/2023 FINDINGS: Small right pleural effusion is suspected with hazy opacity in the right mid and lower lung. Trace le ft pleural effusion with mild haziness in the left lung base. The heart is prominent in size. No displaced fractures identified. Right-sided PICC line is tip in SVC.
--- NOTE | 2023-12-29 16:07 | PN ---
Subjective: The patient is lying in bed, feels much better today. Denies any problems. She is off antibiotic since yesterday as per surgical team. Objective: Vital Signs: Reviewed. Lungs: Basal crackles. Heart: S1, S2. Regular. Abdomen: Soft. Bowel sounds present. Extremities: Trace edema. Laboratory Data: Shows WBC 11.1, hemoglobin 8.4, platelets are 290. Chemistry shows BUN of 17, crea tinine of 0.67. Chest x-ray done today shows small right pleural effusion with hazy opacity in the r ight mid and lower lung, trace left pleural effusion with mild haziness in the left lung. Assessment And Plan: The patient status post right hemicolectomy for colon cancer; lysis of admissio n; ostomy, and intestinal perforation, status post repair of perforation and creation of loop ileosto my on 12/13. The patient is off antibiotic. We will monitor her WBC and fever trends to see how she tolerates without antibiotic. Anemia secondary to blood loss. Continue current supportive care, re spiratory care. We will follow the patient as needed. NF/MODL Voice ID: [id number] Report ID: [id number]
--- NOTE | 2023-12-29 19:36 | P.PN ---
Date of Service: 12/29/23 Vital Signs Temp Pulse Resp BP Pulse Ox 97.4 F 114 H 16 122/58 L 97 12/29/23 16:00 12/29/23 16:00 12/29/23 16:00 12/29/23 16:00 12/29/23 16:00 Medications Acetaminophen (Acetaminophen 325 Mg Tablet) 650 mg PO Q4HP PRN PRN Reason: Pain scale 2-4 (Mild)orT>100.1 Hydrocodone Bitart/Acetaminophen (Hydrocodone/Apap 5/325 Mg Tab) 1 tab PO Q6H PRN PRN Reason: Pain scale 5-7 (Moderate) Last Admin: 12/26/23 00:07 Dose: 1 tab Amiloride HCl ([facility] Hcl 5 Mg [facility]t) [facility] Last Admin: 12/29/23 17:11 Dose: 10 mg Furosemide (Furosemide 20 Mg/ 2ml Vial) [facility] Last Admin: 12/29/23 17:11 Dose: 20 mg Glucagon (Glucagon 1 Mg/Vial) 1 mg IM UD PRN PRN Reason: HYPOGLYCEMIA Sodium Chloride (Sodium Chloride) 250 mls @ 0 mls/hr IV .Q0M RONI Sodium Chloride (Sodium Chloride) 250 mls @ 0 mls/hr IV .Q0M RONI Dextrose (Dextrose 10% Water Iv Soln.) 125 mls @ 0 mls/hr IV PRN PRN; Protocol PRN Reason: HYPOGLYCEMIA Pantoprazole Sodium 80 mg/ (Sodium Chloride) 250 mls @ 25 mls/hr IV Q10H [facility]; Protocol Last Admin: 12/29/23 12:06 Dose: 250 mls L-Arginine/L-Glutamine/HMB (Delio Packet) 1 pkt PO BID [facility] Last Admin: 12/29/23 08:21 Dose: Not Given Magnesium Chloride (Magnesium Chloride 64 Mg Tab) 128 mg PO BID [facility] Last Admin: 12/29/23 08:20 Dose: 128 mg Metoprolol Tartrate (Metoprolol Tartrate 5 Mg/5 Ml Inj) 2.5 mg IV Q6H PRN PRN Reason: HR >120 Last Admin: 12/22/23 12:17 Dose: 2.5 mg Metoprolol Tartrate (Metoprolol Tar 25 Mg Tab) 25 mg PO BID 6AM 6PM [facility] Last Admin: 12/29/23 17:12 Dose: 25 mg Morphine Sulfate (Morphine 2 Mg/Ml Syr) 2 mg IV Q4H PRN PRN Reason: Pain scale 8-10 (Severe) Last Admin: 12/28/23 13:45 Dose: 2 mg Protein (Ensure Max Protein 330 Ml Liquid) 330 ml PO TID [facility] Last Admin: 12/29/23 14:00 Dose: Not Given Sodium Chloride (Sodium Chloride 0.9% 10ml Inj) 10 ml IV UD PRN PRN Reason: Diluant Sotalol HCl (Sotalol Hcl 80 Mg Tab) 80 mg PO BID 6AM 6PM [facility] Last Admin: 12/29/23 17:12 Dose: 80 mg Sucralfate (Sucralfate 1gm/10ml Ucup) 1 gm PO ACHS [facility] Last Admin: 12/29/23 17:11 Dose: 1 gm Assessment/ Plan: Nephrology Progress Note No Dyspnea No Chest Pain Improving edema Diffuse weakness No Acute Events Overnight Vital Signs, Medications, Blood Work, and Imaging reviewed in the chart General: In no apparent distress, Cooperative HEENT: Atraumatic Neck: Supple Respiratory: Clear to auscultation bilaterally Cardiovascular: Edema, Irregular heart rate/rhythm Gastrointestinal: No guarding, Tenderness Musculoskeletal: No clubbing, No contractures Integumentary: No rashes, No cyanosis Neurological: Normal speech Blood work reviewed in the chart. Imagings Data: EXAM: Abdomen 1 View (KUB) HISTORY: RUST MAIN Placement of NGT/OGT. Post Insertion. Pls call Floor to confirm if patient is ready. COMPARISON: 11/30/2023 CT abdomen and pelvis FINDINGS: Single view of the abdomen shows a nonspecific, nonobstructive bowel gas pattern. Enteric tube tip terminates in the region of the stomach body. Right upper quadrant surgical clips suggesting prior. Midline laparotomy skin celia. No suspicious calcifications are seen. The bones are unremarkable. IMPRESSION: Satisfactory positioning of the enteric tube is above. EXAMINATION: ONE VIEW CHEST XR CLINICAL INDICATION: PICC placement TECHNIQUE: Frontal chest projection is submitted. Examination is limited by patient positioning and technique. COMPARISON: No prior exam. FINDINGS: The tip of the right-sided PICC line is in the SVC. The heart is upper limit of normal in size. No displaced fractures identified. IMPRESSION: Right-sided PICC line has tip in the SVC. There is a left-sided catheter tubing also partially visualized in the left axillary region. EXAM: Single contrast barium enema INDICATION: Colon mass COMPARISON: CT abdomen January 30, 2024 Technique: Single contrast barium enema performed. Contrast reflux into small bowel. FINDINGS: An apple core 2 cm lesion involves the proximal transverse colon. Diverticula system from the colon without diverticulitis. No obstruction Fluoroscopy time: 1.3 minutes Number of images: 19 fluoroscopic spot images IMPRESSION: Apple core lesion proximal transverse colon likely neoplasm. EXAMINATION: CT ABDOMEN AND PELVIS WITHOUT CONTRAST CLINICAL INDICATION: Female, 73 years old. GI BLEED RUST MAIN GI BLEED NO CONTRAST Bed Name: 4 TECHNIQUE: CT abdomen and pelvis was performed, without IV contrast, as per department protocol. Axial, sagittal and coronal reconstructions were obtained. One or more of the following dose reduction techniques were used: Automated exposure control, adjustment of the mA and kV according to the patient size, and iterative reconstruction. Unless otherwise specified, incidental findings do not require dedicated imaging follow-up. COMPARISON: No prior exam. FINDINGS: The lack of intravenous contrast limits the sensitivity of this exam for evaluation of solid visceral organs, vascular structures, and retroperitoneum. LOWER CHEST: The visualized lung bases are clear. LIVER: Normal in size and contour. No focal lesion. Cholecystectomy clips. SPLEEN: Normal size. No focal lesion. PANCREAS: No mass, ductal dilation, or angelica-pancreatic fluid. ADRENALS: Normal; no mass. KIDNEYS AND URETERS: Normal size and contour. No hydronephrosis. Benign- appearing right renal cyst. URINARY BLADDER: Normal contour. GASTROINTESTINAL TRACT: No evidence of bowel obstruction, significant free fluid, free air or abscess. There is mild diverticulosis coli of the sigmoid colon without diverticulitis. APPENDIX: Normal appendix. LYMPH NODES: No lymphadenopathy. MUSCULOSKELETAL: Mild multilevel spinal degenerative changes. ADDITIONAL FINDINGS: None. IMPRESSION: No acute or concerning abnormalities in the abdomen or pelvis, with evaluation limited by lack of IV contrast. Conclusions/Impression: Stage I KEYANNA may be due to hypovolemia, resolved CKD II with Proteinuria -No NSAIDs Hypokalemia -Replete as ordered Hypomagnesemia -Replete as ordered -Continue Slo-Mag Hypophosphatemia -Replete prn HTN with CKD -Hold antihypertensives at this time Hypervolemia with Pulmonary Edema and Pleural Effusions Periperhal Edema -Continue Lasix and Amiloride BID Hypoalbuminemia -Advance diet as tolerated -Albumin IV prn Anemia in chronic illness/ blood loss Iron Deficiency 4.9% -PRBC prn -GI following -Consider IV iron Colon Cancer sp Resection 12-08-23 Invasive moderately differentiated adenocarcinoma -Continue Abx -Follow up with surgery -Wound care as ordered Hospitalist note reviewed
[2023-12-30 06:10] LABS: Absolute Basophils 0.1 K/uL (0-0.5); Absolute Eosinophils 0.3 K/uL (0-0.5); Absolute Lymphocytes (CBC) 1.6 K/uL (0.7-4.9); Absolute Monocytes 1.1 K/uL (0.1-1.3); Absolute Neutrophil 7.4 K/uL (1.8-8.0); Basophils % 1.1 % (0-1.3); Eosinophils % 2.5 % (0-4.4); Hematocrit 25.6 % (36.0-45.0); Hemoglobin 8.3 g/dL (12.0-15.0); Lymphocytes % 15.6 % (15.3-44.8); MCHC 32.4 g/dL (32.0-36.0); MCV 89.4 fL (80-100); MPV 7.6 fL (7.6-11.3); Monocytes % 10.7 % (3.3-12.3); Neutrophils % 70.1 % (41.7-73.7); Platelets 263 thou/uL (152-406); RBC Red Blood Cell Count 2.87 M/uL (3.86-4.86)
[2023-12-30 06:42] LABS: Albumin 2.2 g/dL (3.4-5.0); Anion Gap 10.2 mEq/L (5.0-15.0); Magnesium 1.4 mg/dL (1.6-2.4); Potassium 4.2 mEq/L (3.5-5.1)
[2023-12-30 07:08] LABS: Platelet Estimate ADEQ; White Blood Cell Scan OK (OK)
[2023-12-30 07:09] LABS: Anisocytosis 1+; Basophilic Stippling 1+; Blood Morphology Comment NOTED (NOT SEEN)
--- NOTE | 2023-12-30 09:57 | P.PN ---
Date of Service: 12/30/23 Subjective: breathing okay on room air oral intake slowly improving family updated at bedside ostomy with soft brown output afebrile reports some redness around abdominal wound and ostomy ROS: 10 point ROS as noted above, otherwise negative Physical Exam: GEN: NAD, AOx3 CV: Irregularly Irregular rate and rhythm, HR: 90s; trace-1+ lower extremity edema Pulm: Nonlabored respirations on RA, diminished at right base ABD: Midline surgical wound with wound VAC, nondistended, ileostomy with soft brown output - slight erythema on superior aspect of midline surgical wound, and inferior to ostomy sit Integumentary: Wound vac in place espino dc'd 12/27 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) Acute diastolic congestive heart failure moderate right pleural effusion s/p thoracentesis (12/17) Acute respiratory failure with hypoxia secondary to above Rectal fecal retention with barium contrast, resolved Chronic atrial fibrillation with RVR-on chronic anticoagulation Acute Metabolic encephalopathy, resolved KEYANNA, resolved Critical illness myopathy Acute blood loss anemia GI bleed secondary to Colon cancer s/p right hemicolectomy, lysis of adhesions (12/07) 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 (last transfusion 12/23) s/p FFP (12/23) Eliquis dc'd Monitor PT and INR Dr. Goodman, GI is following s/p repeat EGD (12/24): noted esophagitis, esophageal ulcer gastric ulcer and duodenal erosions. continue protonix drip for now (12/22-). plan to transition to IV protonix BID next 24-48 hours. pending stability MAGDALENA drain removed 12/21; wound vac in place PICC placed 12/02, new midline placed 12/22 s/p TPN (12/14-12/18) tolerating soft diet oral intake slowly improving. Completed calories count 12/28. Acute diastolic congestive heart failure moderate right pleural effusion s/p thoracentesis (12/17) Acute respiratory failure with hypoxia secondary to above Throughout her hospitalization course, secondary to low nutrition, anemia, blood transfusions, n.p.o./IV fluids patient has been having third spacing Which led to accumulation of pleural effusions Echo (12/17): 60-65% EF, normal diastolic function. Moderate dilated left atrium. mild TR/MR CT abdomen/pelvis (12/17): Moderate right pleural effusion, trace left pleural effusion - as has been seen on prior CXR repeat CXR (12/28): small right pleural effusion with hazy right mid and lower opacities. Trace left pleural effusion s/p thoracentesis 12/17; 800 ml clear fluid drained not infected Thoracentesis cx (12/17): no growth. Responding well to lasix transition iv lasix to PO bumex 12/29 Previously on rocephin/flagyl (12/09-12/12) and meropenem (12/12-12/16) s/p vanc / flagyl / Aztreonam (12/16-12/26); antibiotics dc'd 12/27 per surgery leukocytosis resolved ID is following Rectal fecal retention with barium contrast, resolved s/p dulcolax [place] x1, Mineral oil enema x1 (12/19) given presumed barium concretion Surgery Dr. Vidales has recommended soapsuds enema twice daily. Patient had a good bowel movement 12/23. Chronic atrial fibrillation with RVR-on chronic anticoagulation Initial plan was for GENNA cardioversion, sotalol but given patient's severe anemia secondary to GI bleed plan for GENNA Cardioversion was aborted because patient cannot be anticoagulated due to high risk for life-threatening bleed. Initially on Sotalol and metoprolol for rate and rhythm control; switched to amiodarone drip 12/13 due to RVR post-op / NPO Rhythm was difficult to control on IV amiodarone, had improvement since switching amiodarone back to sotalol and metoprolol continue sotalol and metoprolol Cardiology is following, no plans for cardioversion at this time. Patient will benefit from Watchman procedure outpatient. Eliquis on hold due to bleed Dehydration, improved Hypotension, resolved suspect patient had fluid deficit from inadequate oral intake compared to ileostomy output. Uric acid level checked after multiple blood transfusion. Uric acid level is normal, UA does not show concentrated urine to suggest deh ydration. Blood pressure has stabilized. Hypotension resolved. Blood pressure seems to be more stable. Acute Metabolic encephalopathy, resolved Improved/resolved Likely drug-induced secondary to opioids / stress / component of ICU delirium pain control KEYANNA, resolved Nephrology consulted KEYANNA resolved. continue to monitor renal function Critical illness myopathy Continue PT Social service consulted to assist with arrangement for SNF Code: Full Dispo: SNF, anticipate ~2 days transition off IV Time Spent Managing Pts Care (In Minutes): 53
[2023-12-30] MEDS: BUMETANIDE 1 MG TABLET PO SCH (17:30)
--- NOTE | 2023-12-30 19:15 | P.PN ---
Subjective Date of Service: 12/30/23 Chief Complaint: A-fib with RVR, GI bleed, apple core transverse colon cancer Patient feels generally She has no complaints of pain currently. Stool in ostomy bag , no acute event Physical Examination - Vital Signs Temperature: 98 F Blood Pressure: 111/53 Pulse: 105 Respirations: 22 Pulse Ox (%): 94 - Physical Exam General: Alert, In no apparent distress, Oriented x3, Cooperative Neck: Supple Respiratory: Normal air movement Cardiovascular: Other (tachycardia but much improved) Gastrointestinal: Other (soft, NT, ND, ileostomy funcitoning well, midline wound has minimal redness in periwound with WVAC in place) Integumentary: No breakdown, No significant lesion, No tenderness/swelling Neurological: Normal speech - Studies Medications List Reviewed: Yes Assessment And Plan - Current Problems (Diagnosis) (1) Adenocarcinoma of transverse colon Current Visit: Yes Status: Acute Plan: Patient is a 73 year old woman who is s/p Extended Right hemicolectomy and 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 She ultimately required return to OR on 12-14-2023 for exploatory laparotomy with loop ileostomy creation for anastamotic leak. Patient had barium concretion in rectum and did not get bowel prep requested. - Gen/ Neuro: transition to p.o. pain medication with [place] - CVS: A-Fib, improving rate, no HD instability, good BP - Pulm: improved, - GI : Ostomy is pink and viable, continue ostomy management, celia and incision remain clean, continue dressing changes daily, MAGDALENA removed@ bedside 12-22-2023, continue , good bowel function ileostomy bag. . continue WVAC to midline wound after day of vashe packing, - FEN: DC supplementary IV fluids, electrolyte replacement protocol, currently getting PO diet well without issues - ID: [id number] antibiotics Will continue to monitor, - Endo: no need for coverage - Prophylaxis: Lovenox, SCDs - Heme: Continue serial hemoglobin checks transfuse PRBCs if needed. -Patient has not gotten out of bed, have encouraged patient to ambulate with assist and work with physical therapy. -SNF evaluation currently pending
--- NOTE | 2023-12-30 19:54 | PN ---
Subjective: Patient is lying in bed. Able to tolerate food better. Denies any other problems. Objective: Vital Signs: Temperature 98, pulse 100, respirations 20, blood pressure 116/66. Lungs: Basal crackles. Abdomen: Soft. Bowel sounds present. MAGDALENA drain in place. Extremities: No edema. Laboratory Data: WBC 10.5, hemoglobin 8.3, platelets 263. BUN 20, creatinine 0.6. Assessment And Plan: Gastrointestinal bleed secondary to colon cancer, status post right hemicolecto my, lysis of adhesions on 12/07, anastomotic intestinal perforation, status post repair of perforatio n and creation of loop ileostomy 12/13. History of respiratory failure, acute blood loss anemia. [place] is off antibiotic, doing well. We will follow the patient as needed. NF/MODL Voice ID: [id number] Report ID: [id number]
--- NOTE | 2023-12-30 19:59 | P.PN ---
Date of Service: 12/30/23 Vital Signs Temp Pulse Resp BP Pulse Ox 98 F 105 H 22 H 111/53 L 94 12/30/23 19:15 12/30/23 19:15 12/30/23 19:15 12/30/23 19:15 12/30/23 19:15 Medications Acetaminophen (Acetaminophen 325 Mg Tablet) 650 mg PO Q4HP PRN PRN Reason: Pain scale 2-4 (Mild)orT>100.1 Hydrocodone Bitart/Acetaminophen (Hydrocodone/Apap 5/325 Mg Tab) 1 tab PO Q6H PRN PRN Reason: Pain scale 5-7 (Moderate) Last Admin: 12/26/23 00:07 Dose: 1 tab Amiloride HCl (Amiloride Hcl 5 Mg Tablet) 10 mg PO BIDPC [facility] Last Admin: 12/30/23 09:20 Dose: 10 mg Bumetanide (Bumetanide 1 Mg Tablet) 1 mg PO BIDPC [facility] Glucagon (Glucagon 1 Mg/Vial) 1 mg IM UD PRN PRN Reason: HYPOGLYCEMIA Sodium Chloride (Sodium Chloride) 250 mls @ 0 mls/hr IV .Q0M RONI Sodium Chloride (Sodium Chloride) 250 mls @ 0 mls/hr IV .Q0M [facility] Dextrose (Dextrose 10% Water Iv Soln.) 125 mls @ 0 mls/hr IV PRN PRN; Protocol PRN Reason: HYPOGLYCEMIA Pantoprazole Sodium 80 mg/ (Sodium Chloride) 250 mls @ 25 mls/hr IV Q10H [facility]; Protocol Last Admin: 12/30/23 09:21 Dose: 250 mls L-Arginine/L-Glutamine/HMB (Delio Packet) 1 pkt PO BID [facility] Last Admin: 12/30/23 09:00 Dose: 1 pkt Magnesium Chloride (Magnesium Chloride 64 Mg Tab) 128 mg PO BID [facility] Last Admin: 12/30/23 09:20 Dose: 128 mg Metoprolol Tartrate (Metoprolol Tartrate 5 Mg/5 Ml Inj) 2.5 mg IV Q6H PRN PRN Reason: HR >120 Last Admin: 12/22/23 12:17 Dose: 2.5 mg Metoprolol Tartrate (Metoprolol Tar 25 Mg Tab) 25 mg PO BID 6AM 6PM [facility] Last Admin: 12/30/23 05:22 Dose: 25 mg Morphine Sulfate (Morphine 2 Mg/Ml Syr) 2 mg IV Q4H PRN PRN Reason: Pain scale 8-10 (Severe) Last Admin: 12/28/23 13:45 Dose: 2 mg Protein (Ensure Max Protein 330 Ml Liquid) 330 ml PO TID [facility] Last Admin: 12/30/23 13:47 Dose: 330 ml Sodium Chloride (Sodium Chloride 0.9% 10ml Inj) 10 ml IV UD PRN PRN Reason: Diluant Sotalol HCl (Sotalol Hcl 80 Mg Tab) 80 mg PO BID 6AM 6PM [facility] Last Admin: 12/30/23 05:22 Dose: 80 mg Sucralfate (Sucralfate 1gm/10ml Ucup) 1 gm PO ACHS [facility] Last Admin: 12/30/23 11:01 Dose: 1 gm Assessment/ Plan: Nephrology Progress Note No Dyspnea No Chest Pain Improving edema Diffuse weakness No Acute Events Overnight Vital Signs, Medications, Blood Work, and Imaging reviewed in the chart General: In no apparent distress, Cooperative HEENT: Atraumatic Neck: Supple Respiratory: Clear to auscultation bilaterally Cardiovascular: Edema, Irregular heart rate/rhythm Gastrointestinal: No guarding, Tenderness Musculoskeletal: No clubbing, No contractures Integumentary: No rashes, No cyanosis Neurological: Normal speech Blood work reviewed in the chart. Imagings Data: EXAM: Abdomen 1 View (KUB) HISTORY: [facility] MAIN Placement of NGT/OGT. Post Insertion. [facility] call Floor to confirm if patient is ready. COMPARISON: 11/30/2023 CT abdomen and pelvis FINDINGS: Single view of the abdomen shows a nonspecific, nonobstructive bowel gas pattern. Enteric tube tip terminates in the region of the stomach body. Right upper quadrant surgical clips suggesting prior. Midline laparotomy skin celia. No suspicious calcifications are seen. The bones are unremarkable. IMPRESSION: Satisfactory positioning of the enteric tube is above. EXAMINATION: ONE VIEW CHEST XR CLINICAL INDICATION: PICC placement TECHNIQUE: Frontal chest projection is submitted. Examination is limited by patient positioning and technique. COMPARISON: No prior exam. FINDINGS: The tip of the right-sided PICC line is in the SVC. The heart is upper limit of normal in size. No displaced fractures identified. IMPRESSION: Right-sided PICC line has tip in the SVC. There is a left-sided catheter tubing also partially visualized in the left axillary region. EXAM: Single contrast barium enema INDICATION: Colon mass COMPARISON: CT abdomen January 30, 2024 Technique: Single contrast barium enema performed. Contrast reflux into small bowel. FINDINGS: An apple core 2 cm lesion involves the proximal transverse colon. Diverticula system from the colon without diverticulitis. No obstruction Fluoroscopy time: 1.3 minutes Number of images: 19 fluoroscopic spot images IMPRESSION: Apple core lesion proximal transverse colon likely neoplasm. EXAMINATION: CT ABDOMEN AND PELVIS WITHOUT CONTRAST CLINICAL INDICATION: Female, 73 years old. GI BLEED [facility] MAIN GI BLEED NO CONTRAST Bed Name: 4 TECHNIQUE: CT abdomen and pelvis was performed, without IV contrast, as per department protocol. Axial, sagittal and coronal reconstructions were obtained. One or more of the following dose reduction techniques were used: Automated exposure control, adjustment of the mA and kV according to the patient size, and iterative reconstruction. Unless otherwise specified, incidental findings do not require dedicated imaging follow-up. COMPARISON: No prior exam. FINDINGS: The lack of intravenous contrast limits the sensitivity of this exam for evaluation of solid visceral organs, vascular structures, and retroperitoneum. LOWER CHEST: The visualized lung bases are clear. LIVER: Normal in size and contour. No focal lesion. Cholecystectomy clips. SPLEEN: Normal size. No focal lesion. PANCREAS: No mass, ductal dilation, or angelica-pancreatic fluid. ADRENALS: Normal; no mass. KIDNEYS AND URETERS: Normal size and contour. No hydronephrosis. Benign- appearing right renal cyst. URINARY BLADDER: Normal contour. GASTROINTESTINAL TRACT: No evidence of bowel obstruction, significant free fluid, free air or abscess. There is mild diverticulosis coli of the sigmoid colon without diverticulitis. APPENDIX: Normal appendix. LYMPH NODES: No lymphadenopathy. MUSCULOSKELETAL: Mild multilevel spinal degenerative changes. ADDITIONAL FINDINGS: None. IMPRESSION: No acute or concerning abnormalities in the abdomen or pelvis, with evaluation limited by lack of IV contrast. Conclusions/Impression: Stage I KEYANNA may be due to hypovolemia, resolved CKD II with Proteinuria -No NSAIDs Hypokalemia -Replete prn Hypomagnesemia -Replete as ordered -Continue Slo-Mag Hypophosphatemia -Replete prn HTN with CKD -Hold antihypertensives at this time Hypervolemia with Pulmonary Edema and Pleural Effusions Periperhal Edema -Change Lasix to Bumex 1mg PO BID -Continue Amiloride BID Hypoalbuminemia -Advance diet as tolerated -Albumin IV prn Anemia in chronic illness/ blood loss Iron Deficiency 4.9% -PRBC prn -GI following -Start IV iron Colon Cancer sp Resection 12-08-23 Invasive moderately differentiated adenocarcinoma -Continue Abx -Follow up with surgery -Wound care as ordered Hospitalist note reviewed Case reviewed with Dr. Ryan
[2023-12-30] MEDS: SOD FERRIC GLUC COMPLX/SUCROSE 125 MG in NA CHLORIDE 0.9% 100 ML IV ONE (21:53)
[2023-12-31 05:06] LABS: Absolute Basophils 0.1 K/uL (0-0.5); Absolute Eosinophils 0.2 K/uL (0-0.5); Absolute Lymphocytes (CBC) 1.4 K/uL (0.7-4.9); Absolute Monocytes 1.3 K/uL (0.1-1.3); Absolute Neutrophil 8.4 K/uL (1.8-8.0); Basophils % 0.6 % (0-1.3); Eosinophils % 1.7 % (0-4.4); Lymphocytes % 12.7 % (15.3-44.8); MCH 28.4 pg (27.0-35.0); MCV 88.5 fL (80-100); MPV 7.4 fL (7.6-11.3); Monocytes % 11.8 % (3.3-12.3); Neutrophils % 73.2 % (41.7-73.7); Platelets 248 thou/uL (152-406); RBC Red Blood Cell Count 2.82 M/uL (3.86-4.86)
[2023-12-31 05:09] LABS: Red Cell Distribution Width 20.6 % (12.1-15.2)
[2023-12-31 05:23] LABS: Albumin 2.1 g/dL (3.4-5.0); Albumin/Globulin Ratio 0.6 (1.1-1.8); Bilirubin Total 0.5 mg/dL (0.2-1.0); Globulin 3.3 g/dL (2.3-3.5); Magnesium 1.3 mg/dL (1.6-2.4); Protein, Total 5.4 g/dL (6.4-8.2)
[2023-12-31] MEDS: SOD FERRIC GLUC COMPLX/SUCROSE 250 MG in NA CHLORIDE 0.9% 250 ML IV SCH ×2 (07:00→09:16)
[2023-12-31] MEDS: PANTOPRAZOLE 40MG TABLET PO SCH (07:51)
--- NOTE | 2023-12-31 09:26 | P.PN ---
Date of Service: 12/31/23 Vital Signs Temp Pulse Resp BP Pulse Ox 97.6 F 106 H 16 114/75 93 12/31/23 04:00 12/31/23 09:16 12/31/23 09:17 12/31/23 09:16 12/31/23 09:17 Medications Acetaminophen (Acetaminophen 325 Mg Tablet) 650 mg PO Q4HP PRN PRN Reason: Pain scale 2-4 (Mild)orT>100.1 Hydrocodone Bitart/Acetaminophen (Hydrocodone/Apap 5/325 Mg Tab) 1 tab PO Q6H PRN PRN Reason: Pain scale 5-7 (Moderate) Last Admin: 12/31/23 09:17 Dose: 1 tab Amiloride HCl (Amiloride Hcl 5 Mg Tablet) 10 mg PO BIDPC [facility] Last Admin: 12/31/23 09:18 Dose: 10 mg Bumetanide (Bumetanide 1 Mg Tablet) 1 mg PO BIDPC [facility] Last Admin: 12/31/23 09:16 Dose: 1 mg Glucagon (Glucagon 1 Mg/Vial) 1 mg IM UD PRN PRN Reason: HYPOGLYCEMIA Sodium Chloride (Sodium Chloride) 250 mls @ 0 mls/hr IV .Q0M RONI Sodium Chloride (Sodium Chloride) 250 mls @ 0 mls/hr IV .Q0M [facility] Dextrose (Dextrose 10% Water Iv Soln.) 125 mls @ 0 mls/hr IV PRN PRN; Protocol PRN Reason: HYPOGLYCEMIA Ferric Sodium Gluconate Complex 250 mg/ Sodium Chloride 270 mls @ 135 mls/hr IV Q24H [facility] Stop: 01/03/24 09:59 Last Admin: 12/31/23 09:16 Dose: 270 mls L-Arginine/L-Glutamine/HMB (Delio Packet) 1 pkt PO BID [facility] Last Admin: 12/31/23 09:00 Dose: 1 pkt Magnesium Chloride (Magnesium Chloride 64 Mg Tab) 128 mg PO BID [facility] Last Admin: 12/31/23 09:16 Dose: 128 mg Metoprolol Tartrate (Metoprolol Tar 25 Mg Tab) 25 mg PO BID 6AM 6PM [facility] Last Admin: 12/31/23 05:31 Dose: 25 mg Pantoprazole Sodium (Pantoprazole 40mg Tablet) 40 mg PO BIDAC [facility]; Protocol Last Admin: 12/31/23 07:51 Dose: 40 mg Protein (Ensure Max Protein 330 Ml Liquid) 330 ml PO TID [facility] Last Admin: 12/31/23 09:00 Dose: 330 ml Sodium Chloride (Sodium Chloride 0.9% 10ml Inj) 10 ml IV UD PRN PRN Reason: Diluant Sotalol HCl (Sotalol Hcl 80 Mg Tab) 80 mg PO BID 6AM 6PM [facility] Last Admin: 12/31/23 05:31 Dose: 80 mg Sucralfate (Sucralfate 1gm/10ml Ucup) 1 gm PO ACHS [facility] Last Admin: 12/31/23 07:52 Dose: 1 gm Assessment/ Plan: Nephrology Progress Note No Dyspnea No Chest Pain Improving edema Diffuse weakness No Acute Events Overnight Vital Signs, Medications, Blood Work, and Imaging reviewed in the chart General: In no apparent distress, Cooperative HEENT: Atraumatic Neck: Supple Respiratory: Clear to auscultation bilaterally Cardiovascular: Edema, Irregular heart rate/rhythm Gastrointestinal: No guarding, Tenderness Musculoskeletal: No clubbing, No contractures Integumentary: No rashes, No cyanosis Neurological: Normal speech Blood work reviewed in the chart. Imagings Data: EXAM: Abdomen 1 View (KUB) HISTORY: [facility] MAIN Placement of NGT/OGT. Post Insertion. [facility] call Floor to confirm if patient is ready. COMPARISON: 11/30/2023 CT abdomen and pelvis FINDINGS: Single view of the abdomen shows a nonspecific, nonobstructive bowel gas pattern. Enteric tube tip terminates in the region of the stomach body. Right upper quadrant surgical clips suggesting prior. Midline laparotomy skin celia. No suspicious calcifications are seen. The bones are unremarkable. IMPRESSION: Satisfactory positioning of the enteric tube is above. EXAMINATION: ONE VIEW CHEST XR CLINICAL INDICATION: PICC placement TECHNIQUE: Frontal chest projection is submitted. Examination is limited by patient positioning and technique. COMPARISON: No prior exam. FINDINGS: The tip of the right-sided PICC line is in the SVC. The heart is upper limit of normal in size. No displaced fractures identified. IMPRESSION: Right-sided PICC line has tip in the SVC. There is a left-sided catheter tubing also partially visualized in the left axillary region. EXAM: Single contrast barium enema INDICATION: Colon mass COMPARISON: CT abdomen January 30, 2024 Technique: Single contrast barium enema performed. Contrast reflux into small bowel. FINDINGS: An apple core 2 cm lesion involves the proximal transverse colon. Diverticula system from the colon without diverticulitis. No obstruction Fluoroscopy time: 1.3 minutes Number of images: 19 fluoroscopic spot images IMPRESSION: Apple core lesion proximal transverse colon likely neoplasm. EXAMINATION: CT ABDOMEN AND PELVIS WITHOUT CONTRAST CLINICAL INDICATION: Female, 73 years old. GI BLEED [facility] MAIN GI BLEED NO CONTRAST Bed Name: 4 TECHNIQUE: CT abdomen and pelvis was performed, without IV contrast, as per department protocol. Axial, sagittal and coronal reconstructions were obtained. One or more of the following dose reduction techniques were used: Automated exposure control, adjustment of the mA and kV according to the patient size, and iterative reconstruction. Unless otherwise specified, incidental findings do not require dedicated imaging follow-up. COMPARISON: No prior exam. FINDINGS: The lack of intravenous contrast limits the sensitivity of this exam for evaluation of solid visceral organs, vascular structures, and retroperitoneum. LOWER CHEST: The visualized lung bases are clear. LIVER: Normal in size and contour. No focal lesion. Cholecystectomy clips. SPLEEN: Normal size. No focal lesion. PANCREAS: No mass, ductal dilation, or angelica-pancreatic fluid. ADRENALS: Normal; no mass. KIDNEYS AND URETERS: Normal size and contour. No hydronephrosis. Benign- appearing right renal cyst. URINARY BLADDER: Normal contour. GASTROINTESTINAL TRACT: No evidence of bowel obstruction, significant free fluid, free air or abscess. There is mild diverticulosis coli of the sigmoid colon without diverticulitis. APPENDIX: Normal appendix. LYMPH NODES: No lymphadenopathy. MUSCULOSKELETAL: Mild multilevel spinal degenerative changes. ADDITIONAL FINDINGS: None. IMPRESSION: No acute or concerning abnormalities in the abdomen or pelvis, with evaluation limited by lack of IV contrast. Conclusions/Impression: Stage I KEYANNA may be due to hypovolemia, resolved CKD I with Proteinuria -No NSAIDs Hypokalemia -Replete prn Hypomagnesemia -Replete as ordered -Continue Slo-Mag HTN with CKD -Continue Metoprolol for tachycardia Hypervolemia with Pulmonary Edema and Pleural Effusions Periperhal Edema -Continue Bumex 1mg PO BID -Continue Amiloride BID Hypoalbuminemia -Advance diet as tolerated -Albumin IV prn Anemia in chronic illness/ blood loss Iron Deficiency 4.9% -PRBC prn -GI following -Continue IV iron Colon Cancer sp Resection 12-08-23 Invasive moderately differentiated adenocarcinoma -Continue Abx -Follow up with surgery -Wound care as ordered Hospitalist note reviewed Case reviewed with Dr. Ryan
--- NOTE | 2023-12-31 10:04 | P.PN ---
Date of Service: 12/31/23 Subjective: denies any chest pain or palpitations reports some left foot tenderness / pain mainly along toes that started yesterday denies any trauma tolerating diet without issues. Denies trouble urinating appetite slowly improving yellow liquid output from ostomy today ROS: 10 point ROS as noted above, otherwise negative Physical Exam: GEN: NAD, AOx3 CV: Irregularly Irregular rate and rhythm, HR: 90s; trace-1+ lower extremity edema Pulm: Nonlabored respirations on RA, diminished at right base ABD: Midline surgical wound with wound VAC, nondistended, ileostomy with soft brown output - slight erythema on superior aspect of midline surgical wound, and inferior to ostomy sit Integumentary: Wound vac in place espino dc'd 12/27 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) Acute diastolic congestive heart failure moderate right pleural effusion s/p thoracentesis (12/17) Acute respiratory failure with hypoxia secondary to above Rectal fecal retention with barium contrast, resolved Chronic atrial fibrillation with RVR-on chronic anticoagulation Acute Metabolic encephalopathy, resolved KEYANNA, resolved Critical illness myopathy Acute blood loss anemia GI bleed secondary to Colon cancer s/p right hemicolectomy, lysis of adhesions (12/07) 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 (last transfusion 12/23) s/p FFP (12/23) Eliquis dc'd Monitor PT and INR Dr. Goodman, GI is following s/p repeat EGD (12/24): noted esophagitis, esophageal ulcer gastric ulcer and duodenal erosions. s/p protonix drip (12/22-12/29). deescalated to oral protonix BID 12/30 MAGDALENA drain removed 12/21; wound vac in place PICC placed 12/02, new midline placed 12/22 s/p TPN (12/14-12/18) tolerating soft diet oral intake slowly improving. Completed calories count 12/28 IV iron started overnight; s/p 1 bag so far will discuss with Dr. Goodman regarding restarting anticoagulation for now will restart dvt prophylaxis dosing monitor h/h Acute diastolic congestive heart failure moderate right pleural effusion s/p thoracentesis (12/17) Acute respiratory failure with hypoxia secondary to above Throughout her hospitalization course, secondary to low nutrition, anemia, blood transfusions, n.p.o./IV fluids patient has been having third spacing Which led to accumulation of pleural effusions Echo (12/17): 60-65% EF, normal diastolic function. Moderate dilated left atrium. mild TR/MR CT abdomen/pelvis (12/17): Moderate right pleural effusion, trace left pleural effusion - as has been seen on prior CXR repeat CXR (12/28): small right pleural effusion with hazy right mid and lower opacities. Trace left pleural effusion s/p thoracentesis 12/17; 800 ml clear fluid drained not infected Thoracentesis cx (12/17): no growth. Responding well to diuresis. IV lasix transitioned to PO bumex 12/29 Previously on rocephin/flagyl (12/09-12/12) and meropenem (12/12-12/16) s/p vanc / flagyl / Aztreonam (12/16-12/26); antibiotics dc'd 12/27 per surgery ID is following Rectal fecal retention with barium contrast, resolved s/p dulcolax CT x1, Mineral oil enema x1 (12/19) given presumed barium concretion Surgery Dr. Vidales has recommended soapsuds enema twice daily. Patient had a good bowel movement 12/23. Chronic atrial fibrillation with RVR-on chronic anticoagulation Initial plan was for GENNA cardioversion, sotalol but given patient's severe anemia secondary to GI bleed plan for GENNA Cardioversion was aborted because patient cannot be anticoagulated due to high risk for life-threatening bleed. Initially on Sotalol and metoprolol for rate and rhythm control; switched to amiodarone drip 12/13 due to RVR post-op / NPO Rhythm was difficult to control on IV amiodarone, had improvement since switching amiodarone back to sotalol and metoprolol continue sotalol and metoprolol Cardiology is following, no plans for cardioversion at this time. Patient will benefit from Watchman procedure outpatient. Eliquis on hold due to bleed previously on lovenox 40 mg daily (12/14-12/16) and 120 mg daily (12/17-12/21) 12/30 - Discussed with patient family on timing regarding anticoagulation weighing risks/benefit. Family okay with restarting anticoagulation. Dehydration, improved Hypotension, resolved suspect patient had fluid deficit from inadequate oral intake compared to ileostomy output. Uric acid level checked after multiple blood transfusion. Uric acid level is normal, UA does not show concentrated urine to suggest dehydration. Blood pressure has stabilized. Hypotension resolved. Blood pressure seems to be more stable. Acute Metabolic encephalopathy, resolved Improved/resolved Likely drug-induced secondary to opioids / stress / component of ICU delirium pain control KEYANNA, resolved Nephrology consulted KEYANNA resolved. continue to monitor renal function Critical illness myopathy Continue PT Social service consulted to assist with arrangement for SNF Code: Full Dispo: SNF, anticipate ~2 days transition off IV Time Spent Managing Pts Care (In Minutes): 52
--- NOTE | 2023-12-31 11:41 | P.PN ---
Subjective Date of Service: 12/31/23 Chief Complaint: A-fib with RVR, GI bleed, apple core transverse colon cancer Subjective: No new changes, No C/O voiced, Tolerating diet, Ambulating, Improving Review of Systems 10-point ROS is otherwise unremarkable Physical Examination - Vital Signs Temperature: 98.8 F Blood Pressure: 114/75 Pulse: 106 Respirations: 16 Pulse Ox (%): 97 - Physical Exam General: Alert, In no apparent distress HEENT: Atraumatic, PERRLA, EOMI Neck: Supple, JVD not distended Respiratory: Diminished, Crackles/rales Cardiovascular: Irregular heart rate/rhythm Gastrointestinal: Normal bowel sounds, No tenderness Musculoskeletal: No tenderness Integumentary: No rashes Neurological: Normal speech, Normal tone, Normal affect Lymphatics: No axilla or inguinal lymphadenopathy - Studies Medications List Reviewed: Yes Assessment And Plan - Current Problems (Diagnosis) (1) Atrial fibrillation Current Visit: Yes Status: Acute Plan: Continue Sotalol and Lopressor Patient HgB still slowly dropping despite being off anticoagulation, would recommend continue to monitor and once Hgb is stable then we can start back anticoagulation with Eliquis and if she is able to tolerate that for 2 weeks then we can do GENNA DCCV and consider watchman procedure. (2) GI bleed Current Visit: Yes Status: Acute Plan: blood transfusion, GI did endoscopy and colonoscopy that shows constriction with mass, s/p surgery. (3) HTN (hypertension) Current Visit: Yes Status: Acute Plan: BP is soft, will continue to monitor
[2023-12-31] MEDS: ENOXAPARIN 40 MG/0.4 ML SQ SCH (17:14)
[2024-01-01 08:30] LABS: Absolute Basophils 0.1 K/uL (0-0.5); Absolute Eosinophils 0.3 K/uL (0-0.5); Absolute Lymphocytes (CBC) 1.6 K/uL (0.7-4.9); Absolute Monocytes 1.1 K/uL (0.1-1.3); Absolute Neutrophil 6.2 K/uL (1.8-8.0); Basophils % 1.2 % (0-1.3); Eosinophils % 3.1 % (0-4.4); Hematocrit 25.9 % (36.0-45.0); Hemoglobin 8.6 g/dL (12.0-15.0); Lymphocytes % 17.2 % (15.3-44.8); MCH 29.4 pg (27.0-35.0); MCHC 33.3 g/dL (32.0-36.0); MCV 88.4 fL (80-100); MPV 7.4 fL (7.6-11.3); Neutrophils % 66.5 % (41.7-73.7); Platelets 264 thou/uL (152-406); RBC Red Blood Cell Count 2.93 M/uL (3.86-4.86)
--- NOTE | 2024-01-01 08:38 | P.PN ---
Date of Service: 01/01/24 Subjective: redness/irritation around wound vac site seems to be improving. Less erythematous and covering less area. tolerating diet. Appetite improving daily BP low-normal this morning - measured on forearm otherwise no new or worsening issues overnight ROS: 10 point ROS as noted above, otherwise negative Physical Exam: GEN: NAD, AOx3 CV: Irregularly Irregular rate and rhythm, HR: 90-100s; trace lower extremity edema Pulm: Nonlabored respirations on RA, diminished at right base ABD: Midline surgical wound with wound VAC, nondistended, ileostomy with soft brown output - minimal erythema on superior aspect of midline surgical wound; improving 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) Acute diastolic congestive heart failure moderate right pleural effusion s/p thoracentesis (12/17) Acute respiratory failure with hypoxia secondary to above Rectal fecal retention with barium contrast, resolved Chronic atrial fibrillation with RVR-on chronic anticoagulation Acute Metabolic encephalopathy, resolved KEYANNA, resolved Critical illness myopathy Acute blood loss anemia GI bleed secondary to Colon cancer s/p right hemicolectomy, lysis of adhesions (12/07) 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 (last transfusion 12/23) s/p FFP (12/23) Eliquis has been on hold due to bleed Dr. Goodman, GI is following s/p repeat EGD (12/24): noted esophagitis, esophageal ulcer gastric ulcer and duodenal erosions. s/p protonix drip (12/22-12/29). deescalated to oral protonix BID 12/30 MAGDALENA drain removed 12/21; PICC placed 12/02, new midline placed 12/22 s/p TPN (12/14-12/18) tolerating soft diet oral intake slowly improving. Completed calories count 12/28 continue IV iron; s/p 2 bags so far Discussed with Dr. Goodman regarding restarting anticoagulation - need to stay on BID protonix and monitor closely for bleed when restarting. hgb very slightly dropping each day, risk vs benefit - started Lovenox at dvt prophylaxis dosing 12/30 monitor h/h if remains stable over next 2 days, can consider increasing to therapeutic dosing and monitor vs continue dvt prophylaxis dosing for several more days Acute diastolic congestive heart failure moderate right pleural effusion s/p thoracentesis (12/17) Acute respiratory failure with hypoxia secondary to above Throughout her hospitalization course, secondary to low nutrition, anemia, blood transfusions, n.p.o./IV fluids patient has been having third spacing Which led to accumulation of pleural effusions Echo (12/17): 60-65% EF, normal diastolic function. Moderate dilated left atrium. mild TR/MR CT abdomen/pelvis (12/17): Moderate right pleural effusion, trace left pleural effusion - as has been seen on prior CXR repeat CXR (12/28): small right pleural effusion with hazy right mid and lower opacities. Trace left pleural effusion s/p thoracentesis 12/17; 800 ml clear fluid drained not infected - culture without growth. Responding well to diuresis. IV lasix transitioned to PO bumex 12/29 Previously on rocephin/flagyl (12/09-12/12) and meropenem (12/12-12/16) s/p vanc / flagyl / Aztreonam (12/16-12/26); antibiotics dc'd 12/27 per surgery ID is following Rectal fecal retention with barium contrast, resolved s/p dulcolax OR x1, Mineral oil enema x1 (12/19) given presumed barium co ncretion Surgery Dr. Vidales has recommended soapsuds enema twice daily. Patient had a good bowel movement 12/23. Chronic atrial fibrillation with RVR-on chronic anticoagulation Initial plan was for GENNA cardioversion, sotalol but given patient's severe anemia secondary to GI bleed plan for GENNA Cardioversion was aborted because patient cannot be anticoagulated due to high risk for life-threatening bleed. Initially on Sotalol and metoprolol for rate and rhythm control; switched to amiodarone drip 12/13 due to RVR post-op / NPO continue sotalol and metoprolol Eliquis has been on hold due to bleed previously on lovenox 40 mg daily (12/14-12/16) and 120 mg daily (12/17-12/21) 12/30 - Discussed with patient family on timing regarding anticoagulation weighing risks/benefit. Family okay with restarting anticoagulation if recommended. Lovenox restarted at dvt prophylaxis dosing 12/30 as noted above Cardiology is following, recommends restarting eliquis once hemoglobin is stable / able to tolerate. will consider GENNA DCCV and watchman procedure as outpatient in near future once shes been back on anticoagulation for at least 2 weeks. Dehydration, improved Hypotension, resolved suspect patient had fluid deficit from inadequate oral intake compared to ileostomy output. Uric acid level checked after multiple blood transfusion. Blood pressure seems to be more stable. Acute Metabolic encephalopathy, resolved resolved Likely drug-induced secondary to opioids / stress / component of ICU delirium pain control KEYANNA, resolved Nephrology consulted KEYANNA resolved. continue to monitor renal function Critical illness myopathy Continue PT Social service consulted to assist with arrangement for SNF VTE: Lovenox restarted at dvt prophylaxis dosing 12/30 Code: Full Dispo: SNF, anticipate medically clear Thursday/Thursday pending further monitoring; hgb stable +/- restarting anticoagulation Time Spent Managing Pts Care (In Minutes): 45
[2024-01-01 08:49] LABS: Anion Gap 10.3 mEq/L (5.0-15.0); Magnesium 1.3 mg/dL (1.6-2.4); Potassium 4.3 mEq/L (3.5-5.1)
--- NOTE | 2024-01-01 10:54 | P.PN ---
(S) Remains hospitalized, seen working with PT, no acute complaints, no dyspnea at rest, not needing O2, peripheral edema better per reports (O) vitals reviewed in the EMR General: In no apparent distress, HEENT: Atraumatic, sclera anicteric, off LFNC Neck: Supple Respiratory: b/l air entry, reduced at bases Cardiovascular: Edema noted in the LE/dependent areas impoved from prev, tachy Irregular heart rate/rhythm Gastrointestinal: Soft, obese, mild distention, ostomy, drain Musculoskeletal: Shins non tender Integumentary: No rashes noted Neurological: Normal speech, awake, conversive Blood work reviewed in the chart. Conclusions/Impression: Stage I KEYANNA recurrent, POA and during lengthy admission but since resolved -In the setting of hemodynamic factors with Afib with RVR, soft BP, anemia, other -Cont to monitor fluid status and I/O closely, back on scheduled diuretic therapy. Hypomagnesemia -persistent, back on loop/distal tubule diuretics, labsorption issues, use Mg Sulfate, d/c Amiloride Afib unspecified. -Management per cardiology, will target K > 4 and Mg > 2 -Rate controlling measures per them although lower BP may limit -Likely some acute diastolic CHF component, BNP > 1000 on admission, and since, cont Bumex for now but d/c Amiloride Dyspnea unspecified, pleural effusion NOS -s/p Rt sided thoracentesis prev, monitor closely Peripheral edema -3rd spacing, low albumin state, fluids/other, monitor
[2024-01-01] MEDS: Magnesium Sulfate 2gm IVPB 2 G/50 ML BAG IV ONE (11:20)
--- NOTE | 2024-01-01 15:58 | PN ---
Subjective: The patient is doing well, without antibiotic. Denies any headache, nausea, vomiting, c hest pain, abdominal pain, constipation, or diarrhea. Objective: Vital Signs: Temperature 98, pulse 98, respirations 16, blood pressure 107/57. Lungs: Basal crackles. Heart: S1, S2. Regular. Abdomen: Soft. Bowel sounds present. Surgical wounds noted. Laboratory Data: Shows WBC 9.3, hemoglobin 8.6, platelets are 264. Chemistry shows BUN of 21, creat inine 0.5. Assessment And Plan: Anemia secondary to acute loss gastrointestinal bleed secondary to colon cancer , status post right hemicolectomy, lysis of adhesions, anastomosis intestinal perforation, status pos t repair. The patient is off antibiotic. Right pleural effusion, status post thoracentesis on 12/17 . We will sign off on this patient. NF/MODL Voice ID: [id number] Report ID: [id number]
[2024-01-01] MEDS: SOTALOL HCL 80 MG TAB PO SCH (17:24)
[2024-01-01] MEDS: ALBUMIN HUMAN 25% 100 ML IV ONE (21:11)
[2024-01-02 05:39] LABS: Absolute Basophils 0.1 K/uL (0-0.5); Absolute Eosinophils 0.3 K/uL (0-0.5); Absolute Lymphocytes (CBC) 1.8 K/uL (0.7-4.9); Absolute Monocytes 1.1 K/uL (0.1-1.3); Absolute Neutrophil 5.5 K/uL (1.8-8.0); Basophils % 0.8 % (0-1.3); Eosinophils % 3.7 % (0-4.4); Hematocrit 24.8 % (36.0-45.0); Hemoglobin 8.4 g/dL (12.0-15.0); Lymphocytes % 20.6 % (15.3-44.8); MCV 88.2 fL (80-100); MPV 7.4 fL (7.6-11.3); Monocytes % 12.5 % (3.3-12.3); Neutrophils % 62.4 % (41.7-73.7); Nucleated Red Blood Cells % 0.2 % (0-0); Platelets 273 thou/uL (152-406); RBC Red Blood Cell Count 2.81 M/uL (3.86-4.86); Red Cell Distribution Width 19.8 % (12.1-15.2)
[2024-01-02 05:49] LABS: Anion Gap 9.2 mEq/L (5.0-15.0); Magnesium 1.6 mg/dL (1.6-2.4); Potassium 4.2 mEq/L (3.5-5.1)
[2024-01-02] MEDS: BUMETANIDE 1 MG TABLET PO SCH (09:00)
[2024-01-02] MEDS: AMILORIDE HCL 5 MG TABLET PO SCH (09:00)
--- NOTE | 2024-01-02 10:05 | P.PN ---
Subjective Date of Service: 01/02/24 Chief Complaint: A-fib with RVR, GI bleed, apple core transverse colon cancer Subjective: Improving (Is improving denies any complaints) Review of Systems Unremarkable General: Weakness Physical Examination - Vital Signs Temperature: 98.3 F Blood Pressure: 111/58 Pulse: 104 Respirations: 14 Pulse Ox (%): 96 - Physical Exam General: Alert, Oriented x3 Neck: Supple Respiratory: Clear to auscultation bilaterally Cardiovascular: No edema, Normal pulses - Studies Medications List Reviewed: Yes Assessment And Plan - Current Problems (Diagnosis) (1) Atrial fibrillation Current Visit: Yes Status: Acute Plan: Patient has chronic A-fib but is on sotalol start on anticoagulation with Dr. 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
[2024-01-02] MEDS: APIXABAN 5 MG TABLET PO SCH (11:43)
[2024-01-02] MEDS: FERROUS SULFATE 325 MG TAB PO SCH (11:43)
[2024-01-03 04:37] LABS: Anion Gap 10.1 mEq/L (5.0-15.0); Magnesium 1.5 mg/dL (1.6-2.4); Potassium 4.1 mEq/L (3.5-5.1)
[2024-01-03] MEDS: Magnesium Sulfate 2gm IVPB 2 G/50 ML BAG IV ONE (06:39)
--- NOTE | 2024-01-03 09:59 | P.PN ---
Subjective Date of Service: 01/03/24 Chief Complaint: A-fib Subjective: Improving (Improving no complaints eating and drinking the ileostomy working well. The bedside) Review of Systems Unremarkable Physical Examination - Vital Signs Temperature: 98.5 F Blood Pressure: 94/48 Pulse: 98 Respirations: 17 Pulse Ox (%): 94 - Physical Exam General: Alert, Oriented x3 Neck: Supple Respiratory: Clear to auscultation bilaterally Cardiovascular: No edema, Regular rate/rhythm Gastrointestinal: Normal bowel sounds, Soft and benign - Studies Medications List Reviewed: Yes Assessment And Plan - Current Problems (Diagnosis) (1) Atrial fibrillation Current Visit: Yes Status: Acute Plan: Rate controlled patient is anticoagulated now Qualifiers: Atrial fibrillation type: unspecified chronic Qualified Code(s): I48.20 - Chronic atrial fibrillation, unspecified; I48.2 - Chronic atrial fibrillation (2) Adenocarcinoma of transverse colon Current Visit: Yes Status: Acute - Plan 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
[2024-01-03] MEDS: COLLAGENASE 30 GM OINTMENT TOP SCH (14:00)
--- NOTE | 2024-01-04 09:48 | P.PN ---
Subjective Date of Service: 01/04/24 Chief Complaint: A-fib Subjective: Improving (Patient has no new complaints doing well no abdominal discomfort) Review of Systems Unremarkable Physical Examination - Vital Signs Temperature: 97.9 F Blood Pressure: 104/53 Pulse: 105 Respirations: 16 Pulse Ox (%): 95 - Physical Exam General: Alert, In no apparent distress, Oriented x3 Gastrointestinal: Normal bowel sounds, Non-distended - Studies Medications List Reviewed: Yes Assessment And Plan - Current Problems (Diagnosis) (1) Atrial fibrillation Current Visit: Yes Status: Acute Plan: Rate control no change Qualifiers: Atrial fibrillation type: unspecified chronic Qualified Code(s): I48.20 - Chronic atrial fibrillation, unspecified; I48.2 - Chronic atrial fibrillation (2) Adenocarcinoma of transverse colon Current Visit: Yes Status: Acute - Plan Status post ileostomy working well no abdominal complaints awaiting transfer to a retirement
--- NOTE | 2024-01-04 10:39 | P.PN ---
Subjective Date of Service: 01/04/24 Chief Complaint: A-fib Subjective: No new changes, No C/O voiced, Tolerating diet, Ambulating, Improving Review of Systems 10-point ROS is otherwise unremarkable Physical Examination - Vital Signs Temperature: 97.9 F Blood Pressure: 104/53 Pulse: 105 Respirations: 16 Pulse Ox (%): 95 - Physical Exam General: Alert, In no apparent distress HEENT: Atraumatic, PERRLA, EOMI Neck: Supple, JVD not distended Respiratory: Clear to auscultation bilaterally, Normal air movement Cardiovascular: Irregular heart rate/rhythm Gastrointestinal: Normal bowel sounds, No tenderness Musculoskeletal: No tenderness Integumentary: No rashes Neurological: Normal speech, Normal tone, Normal affect Lymphatics: No axilla or inguinal lymphadenopathy - Studies Medications List Reviewed: Yes Assessment And Plan - Current Problems (Diagnosis) (1) Atrial fibrillation Current Visit: Yes Status: Acute Plan: Continue Sotalol 120 mg po BID and Lopressor 25 mg po BID patient was started on Eliquis back on , Hgb is stable. NPO for GENNA DCCV in am and consider watchman procedure in near future. Qualifiers: Atrial fibrillation type: unspecified chronic Qualified Code(s): I48.20 - Chronic atrial fibrillation, unspecified; I48.2 - Chronic atrial fibrillation (2) GI bleed Current Visit: Yes Status: Acute Plan: blood transfusion, GI did endoscopy and colonoscopy that shows constriction with mass, s/p surgery. (3) HTN (hypertension) Current Visit: Yes Status: Acute Plan: BP is soft, will continue to monitor (4) Diastolic heart failure Current Visit: Yes Status: Acute Plan: continue Bumex 1 mg daily
--- NOTE | 2024-01-04 12:36 | EKG ---
Test Date: 2024-01-03 Test Time: 05:09:27 Material Handler 1St Shift: KARL MEASUREMENT RESULTS: Intervals: Rate: 106 ID: QRSD: [id number] QT: 364 QTc: 483 [place]: P: ID: [id number] T: 31 INTERPRETIVE STATEMENTS: Atrial fibrillation with rapid ventricular response Abnormal ECG Compared to ECG 12/02/2023 13:17:41 Myocardial infarct finding no longer present Electronically Signed On 01-04-24 12:35:55 CDT by Salvador Francis
--- NOTE | 2024-01-04 19:41 | P.PN ---
Date of Service: 01/04/24 Vital Signs Temp Pulse Resp BP Pulse Ox 98.1 F 103 H 16 125/64 100 01/04/24 16:00 01/04/24 16:00 01/04/24 16:00 01/04/24 16:00 01/04/24 16:00 Medications Hydrocodone Bitart/Acetaminophen (Hydrocodone/Apap 5/325 Mg Tab) 1 tab PO Q6H PRN PRN Reason: Pain scale 5-7 (Moderate) Last Admin: 01/04/24 11:48 Dose: 1 tab Amiloride HCl (Amiloride Hcl 5 Mg Tablet) 5 mg PO DAILY [facility] Last Admin: 01/04/24 09:16 Dose: 5 mg Apixaban (Apixaban 5 Mg Tablet) 5 mg PO BID [facility] Last Admin: 01/04/24 09:17 Dose: 5 mg Bumetanide (Bumetanide 1 Mg Tablet) 1 mg PO DAILY [facility] Last Admin: 01/04/24 09:17 Dose: 1 mg Collagenase (Collagenase 30 Gm Ointment) 1 appl TOP DAILY [facility] Last Admin: 01/04/24 09:00 Dose: 1 appl Ferrous Sulfate (Ferrous Sulfate 325 Mg Tab) 325 mg PO DAILY@1200 [facility] Last Admin: 01/04/24 11:48 Dose: 325 mg Glucagon (Glucagon 1 Mg/Vial) 1 mg IM UD PRN PRN Reason: HYPOGLYCEMIA Sodium Chloride (Sodium Chloride) 250 mls @ 0 mls/hr IV .Q0M RONI Sodium Chloride (Sodium Chloride) 250 mls @ 0 mls/hr IV .Q0M RONI Dextrose (Dextrose 10% Water Iv Soln.) 125 mls @ 0 mls/hr IV PRN PRN; Protocol PRN Reason: HYPOGLYCEMIA Magnesium Chloride (Magnesium Chloride 64 Mg Tab) 128 mg PO BID [facility] Last Admin: 01/04/24 09:16 Dose: 128 mg Metoprolol Tartrate (Metoprolol Tar 25 Mg Tab) 25 mg PO BID 6AM 6PM [facility] Last Admin: 01/04/24 17:49 Dose: 25 mg Pantoprazole Sodium (Pantoprazole 40mg Tablet) 40 mg PO BIDAC [facility]; Protocol Last Admin: 01/04/24 16:26 Dose: 40 mg Protein (Ensure Max Protein 330 Ml Liquid) 330 ml PO TID [facility] Last Admin: 01/04/24 14:00 Dose: 330 ml Sodium Chloride (Sodium Chloride 0.9% 10ml Inj) 10 ml IV UD PRN PRN Reason: Diluant Sotalol HCl (Sotalol Hcl 80 Mg Tab) 120 mg PO BID 6AM 6PM [facility] Last Admin: 01/04/24 17:48 Dose: 120 mg Sucralfate (Sucralfate 1gm/10ml Ucup) 1 gm PO ACHS [facility] Last Admin: 01/04/24 16:25 Dose: 1 gm Assessment/ Plan: Nephrology Progress Note No Dyspnea No Chest Pain Improving edema Diffuse weakness No Acute Events Overnight Vital Signs, Medications, Blood Work, and Imaging reviewed in the chart General: In no apparent distress, Cooperative HEENT: Atraumatic Neck: Supple Respiratory: Clear to auscultation bilaterally Cardiovascular: Edema, Irregular heart rate/rhythm Gastrointestinal: No guarding, Tenderness Musculoskeletal: No clubbing, No contractures Integumentary: No rashes, No cyanosis Neurological: Normal speech Blood work reviewed in the chart. Imagings Data: EXAM: Abdomen 1 View (KUB) HISTORY: [facility] Placement of NGT/OGT. Post Insertion. Pls call Floor to confirm if patient is ready. COMPARISON: 11/30/2023 CT abdomen and pelvis FINDINGS: Single view of the abdomen shows a nonspecific, nonobstructive bowel gas pattern. Enteric tube tip terminates in the region of the stomach body. Right upper quadrant surgical clips suggesting prior. Midline laparotomy skin celia. No suspicious calcifications are seen. The bones are unremarkable. IMPRESSION: Satisfactory positioning of the enteric tube is above. EXAMINATION: ONE VIEW CHEST XR CLINICAL INDICATION: PICC placement TECHNIQUE: Frontal chest projection is submitted. Examination is limited by patient positioning and technique. COMPARISON: No prior exam. FINDINGS: The tip of the right-sided PICC line is in the SVC. The heart is upper limit of normal in size. No displaced fractures identified. IMPRESSION: Right-sided PICC line has tip in the SVC. There is a left-sided catheter tubing also partially visualized in the left axillary region. EXAM: Single contrast barium enema INDICATION: Colon mass COMPARISON: CT abdomen January 30, 2024 Technique: Single contrast barium enema performed. Contrast reflux into small bowel. FINDINGS: An apple core 2 cm lesion involves the proximal transverse colon. Diverticula system from the colon without diverticulitis. No obstruction Fluoroscopy time: 1.3 minutes Number of images: 19 fluoroscopic spot images IMPRESSION: Apple core lesion proximal transverse colon likely neoplasm. EXAMINATION: CT ABDOMEN AND PELVIS WITHOUT CONTRAST CLINICAL INDICATION: Female, 73 years old. GI BLEED [facility] GI BLEED NO CONTRAST Bed Name: 4 TECHNIQUE: CT abdomen and pelvis was performed, without IV contrast, as per department protocol. Axial, sagittal and coronal reconstructions were obtained. One or more of the following dose reduction techniques were used: Automated exposure control, adjustment of the mA and kV according to the patient size, and iterative reconstruction. Unless otherwise specified, incidental findings do not require dedicated imaging follow-up. COMPARISON: No prior exam. FINDINGS: The lack of intravenous contrast limits the sensitivity of this exam for evaluation of solid visceral organs, vascular structures, and retroperitoneum. LOWER CHEST: The visualized lung bases are clear. LIVER: Normal in size and contour. No focal lesion. Cholecystectomy clips. SPLEEN: Normal size. No focal lesion. PANCREAS: No mass, ductal dilation, or angelica-pancreatic fluid. ADRENALS: Normal; no mass. KIDNEYS AND URETERS: Normal size and contour. No hydronephrosis. Benign- appearing right renal cyst. URINARY BLADDER: Normal contour. GASTROINTESTINAL TRACT: No evidence of bowel obstruction, significant free fluid, free air or abscess. There is mild diverticulosis coli of the sigmoid colon without diverticulitis. APPENDIX: Normal appendix. LYMPH NODES: No lymphadenopathy. MUSCULOSKELETAL: Mild multilevel spinal degenerative changes. ADDITIONAL FINDINGS: None. IMPRESSION: No acute or concerning abnormalities in the abdomen or pelvis, with evaluation limited by lack of IV contrast. Conclusions/Impression: Stage I KEYANNA may be due to hypovolemia, resolved CKD I with Proteinuria -No NSAIDs Hypokalemia -Replete prn Hypomagnesemia -Replete as ordered -Continue Slo-Mag HTN with CKD -Continue Metoprolol for tachycardia Hypervolemia with Pulmonary Edema and Pleural Effusions Periperhal Edema -Continue Bumex 1mg Daily -Continue Amiloride Daily Hypoalbuminemia -Continue protein supplementation -Albumin IV prn Anemia in chronic illness/ blood loss Iron Deficiency 4.9% -PRBC prn -GI following -S/P IV iron Colon Cancer sp Resection 12-08-23 Invasive moderately differentiated adenocarcinoma -Follow up with surgery -Wound care as ordered Hospitalist note reviewed
[2024-01-05 06:19] LABS: Absolute Basophils 0.1 K/uL (0-0.5); Absolute Eosinophils 0.3 K/uL (0-0.5); Absolute Lymphocytes (CBC) 1.7 K/uL (0.7-4.9); Absolute Monocytes 1.8 K/uL (0.1-1.3); Absolute Neutrophil 8.7 K/uL (1.8-8.0); Basophils % 0.7 % (0-1.3); Eosinophils % 2.7 % (0-4.4); Hematocrit 26.9 % (36.0-45.0); Hemoglobin 8.6 g/dL (12.0-15.0); Lymphocytes % 13.6 % (15.3-44.8); MCHC 31.9 g/dL (32.0-36.0); MCV 91.1 fL (80-100); MPV 7.4 fL (7.6-11.3); Platelets 270 thou/uL (152-406); RBC Red Blood Cell Count 2.95 M/uL (3.86-4.86); Red Cell Distribution Width 20.8 % (12.1-15.2)
[2024-01-05 07:01] LABS: Anisocytosis 2+; Blood Morphology Comment NOTED (NOT SEEN); Macrocytosis 1+; Microcytosis 1+; Platelet Estimate ADEQ; Poikilocytosis SLIGHT; Polychromasia SLIGHT; White Blood Cell Scan OK (OK)
[2024-01-05] MEDS: ATROPINE SULF 1 MG/10 ML SYR IV ONE (07:50)
[2024-01-05] MEDS: NA CHLORIDE 0.9% 500 ML ONE (07:50)
[2024-01-05] MEDS ORDERED: propofoL 200 MG/20 ML VIAL IV ONE (08:48)
[2024-01-05] MEDS ORDERED: LIDOCAINE 2% MPF 5 ML VIAL ONE ×2 (08:48→08:49)
--- NOTE | 2024-01-05 10:19 | TEE ---
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 NORMAL LEFT ATRIAL APPENDAGE, MODERATE DILATED LEFT ATRIUM 2. MODERATE MITRAL REGURGITATION TECHNOLOGIST: TASIA ROGERS
[2024-01-05] MEDS: DIGOXIN 0.25 MG/ML AMP IV SCH (11:37)
--- NOTE | 2024-01-05 12:34 | P.PN ---
Subjective Date of Service: 01/05/24 Chief Complaint: A-fib Subjective: No new changes, No C/O voiced, Tolerating diet, Ambulating, Improving Review of Systems 10-point ROS is otherwise unremarkable Physical Examination - Vital Signs Temperature: 98.7 F Blood Pressure: 102/57 Pulse: 111 Respirations: 16 Pulse Ox (%): 96 - Physical Exam General: Alert, In no apparent distress HEENT: Atraumatic, PERRLA, EOMI Neck: Supple, JVD not distended Respiratory: Clear to auscultation bilaterally, Normal air movement Cardiovascular: Irregular heart rate/rhythm Gastrointestinal: Normal bowel sounds, No tenderness Musculoskeletal: No tenderness Integumentary: No rashes Neurological: Normal speech, Normal tone, Normal affect Lymphatics: No axilla or inguinal lymphadenopathy - Studies Medications List Reviewed: Yes Assessment And Plan - Current Problems (Diagnosis) (1) Atrial fibrillation Current Visit: Yes Status: Acute Plan: attempted GENNA DCCV x3 time today, patient converted into SR shortly for 45 minutes then went back into AF Digoxin 0.25 mg IV q 6 hrs (4 doses) then continue 0.125 mg po daily Continue Sotalol 120 mg po BID and Lopressor 25 mg po BID patient was started on Eliquis back on , Hgb is stable. consider watchman procedure in near future. Patient will need outpatient referral for AF ablation. Qualifiers: Atrial fibrillation type: unspecified chronic Qualified Code(s): I48.20 - Chronic atrial fibrillation, unspecified; I48.2 - Chronic atrial fibrillation (2) GI bleed Current Visit: Yes Status: Acute Plan: blood transfusion, GI did endoscopy and colonoscopy that shows constriction with mass, s/p surgery. (3) HTN (hypertension) Current Visit: Yes Status: Acute Plan: BP is soft, will continue to monitor (4) Diastolic heart failure Current Visit: Yes Status: Acute Plan: continue Bumex 1 mg daily
--- NOTE | 2024-01-05 15:07 | P.PN ---
Subjective Date of Service: 01/05/24 Chief Complaint: A-fib Patient has no new complaint She denies any pain. Ileostomy output- no bleeding. Blood pressure has been stable. She is tolerating diet. Lower extremity swelling resolved. Physical Examination - Vital Signs Temperature: 98.7 F Blood Pressure: 102/57 Pulse: 111 Respirations: 16 Pulse Ox (%): 96 - Studies Medications List Reviewed: Yes Assessment And Plan - Plan Physical examination GEN: Alert and oriented x3, NAD. Pulm: Clear to auscultation bilaterally, no rhonchi or wheezes or crackles. CVS: Heart sounds 1 and 2 heard, irregular, normal rate, trace bilateral lower extremity edema. ABD: Midline surgical wound dressed. Wound looks clean and dry, abdomen not distended, normal bowel sounds, right-sided ileostomy. MSK: No joint tenderness Integumentary: No rashes Neuro: Normal speech, normal affect, no focal motor deficit. 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) Acute diastolic congestive heart failure moderate right pleural effusion s/p thoracentesis (12/17) Acute respiratory failure with hypoxia secondary to above Rectal fecal retention with barium contrast, resolved Chronic atrial fibrillation with RVR-on chronic anticoagulation Acute Metabolic encephalopathy, resolved KEYANNA, resolved Critical illness myopathy Plan: Acute blood loss anemia GI bleed secondary to Colon cancer s/p right hemicolectomy, lysis of adhesions (12/07) 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 (last transfusion 12/23) s/p FFP (12/23) Eliquis has been on hold due to bleed, now resumed. Dr. Goodman, GI is following s/p repeat EGD (12/24): noted esophagitis, esophageal ulcer gastric ulcer and duodenal erosions. s/p protonix drip (12/22-12/29). deescalated to oral protonix BID 12/30 MAGDALENA drain removed 12/21; PICC placed 12/02, new midline placed 12/22 s/p TPN (12/14-12/18) Patient currently tolerating diet. oral intake slowly improving. Completed calories count 12/28 IV iron replacement. Hemoglobin has been stable since resuming Eliquis Third spacing from hypoalbuminemia monitor H&H while on Eliquis. monitor h/h Acute diastolic congestive heart failure moderate right pleural effusion s/p thoracentesis (12/17) Acute respiratory failure with hypoxia secondary to above Pleural effusion secondary to third spacing from hypoalbuminemia. Echo (12/17): 60-65% EF, normal diastolic function. Moderate dilated left atrium. mild TR/MR s/p thoracentesis 12/17; 800 ml clear fluid drained Pleural fluid signs of infected - culture without growth. Patient responded well to diuresis. IV lasix transitioned to PO bumex 12/29 Continue oral Bumex Previously on rocephin/flagyl (12/09-12/12) and meropenem (12/12-12/16) s/p vanc / flagyl / Aztreonam (12/16-12/26); antibiotics dc'd 12/27 per surgery ID is following. Rectal fecal retention with barium contrast, resolved s/p dulcolax [place] x1, Mineral oil enema x1 (12/19) given presumed barium concretion Surgery Dr. Vidales also recommended soapsuds enema twice daily. Patient had a good bowel movement 12/23. Repeat abdominal x-ray shows resolution of the fecal retention. Chronic atrial fibrillation with RVR-on chronic anticoagulation Initial plan was for GENNA cardioversion, sotalol but given patient's severe anemia secondary to GI bleed plan for GENNA Cardioversion was aborted because patient could not be anticoagulated due to high risk for life-threatening bleed. Initially on Sotalol and metoprolol for rate and rhythm control; switched to amiodarone drip 12/13 due to RVR post-op. Amiodarone switched back to sotalol and metoprolol after diet was resumed. Status post GENNA and failed cardioversion 01/04 Patient initially treated with full dose Lovenox, hemoglobin has been stable, Lovenox replaced with Eliquis. Cardiology recommended outpatient evaluation for ablation therapy. Watchman procedure outpatient recommended in the near future once shes been back on anticoagulation for at least 2 weeks. Dehydration, improved Hypotension, resolved suspect patient had fluid deficit from inadequate oral intake compared to ileostomy output. Uric acid level checked after multiple blood transfusion. Blood pressure has been stable. Acute Metabolic encephalopathy, resolved resolved Likely drug-induced secondary to opioids. pain control KEYANNA, resolved Nephrology is following. KEYANNA resolved. continue to monitor renal function Critical illness myopathy Continue PT Patient slated for SNF placement. VTE: Eliquis. Code: Full Dispo: SNF.
--- NOTE | 2024-01-06 02:04 | OP ---
Date of Procedure: 01/05/2024 Surgeon: Salvador Francis Procedure Performed: GENNA-guided cardioversion. Indication For Procedure: Atrial fibrillation. Complications: None. Estimated Blood Loss: None. Sedation: Done by Anesthesia Team. Description Of Procedure: After risks, benefits, and alternatives were explained to the patient, the patient agreed to proceed with procedure and signed informed consent. The patient was brought back to the OR. Time-out was performed. Sedation was administered by Anesthesia Team. GENNA probe inserte d. Images were obtained and GENNA probe was exerted. Next, synchronized cardioversion was done with 2 00 joules the. Patient stayed in atrial fibrillation. Repeated cardioversion was done with 300 joul es. The patient stayed in atrial fibrillation and then a final cardioversion was done with 360 joule s. The patient converted back into sinus rhythm. The patient was moved back to recovery in stable c ondition. 45 minutes after the procedure, I was called and the patient went back into atrial fibrill ation again. Assessment: Atrial fibrillation, status post GENNA cardioversion. The patient did not respond and brenna t back into atrial fibrillation 45 minutes after the cardioversion. Plan: We will continue sotalol 120 b.i.d. Continue Lopressor 25 b.i.d., digoxin for better rate con trol, and outpatient evaluations by EP for atrial fibrillation ablation. Continue Eliquis 5 mg p.o. b.i.d. DAVIS/MODL Voice ID: [id number] Report ID: [id number]
[2024-01-06 06:28] LABS: Albumin 2.2 g/dL (3.4-5.0); Albumin/Globulin Ratio 0.5 (1.1-1.8); Anion Gap 10.2 mEq/L (5.0-15.0); Bilirubin Total 1.8 mg/dL (0.2-1.0); Globulin 4.7 g/dL (2.3-3.5); Magnesium 1.5 mg/dL (1.6-2.4); Potassium 4.2 mEq/L (3.5-5.1); Protein, Total 6.9 g/dL (6.4-8.2); Uric Acid 5.4 mg/dL (2.6-6.0)
[2024-01-06] MEDS: DIGOXIN 0.125 MG TABLET PO SCH (08:12)
[2024-01-06] MEDS: Magnesium Sulfate 2gm IVPB 2 G/50 ML BAG IV ONE (08:29)
[2024-01-06] MEDS: MAGNESIUM CHLORIDE 64 MG TAB PO SCH (14:02)
--- NOTE | 2024-01-06 14:51 | EKG ---
Test Date: 2024-01-05 Test Time: 09:50:54 Clinique Counter Manager: SHARON MEASUREMENT RESULTS: Intervals: Rate: 102 MO: QRSD: 80 QT: 368 QTc: 479 [place]: P: MO: QRS: 63 T: 44 INTERPRETIVE STATEMENTS: Atrial fibrillation with rapid ventricular response Abnormal ECG Compared to ECG 01/03/2024 05:09:27 No significant changes Electronically Signed On 01-06-24 14:46:46 CDT by Ulices Tran
--- NOTE | 2024-01-06 15:59 | P.PN ---
Subjective Date of Service: 01/06/24 Chief Complaint: A-fib Patient has no new complaint She denies any pain. Ileostomy output- no bleeding. Blood pressure has been stable. She is tolerating diet. Physical Examination - Vital Signs Temperature: 97.3 F Blood Pressure: 113/55 Pulse: 76 Respirations: 18 Pulse Ox (%): 95 - Studies Medications List Reviewed: Yes Assessment And Plan - Plan Physical examination GEN: Alert and oriented x3, NAD. Pulm: Clear to auscultation bilaterally, no rhonchi or wheezes or crackles. CVS: Heart sounds 1 and 2 heard, irregular, normal rate, trace bilateral lower extremity edema. ABD: Midline surgical wound dressed. Wound looks clean and dry, abdomen not distended, normal bowel sounds, right-sided ileostomy. MSK: No joint tenderness Integumentary: No rashes Neuro: Normal speech, normal affect, no focal motor deficit. 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) Acute diastolic congestive heart failure moderate right pleural effusion s/p thoracentesis (12/17) Acute respiratory failure with hypoxia secondary to above Rectal fecal retention with barium contrast, resolved Chronic atrial fibrillation with RVR-on chronic anticoagulation Acute Metabolic encephalopathy, resolved KEYANNA, resolved Critical illness myopathy Plan: Acute blood loss anemia GI bleed secondary to Colon cancer s/p right hemicolectomy, lysis of adhesions (12/07) 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 (last transfusion 12/23) s/p FFP (12/23) Eliquis has been on hold due to bleed, now resumed. Dr. Goodman, GI is following s/p repeat EGD (12/24): noted esophagitis, esophageal ulcer gastric ulcer and duodenal erosions. s/p protonix drip (12/22-12/29). deescalated to oral protonix BID 12/30 MAGDALENA drain removed 12/21; PICC placed 12/02, new midline placed 12/22 s/p TPN (12/14-12/18) Patient is tolerating diet and eating well. Status post IV iron replacement. Patient oral iron supplementation Hemoglobin has been stable since resuming Eliquis Monitor H&H while on Eliquis. monitor h/h Acute diastolic congestive heart failure moderate right pleural effusion s/p thoracentesis (12/17) Acute respiratory failure with hypoxia secondary to above Pleural effusion secondary to third spacing from hypoalbuminemia. Echo (12/17): 60-65% EF, normal diastolic function. Moderate dilated left atrium. mild TR/MR s/p thoracentesis 12/17; 800 ml clear fluid drained Pleural fluid showed signs of infected - culture without growth. Patient responded well to diuresis. Third spacing from hypoalbuminemia significantly improved. IV lasix transitioned to PO bumex 12/29 Continue oral Bumex Previously on rocephin/flagyl (12/09-12/12) and meropenem (12/12-12/16) s/p vanc / flagyl / Aztreonam (12/16-12/26); antibiotics dc'd 12/27 per surgery ID is following. Rectal fecal retention with barium contrast, resolved s/p dulcolax [place] x1, Mineral oil enema x1 (12/19) given presumed barium concretion Surgery Dr. Vidales also recommended soapsuds enema twice daily. Patient had a good bowel movement 12/23. Repeat abdominal x-ray shows resolution of the fecal retention. Chronic atrial fibrillation with RVR-on chronic anticoagulation Initial plan was for GENNA cardioversion, sotalol but given patient's severe anemia secondary to GI bleed plan for GENNA Cardioversion was aborted because patient could not be anticoagulated due to high risk for life-threatening bleed. Initially on Sotalol and metoprolol for rate and rhythm control; switched to amiodarone drip 12/13 due to RVR post-op. Amiodarone switched back to sotalol and metoprolol after diet was resumed. Status post GENNA and failed cardioversion 01/04 Patient initially treated with full dose Lovenox, hemoglobin has been stable, Lovenox replaced with Eliquis. Cardiology recommended outpatient evaluation for ablation therapy. Watchman procedure outpatient recommended in the near future once shes been on anticoagulation for at least 2 weeks. Dehydration, improved Hypotension, resolved suspect patient had fluid deficit from inadequate oral intake compared to ileostomy output. Uric acid level checked after multiple blood transfusion. Blood pressure has been stable. Acute Metabolic encephalopathy, resolved resolved Likely drug-induced secondary to opioids. pain control KEYANNA, resolved Nephrology is following. KEYANNA resolved. continue to monitor renal function Critical illness myopathy Continue PT Patient slated for SNF placement. VTE: Eliquis. Code: Full Dispo: SNF.
--- NOTE | 2024-01-06 20:13 | P.PN ---
Date of Service: 01/05/24 Vital Signs Temp Pulse Resp BP Pulse Ox 97.3 F 91 H 18 95/53 L 95 01/06/24 16:01 01/06/24 18:00 01/06/24 16:01 01/06/24 18:00 01/06/24 16:01 Medications Hydrocodone Bitart/Acetaminophen (Hydrocodone/Apap 5/325 Mg Tab) 1 tab PO Q6H PRN PRN Reason: Pain scale 5-7 (Moderate) Last Admin: 01/06/24 08:13 Dose: 1 tab Amiloride HCl (Amiloride Hcl 5 Mg Tablet) 5 mg PO DAILY [facility] Apixaban (Apixaban 5 Mg Tablet) 5 mg PO BID [facility] Last Admin: 01/06/24 08:00 Dose: 5 mg Bumetanide (Bumetanide 1 Mg Tablet) 0.5 mg PO DAILY [facility] Collagenase (Collagenase 30 Gm Ointment) 1 appl TOP DAILY [facility] Last Admin: 01/06/24 09:00 Dose: 1 appl Digoxin (Digoxin 0.125 Mg Tablet) 0.125 mg PO DAILY [facility] Last Admin: 01/06/24 08:12 Dose: 0.125 mg Ferrous Sulfate (Ferrous Sulfate 325 Mg Tab) 325 mg PO DAILY@1200 [facility] Last Admin: 01/06/24 11:37 Dose: 325 mg Glucagon (Glucagon 1 Mg/Vial) 1 mg IM UD PRN PRN Reason: HYPOGLYCEMIA Sodium Chloride (Sodium Chloride) 250 mls @ 0 mls/hr IV .Q0M [facility] Dextrose (Dextrose 10% Water Iv Soln.) 125 mls @ 0 mls/hr IV PRN PRN; Protocol PRN Reason: HYPOGLYCEMIA Magnesium Chloride (Magnesium Chloride 64 Mg Tab) 128 mg PO TID [facility] Last Admin: 01/06/24 14:02 Dose: 128 mg Metoprolol Tartrate (Metoprolol Tar 25 Mg Tab) 25 mg PO BID 6AM 6PM [facility] Last Admin: 01/06/24 18:00 Dose: Not Given Pantoprazole Sodium (Pantoprazole 40mg Tablet) 40 mg PO BIDAC [facility]; Protocol Last Admin: 01/06/24 15:44 Dose: 40 mg Protein (Ensure Max Protein 330 Ml Liquid) 330 ml PO TID [facility] Last Admin: 01/06/24 14:00 Dose: Not Given Sodium Chloride (Sodium Chloride 0.9% 10ml Inj) 10 ml IV UD PRN PRN Reason: Diluant Sotalol HCl (Sotalol Hcl 80 Mg Tab) 120 mg PO BID 6AM 6PM [facility] Last Admin: 01/06/24 18:33 Dose: 120 mg Sucralfate (Sucralfate 1gm/10ml Ucup) 1 gm PO ACHS [facility] Last Admin: 01/06/24 15:44 Dose: 1 gm Assessment/ Plan: Nephrology Progress Note No Dyspnea No Chest Pain No Acute Events Overnight Vital Signs, Medications, Blood Work, and Imaging reviewed in the chart General: In no apparent distress, Cooperative HEENT: Atraumatic Neck: Supple Respiratory: Clear to auscultation bilaterally Cardiovascular: Edema, Irregular heart rate/rhythm Gastrointestinal: No guarding, Tenderness Musculoskeletal: No clubbing, No contractures Integumentary: No rashes, No cyanosis Neurological: Normal speech Blood work reviewed in the chart. Imagings Data: EXAM: Abdomen 1 View (KUB) HISTORY: [facility] Placement of NGT/OGT. Post Insertion. Pls call Floor to confirm if patient is ready. COMPARISON: 11/30/2023 CT abdomen and pelvis FINDINGS: Single view of the abdomen shows a nonspecific, nonobstructive bowel gas pattern. Enteric tube tip terminates in the region of the stomach body. Right upper quadrant surgical clips suggesting prior. Midline laparotomy skin celia. No suspicious calcifications are seen. The bones are unremarkable. IMPRESSION: Satisfactory positioning of the enteric tube is above. EXAMINATION: ONE VIEW CHEST XR CLINICAL INDICATION: PICC placement TECHNIQUE: Frontal chest projection is submitted. Examination is limited by patient positioning and technique. COMPARISON: No prior exam. FINDINGS: The tip of the right-sided PICC line is in the SVC. The heart is upper limit of normal in size. No displaced fractures identified. IMPRESSION: Right-sided PICC line has tip in the SVC. There is a left-sided catheter tubing also partially visualized in the left axillary region. EXAM: Single contrast barium enema INDICATION: Colon mass COMPARISON: CT abdomen January 30, 2024 Technique: Single contrast barium enema performed. Contrast reflux into small bowel. FINDINGS: An apple core 2 cm lesion involves the proximal transverse colon. Diverticula system from the colon without diverticulitis. No obstruction Fluoroscopy time: 1.3 minutes Number of images: 19 fluoroscopic spot images IMPRESSION: Apple core lesion proximal transverse colon likely neoplasm. EXAMINATION: CT ABDOMEN AND PELVIS WITHOUT CONTRAST CLINICAL INDICATION: Female, 73 years old. GI BLEED [facility] GI BLEED NO CONTRAST Bed Name: 4 TECHNIQUE: CT abdomen and pelvis was performed, without IV contrast, as per department protocol. Axial, sagittal and coronal reconstructions were obtained. One or more of the following dose reduction techniques were used: Automated exposure control, adjustment of the mA and kV according to the patient size, and iterative reconstruction. Unless otherwise specified, incidental findings do not require dedicated imaging follow-up. COMPARISON: No prior exam. FINDINGS: The lack of intravenous contrast limits the sensitivity of this exam for evaluation of solid visceral organs, vascular structures, and retroperitoneum. LOWER CHEST: The visualized lung bases are clear. LIVER: Normal in size and contour. No focal lesion. Cholecystectomy clips. SPLEEN: Normal size. No focal lesion. PANCREAS: No mass, ductal dilation, or angelica-pancreatic fluid. ADRENALS: Normal; no mass. KIDNEYS AND URETERS: Normal size and contour. No hydronephrosis. Benign- appearing right renal cyst. URINARY BLADDER: Normal contour. GASTROINTESTINAL TRACT: No evidence of bowel obstruction, significant free fluid, free air or abscess. There is mild diverticulosis coli of the sigmoid colon without diverticulitis. APPENDIX: Normal appendix. LYMPH NODES: No lymphadenopathy. MUSCULOSKELETAL: Mild multilevel spinal degenerative changes. ADDITIONAL FINDINGS: None. IMPRESSION: No acute or concerning abnormalities in the abdomen or pelvis, with evaluation limited by lack of IV contrast. Conclusions/Impression: Stage I KEYANNA may be due to hypovolemia, resolved CKD I with Proteinuria -No NSAIDs Hypokalemia -Replete prn Hypomagnesemia -Replete prn -Continue Slo-Mag HTN with CKD -Continue Metoprolol for tachycardia Hypervolemia with Pulmonary Edema and Pleural Effusions Periperhal Edema -Continue Bumex 1mg Daily -Continue Amiloride Daily Hypoalbuminemia -Continue protein supplementation -Albumin IV prn Anemia in chronic illness/ blood loss Iron Deficiency 4.9% -PRBC prn -GI following -S/P IV iron Colon Cancer sp Resection 12-08-23 Invasive moderately differentiated adenocarcinoma -Follow up with surgery -Wound care as ordered Hospitalist note reviewed
--- NOTE | 2024-01-06 20:16 | P.PN ---
Date of Service: 01/06/24 Vital Signs Temp Pulse Resp BP Pulse Ox 97.3 F 91 H 18 95/53 L 95 01/06/24 16:01 01/06/24 18:00 01/06/24 16:01 01/06/24 18:00 01/06/24 16:01 Medications Hydrocodone Bitart/Acetaminophen (Hydrocodone/Apap 5/325 Mg Tab) 1 tab PO Q6H PRN PRN Reason: Pain scale 5-7 (Moderate) Last Admin: 01/06/24 08:13 Dose: 1 tab Amiloride HCl (Amiloride Hcl 5 Mg Tablet) 5 mg PO DAILY [facility] Apixaban (Apixaban 5 Mg Tablet) 5 mg PO BID [facility] Last Admin: 01/06/24 08:00 Dose: 5 mg Bumetanide (Bumetanide 1 Mg Tablet) 0.5 mg PO DAILY [facility] Collagenase (Collagenase 30 Gm Ointment) 1 appl TOP DAILY [facility] Last Admin: 01/06/24 09:00 Dose: 1 appl Digoxin (Digoxin 0.125 Mg Tablet) 0.125 mg PO DAILY [facility] Last Admin: 01/06/24 08:12 Dose: 0.125 mg Ferrous Sulfate (Ferrous Sulfate 325 Mg Tab) 325 mg PO DAILY@1200 [facility] Last Admin: 01/06/24 11:37 Dose: 325 mg Glucagon (Glucagon 1 Mg/Vial) 1 mg IM UD PRN PRN Reason: HYPOGLYCEMIA Sodium Chloride (Sodium Chloride) 250 mls @ 0 mls/hr IV .Q0M [facility] Dextrose (Dextrose 10% Water Iv Soln.) 125 mls @ 0 mls/hr IV PRN PRN; Protocol PRN Reason: HYPOGLYCEMIA Magnesium Chloride (Magnesium Chloride 64 Mg Tab) 128 mg PO TID [facility] Last Admin: 01/06/24 14:02 Dose: 128 mg Metoprolol Tartrate (Metoprolol Tar 25 Mg Tab) 25 mg PO BID 6AM 6PM [facility] Last Admin: 01/06/24 18:00 Dose: Not Given Pantoprazole Sodium (Pantoprazole 40mg Tablet) 40 mg PO BIDAC [facility]; Protocol Last Admin: 01/06/24 15:44 Dose: 40 mg Protein (Ensure Max Protein 330 Ml Liquid) 330 ml PO TID [facility] Last Admin: 01/06/24 14:00 Dose: Not Given Sodium Chloride (Sodium Chloride 0.9% 10ml Inj) 10 ml IV UD PRN PRN Reason: Diluant Sotalol HCl (Sotalol Hcl 80 Mg Tab) 120 mg PO BID 6AM 6PM [facility] Last Admin: 01/06/24 18:33 Dose: 120 mg Sucralfate (Sucralfate 1gm/10ml Ucup) 1 gm PO ACHS [facility] Last Admin: 01/06/24 15:44 Dose: 1 gm Assessment/ Plan: Nephrology Progress Note No Dyspnea No Chest Pain No Acute Events Overnight Vital Signs, Medications, Blood Work, and Imaging reviewed in the chart General: In no apparent distress, Cooperative HEENT: Atraumatic Neck: Supple Respiratory: Clear to auscultation bilaterally Cardiovascular: Edema, Irregular heart rate/rhythm Gastrointestinal: No guarding, Tenderness Musculoskeletal: No clubbing, No contractures Integumentary: No rashes, No cyanosis Neurological: Normal speech Blood work reviewed in the chart. Imagings Data: EXAM: Abdomen 1 View (KUB) HISTORY: [facility] MAIN Placement of NGT/OGT. Post Insertion. Pls call Floor to confirm if patient is ready. COMPARISON: 11/30/2023 CT abdomen and pelvis FINDINGS: Single view of the abdomen shows a nonspecific, nonobstructive bowel gas pattern. Enteric tube tip terminates in the region of the stomach body. Right upper quadrant surgical clips suggesting prior. Midline laparotomy skin celia. No suspicious calcifications are seen. The bones are unremarkable. IMPRESSION: Satisfactory positioning of the enteric tube is above. EXAMINATION: ONE VIEW CHEST XR CLINICAL INDICATION: PICC placement TECHNIQUE: Frontal chest projection is submitted. Examination is limited by patient positioning and technique. COMPARISON: No prior exam. FINDINGS: The tip of the right-sided PICC line is in the SVC. The heart is upper limit of normal in size. No displaced fractures identified. IMPRESSION: Right-sided PICC line has tip in the SVC. There is a left-sided catheter tubing also partially visualized in the left axillary region. EXAM: Single contrast barium enema INDICATION: Colon mass COMPARISON: CT abdomen January 30, 2024 Technique: Single contrast barium enema performed. Contrast reflux into small bowel. FINDINGS: An apple core 2 cm lesion involves the proximal transverse colon. Diverticula system from the colon without diverticulitis. No obstruction Fluoroscopy time: 1.3 minutes Number of images: 19 fluoroscopic spot images IMPRESSION: Apple core lesion proximal transverse colon likely neoplasm. EXAMINATION: CT ABDOMEN AND PELVIS WITHOUT CONTRAST CLINICAL INDICATION: Female, 73 years old. GI BLEED [facility] MAIN GI BLEED NO CONTRAST Bed Name: 4 TECHNIQUE: CT abdomen and pelvis was performed, without IV contrast, as per department protocol. Axial, sagittal and coronal reconstructions were obtained. One or more of the following dose reduction techniques were used: Automated exposure control, adjustment of the mA and kV according to the patient size, and iterative reconstruction. Unless otherwise specified, incidental findings do not require dedicated imaging follow-up. COMPARISON: No prior exam. FINDINGS: The lack of intravenous contrast limits the sensitivity of this exam for evaluation of solid visceral organs, vascular structures, and retroperitoneum. LOWER CHEST: The visualized lung bases are clear. LIVER: Normal in size and contour. No focal lesion. Cholecystectomy clips. SPLEEN: Normal size. No focal lesion. PANCREAS: No mass, ductal dilation, or angelica-pancreatic fluid. ADRENALS: Normal; no mass. KIDNEYS AND URETERS: Normal size and contour. No hydronephrosis. Benign- appearing right renal cyst. URINARY BLADDER: Normal contour. GASTROINTESTINAL TRACT: No evidence of bowel obstruction, significant free fluid, free air or abscess. There is mild diverticulosis coli of the sigmoid colon without diverticulitis. APPENDIX: Normal appendix. LYMPH NODES: No lymphadenopathy. MUSCULOSKELETAL: Mild multilevel spinal degenerative changes. ADDITIONAL FINDINGS: None. IMPRESSION: No acute or concerning abnormalities in the abdomen or pelvis, with evaluation limited by lack of IV contrast. Conclusions/Impression: Stage I KEYANNA may be due to hypovolemia, resolved CKD I with Proteinuria -No NSAIDs Hyponatremia -Continue Bumex Hypokalemia -Replete prn Hypomagnesemia -Replete prn -Increase Slo-Mag TID HTN with CKD -Continue Metoprolol for tachycardia Hypervolemia with Pulmonary Edema and Pleural Effusions Periperhal Edema -Reduce Bumex 0.5mg Daily -Continue Amiloride 5mg Daily Hypoalbuminemia -Continue protein supplementation -Albumin IV prn Anemia in chronic illness/ blood loss Iron Deficiency 4.9% -PRBC prn -GI following -S/P IV iron Colon Cancer sp Resection 12-08-23 Invasive moderately differentiated adenocarcinoma -Follow up with surgery -Wound care as ordered Hospitalist note reviewed
[2024-01-07 05:56] LABS: Absolute Basophils 0.1 K/uL (0-0.5); Absolute Eosinophils 0.2 K/uL (0-0.5); Absolute Monocytes 1.5 K/uL (0.1-1.3); Absolute Neutrophil 10.5 K/uL (1.8-8.0); Basophils % 0.4 % (0-1.3); Eosinophils % 1.2 % (0-4.4); Hematocrit 28.7 % (36.0-45.0); Hemoglobin 9.5 g/dL (12.0-15.0); Lymphocytes % 7.3 % (15.3-44.8); MCH 30.1 pg (27.0-35.0); MCV 91.3 fL (80-100); Monocytes % 11.1 % (3.3-12.3); Platelets 309 thou/uL (152-406); RBC Red Blood Cell Count 3.15 M/uL (3.86-4.86); Red Cell Distribution Width 20.6 % (12.1-15.2)
[2024-01-07 06:02] LABS: Anion Gap 11.2 mEq/L (5.0-15.0); Potassium 4.2 mEq/L (3.5-5.1)
--- NOTE | 2024-01-07 10:13 | P.PN ---
Date of Service: 01/07/24 Vital Signs Temp Pulse Resp BP Pulse Ox 98.7 F 89 20 113/56 L 94 01/07/24 08:00 01/07/24 08:00 01/07/24 08:00 01/07/24 08:00 01/07/24 08:00 Medications Hydrocodone Bitart/Acetaminophen (Hydrocodone/Apap 5/325 Mg Tab) 1 tab PO Q6H PRN PRN Reason: Pain scale 5-7 (Moderate) Last Admin: 01/06/24 08:13 Dose: 1 tab Amiloride HCl (Amiloride Hcl 5 Mg Tablet) 5 mg PO DAILY [facility] Apixaban (Apixaban 5 Mg Tablet) 5 mg PO BID [facility] Last Admin: 01/07/24 08:15 Dose: 5 mg Bumetanide (Bumetanide 1 Mg Tablet) 0.5 mg PO DAILY [facility] Collagenase (Collagenase 30 Gm Ointment) 1 appl TOP DAILY [facility] Last Admin: 01/07/24 08:17 Dose: 1 appl Digoxin (Digoxin 0.125 Mg Tablet) 0.125 mg PO DAILY [facility] Last Admin: 01/07/24 08:15 Dose: 0.125 mg Ferrous Sulfate (Ferrous Sulfate 325 Mg Tab) 325 mg PO DAILY@1200 [facility] Last Admin: 01/06/24 11:37 Dose: 325 mg Glucagon (Glucagon 1 Mg/Vial) 1 mg IM UD PRN PRN Reason: HYPOGLYCEMIA Sodium Chloride (Sodium Chloride) 250 mls @ 0 mls/hr IV .Q0M [facility] Dextrose (Dextrose 10% Water Iv Soln.) 125 mls @ 0 mls/hr IV PRN PRN; Protocol PRN Reason: HYPOGLYCEMIA Ferric Sodium Gluconate Complex 250 mg/ Sodium Chloride 270 mls @ 225 mls/hr IV 1X [facility] Stop: 01/07/24 11:11 Magnesium Chloride (Magnesium Chloride 64 Mg Tab) 128 mg PO TID [facility] Last Admin: 01/07/24 08:15 Dose: 128 mg Metoprolol Tartrate (Metoprolol Tar 25 Mg Tab) 25 mg PO BID 6AM 6PM [facility] Last Admin: 01/07/24 05:07 Dose: 25 mg Pantoprazole Sodium (Pantoprazole 40mg Tablet) 40 mg PO BIDAC [facility]; Protocol Last Admin: 01/07/24 08:15 Dose: 40 mg Protein (Ensure Max Protein 330 Ml Liquid) 330 ml PO TID [facility] Last Admin: 01/07/24 08:16 Dose: 330 ml Sodium Chloride (Sodium Chloride 0.9% 10ml Inj) 10 ml IV UD PRN PRN Reason: Diluant Sotalol HCl (Sotalol Hcl 80 Mg Tab) 120 mg PO BID 6AM 6PM [facility] Last Admin: 01/07/24 05:08 Dose: 120 mg Sucralfate (Sucralfate 1gm/10ml Ucup) 1 gm PO ACHS [facility] Last Admin: 01/07/24 08:15 Dose: 1 gm Assessment/ Plan: Nephrology Progress Note No Dyspnea No Chest Pain Weakness No Acute Events Overnight Vital Signs, Medications, Blood Work, and Imaging reviewed in the chart General: In no apparent distress, Cooperative HEENT: Atraumatic Neck: Supple Respiratory: Clear to auscultation bilaterally Cardiovascular: Edema, Irregular heart rate/rhythm Gastrointestinal: No guarding, Tenderness Musculoskeletal: No clubbing, No contractures Integumentary: No rashes, No cyanosis Neurological: Normal speech Blood work reviewed in the chart. Imagings Data: EXAM: Abdomen 1 View (KUB) HISTORY: [facility] MAIN Placement of NGT/OGT. Post Insertion. Pls call Floor to confirm if patient is ready. COMPARISON: 11/30/2023 CT abdomen and pelvis FINDINGS: Single view of the abdomen shows a nonspecific, nonobstructive bowel gas pattern. Enteric tube tip terminates in the region of the stomach body. Right upper quadrant surgical clips suggesting prior. Midline laparotomy skin celia. No suspicious calcifications are seen. The bones are unremarkable. IMPRESSION: Satisfactory positioning of the enteric tube is above. EXAMINATION: ONE VIEW CHEST XR CLINICAL INDICATION: PICC placement TECHNIQUE: Frontal chest projection is submitted. Examination is limited by patient positioning and technique. COMPARISON: No prior exam. FINDINGS: The tip of the right-sided PICC line is in the SVC. The heart is upper limit of normal in size. No displaced fractures identified. IMPRESSION: Right-sided PICC line has tip in the SVC. There is a left-sided catheter tubing also partially visualized in the left axillary region. EXAM: Single contrast barium enema INDICATION: Colon mass COMPARISON: CT abdomen January 30, 2024 Technique: Single contrast barium enema performed. Contrast reflux into small bowel. FINDINGS: An apple core 2 cm lesion involves the proximal transverse colon. Diverticula system from the colon without diverticulitis. No obstruction Fluoroscopy time: 1.3 minutes Number of images: 19 fluoroscopic spot images IMPRESSION: Apple core lesion proximal transverse colon likely neoplasm. EXAMINATION: CT ABDOMEN AND PELVIS WITHOUT CONTRAST CLINICAL INDICATION: Female, 73 years old. GI BLEED [facility] MAIN GI BLEED NO CONTRAST Bed Name: 4 TECHNIQUE: CT abdomen and pelvis was performed, without IV contrast, as per department protocol. Axial, sagittal and coronal reconstructions were obtained. One or more of the following dose reduction techniques were used: Automated exposure control, adjustment of the mA and kV according to the patient size, and iterative reconstruction. Unless otherwise specified, incidental findings do not require dedicated imaging follow-up. COMPARISON: No prior exam. FINDINGS: The lack of intravenous contrast limits the sensitivity of this exam for evaluation of solid visceral organs, vascular structures, and retroperitoneum. LOWER CHEST: The visualized lung bases are clear. LIVER: Normal in size and contour. No focal lesion. Cholecystectomy clips. SPLEEN: Normal size. No focal lesion. PANCREAS: No mass, ductal dilation, or angelica-pancreatic fluid. ADRENALS: Normal; no mass. KIDNEYS AND URETERS: Normal size and contour. No hydronephrosis. Benign- appearing right renal cyst. URINARY BLADDER: Normal contour. GASTROINTESTINAL TRACT: No evidence of bowel obstruction, significant free fluid, free air or abscess. There is mild diverticulosis coli of the sigmoid colon without diverticulitis. APPENDIX: Normal appendix. LYMPH NODES: No lymphadenopathy. MUSCULOSKELETAL: Mild multilevel spinal degenerative changes. ADDITIONAL FINDINGS: None. IMPRESSION: No acute or concerning abnormalities in the abdomen or pelvis, with evaluation limited by lack of IV contrast. Conclusions/Impression: Stage I KEYANNA may be due to hypovolemia, resolved CKD I with Proteinuria -No NSAIDs Hyponatremia -Continue Bumex -Counseled regarding fluid restriction Hypokalemia -Replete prn Hypercalcemia -Check PTH & Vitamin D Hypomagnesemia -Replete prn -Continue Slo-Mag TID HTN with CKD -Continue Metoprolol for tachycardia Hypervolemia with Pulmonary Edema and Pleural Effusions Periperhal Edema -Continue Bumex 0.5mg Daily -Continue Amiloride 5mg Daily Hypoalbuminemia -Continue protein supplementation -Albumin IV prn Anemia in chronic illness/ blood loss Iron Deficiency 4.9% -PRBC prn -GI following -Ferrlecit X1 dose today Colon Cancer sp Resection 12-08-23 Invasive moderately differentiated adenocarcinoma -Follow up with surgery -Wound care as ordered Hospitalist note reviewed
--- NOTE | 2024-01-07 10:16 | P.PN ---
Subjective Date of Service: 01/07/24 Chief Complaint: A-fib Subjective: No new changes, No C/O voiced, Tolerating diet, Ambulating, Improving Review of Systems 10-point ROS is otherwise unremarkable Physical Examination - Vital Signs Temperature: 98.7 F Blood Pressure: 113/56 Pulse: 89 Respirations: 20 Pulse Ox (%): 94 - Physical Exam General: Alert, In no apparent distress HEENT: Atraumatic, PERRLA, EOMI Neck: Supple, JVD not distended Respiratory: Clear to auscultation bilaterally, Normal air movement Cardiovascular: Irregular heart rate/rhythm Gastrointestinal: Normal bowel sounds, No tenderness Musculoskeletal: No tenderness Integumentary: No rashes Neurological: Normal speech, Normal tone, Normal affect Lymphatics: No axilla or inguinal lymphadenopathy - Studies Medications List Reviewed: Yes Assessment And Plan - Current Problems (Diagnosis) (1) Atrial fibrillation Current Visit: Yes Status: Acute Plan: attempted GENNA DCCV x3 time today, patient converted into SR shortly for 45 minutes then went back into AF Digoxin 0.125 mg po daily Continue Sotalol 120 mg po BID and Lopressor 25 mg po BID patient was started on Eliquis back on , Hgb is stable. consider watchman procedure in near future. Patient will need outpatient referral for AF ablation. Qualifiers: Atrial fibrillation type: unspecified chronic Qualified Code(s): I48.20 - Chronic atrial fibrillation, unspecified; I48.2 - Chronic atrial fibrillation (2) GI bleed Current Visit: Yes Status: Acute Plan: blood transfusion, GI did endoscopy and colonoscopy that shows constriction with mass, s/p surgery. (3) HTN (hypertension) Current Visit: Yes Status: Acute Plan: BP is soft, will continue to monitor (4) Diastolic heart failure Current Visit: Yes Status: Acute Plan: continue Bumex 0.5 mg daily
[2024-01-07] MEDS: SOD FERRIC GLUC COMPLX/SUCROSE 250 MG in NA CHLORIDE 0.9% 250 ML IV SCH (10:17)
--- NOTE | 2024-01-07 14:27 | P.PN ---
Subjective Date of Service: 01/07/24 Chief Complaint: A-fib She has no complaints of pain currently. Stool in ostomy bag , no acute event, however patient does feel somewhat weak as compared with previous. In addition she has some right arm swelling Physical Examination - Vital Signs Temperature: 98.7 F Blood Pressure: 113/56 Pulse: 89 Respirations: 18 Pulse Ox (%): 94 - Physical Exam General: Alert, In no apparent distress, Cooperative HEENT: Normocephalic, Mucous membr. moist/pink Respiratory: Clear to auscultation bilaterally, Normal air movement Cardiovascular: Regular rate/rhythm Gastrointestinal: Other (Soft, nontender nondistended no rebound no guarding no focal peritonitis midline wound is healing well with good have healthy granulation tissue, no fibrin buildup no necrosis, periwound continues to slowly advance, there is some minimal contamination to the edge due to leakage of her ileostomy disc) Musculoskeletal: Other (Mild swelling to the right arm PICC line in place) Neurological: Normal speech - Studies Medications List Reviewed: Yes Assessment And Plan - Current Problems (Diagnosis) (1) Adenocarcinoma of transverse colon Current Visit: Yes Status: Acute Plan: Patient is a 73 year old woman who is s/p Extended Right hemicolectomy and 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 She ultimately required return to OR on 12-14-2023 for exploatory laparotomy with loop ileostomy creation for anastamotic leak. Patient had barium concretion in rectum and did not get bowel prep requested. - Gen/ Neuro: medication with Vansant, head CT to rule out possible ischemia. - CVS: A-Fib, improving rate, no HD instability, good BP - Pulm: improved, - GI : Ostomy is pink and viable, continue ostomy management, celia and incision remain clean, continue dressing changes daily, MAGDALENA removed@ bedside 12-22-2023, continue , good bowel function ileostomy bag. . continue packing to midline wound -vashe packing, - FEN: , electrolyte replacement protocol, currently getting PO diet well without issues - ID: Leukocytosis, no obvious source at this point, have discussed with Dr. Bran - Endo: no need for coverage - Prophylaxis: Lovenox, SCDs - Heme: Continue serial hemoglobin checks transfuse PRBCs if needed. Ultrasound right upper extremity rule out DVT - encouraged patient to ambulate with assist and work with physical therapy. - SNF evaluation currently pending
--- NOTE | 2024-01-07 14:35 | RAD REPORT ---
EXAM: CT brain without contrast HISTORY: Right arm weakness COMPARISON: None TECHNIQUE: Multiple contiguous axial images were obtained and a CT of the brain without contrast.. Sagittal and coronal reconstruction performed. Automated exposure control, adjustment of the mA and/or kV according to patient size, and/or iterative reconstruction. Unless otherwise specified, incidental f indings do not require dedicated imaging follow-u FINDINGS: An intracranial bleed is not seen Ventricles are normal caliber No extra-axial fluid collection noted No significant hypodensity within the brain No fluid within the visualized sinuses or mastoids noted. IMPRESSION: No acute intracranial abnormality noted. If the patient's symptoms persist MRI of the brain would be recommended.
--- NOTE | 2024-01-07 16:12 | RAD REPORT ---
EXAMINATION: UPPER EXTREMITY VENOUS UNILATE CLINICAL INDICATION: Arm pain TECHNIQUE: Complete bilateral duplex sonography of the right upper extremity veins was performed. The examination included compression for vein patency, color Doppler imaging and flow augmentation in response to distal compression of the internal jugular,, subclavian, axillary, brachial, radial, ulna r, cephalic and veins. .Grayscale, color and spectral analysis performed on all vessels COMPARISON: No prior exam. FINDINGS: The internal jugular, subclavian, axillary, brachial, basilic, cephalic, radial and ulnar veins are g enerally compressible and demonstrate augmentation. Color Doppler demonstrates good flow. The basilic vein poorly visualized IMPRESSION: No evidence of venous thrombus right arm. Limited evaluation of the basilic vein
--- NOTE | 2024-01-07 17:21 | P.PN ---
Subjective Date of Service: 01/07/24 Chief Complaint: A-fib Patient has no new complaint She reports pain in her right forearm Ileostomy output- no bleeding. She is eating well. Physical Examination - Vital Signs Temperature: 98.7 F Blood Pressure: 113/56 Pulse: 89 Respirations: 18 Pulse Ox (%): 94 - Studies Medications List Reviewed: Yes Assessment And Plan - Plan Physical examination GEN: Alert and oriented x3, NAD. Pulm: Clear to auscultation bilaterally, no rhonchi or wheezes or crackles. CVS: Heart sounds 1 and 2 heard, irregular, normal rate, trace bilateral lower extremity edema. ABD: Midline surgical wound dressed. Wound looks clean and dry, abdomen not distended, normal bowel sounds, right-sided ileostomy. MSK: No joint tenderness Integumentary: No rashes Neuro: Normal speech, normal affect, no focal motor deficit. Vitals reviewed Physical Exam: GEN: NAD, AOx3 CV: Irregularly Irregular rate and rhythm, HR: 90-100s; trace lower extremity edema Pulm: Nonlabored respirations on RA, diminished at right base ABD: Midline surgical wound with wound VAC, nondistended, ileostomy with soft brown output - minimal erythema on superior aspect of midline surgical wound; improving Extremities: No swelling, tenderness right forearm, no pain with ROM, ROM intact. 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) Acute diastolic congestive heart failure moderate right pleural effusion s/p thoracentesis (12/17) Acute respiratory failure with hypoxia secondary to above Rectal fecal retention with barium contrast, resolved Chronic atrial fibrillation with RVR-on chronic anticoagulation Acute Metabolic encephalopathy, resolved KEYANNA, resolved Critical illness myopathy Plan: Acute blood loss anemia GI bleed secondary to Colon cancer s/p right hemicolectomy, lysis of adhesions (12/07) 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 (last transfusion 12/23) s/p FFP (12/23) Eliquis has been on hold due to bleed, now resumed. Dr. Goodman, GI is following s/p repeat EGD (12/24): noted esophagitis, esophageal ulcer gastric ulcer and duodenal erosions. s/p protonix drip (12/22-12/29). deescalated to oral protonix BID 12/30 MAGDALENA drain removed 12/21; PICC placed 12/02, new midline placed 12/22 s/p TPN (12/14-12/18) Patient is tolerating diet and eating well. Status post IV iron replacement. Patient oral iron supplementation Hemoglobin has been stable since resuming Eliquis Monitor H&H while on Eliquis. monitor h/h Acute diastolic congestive heart failure moderate right pleural effusion s/p thoracentesis (12/17) Acute respiratory failure with hypoxia secondary to above Pleural effusion secondary to third spacing from hypoalbuminemia. Echo (12/17): 60-65% EF, normal diastolic function. Moderate dilated left atrium. mild TR/MR s/p thoracentesis 12/17; 800 ml clear fluid drained Pleural fluid showed signs of infected - culture without growth. Patient responded well to diuresis. Third spacing from hypoalbuminemia significantly improved. IV lasix transitioned to PO bumex 12/29 Continue oral Bumex Previously on rocephin/flagyl (12/09-12/12) and meropenem (12/12-12/16) s/p vanc / flagyl / Aztreonam (12/16-12/26); antibiotics dc'd 12/27 per surgery ID is following. Rectal fecal retention with barium contrast, resolved s/p dulcolax CT x1, Mineral oil enema x1 (12/19) given presumed barium concretion Surgery Dr. Vidales also recommended soapsuds enema twice daily. Patient had a good bowel movement 12/23. Repeat abdominal x-ray shows resolution of the fecal retention. Chronic atrial fibrillation with RVR-on chronic anticoagulation Initial plan was for GENNA cardioversion, sotalol but given patient's severe anemia secondary to GI bleed plan for GENNA Cardioversion was aborted because patient could not be anticoagulated due to high risk for life-threatening bleed. Initially on Sotalol and metoprolol for rate and rhythm control; switched to amiodarone drip 12/13 due to RVR post-op. Amiodarone switched back to sotalol and metoprolol after diet was resumed. Status post GENNA and failed cardioversion 01/04 Patient initially treated with full dose Lovenox, hemoglobin has been stable, Lovenox replaced with Eliquis. Cardiology recommended outpatient evaluation for ablation therapy. Watchman procedure outpatient recommended in the near future once shes been on anticoagulation for at least 2 weeks. Continue sotalol and metoprolol. Give metoprolol with holding parameters given soft blood pressure. Dehydration, improved Hypotension, resolved suspect patient had fluid deficit from inadequate oral intake compared to ileostomy output. Uric acid level checked after multiple blood transfusion. Blood pressure has been stable. Acute Metabolic encephalopathy, resolved resolved Likely drug-induced secondary to opioids. pain control KEYANNA, resolved Nephrology is following. KEYANNA resolved. continue to monitor renal function Critical illness myopathy Patient with global weakness. Repeat head CT shows no acute disease. Continue PT Patient slated for SNF placement pending insurance authorization. VTE: Eliquis. Code: Full Dispo: SNF.
[2024-01-08 06:03] LABS: Hemoglobin 8.7 g/dL (12.0-15.0); Nucleated Red Blood Cells % 0.1 % (0-0)
[2024-01-08 06:19] LABS: Absolute Basophils 0.1 K/uL (0-0.5); Absolute Eosinophils 0.2 K/uL (0-0.5); Absolute Lymphocytes (CBC) 1.6 K/uL (0.7-4.9); Absolute Monocytes 1.5 K/uL (0.1-1.3); Absolute Neutrophil 8.2 K/uL (1.8-8.0); Albumin 2.3 g/dL (3.4-5.0); Anion Gap 11.2 mEq/L (5.0-15.0); Basophils % 0.7 % (0-1.3); Eosinophils % 1.6 % (0-4.4); Hematocrit 25.9 % (36.0-45.0); Lymphocytes % 13.6 % (15.3-44.8); MCH 30.7 pg (27.0-35.0); MCHC 33.7 g/dL (32.0-36.0); MCV 91.3 fL (80-100); MPV 7.7 fL (7.6-11.3); Magnesium 1.7 mg/dL (1.6-2.4); Monocytes % 13.1 % (3.3-12.3); Phosphorus 3.6 mg/dL (2.5-4.9); Platelets 295 thou/uL (152-406); Potassium 4.2 mEq/L (3.5-5.1); RBC Red Blood Cell Count 2.84 M/uL (3.86-4.86); Uric Acid 6.6 mg/dL (2.6-6.0)
[2024-01-08 06:20] LABS: Red Cell Distribution Width 20.1 % (12.1-15.2)
[2024-01-08] MEDS: BUMETANIDE 1 MG TABLET PO SCH (08:54)
[2024-01-08] MEDS: AMILORIDE HCL 5 MG TABLET PO SCH (08:56)
--- NOTE | 2024-01-08 11:10 | P.PN ---
(S) Remains hospitalized, notes reviewed, peripheral edema improved c/w prev, no dyspnea voiced at rest, not needing O2 (O) vitals reviewed in the EMR General: In no apparent distress, HEENT: Atraumatic, sclera anicteric, off LFNC Neck: Supple Respiratory: b/l air entry, reduced at bases Cardiovascular: Edema in the LE/dependent areas impoved from prev, tachy Irregular heart rate/rhythm Gastrointestinal: Soft, obese, mild distention, ostomy, drain Musculoskeletal: Shins non tender Integumentary: No rashes noted Neurological: Normal speech, awake, conversive Blood work reviewed in the chart. Conclusions/Impression: Stage I KEYANNA recurrent, POA and during lengthy admission but since resolved -In the setting of hemodynamic factors with Afib with RVR, soft BP, anemia, other -Cont to monitor fluid status and I/O closely, on/off scheduled diuretic therapy. Hypomagnesemia -persistent, on loop/distal tubule diuretics, absorption issues, d/c Amiloride, cont PO Mg as tolerated Afib unspecified. -Management per cardiology, will target K > 4 and Mg > 2 -Rate controlling measures per them although lower BP may limit -Likely some acute diastolic CHF component, BNP > 1000 on admission, and since, cont Bumex for now but d/c Amiloride Dyspnea unspecified, pleural effusion NOS -s/p Rt sided thoracentesis prev, monitor closely Peripheral edema, abnormality of albumin -3rd spacing, low albumin state, fluids/other, monitor. Will put on albumin series, daily 25 gm x 3
[2024-01-08] MEDS: ALBUMIN HUMAN 25% 100 ML IV SCH (11:39)
--- NOTE | 2024-01-08 15:03 | P.PN ---
Subjective Date of Service: 01/08/24 Chief Complaint: A-fib Patient reports increased weakness, more weakness in the right upper arm. CT head since yesterday at home negative for acute CVA with She reports pain in the right forearm and right shoulder. Ileostomy output- no bleeding. She is eating well. Physical Examination - Vital Signs Temperature: 97.5 F Blood Pressure: 108/51 Pulse: 83 Respirations: 16 Pulse Ox (%): 96 - Studies Medications List Reviewed: Yes Assessment And Plan - Plan Physical examination GEN: Alert and oriented x3, NAD. Pulm: Clear to auscultation bilaterally, no rhonchi or wheezes or crackles. CVS: Heart sounds 1 and 2 heard, irregular, normal rate, trace bilateral lower extremity edema. ABD: Midline surgical wound dressed. Wound looks clean and dry, abdomen not distended, normal bowel sounds, right-sided ileostomy. MSK: No joint tenderness Integumentary: No rashes Neuro: Normal speech, normal affect, global weakness, more weak in the right upper extremity. 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) Acute diastolic congestive heart failure moderate right pleural effusion s/p thoracentesis (12/17) Acute respiratory failure with hypoxia secondary to above Rectal fecal retention with barium contrast, resolved Chronic atrial fibrillation with RVR-on chronic anticoagulation Acute Metabolic encephalopathy, resolved KEYANNA, resolved Critical illness myopathy Hyponatremia Plan: Acute blood loss anemia GI bleed secondary to Colon cancer s/p right hemicolectomy, lysis of adhesions (12/07) 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 (last transfusion 12/23) s/p FFP (12/23) Eliquis has been on hold due to bleed, now resumed. Patient was seen and evaluated by GI Dr. Goodman s/p repeat EGD (12/24): noted esophagitis, esophageal ulcer gastric ulcer and duodenal erosions. s/p protonix drip (12/22-12/29). deescalated to oral protonix BID 12/30 MAGDALENA drain removed 12/21; PICC placed 12/02, new midline placed 12/22 s/p TPN (12/14-12/18) Patient is tolerating diet and eating well. Status post IV iron replacement. Patient oral iron supplementation Hemoglobin has been stable since resuming Eliquis Monitor H&H while on Eliquis. Acute diastolic congestive heart failure moderate right pleural effusion s/p thoracentesis (12/17) Acute respiratory failure with hypoxia secondary to above Pleural effusion secondary to third spacing from hypoalbuminemia. Echo (12/17): 60-65% EF, normal diastolic function. Moderate dilated left atrium. mild TR/MR s/p thoracentesis 12/17; 800 ml clear fluid drained Pleural fluid showed signs of infected - culture without growth. Patient responded well to diuresis. Third spacing from hypoalbuminemia significantly resolved. Albumin level is improving. IV lasix transitioned to PO bumex 12/29 Bumex on hold due to noted hemoconcentration yesterday and hyponatremia. Previously on rocephin/flagyl (12/09-12/12) and meropenem (12/12-12/16) s/p vanc / flagyl / Aztreonam (12/16-12/26); antibiotics since 12/27 per surgery ID input appreciated. Rectal fecal retention with barium contrast, resolved s/p dulcolax [place] x1, Mineral oil enema x1 (12/19) given presumed barium concretion Surgery Dr. Vidales also recommended soapsuds enema twice daily. Patient had a good bowel movement 12/23. Repeat abdominal x-ray shows resolution of the fecal retention. Chronic atrial fibrillation with RVR-on chronic anticoagulation Initial plan was for GENNA cardioversion, sotalol but given patient's severe anemia secondary to GI bleed plan for GENNA Cardioversion was aborted because patient could not be anticoagulated due to high risk for life-threatening bleed. Initially on Sotalol and metoprolol for rate and rhythm control; switched to amiodarone drip 12/13 due to RVR post-op. Amiodarone switched back to sotalol and metoprolol after diet was resumed. Status post GENNA and failed cardioversion 01/04 Patient initially treated with full dose Lovenox, hemoglobin has been stable, Lovenox replaced with Eliquis. Cardiology recommended outpatient evaluation for ablation therapy. Watchman procedure outpatient recommended in the near future once shes been on anticoagulation for at least 2 weeks. Continue sotalol and metoprolol. Give metoprolol with holding parameters given soft blood pressure. Eliquis resumed. Head CT done yesterday showed no acute CVA. Dehydration, improved Hypotension, resolved suspect patient had fluid deficit from inadequate oral intake compared to ileostomy output. Uric acid level checked after multiple blood transfusion. Blood pressure has been stable. Acute Metabolic encephalopathy, resolved resolved Likely drug-induced secondary to opioids. pain control KEYANNA, resolved Hyponatremia Nephrology is following. KEYANNA resolved. Restrict free water. Diuretic is on hold due to hyponatremia. continue to monitor renal function Critical illness myopathy Patient with global weakness. Hyponatremia probably contributing to weakness. Repeat head CT shows no acute disease. Continue PT Patient slated for SNF placement pending insurance authorization. VTE: Eliquis. Code: Full Dispo: SNF.
[2024-01-08] MEDS: ENSURE MAX PROTEIN 330 ML LIQUID PO SCH (20:19)
[2024-01-08] MEDS: ACETAMINOPHEN 325 MG TABLET PO PRN (21:23)
[2024-01-09 10:09] LABS: Magnesium 1.7 mg/dL (1.6-2.4)
[2024-01-09] MEDS: SOD FERRIC GLUC COMPLX/SUCROSE 125 MG in NA CHLORIDE 0.9% 100 ML IV ONE (11:26)
[2024-01-09 11:32] LABS: Anion Gap 10.1 mEq/L (5.0-15.0); Potassium 4.1 mEq/L (3.5-5.1)
--- NOTE | 2024-01-09 13:30 | P.PN ---
Subjective Date of Service: 01/09/24 Chief Complaint: A-fib Patient reports increased generalized weakness. She also reports pain in both arms and shoulders especially on the right. Ileostomy output- no bleeding. She is eating well. Physical Examination - Vital Signs Temperature: 98.6 F Blood Pressure: 114/53 Pulse: 89 Respirations: 16 Pulse Ox (%): 94 - Studies Medications List Reviewed: Yes Assessment And Plan - Plan Physical examination GEN: Alert and oriented x3, NAD. Pulm: Clear to auscultation bilaterally, no rhonchi or wheezes or crackles. CVS: Heart sounds 1 and 2 heard, irregular, normal rate, trace bilateral lower extremity edema. ABD: Midline surgical wound dressed. Wound looks clean and dry, abdomen not distended, normal bowel sounds, right-sided ileostomy-watery output. MSK: No joint tenderness Integumentary: No rashes Neuro: Normal speech, normal affect, global weakness. 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) Acute diastolic congestive heart failure moderate right pleural effusion s/p thoracentesis (12/17) Acute respiratory failure with hypoxia secondary to above Rectal fecal retention with barium contrast, resolved Chronic atrial fibrillation with RVR-on chronic anticoagulation Acute Metabolic encephalopathy, resolved KEYANNA, resolved Critical illness myopathy Hyponatremia Plan: Acute blood loss anemia GI bleed secondary to Colon cancer s/p right hemicolectomy, lysis of adhesions (12/07) 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 (last transfusion 12/23) s/p FFP (12/23) Eliquis has been on hold due to bleed, now resumed. Patient was seen and evaluated by GI Dr. Goodman s/p repeat EGD (12/24): noted esophagitis, esophageal ulcer gastric ulcer and duodenal erosions. s/p protonix drip (12/22-12/29). deescalated to oral protonix BID 12/30 MAGDALENA drain removed 12/21; PICC placed 12/02, new midline placed 12/22 s/p TPN (12/14-12/18) Patient is tolerating diet and eating well. Status post IV iron replacement. Patient on oral iron supplementation Hemoglobin has been stable since resuming Eliquis Monitor H&H while on Eliquis. Continue oral Protonix and sucralfate. Acute diastolic congestive heart failure moderate right pleural effusion s/p thoracentesis (12/17) Acute respiratory failure with hypoxia secondary to above Pleural effusion secondary to third spacing from hypoalbuminemia. Echo (12/17): 60-65% EF, normal diastolic function. Moderate dilated left atrium. mild TR/MR s/p thoracentesis 12/17; 800 ml clear fluid drained Pleural fluid showed signs of infected - culture without growth. Patient responded well to diuresis. Third spacing from hypoalbuminemia significantly resolved. Albumin level is improving. IV lasix transitioned to PO bumex 12/29 Bumex held briefly due to noted hemoconcentration and hyponatremia. Bumex resumed. Previously on rocephin/flagyl (12/09-12/12) and meropenem (12/12-12/16) s/p vanc / flagyl / Aztreonam (12/16-12/26); antibiotics since 12/27 per surgery ID input appreciated. Rectal fecal retention with barium contrast, resolved s/p dulcolax [place] x1, Mineral oil enema x1 (12/19) given presumed barium concretion Surgery Dr. Vidales also recommended soapsuds enema twice daily. Patient had a good bowel movement 12/23. Repeat abdominal x-ray shows resolution of the fecal retention. Chronic atrial fibrillation with RVR-on chronic anticoagulation Initial plan was for GENNA cardioversion, sotalol but given patient's severe anemia secondary to GI bleed plan for GENNA Cardioversion was aborted because patient could not be anticoagulated due to high risk for life-threatening bleed. Initially on Sotalol and metoprolol for rate and rhythm control; switched to amiodarone drip 12/13 due to RVR post-op. Amiodarone switched back to sotalol and metoprolol after diet was resumed. Status post GENNA and failed cardioversion 01/04 Patient initially treated with full dose Lovenox, hemoglobin has been stable, Lovenox replaced with Eliquis. Cardiology recommended outpatient evaluation for ablation therapy. Watchman procedure outpatient recommended in the near future once shes been on anticoagulation for at least 2 weeks. Continue sotalol and metoprolol. Give metoprolol with holding parameters given soft blood pressure. Eliquis resumed. Head CT done yesterday showed no acute CVA. Dehydration, improved Hypotension, resolved suspect patient had fluid deficit from inadequate oral intake compared to ileostomy output. Uric acid level checked after multiple blood transfusion. Blood pressure has been stable. Acute Metabolic encephalopathy, resolved resolved Likely drug-induced secondary to opioids. pain control KEYANNA, resolved Hyponatremia Nephrology is following. KEYANNA resolved. Restrict free water. Diuretic is on hold due to hyponatremia. continue to monitor renal function Critical illness myopathy Patient with global weakness. Patient getting weaker over the last couple of days. Hyponatremia probably contributing to weakness. Hyponatremia is improving Repeat head CT shows no acute disease. Continue PT Patient slated for SNF placement pending insurance authorization. VTE: Eliquis. Code: Full Dispo: SNF.
[2024-01-09 14:13] LABS: Digoxin Level 1.7 ng/mL (0.80-2.00)
[2024-01-09] MEDS: HYDROCODONE/APAP 5/325 MG TAB PO PRN (18:46)
[2024-01-09] MEDS ORDERED: SODIUM BICARB 325 MG TAB PO SCH (21:00)
[2024-01-10 08:27] LABS: Urine Total Volume 24 Hours 875 mL
[2024-01-10 10:55] LABS: Absolute Basophils 0.1 K/uL (0-0.5); Absolute Eosinophils 0.1 K/uL (0-0.5); Absolute Lymphocytes (CBC) 1.2 K/uL (0.7-4.9); Basophils % 1.1 % (0-1.3); Eosinophils % 1.4 % (0-4.4); Hematocrit 27.9 % (36.0-45.0); Hemoglobin 8.9 g/dL (12.0-15.0); Lymphocytes % 12.4 % (15.3-44.8); MCH 29.6 pg (27.0-35.0); MCV 92.6 fL (80-100); MPV 7.6 fL (7.6-11.3); Monocytes % 10.4 % (3.3-12.3); Neutrophils % 74.7 % (41.7-73.7); Platelets 291 thou/uL (152-406); RBC Red Blood Cell Count 3.01 M/uL (3.86-4.86); Red Cell Distribution Width 20.3 % (12.1-15.2)
[2024-01-10 11:12] LABS: 24H UR NA 27 mEq/24H (40-220); UR SODIUM 31 mmol/L (27-287)
[2024-01-10 11:40] LABS: Anisocytosis 1+; Blood Morphology Comment NOTED (NOT SEEN); Platelet Estimate ADEQ; Polychromasia SLIGHT; Rouleau NOTED; Spherocyte 1+; White Blood Cell Scan OK (OK)
[2024-01-10] MEDS: NA CHLORIDE 0.9% 500 ML IV ONE (11:51)
--- NOTE | 2024-01-10 13:31 | P.PN ---
Subjective Date of Service: 01/10/24 Chief Complaint: A-fib Daughter reports patient has increased generalized weakness. Patient has been tolerating diet. She is able to move her right arm better. Ileostomy output- no bleeding, watery output. Physical Examination - Vital Signs Temperature: 97.8 F Blood Pressure: 128/64 Pulse: 78 Respirations: 14 Pulse Ox (%): 96 - Studies Medications List Reviewed: Yes Assessment And Plan - Plan Physical examination GEN: Alert and oriented x3, NAD. Pulm: Clear to auscultation bilaterally, no rhonchi or wheezes or crackles. CVS: Heart sounds 1 and 2 heard, irregular, normal rate, trace bilateral lower extremity edema. ABD: Midline surgical wound dressed. Wound looks clean and dry, abdomen not distended, normal bowel sounds, right-sided ileostomy-watery output. MSK: No joint tenderness Integumentary: No rashes Neuro: Normal speech, normal affect, global weakness. 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) Acute diastolic congestive heart failure moderate right pleural effusion s/p thoracentesis (12/17) Acute respiratory failure with hypoxia secondary to above Rectal fecal retention with barium contrast, resolved Chronic atrial fibrillation with RVR-on chronic anticoagulation Acute Metabolic encephalopathy, resolved KEYANNA, resolved Critical illness myopathy Hyponatremia Plan: Acute blood loss anemia GI bleed secondary to Colon cancer s/p right hemicolectomy, lysis of adhesions (12/07) 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 (last transfusion 12/23) s/p FFP (12/23) Eliquis has been on hold due to bleed, now resumed. Patient was seen and evaluated by GI Dr. Goodman s/p repeat EGD (12/24): noted esophagitis, esophageal ulcer gastric ulcer and duodenal erosions. s/p protonix drip (12/22-12/29). deescalated to oral protonix BID 12/30 MAGDALENA drain removed 12/21; PICC placed 12/02, new midline placed 12/22 s/p TPN (12/14-12/18) Patient is tolerating diet and eating well. Status post IV iron replacement. Patient on oral iron supplementation Hemoglobin has been stable since resuming Eliquis Monitor H&H while on Eliquis. Continue oral Protonix and sucralfate. Increase oral intake as tolerated. Acute diastolic congestive heart failure moderate right pleural effusion s/p thoracentesis (12/17) Acute respiratory failure with hypoxia secondary to above Pleural effusion secondary to third spacing from hypoalbuminemia. Echo (12/17): 60-65% EF, normal diastolic function. Moderate dilated left at rium. mild TR/MR s/p thoracentesis 12/17; 800 ml clear fluid drained Pleural fluid showed no signs of infected - culture without growth. Patient responded well to diuresis. Third spacing from hypoalbuminemia significantly resolved. Albumin level is improving. IV lasix transitioned to PO bumex 12/29 Bumex held briefly due to noted hemoconcentration and hyponatremia. Bumex resumed. Previously on rocephin/flagyl (12/09-12/12) and meropenem (12/12-12/16) s/p vanc / flagyl / Aztreonam (12/16-12/26); antibiotics since 12/27 per surgery ID evaluated patient. Rectal fecal retention with barium contrast, resolved s/p dulcolax [place] x1, Mineral oil enema x1 (12/19) given presumed barium concretion Surgery Dr. Vidales also recommended soapsuds enema twice daily. Patient had a good bowel movement 12/23. Repeat abdominal x-ray shows resolution of the fecal retention. Chronic atrial fibrillation with RVR-on chronic anticoagulation Initial plan was for GENNA cardioversion, sotalol but given patient's severe anemia secondary to GI bleed plan for GENNA Cardioversion was aborted because patient could not be anticoagulated due to high risk for life-threatening bleed. Initially on Sotalol and metoprolol for rate and rhythm control; switched to amiodarone drip 12/13 due to RVR post-op. Amiodarone switched back to sotalol and metoprolol after diet was resumed. Status post GENNA and failed cardioversion 01/04 Patient initially treated with full dose Lovenox, hemoglobin has been stable, Lovenox replaced with Eliquis. Cardiology recommended outpatient evaluation for ablation therapy. Watchman procedure outpatient recommended in the near future once shes been on anticoagulation for at least 2 weeks. Continue sotalol and metoprolol. Give metoprolol with holding parameters given soft blood pressure. Eliquis resumed. Head CT done yesterday showed no acute CVA. Dehydration, improved Hypotension, resolved suspect patient had fluid deficit from inadequate oral intake compared to ileostomy output. Blood pressure has been stable. Acute Metabolic encephalopathy, resolved resolved Likely drug-induced secondary to opioids. pain control KEYANNA, resolved Hyponatremia Nephrology is following. KEYANNA resolved. Restrict free water. Bumex resumed, sodium level is improving. Continue to monitor renal function. Hypercalcemia Most likely secondary to dehydration and immobilization. Brief IV hydration recommended by nephrology. Continue Bumex to aid renal close excretion. Monitor BMP Critical illness myopathy Patient with global weakness. Patient getting weaker over the last couple of days. Hyponatremia probably contributing to weakness. Hyponatremia is improving Repeat head CT shows no acute disease. Continue PT Patient slated for SNF placement pending insurance authorization. VTE: Eliquis. Code: Full Dispo: SNF.
[2024-01-11 05:03] LABS: Absolute Basophils 0.1 K/uL (0-0.5); Absolute Eosinophils 0.2 K/uL (0-0.5); Absolute Lymphocytes (CBC) 1.5 K/uL (0.7-4.9); Absolute Monocytes 1.1 K/uL (0.1-1.3); Hemoglobin 9.4 g/dL (12.0-15.0); Lymphocytes % 14.9 % (15.3-44.8); MCH 30.9 pg (27.0-35.0); MCHC 33.7 g/dL (32.0-36.0); MCV 91.6 fL (80-100); MPV 7.3 fL (7.6-11.3); Monocytes % 11.5 % (3.3-12.3); Neutrophils % 70.6 % (41.7-73.7); Nucleated Red Blood Cells % 0.1 % (0-0); Platelets 314 thou/uL (152-406); RBC Red Blood Cell Count 3.05 M/uL (3.86-4.86)
[2024-01-11 05:06] LABS: Red Cell Distribution Width 20.4 % (12.1-15.2)
[2024-01-11 05:15] LABS: Albumin 3.3 g/dL (3.4-5.0); Anion Gap 11.1 mEq/L (5.0-15.0); Magnesium 1.6 mg/dL (1.6-2.4); Phosphorus 3.7 mg/dL (2.5-4.9); Potassium 4.1 mEq/L (3.5-5.1)
[2024-01-11] MEDS: NA CHLORIDE 0.9% 1,000 ML IV SCH (08:56)
--- NOTE | 2024-01-11 14:00 | P.PN ---
Subjective Date of Service: 01/11/24 Chief Complaint: A-fib No major changes from yesterday. Patient is tolerating diet. There seems to be negative fluid deficit and blood work indicating dehydration. Ileostomy output- watery output. No bleeding. Physical Examination - Vital Signs Temperature: 98.0 F Blood Pressure: 127/60 Pulse: 85 Respirations: 18 Pulse Ox (%): 95 - Studies Medications List Reviewed: Yes Assessment And Plan - Plan Physical examination GEN: Alert and oriented x3, NAD. Pulm: Clear to auscultation bilaterally, no rhonchi or wheezes or crackles. CVS: Heart sounds 1 and 2 heard, irregular, normal rate, trace bilateral lower extremity edema. ABD: Midline surgical wound dressed. Wound looks clean and dry, abdomen not distended, normal bowel sounds, right-sided ileostomy-watery output. MSK: No joint tenderness Integumentary: No rashes Neuro: Normal speech, normal affect, global weakness. 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) Acute diastolic congestive heart failure moderate right pleural effusion s/p thoracentesis (12/17) Acute respiratory failure with hypoxia secondary to above Rectal fecal retention with barium contrast, resolved Chronic atrial fibrillation with RVR-on chronic anticoagulation Acute Metabolic encephalopathy, resolved KEYANNA, resolved Critical illness myopathy Hyponatremia Hypercalcemia Plan: Acute blood loss anemia GI bleed secondary to Colon cancer s/p right hemicolectomy, lysis of adhesions (12/07) 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 (last transfusion 12/23) s/p FFP (12/23) Eliquis has been on hold due to bleed, now resumed. Patient was seen and evaluated by GI Dr. Goodman s/p repeat EGD (12/24): noted esophagitis, esophageal ulcer gastric ulcer and duodenal erosions. s/p protonix drip (12/22-12/29). deescalated to oral protonix BID 12/30 MAGDALENA drain removed 12/21; PICC placed 12/02, new midline placed 12/22 s/p TPN (12/14-12/18) Patient is tolerating diet and eating well. Status post IV iron replacement. Patient on oral iron supplementation Hemoglobin has been stable since resuming Eliquis Monitor hemoglobin Continue oral Protonix and sucralfate. Increase oral intake as tolerated. Acute diastolic congestive heart failure moderate right pleural effusion s/p thoracentesis (12/17) Acute respiratory failure with hypoxia secondary to above Pleural effusion secondary to third spacing from hypoalbuminemia. Echo (12/17): 60-65% EF, normal diastolic function. Moderate dilated left atrium. mild TR/MR s/p thoracentesis 12/17; 800 ml clear fluid drained Pleural fluid showed no signs of infected - culture without growth. Patient responded well to diuresis. Third spacing from hypoalbuminemia significantly resolved. Albumin level has improved. IV lasix transitioned to PO bumex 12/29 Bumex on hold due to hemoconcentration, hypercalcemia and elevated BUN suggesting dehydration. Hydrate with IV NS and monitor calcium and BUN levels. Previously on rocephin/flagyl (12/09-12/12) and meropenem (12/12-12/16) s/p vanc / flagyl / Aztreonam (12/16-12/26); antibiotics since 12/27 per surgery ID evaluated patient and assisted with management. Rectal fecal retention with barium contrast, resolved s/p dulcolax [place] x1, Mineral oil enema x1 (12/19) given presumed barium concretion Surgery Dr. Vidales also recommended soapsuds enema twice daily. Patient had a good bowel movement 12/23. Repeat abdominal x-ray shows resolution of the fecal retention. Chronic atrial fibrillation with RVR-on chronic anticoagulation Initial plan was for GENNA cardioversion, sotalol but given patient's severe anemia secondary to GI bleed plan for GENNA Cardioversion was aborted because patient could not be anticoagulated due to high risk for life-threatening bleed. Initially on Sotalol and metoprolol for rate and rhythm control; switched to am iodarone drip 12/13 due to RVR post-op. Amiodarone switched back to sotalol and metoprolol after diet was resumed. Status post GENNA and failed cardioversion 01/04 Patient initially treated with full dose Lovenox, hemoglobin has been stable, Lovenox replaced with Eliquis. Cardiology recommended outpatient evaluation for ablation therapy. Watchman procedure outpatient recommended in the near future once shes been on anticoagulation for at least 2 weeks. Continue sotalol and metoprolol. Give metoprolol with holding parameters given soft blood pressure. Continue Eliquis. Head CT done 01/06 showed no acute CVA. Dehydration Hypotension, resolved suspect patient has fluid deficit from inadequate oral intake compared to ileostomy output. Blood pressure has been stable. Trial of IV normal saline today. Monitor renal function. Acute Metabolic encephalopathy, resolved resolved Likely drug-induced secondary to opioids. pain control KEYANNA, resolved Hyponatremia Nephrology is following. KEYANNA resolved. Sodium level improved. Hold Bumex. Hydrate with IV NS today Continue to monitor renal function. Hypercalcemia Most likely secondary to dehydration and immobilization. IV NS Bumex is on hold given dehydration. Monitor Critical illness myopathy Patient with global weakness. Patient getting weaker over the last couple of days. Hyponatremia probably contributing to weakness. Hyponatremia is improving Repeat head CT shows no acute disease. Continue PT Patient slated for SNF placement pending insurance authorization. VTE: Eliquis. Code: Full Dispo: SNF.
--- NOTE | 2024-01-11 21:41 | P.PN ---
Date of Service: 01/11/24 Vital Signs Temp Pulse Resp BP Pulse Ox 98.2 F 85 16 145/58 H 97 01/11/24 16:00 01/11/24 16:00 01/11/24 16:00 01/11/24 16:00 01/11/24 16:00 Medications Acetaminophen (Acetaminophen 325 Mg Tablet) 650 mg PO Q6H PRN PRN Reason: Pain scale 5-7 (Moderate) Last Admin: 01/09/24 20:55 Dose: 650 mg Hydrocodone Bitart/Acetaminophen (Hydrocodone/Apap 5/325 Mg Tab) 1 tab PO Q4H PRN PRN Reason: Pain scale 5-7 (Moderate) Last Admin: 01/11/24 09:10 Dose: 1 tab Apixaban (Apixaban 5 Mg Tablet) 5 mg PO BID [facility] Last Admin: 01/11/24 20:59 Dose: 5 mg Collagenase (Collagenase 30 Gm Ointment) 1 appl TOP DAILY [facility] Last Admin: 01/11/24 08:57 Dose: 1 appl Digoxin (Digoxin 0.125 Mg Tablet) 0.125 mg PO DAILY [facility] Last Admin: 01/11/24 08:56 Dose: 0.125 mg Ferrous Sulfate (Ferrous Sulfate 325 Mg Tab) 325 mg PO DAILY@1200 [facility] Last Admin: 01/11/24 12:02 Dose: 325 mg Glucagon (Glucagon 1 Mg/Vial) 1 mg IM UD PRN PRN Reason: HYPOGLYCEMIA Dextrose (Dextrose 10% Water Iv Soln.) 125 mls @ 0 mls/hr IV PRN PRN; Protocol PRN Reason: HYPOGLYCEMIA Sodium Chloride (Ns 1000 Ml Ivbag) 1,000 mls @ 75 mls/hr IV .[id number] [facility] Stop: 01/13/24 20:00 Last Admin: 01/11/24 08:56 Dose: 1,000 mls Magnesium Chloride (Magnesium Chloride 64 Mg Tab) 128 mg PO TID [facility] Last Admin: 01/11/24 20:59 Dose: 128 mg Metoprolol Tartrate (Metoprolol Tar 25 Mg Tab) 25 mg PO BID 6AM 6PM [facility] Last Admin: 01/11/24 16:30 Dose: 25 mg Pantoprazole Sodium (Pantoprazole 40mg Tablet) 40 mg PO BIDAC [facility]; Protocol Last Admin: 01/11/24 16:30 Dose: 40 mg Protein (Ensure Max Protein 330 Ml Liquid) 330 ml PO BID [facility] Last Admin: 01/11/24 20:59 Dose: 330 ml Sodium Chloride (Sodium Chloride 0.9% 10ml Inj) 10 ml IV UD PRN PRN Reason: Diluant Sotalol HCl (Sotalol Hcl 80 Mg Tab) 120 mg PO BID 6AM 6PM [facility] Last Admin: 01/11/24 16:30 Dose: 120 mg Sucralfate (Sucralfate 1gm/10ml Ucup) 1 gm PO ACHS [facility] Last Admin: 01/11/24 20:59 Dose: 1 gm Assessment/ Plan: Nephrology Progress Note No Dyspnea No Chest Pain Weakness No Acute Events Overnight Vital Signs, Medications, Blood Work, and Imaging reviewed in the chart General: In no apparent distress. Cooperative. Obese. HEENT: Atraumatic Neck: Supple Respiratory: Clear to auscultation bilaterally Cardiovascular: No Edema, Irregular heart rate/rhythm Gastrointestinal: No guarding, Tenderness Musculoskeletal: No clubbing, No contractures Integumentary: No rashes, No cyanosis Neurological: Normal speech Blood work reviewed in the chart. Imagings Data: EXAM: Abdomen 1 View (KUB) HISTORY: [facility] Placement of NGT/OGT. Post Insertion. Pls call Floor to confirm if patient is ready. COMPARISON: 11/30/2023 CT abdomen and pelvis FINDINGS: Single view of the abdomen shows a nonspecific, nonobstructive bowel gas pattern. Enteric tube tip terminates in the region of the stomach body. Right upper quadrant surgical clips suggesting prior. Midline laparotomy skin celia. No suspicious calcifications are seen. The bones are unremarkable. IMPRESSION: Satisfactory positioning of the enteric tube is above. EXAMINATION: ONE VIEW CHEST XR CLINICAL INDICATION: PICC placement TECHNIQUE: Frontal chest projection is submitted. Examination is limited by patient positioning and technique. COMPARISON: No prior exam. FINDINGS: The tip of the right-sided PICC line is in the SVC. The heart is upper limit of normal in size. No displaced fractures identified. IMPRESSION: Right-sided PICC line has tip in the SVC. There is a left-sided catheter tubing also partially visualized in the left axillary region. EXAM: Single contrast barium enema INDICATION: Colon mass COMPARISON: CT abdomen January 30, 2024 Technique: Single contrast barium enema performed. Contrast reflux into small bowel. FINDINGS: An apple core 2 cm lesion involves the proximal transverse colon. Diverticula system from the colon without diverticulitis. No obstruction Fluoroscopy time: 1.3 minutes Number of images: 19 fluoroscopic spot images IMPRESSION: Apple core lesion proximal transverse colon likely neoplasm. EXAMINATION: CT ABDOMEN AND PELVIS WITHOUT CONTRAST CLINICAL INDICATION: Female, 73 years old. GI BLEED [facility] GI BLEED NO CONTRAST Bed Name: 4 TECHNIQUE: CT abdomen and pelvis was performed, without IV contrast, as per department protocol. Axial, sagittal and coronal reconstructions were obtained. One or more of the following dose reduction techniques were used: Automated exposure control, adjustment of the mA and kV according to the patient size, and iterative reconstruction. Unless otherwise specified, incidental findings do not require dedicated imaging follow-up. COMPARISON: No prior exam. FINDINGS: The lack of intravenous contrast limits the sensitivity of this exam for evaluation of solid visceral organs, vascular structures, and retroperitoneum. LOWER CHEST: The visualized lung bases are clear. LIVER: Normal in size and contour. No focal lesion. Cholecystectomy clips. SPLEEN: Normal size. No focal lesion. PANCREAS: No mass, ductal dilation, or angelica-pancreatic fluid. ADRENALS: Normal; no mass. KIDNEYS AND URETERS: Normal size and contour. No hydronephrosis. Benign- appearing right renal cyst. URINARY BLADDER: Normal contour. GASTROINTESTINAL TRACT: No evidence of bowel obstruction, significant free fluid, free air or abscess. There is mild diverticulosis coli of the sigmoid colon without diverticulitis. APPENDIX: Normal appendix. LYMPH NODES: No lymphadenopathy. MUSCULOSKELETAL: Mild multilevel spinal degenerative changes. ADDITIONAL FINDINGS: None. IMPRESSION: No acute or concerning abnormalities in the abdomen or pelvis, with evaluation limited by lack of IV contrast. Conclusions/Impression: Stage I KEYANNA may be due to hypovolemia CKD I with Proteinuria -No NSAIDs -Continue IVF Hyponatremia -Continue IVF with NS Hypokalemia -Replete prn Hypercalcemia may be due to immobilization -Consider pamidronate Hypomagnesemia -Replete prn -Continue Slo-Mag TID HTN with CKD -Continue Metoprolol for tachycardia Hypervolemia with Pulmonary Edema and Pleural Effusions Periperhal Edema -Hold diuretics at this time Hypoalbuminemia -Continue protein supplementation -Albumin IV prn Anemia in chronic illness/ blood loss Iron Deficiency 4.9% -PRBC prn -GI following Colon Cancer sp Resection 12-08-23 Invasive moderately differentiated adenocarcinoma -Follow up with surgery -Wound care as ordered Hospitalist note reviewed
[2024-01-12 05:44] LABS: Absolute Basophils 0.1 K/uL (0-0.5); Absolute Eosinophils 0.2 K/uL (0-0.5); Absolute Lymphocytes (CBC) 1.2 K/uL (0.7-4.9); Absolute Neutrophil 6.2 K/uL (1.8-8.0); Basophils % 1.1 % (0-1.3); Eosinophils % 2.6 % (0-4.4); Hematocrit 27.2 % (36.0-45.0); Hemoglobin 9.3 g/dL (12.0-15.0); MCH 31.2 pg (27.0-35.0); MCV 91.8 fL (80-100); MPV 7.3 fL (7.6-11.3); Monocytes % 11.7 % (3.3-12.3); Neutrophils % 70.6 % (41.7-73.7); Nucleated Red Blood Cells % 0.2 % (0-0); Platelets 283 thou/uL (152-406); RBC Red Blood Cell Count 2.97 M/uL (3.86-4.86); Red Cell Distribution Width 19.9 % (12.1-15.2)
[2024-01-12 05:51] LABS: Albumin 2.9 g/dL (3.4-5.0); Anion Gap 10.7 mEq/L (5.0-15.0); Magnesium 1.5 mg/dL (1.6-2.4); Phosphorus 3.3 mg/dL (2.5-4.9); Potassium 3.7 mEq/L (3.5-5.1)
--- NOTE | 2024-01-12 09:41 | P.PN ---
Date of Service: 01/12/24 Subjective: stoma ian came out during ostomy change. Surgeon notified this morning. Patient reports feeling better. 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 (last transfusion 12/23) s/p FFP (12/23) Dr. Goodman, GI is following s/p repeat EGD (12/24): noted esophagitis, esophageal ulcer gastric ulcer and duodenal erosions. s/p protonix drip (12/22-12/29). deescalated to oral protonix BID 12/30 PICC placed 12/02, new midline placed 12/22 tolerating soft diet. Oral intake improving Continue PO protonix/carafate Eliquis resumed 01/01. hgb stable since restarting eliquis s/p IV iron; deescalated to oral ferrous sulfate 01/01 Acute diastolic congestive heart failure moderate right pleural effusion s/p thoracentesis (12/17) Acute respiratory failure with hypoxia secondary to above Throughout her hospitalization course, secondary to low nutrition, anemia, blood transfusions, n.p.o./IV fluids patient has been having third spacing Which led to accumulation of pleural effusions Echo (12/17): 60-65% EF, normal diastolic function. Moderate dilated left atrium. mild TR/MR CT abdomen/pelvis (12/17): Moderate right pleural effusion, trace left pleural effusion s/p thoracentesis 12/17; 800 ml clear fluid drained not infected - culture without growth. s/p multiple antibiotics 12/09-12/26; antibiotics dc'd per surgery 12/27 ID is following Albumin levels improved. Third spacing from hypoalbuminemia significantly resolved. IV lasix transitioned to PO bumex 12/29 Bumex dc'd 01/10. Rectal fecal retention with barium contrast, resolved s/p dulcolax [place] x1, Mineral oil enema x1 (12/19) given presumed barium concretion Surgery Dr. Vidales has recommended soapsuds enema twice daily. Patient had a good bowel movement 12/23. Resolved. Chronic atrial fibrillation with RVR-on chronic anticoagulation Initial plan was for GENNA cardioversion, sotalol but given patient's severe anemia secondary to GI bleed plan for GENNA Cardioversion was aborted because patient cannot be anticoagulated due to high risk for life-threatening bleed. Initially on Sotalol and metoprolol for rate and rhythm control; switched to am iodarone drip 12/13 due to RVR post-op / NPO Lovenox transitioned to eliquis 01/01. Hemoglobin stable since restarting eliquis s/p GENNA and failed cardioversion 01/04 Cardiology is following, recommended outpatient evaluation for ablation therapy. will consider watchman procedure as outpatient in near future once shes been back on anticoagulation for at least 2 weeks. continue sotalol, metoprolol, eliquis Dehydration, improved Hypotension, resolved suspect patient had fluid deficit from inadequate oral intake compared to ileostomy output. Blood pressure seems to be more stable. continue to monitor renal function continue IV fluids; started 01/10 KEYANNA, resolved Nephrology consulted KEYANNA resolved. continue to monitor renal function Hypercalcemia likely related to dehydration / immobilization continue IV fluids another day Nephrology following Daily labs Critical illness myopathy Patient feels weaker last few days. Hyponatremia likely contributing to weakness. Sodium improving repeat CT head 01/06 was negative Continue PT Social service consulted to assist with arrangement for SNF VTE: home eliquis Code: Full Dispo: SNF, anticipate medically clear tomorrow pending further monitoring; electrolytes improve, labs stable Time Spent Managing Pts Care (In Minutes): 45
[2024-01-12] MEDS: Magnesium Sulfate 2gm IVPB 2 G/50 ML BAG IV ONE (09:56)
[2024-01-12] MEDS: FERROUS SULFATE 325 MG TAB PO SCH (09:57)
[2024-01-12] MEDS: POTASSIUM CL SA 10 MEQ TAB PO ONE (09:57)
--- NOTE | 2024-01-12 20:20 | P.PN ---
Date of Service: 01/12/24 Vital Signs Temp Pulse Resp BP Pulse Ox 96.3 F L 64 17 138/71 97 01/12/24 17:30 01/12/24 17:30 01/12/24 17:30 01/12/24 17:30 01/12/24 17:30 Medications Acetaminophen (Acetaminophen 325 Mg Tablet) 650 mg PO Q6H PRN PRN Reason: Pain scale 5-7 (Moderate) Last Admin: 01/09/24 20:55 Dose: 650 mg Hydrocodone Bitart/Acetaminophen (Hydrocodone/Apap 5/325 Mg Tab) 1 tab PO Q4H PRN PRN Reason: Pain scale 5-7 (Moderate) Last Admin: 01/12/24 14:28 Dose: 1 tab Apixaban (Apixaban 5 Mg Tablet) 5 mg PO BID [facility] Last Admin: 01/12/24 09:57 Dose: 5 mg Collagenase (Collagenase 30 Gm Ointment) 1 appl TOP DAILY [facility] Last Admin: 01/12/24 10:03 Dose: 1 appl Digoxin (Digoxin 0.125 Mg Tablet) 0.125 mg PO DAILY [facility] Last Admin: 01/12/24 09:57 Dose: 0.125 mg Ferrous Sulfate (Ferrous Sulfate 325 Mg Tab) 325 mg PO BID [facility] Last Admin: 01/12/24 09:57 Dose: 325 mg Glucagon (Glucagon 1 Mg/Vial) 1 mg IM UD PRN PRN Reason: HYPOGLYCEMIA Dextrose (Dextrose 10% Water Iv Soln.) 125 mls @ 0 mls/hr IV PRN PRN; Protocol PRN Reason: HYPOGLYCEMIA Sodium Chloride (Ns 1000 Ml Ivbag) 1,000 mls @ 75 mls/hr IV .[id number] [facility] Stop: 01/13/24 20:00 Last Admin: 01/12/24 11:25 Dose: 1,000 mls Magnesium Chloride (Magnesium Chloride 64 Mg Tab) 128 mg PO TID [facility] Last Admin: 01/12/24 14:11 Dose: 128 mg Metoprolol Tartrate (Metoprolol Tar 25 Mg Tab) 25 mg PO BID 6AM 6PM [facility] Last Admin: 01/12/24 17:13 Dose: 25 mg Pantoprazole Sodium (Pantoprazole 40mg Tablet) 40 mg PO BIDAC [facility]; Protocol Last Admin: 01/12/24 17:13 Dose: 40 mg Protein (Ensure Max Protein 330 Ml Liquid) 330 ml PO BID [facility] Last Admin: 01/12/24 09:00 Dose: 330 ml Sodium Chloride (Sodium Chloride 0.9% 10ml Inj) 10 ml IV UD PRN PRN Reason: Diluant Sotalol HCl (Sotalol Hcl 80 Mg Tab) 120 mg PO BID 6AM 6PM [facility] Last Admin: 01/12/24 17:13 Dose: 120 mg Sucralfate (Sucralfate 1gm/10ml Ucup) 1 gm PO ACHS [facility] Last Admin: 01/12/24 17:13 Dose: 1 gm Assessment/ Plan: Nephrology Progress Note No Dyspnea No Chest Pain Weakness No Acute Events Overnight Vital Signs, Medications, Blood Work, and Imaging reviewed in the chart General: In no apparent distress. Cooperative. Obese. HEENT: Atraumatic Neck: Supple Respiratory: Clear to auscultation bilaterally Cardiovascular: No Edema, Irregular heart rate/rhythm Gastrointestinal: No guarding, Tenderness Musculoskeletal: No clubbing, No contractures Integumentary: No rashes, No cyanosis Neurological: Normal speech Blood work reviewed in the chart. Imagings Data: EXAM: Abdomen 1 View (KUB) HISTORY: [facility] MAIN Placement of NGT/OGT. Post Insertion. Pls call Floor to confirm if patient is ready. COMPARISON: 11/30/2023 CT abdomen and pelvis FINDINGS: Single view of the abdomen shows a nonspecific, nonobstructive bowel gas pattern. Enteric tube tip terminates in the region of the stomach body. Right upper quadrant surgical clips suggesting prior. Midline laparotomy skin celia. No suspicious calcifications are seen. The bones are unremarkable. IMPRESSION: Satisfactory positioning of the enteric tube is above. EXAMINATION: ONE VIEW CHEST XR CLINICAL INDICATION: PICC placement TECHNIQUE: Frontal chest projection is submitted. Examination is limited by patient positioning and technique. COMPARISON: No prior exam. FINDINGS: The tip of the right-sided PICC line is in the SVC. The heart is upper limit of normal in size. No displaced fractures identified. IMPRESSION: Right-sided PICC line has tip in the SVC. There is a left-sided catheter tubing also partially visualized in the left axillary region. EXAM: Single contrast barium enema INDICATION: Colon mass COMPARISON: CT abdomen January 30, 2024 Technique: Single contrast barium enema performed. Contrast reflux into small bowel. FINDINGS: An apple core 2 cm lesion involves the proximal transverse colon. Diverticula system from the colon without diverticulitis. No obstruction Fluoroscopy time: 1.3 minutes Number of images: 19 fluoroscopic spot images IMPRESSION: Apple core lesion proximal transverse colon likely neoplasm. EXAMINATION: CT ABDOMEN AND PELVIS WITHOUT CONTRAST CLINICAL INDICATION: Female, 73 years old. GI BLEED [facility] MAIN GI BLEED NO CONTRAST Bed Name: 4 TECHNIQUE: CT abdomen and pelvis was performed, without IV contrast, as per department protocol. Axial, sagittal and coronal reconstructions were obtained. One or more of the following dose reduction techniques were used: Automated exposure control, adjustment of the mA and kV according to the patient size, and iterative reconstruction. Unless otherwise specified, incidental findings do not require dedicated imaging follow-up. COMPARISON: No prior exam. FINDINGS: The lack of intravenous contrast limits the sensitivity of this exam for evaluation of solid visceral organs, vascular structures, and retroperitoneum. LOWER CHEST: The visualized lung bases are clear. LIVER: Normal in size and contour. No focal lesion. Cholecystectomy clips. SPLEEN: Normal size. No focal lesion. PANCREAS: No mass, ductal dilation, or angelica-pancreatic fluid. ADRENALS: Normal; no mass. KIDNEYS AND URETERS: Normal size and contour. No hydronephrosis. Benign- appearing right renal cyst. URINARY BLADDER: Normal contour. GASTROINTESTINAL TRACT: No evidence of bowel obstruction, significant free fluid, free air or abscess. There is mild diverticulosis coli of the sigmoid colon without diverticulitis. APPENDIX: Normal appendix. LYMPH NODES: No lymphadenopathy. MUSCULOSKELETAL: Mild multilevel spinal degenerative changes. ADDITIONAL FINDINGS: None. IMPRESSION: No acute or concerning abnormalities in the abdomen or pelvis, with evaluation limited by lack of IV contrast. Conclusions/Impression: Stage I KEYANNA may be due to hypovolemia CKD I with Proteinuria -No NSAIDs -Continue IVF Hyponatremia -Continue IVF with NS Hypokalemia -Replete prn Hypercalcemia may be due to immobilization -Consider pamidronate -Continue IVF Hypomagnesemia -Replete prn -Continue Slo-Mag TID HTN with CKD -Continue Metoprolol for tachycardia Hypervolemia with Pulmonary Edema and Pleural Effusions Periperhal Edema -Hold diuretics at this time Hypoalbuminemia -Continue protein supplementation -Albumin IV prn Anemia in chronic illness/ blood loss Iron Deficiency 4.9% -PRBC prn -GI following Colon Cancer sp Resection 12-08-23 Invasive moderately differentiated adenocarcinoma -Follow up with surgery -Wound care as ordered Hospitalist note reviewed Case reviewed with Dr. Ryan
[2024-01-13 07:05] LABS: Albumin 2.5 g/dL (3.4-5.0); Anion Gap 9.5 mEq/L (5.0-15.0); Phosphorus 2.6 mg/dL (2.5-4.9); Potassium 3.5 mEq/L (3.5-5.1)
[2024-01-13 08:51] VITALS: BP 127/62; TEMP 98.1
[2024-01-13 09:04] VITALS: O2SAT 96
--- NOTE | 2024-01-13 09:14 | P.DS ---
Admission Date: 11/30/23 Discharge Date: 01/13/24 Disposition: TRANSFER TO SNF - REHAB Discharge Condition: GOOD Reason for Admission: A-fib Consultations: Cardiology - Dr. Francis, Dr. Tran Nephrology - Dr. Brumfield, Dr. Herrera GI - Dr. Goodman General Surgery - Dr. Vidales, Dr. Drummond Infectious Disease - Dr. Hawley Brief History of Present Illness: 73 yo F, PMH: hypertension and atrial fibrillation on Eliquis Patient presents to the ED from cardiology office recommending admission for initiation of sotalol and likely GENNA cardioversion. On presentation her labs revealed H&H 5.1/16.5 and platelets 298. She reports melanotic diarrhea for 1 month that occurs intermittent every three days with the last episode this morning. She has not had a GI bleed previously. On evaluation, she is hypotensive with mild tachyacardia, alert/oriented, tolerating PRBC transfusion. Laboratory evaluation H&H 5.1/16.5, platelets 298, potassium 3.4, BUN/creatinine 27/1.73, GFR 31, serum iron glucose 143, BNP 2903 Michelle will be admitted to hospitalist service for further treatment of active blood loss anemia secondary to GI bleed and atrial fibrillation with RVR. Hospital Course: Problem List: Acute blood loss anemia, resolved GI bleed secondary to Colon cancer s/p right hemicolectomy, lysis of adhesions (12/07) 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 (12/13) Acute diastolic congestive heart failure moderate right pleural effusion s/p thoracentesis (12/17) Acute respiratory failure with hypoxia secondary to above Rectal fecal retention with barium contrast, resolved Chronic atrial fibrillation with RVR-on chronic anticoagulation KEYANNA, resolved Hypercalcemia, improved Critical illness myopathy Physician discharge instructions: Patient initially presented to ED per her corporate real estate specialist recommendations for initiation of sotalol and likely GENNA cardioversion due to her a-fib with RVR. On arrival, her hemoglobin was noted to be critical - 5.1, and received blood transfusions. Dr. Goodman, GI was consulted. Patient underwent emergent EGD/colonoscopy which noted gastric ulcers without evidence of any active bleeding, also noted stricture with possible mass concerning for colon cancer. Pathology report from transverse colon biopsy confirmed invasive moderately differentiated adenocarcinoma. Dr. Vidales, general surgeon, was consulted and performed right hemicolectomy on 12/07. Patient did well initially post operatively, however started to develop more pain and leukocytosis worsened over the next few days. CT abdomen done 12/13 noted multiple fluid collections and pockets of air in region of transverse colon anastomosis concerning for leak. Patient was taken back to OR and underwent ex lap, repair of perforation/intestinal leak with creation of loop ileostomy on 12/13. She was found to have small punctate hole at anastomosis site without evidence of ischemia during surgery. She was restarted on Lovenox post operatively on 12/14. Over the course of the next few days her hemoglobin continued to slowly downtrend. Dr. Goodman performed repeat EGD on 12/24. EGD noted esophagitis, esophageal ulcer gastric ulcer and duodenal erosions. She received several days of protonix drip (12/22-12/29) and was deescalated to oral protonix 12/30, in addition to carafate. Overall, patient required 11 blood transfusions and 1 unit of fresh frozen plasma throughout her prolonged hospitalization. (last transfusion 12/23). Patient completed course of IV iron this hospitalization. IV iron was eventually deescalated to ferrous sulfate 01/01. Advised patient to continue oral iron supplementation on discharge. Repeat iron studies in ~3 months. Her eliquis was restarted on 01/01. Hemoglobin has been stable since restarting eliquis. Patient received multiple days of TPN for supplemental nutrition. (12/14-12/18). Oral intake improved with time after stopping TPN. Patient has been able to tolerate diet without issues. Recommend weekly labs to continue monitoring hemoglobin, electrolytes, renal function. Patient had prolonged hospitalization secondary to GI bleed / surgery / surgical complications. Throughout her hospitalization course required multiple blood transfusions, IVF, TPN which led to third-spacing / accumulation of pleural effusions CT abdomen/pelvis (12/17): Moderate right pleural effusion, trace left pleural effusion. Repeat Chest xray (12/28): small right pleural effusion with hazy right mid and lower opacities. Trace left pleural effusion Patient underwent thoracentesis on 12/17 and had 800 ml clear fluid drained. Fluid cytology from thoracentesis was without growth. No infection involving the effusion. Echocardiogram this hospitalization with normal EF (60-65%), normal diastolic function. Moderate dilated left atrium. mild TR/MR She responded well to IV lasix post thoracentesis and peripheral edema continued to improve. IV lasix was transitioned to oral bumex on 12/29 and patient continued to improve. She diuresed well, and hospitalization was then impacted by sub-optimal oral intake and increased ostomy output that lead to mild dehydration. Diuretics were discontinued, and she improved. Towards the end of her hospitalization she was noted to have hypercalcemia. This was felt to be due to immobility and mild dehydration. This improved and was back to 10.0 with gentle IV fluid hydration. Discussed with patient to continue working on oral intake and hydration. ID was consulted Patient received multiple antibiotics throughout her stay to cover possible infection. Abx this hospitalization: rocephin/flagyl (12/09-12/12), merrem (12/12-12/16), vanc/flagyl/Aztreonam (12/16-12/26) Antibiotics were discontinued 12/27 per surgery. No evidence of any active ongoing infection. Suspect elevated leukocytosis secondary to combination of surgery / barium concentration. Leukocytosis resolved 12/29. Repeat chest x-rays post thoracentesis noted interval improvement in size of pleural effusions. Her albumin levels improved and third spacing from hypoalbuminemia significantly resolved. Advised patient and family to consider repeating imaging in next 2-3 months to ensure continued improvement/stability. In regards to a-fib, Patient initially presented to ED for sotalol initiation, possible GENNA cardioversion after being advised to come in by her corporate real estate specialist during office visit. Cardiology was consulted. Initial plan was for GENNA cardioversion, sotalol but given patient's severe anemia secondary to GI bleed plan for GENNA Cardioversion was aborted. She was initially started Sotalol and metoprolol for rate and rhythm control and then had to be switched to amiodarone drip 12/13 due to RVR post-op / NPO status. Rhythm was difficult to control on IV amiodarone. She had improvement since switching amiodarone back to sotalol and metoprolol. Patient was unable be anticoagulated initially due to high risk for life- threatening bleed as noted above. Her anticoagulation - eliquis was restarted on 01/01. Once patient was more stable, Cardiology attempted GENNA-cardioversion on 01/04 but was unsuccessful - she converted back to afib ~[address] Francis recommended outpatient evaluation for ablation therapy Recommend close follow up within 1 week for further management. Consider outpatient eval for watchman procedure as outpatient in near future once patient has been back on anticoagulation for at least 2 weeks. to discuss possible watchman procedure. Medication changes: continue current active medication at [facility] Eliquis 5 mg twice daily digoxin 0.125 mg daily ferrous sulfate 325 mg twice daily Sotalol 120 mg twice daily Metoprolol 25 mg twice daily Pantoprazole 40 mg twice daily Continue carafate for at least 4 weeks from date of EGD (12/24 - 01/24). Follow up with Dr. Goodman for further recommendations [place] as needed for pain Ensure Magnesium TID 128mg PO Follow up: PCP 3-5 days Cardiology 1-2 weeks GI, 1-2 weeks Nephrology in ~2-[address] Vidales in ~1-2 weeks. Please call to schedule / confirm appointments On day of discharge, she was still requiring max assistance with [id number] / physical activity. Surgical incision/wound on abdomen - continue damp to dry dressing daily with vashe - ney thick layer of santyl on wound per Dr. Vidales Physical Exam: GEN: alert, NAD, AOx3 CV: Irregularly Irregular rate and rhythm, HR: 80-90s; no edema Pulm: Nonlabored respirations on RA, clear bilaterally ABD: Midline surgical wound healing well, no evidence of infection, no drainage, damp-to-dry dressing, nondistended, ileostomy with dark brown output Vital Signs/Physical Exam: Temp Pulse Resp BP Pulse Ox 98.1 F 83 14 127/62 96 01/13/24 08:00 01/13/24 08:00 01/13/24 08:00 01/13/24 08:00 01/13/24 08:00 Laboratory Data at Discharge: WBC 8.80 thou/uL (4.3-10.9) 01/12/24 05:16 Hgb 9.3 g/dL (12.0-15.0) L 01/12/24 05:16 Hct 27.2 % (36.0-45.0) L 01/12/24 05:16 Plt Count 283 thou/uL (152-406) 01/12/24 05:16 PT 15.8 SECONDS (9.4-12.5) H 12/25/23 05:20 INR 1.43 12/25/23 05:20 APTT 26.9 SECONDS (24.3-36.9) 12/24/23 05:56 Sodium 142 mEq/L (136-145) D 01/13/24 06:14 Potassium 3.5 mEq/L (3.5-5.1) 01/13/24 06:14 BUN 29 mg/dL (7-18) H 01/13/24 06:14 Creatinine 0.55 mg/dL (0.55-1.02) 01/13/24 06:14 Glucose 118 mg/dL (74-106) H 01/13/24 06:14 Uric Acid 6.6 mg/dL (2.6-6.0) H 01/08/24 05:49 Phosphorus 2.6 mg/dL (2.5-4.9) 01/13/24 06:14 Magnesium 1.5 mg/dL (1.6-2.4) L 01/12/24 05:16 Total Bilirubin 1.8 mg/dL (0.2-1.0) H 01/06/24 05:40 AST 29 U/L (15-37) 01/06/24 05:40 ALT 25 U/L (13-56) 01/06/24 05:40 Alkaline Phosphatase 670 U/L (45-117) H 01/06/24 05:40 Triglycerides 43 mg/dL (<150) 12/01/23 05:49 Cholesterol 115 mg/dL (<200) 12/01/23 05:49 HDL Cholesterol 42 mg/dL (40-60) 12/01/23 05:49 Cholesterol/HDL Ratio 2.74 12/01/23 05:49 Lipase 8 U/L (13-75) L 12/09/23 06:15 Home Medications: Apixaban [Eliquis] 1 tab PO BID 11/30/23 Collagenase [Santyl Ointment*] 1 appl TOP DAILY #0 tube 01/13/24 Digoxin [Lanoxin*] 0.125 mg PO DAILY 30 Days #30 tab 01/13/24 Ensure Max Protein 330 ml PO BID can 01/13/24 Ferrous Sulfate [Ferrous Sulfate*] 325 mg PO BID 30 Days #60 tab 01/13/24 Hydrocodone 5/APAP 325 [[place] 5/325*] 1 tab PO Q4H PRN #0 tab 01/13/24 Magnesium Chloride [Slow-Mag*] 128 mg PO TID #0 tab 01/13/24 Metoprolol Tartrate [Lopressor*] 25 mg PO BID 6AM 6PM 30 Days #60 tab 01/13/24 Pantoprazole [Protonix Tab*] 40 mg PO BIDAC 30 Days #60 tab 01/13/24 Sotalol HCl [Sotalol AF] 120 mg PO BID 30 Days #60 tab 01/13/24 Sucralfate [Carafate*] 10 ml PO ACHS PRN 30 Days 01/13/24 New Medications: Ferrous Sulfate [Ferrous Sulfate*] 325 mg PO BID 30 Days #60 tab Digoxin [Lanoxin*] 0.125 mg PO DAILY 30 Days #30 tab Metoprolol Tartrate [Lopressor*] 25 mg PO BID 6AM 6PM 30 Days #60 tab Hydrocodone 5/APAP 325 [[place] 5/325*] 1 tab PO Q4H PRN #0 tab PRN Reason: Pain Scale 5-7 (Moderate) Pantoprazole [Protonix Tab*] 40 mg PO BIDAC 30 Days #60 tab Collagenase [Santyl Ointment*] 1 appl TOP DAILY #0 tube Magnesium Chloride [Slow-Mag*] 128 mg PO TID #0 tab Sotalol HCl [Sotalol AF] 120 mg PO BID 30 Days #60 tab Physician Discharge Instructions: Physician discharge instructions: Patient initially presented to ED per her corporate real estate specialist recommendations for initiation of sotalol and likely GENNA cardioversion due to her a-fib with RVR. On arrival, her hemoglobin was noted to be critical - 5.1, and received blood transfusions. Dr. Goodman, GI was consulted. Patient underwent emergent EGD/colonoscopy which noted gastric ulcers without evidence of any active bleeding, also noted stricture with possible mass concerning for colon cancer. Pathology report from transverse colon biopsy confirmed invasive moderately differentiated adenocarcinoma. Dr. Vidales, general surgeon, was consulted and performed right hemicolectomy on 12/07. Patient did well initially post operatively, however started to develop more pain and leukocytosis worsened over the next few days. CT abdomen done 12/13 noted multiple fluid collections and pockets of air in region of transverse colon anastomosis concerning for leak. Patient was taken back to OR and underwent ex lap, repair of perforatio n/intestinal leak with creation of loop ileostomy on 12/13. She was found to have small punctate hole at anastomosis site without evidence of ischemia during surgery. She was restarted on Lovenox post operatively on 12/14. Over the course of the next few days her hemoglobin continued to slowly downtrend. Dr. Goodman performed repeat EGD on 12/24. EGD noted esophagitis, esophageal ulcer gastric ulcer and duodenal erosions. She received several days of protonix drip (12/22-12/29) and was deescalated to oral protonix 12/30, in addition to carafate. Overall, patient required 11 blood transfusions and 1 unit of fresh frozen plasma throughout her prolonged hospitalization. (last transfusion 12/23). Patient completed course of IV iron this hospitalization. IV iron was eventually deescalated to ferrous sulfate 01/01. Advised patient to continue oral iron supplementation on discharge. Repeat iron studies in ~3 months. Her eliquis was restarted on 01/01. Hemoglobin has been stable since restarting eliquis. Patient received multiple days of TPN for supplemental nutrition. (12/14-12/18). Oral intake improved with time after stopping TPN. Patient has been able to tolerate diet without issues. Recommend weekly labs to continue monitoring hemoglobin, electrolytes, renal function. Patient had prolonged hospitalization secondary to GI bleed / surgery / surgical complications. Throughout her hospitalization course required multiple blood transfusions, IVF, TPN which led to third-spacing / accumulation of pleural effusions CT abdomen/pelvis (12/17): Moderate right pleural effusion, trace left pleural effusion. Repeat Chest xray (12/28): small right pleural effusion with hazy right mid and lower opacities. Trace left pleural effusion Patient underwent thoracentesis on 12/17 and had 800 ml clear fluid drained. Fluid cytology from thoracentesis was without growth. No infection involving the effusion. Echocardiogram this hospitalization with normal EF (60-65%), normal diastolic function. Moderate dilated left atrium. mild TR/MR She responded well to IV lasix post thoracentesis and peripheral edema continued to improve. IV lasix was transitioned to oral bumex on 12/29 and patient continued to improve. She diuresed well, and hospitalization was then impacted by sub-optimal oral intake and increased ostomy output that lead to mild dehydration. Diuretics were discontinued, and she improved. Towards the end of her hospitalization she was noted to have hypercalcemia. This was felt to be due to immobility and mild dehydration. This improved and was b ack to 10.0 with gentle IV fluid hydration. Discussed with patient to continue working on oral intake and hydration. ID was consulted Patient received multiple antibiotics throughout her stay to cover possible infection. Abx this hospitalization: rocephin/flagyl (12/09-12/12), merrem (12/12-12/16), vanc/flagyl/Aztreonam (12/16-12/26) Antibiotics were discontinued 12/27 per surgery. No evidence of any active ongoing infection. Suspect elevated leukocytosis secondary to combination of surgery / barium concentration. Leukocytosis resolved 12/29. Repeat chest x-rays post thoracentesis noted interval improvement in size of pleural effusions. Her albumin levels improved and third spacing from hypoalbuminemia significantly resolved. Advised patient and family to consider repeating imaging in next 2-3 months to ensure continued improvement/stability. In regards to a-fib, Patient initially presented to ED for sotalol initiation, possible GENNA cardioversion after being advised to come in by her corporate real estate specialist during office visit. Cardiology was consulted. Initial plan was for GENNA cardioversion, sotalol but given patient's severe anemia secondary to GI bleed plan for GENNA Cardioversion was aborted. She was initially started Sotalol and metoprolol for rate and rhythm control and then had to be switched to amiodarone drip 12/13 due to RVR post-op / NPO status. Rhythm was difficult to control on IV amiodarone. She had improvement since switching amiodarone back to sotalol and metoprolol. Patient was unable be anticoagulated initially due to high risk for life- threatening bleed as noted above. Her anticoagulation - eliquis was restarted on 01/01. Once patient was more stable, Cardiology attempted GENNA-cardioversion on 01/04 but was unsuccessful - she converted back to afib ~[address] Francis recommended outpatient evaluation for ablation therapy Recommend close follow up within 1 week for further management. Consider outpatient eval for watchman procedure as outpatient in near future once patient has been back on anticoagulation for at least 2 weeks. to discuss possible watchman procedure. Medication changes: continue current active medication at [facility] Eliquis 5 mg twice daily digoxin 0.125 mg daily ferrous sulfate 325 mg twice daily Sotalol 120 mg twice daily Metoprolol 25 mg twice daily Pantoprazole 40 mg twice daily Continue carafate for at least 4 weeks from date of EGD (12/24 - 01/24). Follow up with Dr. Goodman for further recommendations Follow up: PCP 3-5 days Cardiology 1-2 weeks GI, 1-2 weeks Nephrology in ~2-[address] Vidales in ~1-2 weeks. Please call to schedule / confirm appointments On day of discharge, she was still requiring max assistance with [id number] / physical activity. Surgical incision/wound on abdomen - continue damp to dry dressing daily with vashe - ney thick layer of santyl on wound per Dr. Vidales Followup: Ryan Brumfield DO [ACTIVE - CAN ADMIT] - (Follow up in 2-4 weeks) Patrick Vidales MD [ACTIVE - CAN ADMIT] - 1-2 Weeks NONE,NONE [Primary Care Provider] - Placido Goodman MD [ASSOCIATE-ACTIVE - CAN ADMIT] - 1-2 Weeks Time spent managing pt's care (in minutes): 45
--- NOTE | 2024-01-13 21:44 | P.PN ---
Date of Service: 01/13/24 Vital Signs Temp Pulse Resp BP Pulse Ox 98.1 F 83 14 127/62 96 01/13/24 08:00 01/13/24 08:00 01/13/24 08:00 01/13/24 08:00 01/13/24 08:00 Assessment/ Plan: Nephrology Progress Note No Dyspnea No Chest Pain Weakness No Acute Events Overnight Vital Signs, Medications, Blood Work, and Imaging reviewed in the chart General: In no apparent distress. Cooperative. Obese. HEENT: Atraumatic Neck: Supple Respiratory: Clear to auscultation bilaterally Cardiovascular: No Edema, Irregular heart rate/rhythm Gastrointestinal: No guarding, Tenderness Musculoskeletal: No clubbing, No contractures Integumentary: No rashes, No cyanosis Neurological: Normal speech Blood work reviewed in the chart. Imagings Data: EXAM: Abdomen 1 View (KUB) HISTORY: [facility] MA[facility] Placement of NGT/OGT. Post Insertion. Pls call Floor to confirm if patient is ready. COMPARISON: 11/30/2023 CT abdomen and pelvis FINDINGS: Single view of the abdomen shows a nonspecific, nonobstructive bowel gas pattern. Enteric tube tip terminates in the region of the stomach body. Right upper quadrant surgical clips suggesting prior. Midline laparotomy skin celia. No suspicious calcifications are seen. The bones are unremarkable. IMPRESSION: Satisfactory positioning of the enteric tube is above. EXAMINATION: ONE VIEW CHEST XR CLINICAL INDICATION: PICC placement TECHNIQUE: Frontal chest projection is submitted. Examination is limited by patient positioning and technique. COMPARISON: No prior exam. FINDINGS: The tip of the right-sided PICC line is in the SVC. The heart is upper limit of normal in size. No displaced fractures identified. IMPRESSION: Right-sided PICC line has tip in the SVC. There is a left-sided catheter tubing also partially visualized in the left axillary region. EXAM: Single contrast barium enema INDICATION: Colon mass COMPARISON: CT abdomen January 30, 2024 Technique: Single contrast barium enema performed. Contrast reflux into small bowel. FINDINGS: An apple core 2 cm lesion involves the proximal transverse colon. Diverticula system from the colon without diverticulitis. No obstruction Fluoroscopy time: 1.3 minutes Number of images: 19 fluoroscopic spot images IMPRESSION: Apple core lesion proximal transverse colon likely neoplasm. EXAMINATION: CT ABDOMEN AND PELVIS WITHOUT CONTRAST CLINICAL INDICATION: Female, 73 years old. GI BLEED [facility] MA[facility] GI BLEED NO CONTRAST Bed Name: 4 TECHNIQUE: CT abdomen and pelvis was performed, without IV contrast, as per department protocol. Axial, sagittal and coronal reconstructions were obtained. One or more of the following dose reduction techniques were used: Automated exposure control, adjustment of the mA and kV according to the patient size, and iterative reconstruction. Unless otherwise specified, incidental findings do not require dedicated imaging follow-up. COMPARISON: No prior exam. FINDINGS: The lack of intravenous contrast limits the sensitivity of this exam for evaluation of solid visceral organs, vascular structures, and retroperitoneum. LOWER CHEST: The visualized lung bases are clear. LIVER: Normal in size and contour. No focal lesion. Cholecystectomy clips. SPLEEN: Normal size. No focal lesion. PANCREAS: No mass, ductal dilation, or angelica-pancreatic fluid. ADRENALS: Normal; no mass. KIDNEYS AND URETERS: Normal size and contour. No hydronephrosis. Benign- appearing right renal cyst. URINARY BLADDER: Normal contour. GASTROINTESTINAL TRACT: No evidence of bowel obstruction, significant free fluid, free air or abscess. There is mild diverticulosis coli of the sigmoid colon without diverticulitis. APPENDIX: Normal appendix. LYMPH NODES: No lymphadenopathy. MUSCULOSKELETAL: Mild multilevel spinal degenerative changes. ADDITIONAL FINDINGS: None. IMPRESSION: No acute or concerning abnormalities in the abdomen or pelvis, with evaluation limited by lack of IV contrast. Conclusions/Impression: Stage I KEYANNA may be due to hypovolemia CKD I with Proteinuria -No NSAIDs -Discontinue IVF Hyponatremia -Encourage nutrition Hypokalemia -Replete prn Hypercalcemia may be due to immobilization -Resolved Hypomagnesemia -Replete prn -Continue Slo-Mag TID HTN with CKD -Continue Metoprolol for tachycardia Hypervolemia with Pulmonary Edema and Pleural Effusions Periperhal Edema -Hold diuretics at this time Hypoalbuminemia -Continue protein supplementation -Albumin IV prn Anemia in chronic illness/ blood loss Iron Deficiency 4.9% -PRBC prn -GI following Colon Cancer sp Resection 12-08-23 Invasive moderately differentiated adenocarcinoma -Follow up with surgery -Wound care as ordered Hospitalist note reviewed Case reviewed with Dr. Ryan
== END 2024-01-13 11:36 | DRG 329 ==
LOC: ER 08:00 → ERHOLD 13:05 → 4TH 13:47 → 3RD-ICU 12-08 15:19 → 2ND 12-09 17:54 → 3RD-ICU 12-14 15:10 → 2ND 12-29 14:31
PROVIDERS: ADMIT Nurse Practitioner; ATTEND Hospitalist
PROC: 30233N1 Transfusion of Nonautologous Red Blood Cells into Peripheral Vein, Percutaneous Approach (ICD-10-PCS; 2023-11-30)
PROC: 02HV33Z Insertion of Infusion Device into Superior Vena Cava, Percutaneous Approach (ICD-10-PCS; 2023-11-30)
PROC: 0DBL8ZX Excision of Transverse Colon, Via Natural or Artificial Opening Endoscopic, Diagnostic (ICD-10-PCS; 2023-12-02)
PROC: 02HV33Z Insertion of Infusion Device into Superior Vena Cava, Percutaneous Approach (ICD-10-PCS; 2023-12-03)
PROC: 0DTF0ZZ Resection of Right Large Intestine, Open Approach (ICD-10-PCS; principal; 2023-12-08 11:00)
PROC: 0D1B0Z4 Bypass Ileum to Cutaneous, Open Approach (ICD-10-PCS; 2023-12-14)
PROC: 3E0436Z Introduction of Nutritional Substance into Central Vein, Percutaneous Approach (ICD-10-PCS; 2023-12-14)
PROC: 0DH67UZ Insertion of Feeding Device into Stomach, Via Natural or Artificial Opening (ICD-10-PCS; 2023-12-14)
PROC: 0W993ZZ Drainage of Right Pleural Cavity, Percutaneous Approach (ICD-10-PCS; 2023-12-19)
PROC: 30233K1 Transfusion of Nonautologous Frozen Plasma into Peripheral Vein, Percutaneous Approach (ICD-10-PCS; 2023-12-24)
PROC: 0T9B70Z Drainage of Bladder with Drainage Device, Via Natural or Artificial Opening (ICD-10-PCS; 2023-12-24)
PROC: 0DB68ZX Excision of Stomach, Via Natural or Artificial Opening Endoscopic, Diagnostic (ICD-10-PCS; 2023-12-25)
PROC: 0DB78ZX Excision of Stomach, Pylorus, Via Natural or Artificial Opening Endoscopic, Diagnostic (ICD-10-PCS; 2023-12-25)
PROC: B24BZZ4 Ultrasonography of Heart with Aorta, Transesophageal (ICD-10-PCS; 2024-01-05)
PROC: 5A2204Z Restoration of Cardiac Rhythm, Single (ICD-10-PCS; 2024-01-05)
DX: C18.4 Malignant neoplasm of transverse colon (principal); A41.9 Sepsis, unspecified organism; G93.41 Metabolic encephalopathy; I50.31 Acute diastolic (congestive) heart failure; J18.9 Pneumonia, unspecified organism; J96.01 Acute respiratory failure with hypoxia; I48.20 Chronic atrial fibrillation, unspecified; N17.9 Acute kidney failure, unspecified; D62 Acute posthemorrhagic anemia; D68.9 Coagulation defect, unspecified; I13.0 Hypertensive heart and chronic kidney disease with heart failure and stage 1 through stage 4 chronic kidney disease, or unspecified chronic kidney disease; I96 Gangrene, not elsewhere classified; E87.1 Hypo-osmolality and hyponatremia; F05 Delirium due to known physiological condition; K22.10 Ulcer of esophagus without bleeding; K56.699 Other intestinal obstruction unspecified as to partial versus complete obstruction; N18.2 Chronic kidney disease, stage 2 (mild); D63.1 Anemia in chronic kidney disease; D50.9 Iron deficiency anemia, unspecified; E86.0 Dehydration; I95.9 Hypotension, unspecified; E87.6 Hypokalemia; D63.0 Anemia in neoplastic disease; G72.9 Myopathy, unspecified; K29.00 Acute gastritis without bleeding; E83.42 Hypomagnesemia; K26.9 Duodenal ulcer, unspecified as acute or chronic, without hemorrhage or perforation; K44.9 Diaphragmatic hernia without obstruction or gangrene; K21.00 Gastro-esophageal reflux disease with esophagitis, without bleeding; K66.0 Peritoneal adhesions (postprocedural) (postinfection); K57.30 Diverticulosis of large intestine without perforation or abscess without bleeding; R73.9 Hyperglycemia, unspecified; Z88.0 Allergy status to penicillin; Z79.01 Long term (current) use of anticoagulants; Z90.49 Acquired absence of other specified parts of digestive tract; Z53.31 Laparoscopic surgical procedure converted to open procedure; Z79.899 Other long term (current) drug therapy
CPT/HCPCS: 01922; 32555; 36415; 36430; 36569; 70450; 71045; 71260; 74018; 74019; 74176; 74177; 74270; 80048; 80053; 80061; 80069; 80076; 80162; 80202; 81001; 81003; 82306; 82378; 82947; 83036; 83540; 83690; 83735; 83880; 83930; 83935; 83970; 84100; 84132; 84134; 84300; 84439; 84443; 84466; 84484; 84550; 85014; 85018; 85025; 85027; 85610; 85730; 86850; 86900; 86901; 86920; 86927; 87070; 88305; 88307; 88309; 88312; 92960; 93005; 93306; 93312; 93971; 94010; 94760; 96365; 96366; 97110; 97116; 97161; 97164; 97530; 99285; A4216; J0171; J0282; J0461; J0696; J1100; J1160; J1171; J1650; J1720; J1940; J2003; J2185; J2250; J2270; J2354; J2405; J2470; J2550; J2704; J2710; J2765; J2916; J3010; J3475; J3480; J3590; J7030; J7040; J7050; J7060; J7120; P9016; P9017; P9045; P9047; Q9967